=== PATIENT | female | born 1945 | race Caucasian/White ===

== ENCOUNTER 2016-04-30 15:47 | Inpatient (IN) ==
[2016-04-30] MEDS ORDERED: 0.9 % Sodium Chloride 1,000 ML IVC ONE (15:54)
--- NOTE | 2016-04-30 16:06 | Emergency Department Note ---
Disposition Clinical Impression: Pyelonephritis Altered mental status Qualifiers: Altered mental status type: unspecified Qualified Code(s): R41.82 - Altered mental status, unspecified Multiple myeloma Qualifiers: Multiple myeloma remission status: not in remission Qualified Code(s): C90.00 - Multiple myeloma not having achieved remission Disposition: Admitted As Inpatient Condition: Serious General Adult HPI - General Chief complaint: ED General Medical Stated complaint: SENT FROM [facility] R/P SEPSIS Nursing Notes Reviewed: Yes Vital Signs Reviewed: Yes - History of Present Illness HPI Narrative: Patient 70-year-old female with past SIGNIFICANT for multiple myeloma currently undergoing anti-neoplastic therapy with Dr. Zepeda, history of previous VT and diabetes. Patient was brought from [facility] [place] secondary to suspicion of sepsis. Patient has been feeling well for the past 2 days. Patient does not remember much else other than that she says she has been pretty out of it for the past 2 days. - Related Data Home Medications Medication Instructions Recorded Confirmed RX: Aspirin [Adult Low Dose 81 mg PO QAM 04/04/15 04/30/16 Aspirin EC] RX: Atorvastatin Calcium [Lipitor] 20 mg PO DAILY 04/04/15 04/30/16 RX: Loperamide HCl [Imodium A-D] 2 mg PO Q6H PRN 04/04/15 04/30/16 RX: Prochlorperazine Maleate 10 mg PO Q6H PRN 04/04/15 04/30/16 [Compazine] RX: Tizanidine HCl [Zanaflex] 4 mg PO Q8H PRN 04/04/15 04/30/16 RX: Docusate [Colace] 100 mg PO DAILY PRN 04/22/15 04/30/16 RX: Insulin Glargine,Hum.rec.anlog 15 unit SQ HS 04/22/15 04/30/16 [Lantus Solostar] RX: Insulin Glargine,Hum.rec.anlog 18 unit SQ QAM 04/22/15 04/30/16 [Lantus Solostar] RX: Insulin LISPRO [HumaLOG] 0 unit SQ ACHS 04/22/15 04/30/16 RX: Melatonin 10 mg PO HS PRN 04/22/15 04/30/16 RX: Simethicone [Gas-X] 160 mg PO Q6H PRN 04/22/15 04/30/16 RX: Acetaminophen [Tylenol] 650 mg PO Q4H PRN 06/11/15 04/30/16 RX: Gabapentin [Neurontin] 300 mg PO BID 06/11/15 04/30/16 RX: Magnesium Hydroxide/Al Hydrox 30 ml PO BID PRN 06/11/15 04/30/16 [Mag-Al Liquid] RX: Glucagon HCl 1 mg IJ ONCE PRN 12/27/15 04/30/16 Clopidogrel [Plavix] 75 mg PO DAILY 02/18/16 04/30/16 Fluticasone Propionate Nasal 2 spray NS DAILY 02/18/16 04/30/16 [Flonase] Furosemide [Lasix] 40 mg PO DAILY 02/18/16 04/30/16 RX: Temazepam [Restoril] 15 mg PO HS 02/18/16 04/30/16 Albuterol Neb [Proventil Neb] 2.5 mg IH Q6H PRN 04/30/16 04/30/16 GuaiFENesin/Dextromethorphan 1 each PO BID 04/30/16 04/30/16 [Mucinex Dm ER 600-30 mg Tablet] Guaifenesin [Diabetic Tussin Ex] 100 mg PO QID PRN 04/30/16 04/30/16 Nystatin POWDER [Nystop] 1 appl TP BID 04/30/16 04/30/16 Ondansetron HCl [Zofran] 4 mg PO Q6H PRN 04/30/16 04/30/16 RX: Mirtazapine 7.5 mg PO HS 04/30/16 04/30/16 Saline Nasal [place] [[place] Nasal 1 spray NS TID 04/30/16 04/30/16 [place]] Sulfamethoxazole/Trimeth DS 1 each PO BID 04/30/16 04/30/16 [Bactrim DS] Tolnaftate [Antifungal Cream] 1 appl TP BID 04/30/16 04/30/16 Tramadol HCl [Ultram] 50 - 100 mg PO Q6H PRN 04/30/16 04/30/16 Tramadol HCl [Ultram] 50 mg PO BID 04/30/16 04/30/16 Zolpidem [Ambien] 5 mg PO HS 04/30/16 04/30/16 Previous Rx's Medication Instructions Recorded RX: Folic Acid 1 mg PO DAILY #30 tablet 04/18/15 MethylPREDNISolone [Medrol] 20 mg PO DAILY #10 tablet 04/14/16 Allergies Allergy/AdvReac Type Severity Reaction Status Date / Time hydrocodone [From Vicodin] Allergy Rash Verified 04/04/15 11:12 Review of Systems: Patient states she feels horrible and has been feeling horrible for the past 2 days. When I asked the patient if she has been having any headache, fever, chills, abdominal pain lightheadedness dizziness patient states that she really does not know that she has been pretty out of it but she does note feeling short of breath the past 2 days and she has some pain when breathing in deeply All systems ED: reviewed and negative except as stated. Past Medical History - Past Medical History Medical history: Reports: cancer, coronary artery disease, diabetes, renal disease, other Surgical history: Reports: angioplasty/stent Psychiatric history: Reports: no psych history - Social History Smoking Status: Never smoker Smokeless Tobacco Status: No Alcohol use: Reports: none Drug use: Reports: none Physical Exam -General Appearance: Patient is a 70-year-old female who is alert and oriented 3 and satting acute distress but patient is very uncomfortable secondary to feeling very ill. Patient has a wet sounding cough -Neurological exam: Cranial nerves II-12 grossly intact, no focal deficits observed - Head Head exam: atraumatic, normocephalic, normal inspection - Eye Eye exam: Present: normal appearance, PERRL, EOMI, negative for scleral icterus negative for conjunctival pallor - ENT ENT exam: normal exam, normal oropharynx, mucous membranes very dry - Neck Neck exam: Present: normal inspection, full ROM, trachea midline, negative JVD - Chest Chest inspection: Present: Patient has bilateral equal rise and fall of chest wall. Non-tender to palpation. Port placed right chest wall - Respiratory Respiratory exam: Clear to auscultation bilaterally without wheezes rales or rhonchi Cardiovascular Cardiovascular exam: Present: regular rate, normal rhythm, normal heart sounds, without murmurs rubs or gallops. - Abdominal Exam Abdominal exam: Present: soft, nondistended, Non-Tender light and deep palpation in all quadrants. Bowel sounds normoactive throughout all 4 quadrants. Negative for hyper or hyperresonance. - Extremities Exam Extremities exam: Present: normal inspection - Psychiatric Psychiatric exam: Present: normal affect, normal mood - Skin Skin exam: Present: warm, dry, intact extremities, normal color patient has areas of ecchymosis secondary to anticoagulant therapy. Course Course Narrative: Patient seen and examined. Full sepsis workup was initiated. - Reevaluation(s) Reevaluation #1: Pt is doing well but still has some confusion and unable to answer all questions. Time: 16:10 Vital Signs Temperature 97.6 F 04/30/16 15:51 Pulse Rate 75 04/30/16 15:51 Respiratory Rate 20 04/30/16 15:51 Blood Pressure 113/51 04/30/16 15:51 O2 Sat by Pulse Oximetry 95 04/30/16 15:51 Temperature 97.4 F L 05/06/16 21:49 Pulse Rate 74 05/06/16 21:49 Respiratory Rate 16 05/06/16 21:49 Blood Pressure 125/65 05/06/16 21:49 O2 Sat by Pulse Oximetry 98 05/06/16 21:49 Oxygen Delivery Oxygen Delivery Nasal Cannula Medical Decision Making - MDM Narrative Medical decision making narrative: Miss Vaughan is a 70-year-old female was brought over to the ED from her oncologist's office at [facility]. Patient was receiving dose of chemotherapy for multiple myeloma. Pt reported recent History of fever and altered mental status and was transfered to [place] for workup for possible Sepsis. Sunny has a history of VT and diabetes mellitus. Patient has been not feeling well for the past few days. Pt is currently afebrile but appears not well with a history of multiple myeloma, undergoing chemo and so Sepsis protocol was initiated. Pt's troponin 0.01 , lactic acid 0.6, BMP shows hyponatremia at 135, elevated BUN 116 and elevated creatinine at 4.37. Patient has chronic elevation with previous creatinine of 2.11. Patient's ABG shows a low PO2 saturation but a normal pH and is retaining CO2. Patient's urine is cloudy positive for hematuria, nitrites, large leukocyte esterase, microscopic RBCs 5-15, and many bacteria. Admitting patient for pyelonephritis with Altered Mental status secondary to Azotemic Encephalopathy. Disposition will be admission at this time. Dr. Waite accepted for admission. - Medical Records Medical records reviewed: Yes I reviewed the patient's medical records. - Lab Data Lab results reviewed: Yes I reviewed the patient's lab results. Result diagrams: 05/06/16 04:20 05/06/16 04:20 Lab Results 04/30/16 04/30/16 04/30/16 Range/Units 16:06 16:08 16:08 WBC 11.1 (4.3-11.1) K/mcL RBC 3.19 L (3.82-4.97) M/mcL Hgb 9.7 L (11.5-15.4) g/dL Hct 29.8 L (35.3-44.9) % MCV 93.4 (83.0-100.0) fL MCH 30.4 (28.0-33.3) pg MCHC 32.6 (31.6-35.5) g/dL RDW 14.4 (11.5-14.5) % Plt Count 241 (140-400) K/mcL MPV 9.8 (9.4-12.4) fL Immature Gran % 0.8 (0-4) % Seg Neutrophils % 97.1 % Lymphocytes % 0.7 % Monocytes % 1.1 % Eosinophils % 0.2 % Basophils % 0.1 % Neutrophils # 10.8 H (1.6-8.9) K/mcL Lymphocytes # 0.1 L (0.6-4.6) K/mcL Monocytes # 0.1 (0.0-1.3) K/mcL Eosinophils # 0.0 (0.0-0.6) K/mcL Basophils # 0.0 (0.0-0.2) K/mcL Platelet Estimate Normal (Normal) Immature Plt Fraction 1.6 (1.1-6.1) % PT 13.4 H (9.4-12.1) Seconds INR 1.2 APTT 32.9 (26.0-36.0) Seconds ABG pH (7.32-7.45) pH Units ABG pCO2 (35-45) mmHg ABG pO2 (85-104) mmHg ABG HCO3 (21-27) mEQ/L ABG Total CO2 (20-26) mEq/L ABG O2 Saturation (95-98) % ABG Base Excess (-2.0 to 3.0) mEq/L Blood Gas Modality Inspired O2 % Sodium (136-145) mEq/L Potassium (3.5-4.5) mEq/L Chloride (98-109) mEq/L Carbon Dioxide (19-29) mEq/L BUN (7-20) mg/dL Creatinine (0.57-1.11) mg/dL Est GFR ( Amer) (> 60) Est GFR (Non-Af Amer) (> 60) BUN/Creatinine Ratio (6-26) Glucose (70-99) mg/dL Est Mean Plasma Glucose 229 mg/dl Hemoglobin A1c 9.6 H ( - 5.6) % Calculated Osmolality (280-300) Lactic Acid (0.5-2.2) mmol/L Calcium (8.6-10.8) mg/dL Phosphorus (2.3-4.7) mg/dL Magnesium (1.6-2.6) mg/dL Total Bilirubin (0.2-1.2) mg/dL Direct Bilirubin (0.0-0.5) mg/dL Indirect Bilirubin (0.0-1.2) mg/dL AST (5-34) Units/L ALT (0-55) Units/L Alkaline Phosphatase (38-126) Units/L Troponin I (0-0.03) ng/mL Serum Total Protein (6.0-8.3) g/dL Albumin (3.5-5.0) g/dL Globulin (2.4-3.5) g/dL Albumin/Globulin Ratio (1.1-2.2) Urine Color (Yellow) Urine Clarity (Clear) Urine pH (5.0-8.0) pH Units Ur Specific [place] (1.010-1.025) Urine Protein (Neg-Trace) mg/dL Urine Glucose (UA) (Normal) mg/dL Urine Ketones (Negative) mg/dL Urine Blood (Negative) Urine Nitrite (Negative) Urine Bilirubin (Negative) Urine Urobilinogen (Normal) mg/dL Ur Leukocyte Esterase (Negative) Urine Microscopic RBC (0-3) per hpf Urine Microscopic WBC (0-3) per hpf Ur Squamous Epith Cells (None-Few) per lpf Urine Bacteria (None-Few) per hpf Hyaline Casts (None-Few) per lpf Ur Culture Indicated? (NO) 04/30/16 04/30/16 04/30/16 Range/Units 16:08 16:08 16:08 WBC (4.3-11.1) K/mcL RBC (3.82-4.97) M/mcL Hgb (11.5-15.4) g/dL Hct (35.3-44.9) % MCV (83.0-100.0) fL MCH (28.0-33.3) pg MCHC (31.6-35.5) g/dL RDW (11.5-14.5) % Plt Count (140-400) K/mcL MPV (9.4-12.4) fL Immature Gran % (0-4) % Seg Neutrophils % % Lymphocytes % % Monocytes % % Eosinophils % % Basophils % % Neutrophils # (1.6-8.9) K/mcL Lymphocytes # (0.6-4.6) K/mcL Monocytes # (0.0-1.3) K/mcL Eosinophils # (0.0-0.6) K/mcL Basophils # (0.0-0.2) K/mcL Platelet Estimate (Normal) Immature Plt Fraction (1.1-6.1) % PT (9.4-12.1) Seconds INR APTT (26.0-36.0) Seconds ABG pH (7.32-7.45) pH Units ABG pCO2 (35-45) mmHg ABG pO2 (85-104) mmHg ABG HCO3 (21-27) mEQ/L ABG Total CO2 (20-26) mEq/L ABG O2 Saturation (95-98) % ABG Base Excess (-2.0 to 3.0) mEq/L Blood Gas Modality Inspired O2 % Sodium 135 L (136-145) mEq/L Potassium 4.3 (3.5-4.5) mEq/L Chloride 103 (98-109) mEq/L Carbon Dioxide 16 L (19-29) mEq/L BUN 116 H (7-20) mg/dL Creatinine 4.37 H (0.57-1.11) mg/dL Est GFR ( Amer) 12 L (> 60) Est GFR (Non-Af Amer) 10 L (> 60) BUN/Creatinine Ratio 27 H (6-26) Glucose 197 H (70-99) mg/dL Est Mean Plasma Glucose mg/dl Hemoglobin A1c ( - 5.6) % Calculated Osmolality 322 H (280-300) Lactic Acid 0.6 (0.5-2.2) mmol/L Calcium 7.6 L (8.6-10.8) mg/dL Phosphorus 6.3 H (2.3-4.7) mg/dL Magnesium 1.8 (1.6-2.6) mg/dL Total Bilirubin 0.4 (0.2-1.2) mg/dL Direct Bilirubin 0.2 (0.0-0.5) mg/dL Indirect Bilirubin 0.2 (0.0-1.2) mg/dL AST 30 (5-34) Units/L ALT 21 (0-55) Units/L Alkaline Phosphatase 129 H (38-126) Units/L Troponin I 0.01 (0-0.03) ng/mL Serum Total Protein 5.0 L (6.0-8.3) g/dL Albumin 1.9 L (3.5-5.0) g/dL Globulin 3.1 (2.4-3.5) g/dL Albumin/Globulin Ratio 0.6 L (1.1-2.2) Urine Color (Yellow) Urine Clarity (Clear) Urine pH (5.0-8.0) pH Units Ur Specific [place] (1.010-1.025) Urine Protein (Neg-Trace) mg/dL Urine Glucose (UA) (Normal) mg/dL Urine Ketones (Negative) mg/dL Urine Blood (Negative) Urine Nitrite (Negative) Urine Bilirubin (Negative) Urine Urobilinogen (Normal) mg/dL Ur Leukocyte Esterase (Negative) Urine Microscopic RBC (0-3) per hpf Urine Microscopic WBC (0-3) per hpf Ur Squamous Epith Cells (None-Few) per lpf Urine Bacteria (None-Few) per hpf Hyaline Casts (None-Few) per lpf Ur Culture Indicated? (NO) 04/30/16 04/30/16 04/30/16 Range/Units 16:17 16:23 18:20 WBC (4.3-11.1) K/mcL RBC (3.82-4.97) M/mcL Hgb (11.5-15.4) g/dL Hct (35.3-44.9) % MCV (83.0-100.0) fL MCH (28.0-33.3) pg MCHC (31.6-35.5) g/dL RDW (11.5-14.5) % Plt Count (140-400) K/mcL MPV (9.4-12.4) fL Immature Gran % (0-4) % Seg Neutrophils % % Lymphocytes % % Monocytes % % Eosinophils % % Basophils % % Neutrophils # (1.6-8.9) K/mcL Lymphocytes # (0.6-4.6) K/mcL Monocytes # (0.0-1.3) K/mcL Eosinophils # (0.0-0.6) K/mcL Basophils # (0.0-0.2) K/mcL Platelet Estimate (Normal) Immature Plt Fraction (1.1-6.1) % PT (9.4-12.1) Seconds INR APTT (26.0-36.0) Seconds ABG pH 7.35 (7.32-7.45) pH Units ABG pCO2 32 L (35-45) mmHg ABG pO2 78 L (85-104) mmHg ABG HCO3 17.7 L (21-27) mEQ/L ABG Total CO2 18.7 L (20-26) mEq/L ABG O2 Saturation 95 (95-98) % ABG Base Excess -7.1 L (-2.0 to 3.0) mEq/L Blood Gas Modality RA Inspired O2 21 % Sodium (136-145) mEq/L Potassium (3.5-4.5) mEq/L Chloride (98-109) mEq/L Carbon Dioxide (19-29) mEq/L BUN (7-20) mg/dL Creatinine (0.57-1.11) mg/dL Est GFR ( Amer) (> 60) Est GFR (Non-Af Amer) (> 60) BUN/Creatinine Ratio (6-26) Glucose (70-99) mg/dL Est Mean Plasma Glucose mg/dl Hemoglobin A1c ( - 5.6) % Calculated Osmolality (280-300) Lactic Acid 0.6 (0.5-2.2) mmol/L Calcium (8.6-10.8) mg/dL Phosphorus (2.3-4.7) mg/dL Magnesium (1.6-2.6) mg/dL Total Bilirubin (0.2-1.2) mg/dL Direct Bilirubin (0.0-0.5) mg/dL Indirect Bilirubin (0.0-1.2) mg/dL AST (5-34) Units/L ALT (0-55) Units/L Alkaline Phosphatase (38-126) Units/L Troponin I (0-0.03) ng/mL Serum Total Protein (6.0-8.3) g/dL Albumin (3.5-5.0) g/dL Globulin (2.4-3.5) g/dL Albumin/Globulin Ratio (1.1-2.2) Urine Color Yellow (Yellow) Urine Clarity Cloudy A (Clear) Urine pH 6.0 (5.0-8.0) pH Units Ur Specific [place] 1.011 (1.010-1.025) Urine Protein Trace (Neg-Trace) mg/dL Urine Glucose (UA) Normal (Normal) mg/dL Urine Ketones Negative (Negative) mg/dL Urine Blood Moderate H (Negative) Urine Nitrite Positive A (Negative) Urine Bilirubin Negative (Negative) Urine Urobilinogen Normal (Normal) mg/dL Ur Leukocyte Esterase Large H (Negative) Urine Microscopic RBC 5-15 H (0-3) per hpf Urine Microscopic WBC TNTC H (0-3) per hpf Ur Squamous Epith Cells None Seen (None-Few) per lpf Urine Bacteria Many H (None-Few) per hpf Hyaline Casts None Seen (None-Few) per lpf Ur Culture Indicated? YES A (NO) - Radiology Data Radiology results reviewed: Yes I reviewed the patient's radiology results. Pulmonary Perfusion Imaging 04/30/16 17:49 IMPRESSION: Low Probability for Pulmonary Embolus. D/ / Richard Ram MD / Richard Ram MD Interpreting Provider: Richard Ram MD Chest X-Ray 05/05/16 03:00 IMPRESSION: No acute disease. D/ / Chapo Drake MD / Chapo Drake MD Interpreting Provider: Chapo Drake MD - EKG Data EKG #1 EKG attestation: Yes I reviewed and interpreted this EKG. EKG results narrative: EKG taken to April 2016 at 1611 hrs. shows a sinus rate of [address] depressions or elevations in leads. No QRS widening or QT prolongation. Previous EKG taken 06/11/2015 shows a sinus tachycardia with no signs ischemia but has PVCs and irregular P waves
[2016-04-30 16:17] LABS: Basophils % 0.1 %; Eosinophils % 0.2 %; Hematocrit 29.8 % (35.3-44.9); Hemoglobin 9.7 g/dL (11.5-15.4); Immature Granulocytes % 0.8 % (0-4); Immature Platelets 1.6 % (1.1-6.1); Lymphocytes # 0.1 K/mcL (0.6-4.6); Lymphocytes % 0.7 %; Mean Corpuscular HGB Conc 32.6 g/dL (31.6-35.5); Mean Corpuscular Hemoglobin 30.4 pg (28.0-33.3); Mean Corpuscular Volume 93.4 fL (83.0-100.0); Mean Platelet Volume 9.8 fL (9.4-12.4); Monocytes # 0.1 K/mcL (0.0-1.3); Monocytes % 1.1 %; Neutrophils # 10.8 K/mcL (1.6-8.9); Platelet Count 241 K/mcL (140-400); Red Blood Count 3.19 M/mcL (3.82-4.97); Red Cell Distribution Width 14.4 % (11.5-14.5); Segmented Neutrophils % 97.1 %
[2016-04-30 16:22] LABS: INR 1.2; Prothrombin Time 13.4 Seconds (9.4-12.1)
[2016-04-30 16:24] LABS: Activated Partial Thrombo Time 32.9 Seconds (26.0-36.0)
[2016-04-30 16:27] LABS: ABG Base Excess -7.1 mEq/L (-2.0 to 3.0); ABG HCO3 17.7 mEQ/L (21-27); ABG Oxygen Saturation 95 % (95-98); ABG PCO2 32 mmHg (35-45); ABG PH 7.35 pH Units (7.32-7.45); ABG PO2 78 mmHg (85-104); ABG TCO2 18.7 mEq/L (20-26)
[2016-04-30 16:29] LABS: Blood Gas FiO2 21 %
[2016-04-30 16:30] LABS: Bilirubin,Urine Negative (Negative); Blood,Urine Moderate (Negative); Clarity,Urine Cloudy (Clear); Color,Urine Yellow (Yellow); Glucose,Urine (UA) Normal (Normal); Ketones,Urine Negative (Negative); Leukocyte Esterase,Urine Large (Negative); Nitrite,Urine Positive (Negative); Protein,Urine Trace mg/dL (Neg-Trace); Specific Gravity,Urine 1.011 (1.010-1.025); Urobilinogen,Urine Normal (Normal)
[2016-04-30 16:33] LABS: Bacteria,Urine Many per hpf (None-Few); Hyaline Casts,Urine None Seen per lpf (None-Few); Squamous Epithelial Cell,Urine None Seen per lpf (None-Few); WBC,Urine TNTC per hpf (0-3)
[2016-04-30 16:36] LABS: Platelet Estimate Normal (Normal)
--- NOTE | 2016-04-30 16:37 | Emergency Department Note ---
START Narrative - START START: I examined this patient and my medical decision-making was reviewed with the STEAM TRAIN DRIVER/PA/Advanced Practice Nurse/Resident Physician. I agree with the documented findings, disposition and treatment plan as described except to the extent set forth below. ED attending note: Patient seen with emergency medicine resident Dr. Mcdaniel. Please see a copy of his note for details of the H&P, evaluation, management and disposition of this patient. We independently had [id number] contact with the patient Briefly: 70-year-old female history of multiple myeloma currently getting chemotherapy and radiation therapy by Dr. Kevin at [facility]. Was transferred from [facility] at the oncology center therefore weakness transient altered mental status and pleuritic chest pain. Patient has no prior history of DVT or PEs. Patient says that she is calling, less than [place] is been having fever and chills over the past few days. The oncologist sent over here for concerns of possible sepsis and/or pulmonary embolism. Patient is mostly bedbound obese has some anasarca. She has a chest port in place. She is afebrile with stable vital signs here but is somnolent and arouses to voice and is very dry oral mucosa. Patient will has been instituted with sepsis protocol orders. Admission anticipated. Provided one hour critical care service with this patient. Disposition pending
[2016-04-30 16:39] LABS: Albumin/Globulin Ratio 0.6 (1.1-2.2); Bilirubin,Direct 0.2 mg/dL (0.0-0.5); Bilirubin,Indirect 0.2 mg/dL (0.0-1.2); Bilirubin,Total 0.4 mg/dL (0.2-1.2); Calcium 7.6 mg/dL (8.6-10.8); Globulin 3.1 g/dL (2.4-3.5); Magnesium 1.8 mg/dL (1.6-2.6); Phosphorous 6.3 mg/dL (2.3-4.7); Potassium 4.3 mEq/L (3.5-4.5)
[2016-04-30 16:40] LABS: Albumin 1.9 g/dL (3.5-5.0)
[2016-04-30] MEDS ORDERED: Naloxone 0.4 MG/ML INJ IVP PRN (21:14)
[2016-04-30] MEDS ORDERED: Albuterol 2.5 MG/3 ML NEBULIZER IH PRN (21:21)
[2016-04-30] MEDS ORDERED: Mag Hydrox/Al Hydrox/Simeth 30 ML UDC PO PRN (21:21)
[2016-04-30] MEDS ORDERED: traMADol 50 MG TABLET PO PRN (21:21)
[2016-04-30] MEDS ORDERED: Simethicone 80 MG TAB.CHEW PO PRN (21:21)
[2016-04-30] MEDS ORDERED: D5% in Water 1,000 ML IV PRN (21:28)
[2016-04-30] MEDS ORDERED: *HR* Dextrose 50 % in Water (Syg) 50 ML SYRINGE IVP PRN (21:28)
[2016-04-30] MEDS ORDERED: Dextrose Gel 15 GM PO PRN ×2 (21:28)
--- NOTE | 2016-04-30 21:29 | Internal Med History&Physical ---
Date of Encounter: 04/30/16 Time of Encounter: 20:30 Assessment and Plan (1) UTI (urinary tract infection) due to urinary indwelling Choi catheter Current visit: Yes Status: Acute 1. Blood and urine culture pending. 2. Will treat with IV antibiotics/Rocephin. Adjust according to culture results. 3. Change Choi. Qualifiers: Indwelling urinary catheter type: indwelling urethral catheter Encounter type: initial encounter Qualified Code(s): T83.511A - Infection and inflammatory reaction due to indwelling urethral catheter, initial encounter; N39.0 - Urinary tract infection, site not specified (2) Acute renal failure Current visit: No Status: Acute 1. Likely due to UTI and dehydration. 2. Hold diuretics. 3. IVF hydration. 4. Monitor I/O and renal function. 5. Consult nephrology. 6. Calcium is low so hypercalcemia of malignancy not the etiology. Qualifiers: Acute renal failure type: unspecified Qualified Code(s): N17.9 - Acute kidney failure, unspecified (3) Chronic kidney disease (CKD), stage IV (severe) Current visit: No Status: Chronic 1. Avoid nephrotoxins. 2. Baseline creatinine is around 2.2. 3. Hold diuretics. 4. Nephrology consulted. (4) Multiple myeloma, failed remission Current visit: No Status: Chronic 1. Outpatient Hematology/Oncology follow-up. 2. Patient is full code. 3. May need inpatient consult for guidance of care. (5) IDDM (insulin dependent diabetes mellitus) Current visit: Yes Status: Chronic 1. Continue home Lantus dosing with SSI. 2. Monitor and adjust insulin dosing as needed. (6) DVT prophylaxis Current visit: Yes Status: Acute 1. Heparin SQ. Internal Medicine - H&P: HPI Chief complaint: weak; altered mental status; dehydration Admitted From: Emergency Dept Plans for Post Hospital Care: Home History of present illness: Ms. Vaughan is a 70 year old female who was sent to the emergency department today by her oncologist for concerns of weakness, altered mental status, and dehydration. Work-up in the ER revealed patient to have evidence of urinary tract infection with probable pyelonephritis, acute renal failure on top of chronic disease, and dehydration. Furthermore, there was concern that she had altered mental status. She was subsequently admitted to the hospitalist service. Upon my assessment of the patient, she appears be quite dehydrated, chronically ill-appearing, and very weak. She has minimal confusion, however. She is able to reiterate most of her history to me and she is alert and oriented 3. She states that she has been treated for UTI recently, but she still has some strong odor to her urine and the urine output has decreased. She has a chronic indwelling Choi catheter, and she lives in an F presently. She has been undergoing therapy and treatment for her multiple myeloma. She was due to start a new regimen of chemotherapy soon, but that is on hold because of her current hospital stay. She also recently finished radiation to her right leg where she has had some subcutaneous nodules related to her multiple myeloma. Regarding her UTI, she denies any subjective fevers, but she has had chills. She admits to being dehydrated and having decreased urine output. She is mostly bedbound but she does try and ambulate with significant assistance, however. She denies any vomiting or diarrhea. She denies any chest pain or shortness of breath. CODE STATUS is full code. Past Med Surg Social Fam HX - Past Medical History Source: patient, old records reviewed Medical history: cancer (multiple myeloma), coronary artery disease, diabetes, renal disease Psychiatric history: no psych history - Past Surgical History Surgical History: angioplasty/stent - Social History Smoking Status: Never smoker Smokeless Tobacco Status: No Alcohol use: none Drug use: none Current living situation: [facility] Activity Level: Bed bound, Mostly sedentary Recent Out of Country Travel Within the Last 8 Weeks: No - Family History Father Living Status: Hx Family Cardiac Disorders: Yes Hx Family Endocrine Disorder: Yes Sister Hx Family Cancer: Yes (kidney) Hx Family Endocrine Disorder: Yes Mother Living Status: Still Living Hx Family Cardiac Disorders: Yes (HTN) Hx Family Endocrine Disorder: Yes Internal Medicine - H&P: Meds Aspirin [Adult Low Dose Aspirin EC] 81 mg PO QAM 04/04/15 [History] Atorvastatin Calcium [Lipitor] 20 mg PO DAILY 04/04/15 [History] Loperamide HCl [Imodium A-D] 2 mg PO Q6H PRN 04/04/15 [History] Prochlorperazine Maleate [Compazine] 10 mg PO Q6H PRN 04/04/15 [History] Tizanidine HCl [Zanaflex] 4 mg PO Q8H PRN 04/04/15 [History] Folic Acid 1 mg PO DAILY #30 tablet 04/18/15 [Rx] Docusate [Colace] 100 mg PO DAILY PRN 04/22/15 [History] Insulin Glargine,Hum.rec.anlog [Lantus Solostar] 15 unit SQ HS 04/22/15 [History ] Insulin Glargine,Hum.rec.anlog [Lantus Solostar] 18 unit SQ QAM 04/22/15 [ History] Insulin LISPRO [HumaLOG] 0 unit SQ ACHS 04/22/15 [History] Melatonin 10 mg PO HS PRN 04/22/15 [History] Simethicone [Gas-X] 160 mg PO Q6H PRN 04/22/15 [History] Acetaminophen [Tylenol] 650 mg PO Q4H PRN 06/11/15 [History] Gabapentin [Neurontin] 300 mg PO BID 06/11/15 [History] Magnesium Hydroxide/Al Hydrox [Mag-Al Liquid] 30 ml PO BID PRN 06/11/15 [History ] Glucagon HCl 1 mg IJ ONCE PRN 12/27/15 [History] Clopidogrel [Plavix] 75 mg PO DAILY 02/18/16 [History] Fluticasone Propionate Nasal [Flonase] 2 spray NS DAILY 02/18/16 [History] Furosemide [Lasix] 40 mg PO DAILY 02/18/16 [History] Temazepam [Restoril] 15 mg PO HS 02/18/16 [History] MethylPREDNISolone [Medrol] 20 mg PO DAILY #10 tablet 04/14/16 [Rx] Albuterol Neb [Proventil Neb] 2.5 mg IH Q6H PRN 04/30/16 [History] GuaiFENesin/Dextromethorphan [Mucinex Dm ER 600-30 mg Tablet] 1 each PO BID 05/15 [History] Guaifenesin [Diabetic Tussin Ex] 100 mg PO QID PRN 04/30/16 [History] Mirtazapine 7.5 mg PO HS 04/30/16 [History] Nystatin POWDER [Nystop] 1 appl TP BID 04/30/16 [History] Ondansetron HCl [Zofran] 4 mg PO Q6H PRN 04/30/16 [History] Saline Nasal [place] [[place] Nasal [place]] 1 spray NS TID 04/30/16 [History] Sulfamethoxazole/Trimeth DS [Bactrim DS] 1 each PO BID 04/30/16 [History] Tolnaftate [Antifungal Cream] 1 appl TP BID 04/30/16 [History] Tramadol HCl [Ultram] 50 - 100 mg PO Q6H PRN 04/30/16 [History] Tramadol HCl [Ultram] 50 mg PO BID 04/30/16 [History] Zolpidem [Ambien] 5 mg PO HS 04/30/16 [History] Allergies hydrocodone [From Vicodin] Allergy (Verified 04/04/15 11:12) Rash - Constitutional Constitutional: chills, weakness, no fever(s), no night sweats - EENT Eyes: no blurry vision, no change in vision Ears: no ear pain, no tinnitus Nose, mouth and throat: no sinus pain, no sinus pressure, no sore throat - Cardiovascular Cardiovascular ROS IM: no chest pain, no dyspnea - Respiratory Respiratory: no cough, no hemoptysis, no chest congestion, no excessive phlegm production - Gastrointestinal Gastrointestinal: nausea, no abdominal pain, no diarrhea, no vomiting - Genitourinary Genitourinary: dysuria, no hematuria Additional comments: + decreased urine output - Musculoskeletal Musculoskeletal ROS IM: arthralgias, back pain, limited range of motion - Integumentary Integumentary IM: non-healing lesions (chronic skin nodules on her right leg from MM), no rash, no jaundice - Neurological Neurological ROS: no dizziness, no focal weakness, no headache(s) - Psychiatric Psychiatric: no anxiety, no depression - Endocrine Endocrine IM: no cold intolerance, no heat intolerance - Hematologic/Lymphatic Hematologic/Lymphatic: easy bruising, no lymphadenopathy - Allergic/Immunologic Allergic/Immunologic: no wheezing, no GI upset with certain foods - Constitutional Vitals: Temp Pulse Resp BP Pulse Ox 97.5 F L 84 18 117/72 98 04/30/16 20:51 04/30/16 20:51 04/30/16 20:51 04/30/16 20:51 04/30/16 20:51 General appearance: Present: cooperative, mild distress, A&O X 3, pleasant, obese, answers questions appropriately Exam: looks dry - Head Head exam: Present: atraumatic, normal inspection - Expanded Head Exam Head exam expanded: Absent: abrasion, contusion, general tenderness - Eye Eye exam: Present: EOMI, normal appearance, PERRL. Absent: scleral icterus Pupils: Present: normal accommodation - ENT ENT exam: Present: mucous membranes dry, normal exam, normal oropharynx - Neck Neck exam general surgery: Present: full ROM, normal inspection, supple. Absent : lymphadenopathy, nuchal rigidity, thyromegaly - Respiratory Respiratory exam: Present: CTAB. Absent: chest wall tenderness, rales, respiratory distress, rhonchi, wheezes - Cardiovascular Cardiovascular exam: Present: RRR, +S1, +S2. Absent: diastolic murmur, systolic murmur - GI/Abdominal GI/Abdominal exam: Present: normal bowel sounds, soft. Absent: hepatomegaly, mass, splenomegaly, tenderness - Additional comments: Choi in place - Extremities Exam Extremities exam: Present: tenderness (right leg with nodules and wound from radiation on lateral thigh), warm. Absent: calf tenderness, full ROM, joint swelling - Back Exam Back exam: Present: CVA tenderness (L), CVA tenderness (R) - Neurological Exam Neurological exam: Present: alert, CN II-XII intact, oriented X3, no focal deficits Additional comments: limited exam as she is bedbound; she moves all four extremities however - Psychiatric Psychiatric exam: Present: normal affect, normal mood - Skin Skin exam: Present: dry, warm. Absent: rash Additional comments: leg nodules as noted above Internal Med - H&P Results - Labs CBC & Chem 7: 04/30/16 16:08 04/30/16 16:08 - EKG Data -: EKG Interpreted by Myself - EKG Data Prior EKG available for review: yes When compared to previous EKG: there is no significant change EKG comments: 04/30/16 22:05 Sinus rhtyhm with leftward axis; otherwise negative - Diagnostic Studies Chest x-ray Status: image reviewed by me (increased pulmonary vascularity)
[2016-04-30] MEDS: 0.9 % Sodium Chloride 1,000 ML IVC SCH (22:24)
[2016-04-30 22:36] LABS: Hemoglobin A1C 9.6 %
[2016-05-01] MEDS: Hydrocortisone Sodium Succ 100 MG/2 ML VIAL IVP SCH ×3 (00:37→16:50)
[2016-05-01 06:49] LABS: Basophils % 0.1 %; Hematocrit 28.9 % (35.3-44.9); Hemoglobin 9.2 g/dL (11.5-15.4); Immature Granulocytes % 0.9 % (0-4); Lymphocytes # 0.2 K/mcL (0.6-4.6); Mean Corpuscular HGB Conc 31.8 g/dL (31.6-35.5); Mean Corpuscular Hemoglobin 29.4 pg (28.0-33.3); Mean Corpuscular Volume 92.3 fL (83.0-100.0); Monocytes # 0.2 K/mcL (0.0-1.3); Monocytes % 1.9 %; Neutrophils # 7.5 K/mcL (1.6-8.9); Platelet Count 249 K/mcL (140-400); Red Blood Count 3.13 M/mcL (3.82-4.97); Red Cell Distribution Width 14.3 % (11.5-14.5); Segmented Neutrophils % 95.1 %
[2016-05-01 07:07] LABS: Albumin 1.7 g/dL (3.5-5.0); Albumin/Globulin Ratio 0.6 (1.1-2.2); Bilirubin,Total 0.2 mg/dL (0.2-1.2); Calcium 7.1 mg/dL (8.6-10.8); Globulin 2.9 g/dL (2.4-3.5); Magnesium 1.7 mg/dL (1.6-2.6); Potassium 3.6 mEq/L (3.5-4.5); Total Protein 4.6 g/dL (6.0-8.3)
[2016-05-01] MEDS ORDERED: Insulin LISPRO 300 UNITS/3 ML VIAL SQ SCH (07:30)
[2016-05-01] MEDS: *HR* Heparin 5,000 UNIT/ML VIAL SQ SCH ×2 (07:38→18:56)
[2016-05-01 08:01] LABS: Platelet Estimate Normal (Normal); Toxic Granulation Present (Not Present)
[2016-05-01] MEDS ORDERED: Insulin DETEMIR 100 UNIT/ML X5UNITS SQ SCH ×2 (09:00→21:00)
[2016-05-01] MEDS: Folic Acid 1 MG TABLET PO SCH (10:20)
[2016-05-01] MEDS: Aspirin Enteric Coated 81 MG Tablet PO SCH (10:20)
[2016-05-01] MEDS: Saline Nasal Spray 44 ML BOTTLE NS SCH ×3 (10:28→22:55)
[2016-05-01] MEDS: Fluticasone Propionate Nasal 50 MCG/SPRAY BOTTLE NS SCH (10:28)
[2016-05-01] MEDS: Nystatin POWDER 30 GM BOTTLE TP SCH ×2 (10:29→22:55)
[2016-05-01] MEDS: Gabapentin 300 MG CAPSULE PO SCH ×2 (10:32→22:55)
[2016-05-01] MEDS: 0.9 % Sodium Chloride 1,000 ML IVC SCH (10:34)
--- NOTE | 2016-05-01 10:56 | Nephrology Consult Note ---
Date of Encounter: 05/01/16 Time of Encounter: 10:30 Assessment and Plan (1) Acute renal failure Current Visit: No Status: Acute PURNIMA/CKD baseline creat 2.1-2.5 in setting of dehydration secondary to decreased oral intake, picture of sepsis, possible tumor lysis related to current chemo and radiation. Continue IV fluids. Will obtain uric acid. Avoid nephrotoxins. Qualifiers: Acute renal failure type: unspecified Qualified Code(s): N17.9 - Acute kidney failure, unspecified History of Present Illness - Reason for Consult Acute Kidney Injury - History of Present Illness Ms. Vaughan is 70 year old female known to practice with CKD3-4. Baseline creat 2.1-2.5. Other significant PMH multiple myeloma currently receiving chemo and radiation for right leg nodules, CAD, previous IL and diabetes. Ms Vaughan currently resides in nursing facility and has a chronic indwelling Choi catheter. Ms. Vaughan was sent to ER from Oncology office for suspicion of sepsis. Sepsis workup started in ER. She states she has been not feeling good and "out of it for past two days." ROS is difficult to obtain because she "doesnt know how shes been feeling other than feeling out of it." This morning she states is feeling much better and more like herself. She does admit decreased food and fluid intake for past "few weeks." She denies NSAID use. It is noted she has a moist nonproductive cough that she states has had for "awhile." She states her Choi catheter was changed last night. Past Med Surg Social Fam HX - Past Medical History Medical history: cancer (multiple myeloma), coronary artery disease, diabetes, renal disease Psychiatric history: no psych history - Past Surgical History Surgical History: angioplasty/stent - Social History Smoking Status: Never smoker Smokeless Tobacco Status: No Alcohol use: none Drug use: none - Family History Father Living Status: Hx Family Cardiac Disorders: Yes Hx Family Endocrine Disorder: Yes Sister Hx Family Cancer: Yes (kidney) Hx Family Endocrine Disorder: Yes Mother Living Status: Still Living Hx Family Cardiac Disorders: Yes (HTN) Hx Family Endocrine Disorder: Yes Medications and Allergies Aspirin [Adult Low Dose Aspirin EC] 81 mg PO QAM 04/04/15 [History] Atorvastatin Calcium [Lipitor] 20 mg PO DAILY 04/04/15 [History] Loperamide HCl [Imodium A-D] 2 mg PO Q6H PRN 04/04/15 [History] Prochlorperazine Maleate [Compazine] 10 mg PO Q6H PRN 04/04/15 [History] Tizanidine HCl [Zanaflex] 4 mg PO Q8H PRN 04/04/15 [History] Folic Acid 1 mg PO DAILY #30 tablet 04/18/15 [Rx] Docusate [Colace] 100 mg PO DAILY PRN 04/22/15 [History] Insulin Glargine,Hum.rec.anlog [Lantus Solostar] 15 unit SQ HS 04/22/15 [History ] Insulin Glargine,Hum.rec.anlog [Lantus Solostar] 18 unit SQ QAM 04/22/15 [ History] Insulin LISPRO [HumaLOG] 0 unit SQ ACHS 04/22/15 [History] Melatonin 10 mg PO HS PRN 04/22/15 [History] Simethicone [Gas-X] 160 mg PO Q6H PRN 04/22/15 [History] Acetaminophen [Tylenol] 650 mg PO Q4H PRN 06/11/15 [History] Gabapentin [Neurontin] 300 mg PO BID 06/11/15 [History] Magnesium Hydroxide/Al Hydrox [Mag-Al Liquid] 30 ml PO BID PRN 06/11/15 [History ] Glucagon HCl 1 mg IJ ONCE PRN 12/27/15 [History] Clopidogrel [Plavix] 75 mg PO DAILY 02/18/16 [History] Fluticasone Propionate Nasal [Flonase] 2 spray NS DAILY 02/18/16 [History] Furosemide [Lasix] 40 mg PO DAILY 02/18/16 [History] Temazepam [Restoril] 15 mg PO HS 02/18/16 [History] MethylPREDNISolone [Medrol] 20 mg PO DAILY #10 tablet 04/14/16 [Rx] Albuterol Neb [Proventil Neb] 2.5 mg IH Q6H PRN 04/30/16 [History] GuaiFENesin/Dextromethorphan [Mucinex Dm ER 600-30 mg Tablet] 1 each PO BID 05/15 [History] Guaifenesin [Diabetic Tussin Ex] 100 mg PO QID PRN 04/30/16 [History] Mirtazapine 7.5 mg PO HS 04/30/16 [History] Nystatin POWDER [Nystop] 1 appl TP BID 04/30/16 [History] Ondansetron HCl [Zofran] 4 mg PO Q6H PRN 04/30/16 [History] Saline Nasal [place] [[place] Nasal [place]] 1 spray NS TID 04/30/16 [History] Sulfamethoxazole/Trimeth DS [Bactrim DS] 1 each PO BID 04/30/16 [History] Tolnaftate [Antifungal Cream] 1 appl TP BID 04/30/16 [History] Tramadol HCl [Ultram] 50 - 100 mg PO Q6H PRN 04/30/16 [History] Tramadol HCl [Ultram] 50 mg PO BID 04/30/16 [History] Zolpidem [Ambien] 5 mg PO HS 04/30/16 [History] Allergies hydrocodone [From Vicodin] Allergy (Verified 04/04/15 11:12) Rash Review of Systems All Systems: reviewed and no additional remarkable complaints except as stated Exam - Vital Signs Vital signs: Initial Vital Signs Temp Pulse Resp BP Pulse Ox 97.6 F 75 20 113/51 95 04/30/16 15:51 04/30/16 15:51 04/30/16 15:51 04/30/16 15:51 04/30/16 15:51 Vital Signs - Last 8 Hours Temp Pulse Resp BP Pulse Ox 05/01/16 06:44 97.5 F L 77 18 105/53 97 05/01/16 04:38 97.6 F 80 17 123/72 96 Intake and Output 04/30/16 05/01/16 05/01/16 23:59 07:59 15:59 Intake Total 2160 / 2160 Output Total 950 / 950 Balance 1210 / 1210 Intake: IV Fluids 1100 / 1100 0.9 % Sodium Chloride 1, 1000 / 1000 000 ML @ 100 mls/hr IVC . Q10H EDDIE Rx#:[id number] Rocephin 2,000 MG In 100 / 100 Dextrose 5% (Minibag+) 100 ML 100 ML @ 200 mls/ hr IVPB Q24H EDDIE Rx#: [id number] Oral 1060 / 1060 Output: Catheter 950 / 950 Other: Meal Breakfast Percent of Meal Consumed 30% Weight 126 kg Patient Weight 05/01/16 23:59 Weight 126 kg - General Appearance General appearance: well-developed, well-nourished, appears started age, obese EENT: mucous membranes moist Neck: no JVD, no carotid bruit Respiratory: course breath sounds Cardiology: regular rate, regular rhythm Additional Comments: obese LE, 3+ pedal edema, skin taut, shiny. Gastrointestinal: normoactive bowel sounds, no tenderness, no guarding, obese Integumentary: warm and dry Neurologic: alert and oriented x3 Psychiatric: mood/affect appropriate, cooperative Results - Lab Results 05/01/16 06:05 05/01/16 06:05 Most recent lab results ABG pH 7.35 pH Units (7.32-7.45) 04/30/16 16:23 ABG pCO2 32 mmHg (35-45) L 04/30/16 16:23 ABG pO2 78 mmHg (85-104) L 04/30/16 16:23 ABG HCO3 17.7 mEQ/L (21-27) L 04/30/16 16:23 ABG O2 Saturation 95 % (95-98) 04/30/16 16:23 Calcium 7.1 mg/dL (8.6-10.8) L 05/01/16 06:05 Phosphorus 6.3 mg/dL (2.3-4.7) H 04/30/16 16:08 Magnesium 1.7 mg/dL (1.6-2.6) 05/01/16 06:05 Consult Discharge Plan - Plan Referrals: NO,PCP [Non-Partnered Physician] -
--- NOTE | 2016-05-01 11:22 | Internal Med Progress Note ---
Date of Encounter: 05/01/16 Time of Encounter: 09:20 - Assessment and plan (1) Acute renal failure Current Visit: Yes Status: Acute Assessment and plan: Creatinine remains elevated. Presently at 4.04. BUN 121. Nephrology consulted. Continue IV hydration. Follow arterial function closely. Follow urine output closely. Avoid nephrotoxic agents. Patient at high risk for complications. Qualifiers: Acute renal failure type: with acute tubular necrosis Qualified Code(s): N17.0 - Acute kidney failure with tubular necrosis (2) Chronic kidney disease (CKD), stage IV (severe) Current Visit: No Status: Chronic Assessment and plan: With acute kidney injury. (3) IDDM (insulin dependent diabetes mellitus) Current Visit: Yes Status: Chronic Assessment and plan: Uncontrolled. Monitor blood sugars. Will increase insulin regimen. (4) Multiple myeloma, failed remission Current Visit: No Status: Chronic Assessment and plan: Follow up outpatient with oncology after discharge. (5) UTI (urinary tract infection) due to urinary indwelling Choi catheter Current Visit: Yes Status: Acute Assessment and plan: Urine growing gram-negative rods. Currently on Rocephin. Follow final culture results and sensitivities. Qualifiers: Indwelling urinary catheter type: indwelling urethral catheter Encounter type: initial encounter Qualified Code(s): T83.511A - Infection and inflammatory reaction due to indwelling urethral catheter, initial encounter; N39.0 - Urinary tract infection, site not specified (6) DVT prophylaxis Current Visit: Yes Status: Acute - Subjective Interval history: Patient is feeling better today. Denies any new complaints at this time. No shortness of breath. No fever or chills overnight. No nausea or vomiting. Pain having decent urine output. - Constitutional Vitals: Temp Pulse Resp BP Pulse Ox 97.6 F 88 16 127/61 99 05/01/16 10:55 05/01/16 10:55 05/01/16 10:55 05/01/16 10:55 05/01/16 10:55 General appearance: Present: cooperative, mild distress, A&O X 3, pleasant, obese, answers questions appropriately - Respiratory Respiratory exam: Present: CTAB. Absent: accessory muscle use, rales, rhonchi, wheezes - Cardiovascular Cardiovascular exam: Present: RRR, +S1, +S2. Absent: diastolic murmur, gallop, rubs, systolic murmur - GI/Abdominal GI/Abdominal exam: Present: normal bowel sounds, soft, no peritoneal signs. Absent: distended, tenderness - Extremities Exam Extremities exam: Present: warm, radial pulses palpable and symetrical. Absent : calf tenderness, cyanotic, pedal edema - Neurological Exam Neurological exam: Present: oriented X3, no focal deficits. Absent: facial droop, speech deficit - Skin Skin exam: Present: dry, intact Internal Medicine: Result - Labs CBC & Chem 7: 05/01/16 06:05 05/01/16 06:05 Labs: Short CBC 05/01/16 Range/Units 06:05 WBC 7.9 (4.3-11.1) K/mcL Hgb 9.2 L (11.5-15.4) g/dL Hct 28.9 L (35.3-44.9) % Plt Count 249 (140-400) K/mcL Neutrophils # 7.5 (1.6-8.9) K/mcL BMP 05/01/16 06:05 Sodium 136 Potassium 3.6 Chloride 103 Carbon Dioxide 15 L BUN 121 H Creatinine 4.04 H Glucose 412 H Calcium 7.1 L Liver Function 05/01/16 Range/Units 06:05 Total Bilirubin 0.2 (0.2-1.2) mg/dL AST 22 (5-34) Units/L ALT 20 (0-55) Units/L Alkaline Phosphatase 131 H (38-126) Units/L Albumin 1.7 L (3.5-5.0) g/dL - ABG Interpretation ABG results: ABG ABG pH 7.35 pH Units (7.32-7.45) 04/30/16 16:23 ABG pCO2 32 mmHg (35-45) L 04/30/16 16:23 ABG pO2 78 mmHg (85-104) L 04/30/16 16:23 ABG O2 Saturation 95 % (95-98) 04/30/16 16:23 PT/INR, D-dimer PT 13.4 Seconds (9.4-12.1) H 04/30/16 16:08 Consult Discharge Plan - Plan Referrals: NO,PCP [Non-Partnered Physician] - - Attending Attestation This document has been at least partially created by [employer] recognition technology by Dr. Frazier. Errors in grammar, wording or other phrases may exist. If errors are found after the documentation is signed, they will be addressed individually in the addendum section of this document when appropriate.
[2016-05-01] MEDS: Insulin LISPRO 300 UNITS/3 ML VIAL SQ SCH ×2 (12:11→16:54)
--- NOTE | 2016-05-01 15:07 | Electrocardiograph Report ---
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
[2016-05-01] MEDS: Temazepam 15 MG CAPSULE PO PRN ×2 (22:54→22:55)
[2016-05-02] MEDS: Hydrocortisone Sodium Succ 100 MG/2 ML VIAL IVP SCH ×2 (05:32→07:59)
[2016-05-02] MEDS: 0.9 % Sodium Chloride 1,000 ML IVC SCH (07:07)
[2016-05-02 07:19] LABS: Calcium 6.9 mg/dL (8.6-10.8); Potassium 2.8 mEq/L (3.5-4.5)
[2016-05-02 07:46] LABS: Basophils % 0.1 %; Hematocrit 28.4 % (35.3-44.9); Hemoglobin 9.2 g/dL (11.5-15.4); Immature Granulocytes % 0.9 % (0-4); Lymphocytes # 0.3 K/mcL (0.6-4.6); Lymphocytes % 2.2 %; Mean Corpuscular HGB Conc 32.4 g/dL (31.6-35.5); Mean Corpuscular Hemoglobin 29.8 pg (28.0-33.3); Mean Corpuscular Volume 91.9 fL (83.0-100.0); Mean Platelet Volume 10.2 fL (9.4-12.4); Monocytes # 0.6 K/mcL (0.0-1.3); Monocytes % 5.3 %; Neutrophils # 10.2 K/mcL (1.6-8.9); Platelet Count 267 K/mcL (140-400); Red Blood Count 3.09 M/mcL (3.82-4.97); Red Cell Distribution Width 14.3 % (11.5-14.5); Segmented Neutrophils % 91.5 %
[2016-05-02] MEDS ORDERED: Insulin DETEMIR 100 UNIT/ML X5UNITS SQ SCH (07:56)
[2016-05-02] MEDS: *HR* Heparin 5,000 UNIT/ML VIAL SQ SCH ×2 (07:57→17:38)
[2016-05-02] MEDS: Folic Acid 1 MG TABLET PO SCH (07:58)
[2016-05-02] MEDS: Gabapentin 300 MG CAPSULE PO SCH ×2 (07:58→21:31)
[2016-05-02] MEDS: Aspirin Enteric Coated 81 MG Tablet PO SCH (07:59)
[2016-05-02] MEDS: Fluticasone Propionate Nasal 50 MCG/SPRAY BOTTLE NS SCH (07:59)
[2016-05-02] MEDS: Insulin LISPRO 300 UNITS/3 ML VIAL SQ SCH ×7 (08:00→21:32)
--- NOTE | 2016-05-02 09:18 | Nephrology Progress Note ---
Date of Encounter: 05/02/16 Time of Encounter: 09:05 - Assessment and Plan (1) Acute renal failure Current Visit: Yes Status: Acute Renal fct improving. Edema worsening. IV stopped. Will give Lasix 40mg x 1. K+ rider ordered. Uric acid pending. Qualifiers: Acute renal failure type: with acute tubular necrosis Qualified Code(s): N17.0 - Acute kidney failure with tubular necrosis Subjective Interval history: Ate breakfast. States feeling better today,no new complainnts. Objective - Vital Signs Vital signs: Vital Signs Temp Pulse Resp BP Pulse Ox 05/02/16 07:35 97.6 F 76 20 132/78 99 05/02/16 05:09 97.6 F 80 18 140/71 96 05/02/16 01:37 98.2 F 70 19 128/76 99 05/01/16 20:55 98.5 F 84 20 141/78 98 05/01/16 16:10 98.2 F 80 16 117/50 97 05/01/16 10:55 97.6 F 88 16 127/61 99 05/01/16 10:30 95 Intake and Output 05/01/16 05/02/16 05/02/16 23:59 07:59 15:59 Intake Total 320 / 320 1200 / 1200 Output Total 800 / 800 1350 / 1350 Balance -480 / -480 -150 / -150 Intake: IV Fluids 900 / 900 0.9 % Sodium Chloride 1, 900 / 900 000 ML @ 100 mls/hr IVC . Q10H EDDIE Rx#:[id number] Oral 320 / 320 300 / 300 Output: Urine 800 / 800 Catheter 1350 / 1350 Other: Meal Dinner Percent of Meal Consumed 60% Weight 129.002 kg Blood Glucose* 359 354 Patient Weight 05/02/16 23:59 Weight 129.002 kg - General Appearance General appearance: Present: well-developed, well-nourished, appears started age , obese EENT: Present: mucous membranes moist Neck: Present: no JVD Respiratory: Present: clear Cardiology: Present: regular rate, regular rhythm Additional Comments: 3+ pedal/LE Gastrointestinal: Present: normoactive bowel sounds, no tenderness Integumentary: Present: warm and dry Neurologic: Present: alert and oriented x3 Psychiatric: Present: mood/affect appropriate, cooperative - Lab 05/02/16 06:56 02/04/17 06:56 Most recent lab results ABG pH 7.35 pH Units (7.32-7.45) 04/30/16 16:23 ABG pCO2 32 mmHg (35-45) L 04/30/16 16:23 ABG pO2 78 mmHg (85-104) L 04/30/16 16:23 ABG HCO3 17.7 mEQ/L (21-27) L 04/30/16 16:23 ABG O2 Saturation 95 % (95-98) 04/30/16 16:23 Calcium 6.9 mg/dL (8.6-10.8) L 05/02/16 06:56 Phosphorus 6.3 mg/dL (2.3-4.7) H 04/30/16 16:08 Magnesium 1.7 mg/dL (1.6-2.6) 05/01/16 06:05 Consult Discharge Plan - Plan Referrals: NO,PCP [Non-Partnered Physician] -
[2016-05-02] MEDS ORDERED: Furosemide 40 MG/4 ML VIAL IVP ONE (09:21)
[2016-05-02] MEDS ORDERED: *HR* Metoprolol 5 MG/5 ML VIAL IVP ONE ×3 (09:22→09:26)
[2016-05-02] MEDS: Nystatin POWDER 30 GM BOTTLE TP SCH ×2 (09:41→21:45)
[2016-05-02] MEDS: Insulin DETEMIR 100 UNIT/ML X5UNITS SQ SCH (09:56)
[2016-05-02] MEDS: Saline Nasal Spray 44 ML BOTTLE NS SCH ×3 (09:57→21:48)
[2016-05-02] MEDS ORDERED: Furosemide 40 MG/4 ML VIAL ONE (10:02)
[2016-05-02] MEDS ORDERED: Furosemide 20 MG/2 ML VIAL IVP ONE (10:02)
--- NOTE | 2016-05-02 11:34 | Internal Med Progress Note ---
Date of Encounter: 05/02/16 Time of Encounter: 09:25 - Assessment and plan (1) Atrial fibrillation, new onset Current Visit: Yes Status: Acute Assessment and plan: New onset atrial fibrillation with rapid ventricular response. Patient was previously in sinus rhythm. No reported history of A. fib. Will start on intravenous Cardizem drip. She will be at patient received a dose of 10 mg of metoprolol with good response but has persisted in rapid A. fib. We will consult cardiology. 2-D echocardiogram. High risk for complications. (2) Acute renal failure Current Visit: Yes Status: Acute Assessment and plan: Renal function improved compared to yesterday. But patient has severe edema and anasarca. Follow nephrology recommendations. Recommended one dose of intravenous Lasix. Will follow renal function closely. Continue to monitor urine output. Qualifiers: Acute renal failure type: with acute tubular necrosis Qualified Code(s): N17.0 - Acute kidney failure with tubular necrosis (3) Chronic kidney disease (CKD), stage IV (severe) Current Visit: No Status: Chronic (4) IDDM (insulin dependent diabetes mellitus) Current Visit: Yes Status: Chronic Assessment and plan: Uncontrolled. Increased insulin regimen. Will follow blood sugars closely. (5) Multiple myeloma, failed remission Current Visit: No Status: Chronic (6) UTI (urinary tract infection) due to urinary indwelling Choi catheter Current Visit: Yes Status: Acute Assessment and plan: With ESBL Escherichia coli. Changed antibiotics to ertapenem. We will dose renally. Patient will need intravenous ertapenem for at least 2 weeks to treat this infection. Qualifiers: Indwelling urinary catheter type: indwelling urethral catheter Encounter type: initial encounter Qualified Code(s): T83.511A - Infection and inflammatory reaction due to indwelling urethral catheter, initial encounter; N39.0 - Urinary tract infection, site not specified (7) DVT prophylaxis Current Visit: Yes Status: Acute Assessment and plan: On subcutaneous heparin. - Subjective Interval history: Patient complaining of palpitations. Denies any chest pain. She was doing well till a little while back when she began to have palpitations. Having good urine output. Denies any shortness of breath. No dizziness or lightheadedness. No fever or chills or night sweats. She has never had any heart rhythm abnormalities in the past except when she had her previous NE. She denies any knowledge of previously being diagnosed with any atrial fibrillation. - Constitutional Vitals: Temp Pulse Resp BP Pulse Ox 97.6 F 76 20 132/78 99 05/02/16 07:35 05/02/16 07:35 05/02/16 07:35 05/02/16 07:35 05/02/16 07:35 General appearance: Present: cooperative, mild distress, A&O X 3, pleasant, obese, answers questions appropriately - Respiratory Respiratory exam: Present: CTAB. Absent: accessory muscle use, rales, rhonchi, wheezes - Cardiovascular Cardiovascular exam: Present: irregular rhythm, +S1, +S2, tachycardia. Absent: diastolic murmur, gallop, rubs, systolic murmur - GI/Abdominal GI/Abdominal exam: Present: normal bowel sounds, soft, no peritoneal signs. Absent: distended, tenderness - Extremities Exam Extremities exam: Present: pedal edema (Severe), warm, radial pulses palpable and symetrical. Absent: calf tenderness, cyanotic - Neurological Exam Neurological exam: Present: CN II-XII intact, oriented X3, no focal deficits. Absent: pronater drift, facial droop, speech deficit Internal Medicine: Result - Labs CBC & Chem 7: 05/02/16 06:56 05/02/16 06:56 Labs: Short CBC 05/02/16 Range/Units 06:56 WBC 11.1 (4.3-11.1) K/mcL Hgb 9.2 L (11.5-15.4) g/dL Hct 28.4 L (35.3-44.9) % Plt Count 267 (140-400) K/mcL Neutrophils # 10.2 H (1.6-8.9) K/mcL BMP 05/02/16 06:56 Sodium 135 L Potassium 2.8 L Chloride 104 Carbon Dioxide 17 L BUN 109 H Creatinine 3.61 H Glucose 364 H Calcium 6.9 L - ABG Interpretation ABG results: ABG ABG pH 7.35 pH Units (7.32-7.45) 04/30/16 16:23 ABG pCO2 32 mmHg (35-45) L 04/30/16 16:23 ABG pO2 78 mmHg (85-104) L 04/30/16 16:23 ABG O2 Saturation 95 % (95-98) 04/30/16 16:23 PT/INR, D-dimer PT 13.4 Seconds (9.4-12.1) H 04/30/16 16:08 Consult Discharge Plan - Plan Referrals: NO,PCP [Non-Partnered Physician] - - Attending Attestation This document has been at least partially created by [employer] recognition technology by Dr. Frazier. Errors in grammar, wording or other phrases may exist. If errors are found after the documentation is signed, they will be addressed individually in the addendum section of this document when appropriate.
--- NOTE | 2016-05-02 12:01 | Cardiology Consult Note ---
Date of Encounter: 05/02/16 Time of Encounter: 11:57 Assessment and Plan Discussion w patient/family: The assessment and plan as outlined above was discussed with the patient and/or family members who expressed understanding and agreement. All questions were answered. Thank you for involving us in the care of your patient. Please call with any questions. Afib: new onset hx of CAD: no signs of ischemia ARF: seeing nephrology plan; a/w dilt drip check echo if no conversion in 48 hrs , will need to consider AUDIE cardioversion check TSH Thanks ! History of Present Illness Chief complaint: palpitations new onset afib, History of present illness: Ms. Vaughan is a 70 year old female with a history of CAD, s/p stent, multiple myeloma and as of today: afib, she denies any cp , sob, monitor reviewed by me shows afib with RVR Past Med Surg Social Fam HX - Past Medical History Medical history: cancer (multiple myeloma), coronary artery disease, diabetes, renal disease Psychiatric history: no psych history - Past Surgical History Surgical History: angioplasty/stent - Social History Smoking Status: Never smoker Smokeless Tobacco Status: No Alcohol use: none Drug use: none - Family History Father Living Status: Hx Family Cardiac Disorders: Yes Hx Family Endocrine Disorder: Yes Sister Hx Family Cancer: Yes (kidney) Hx Family Endocrine Disorder: Yes Mother Living Status: Still Living Hx Family Cardiac Disorders: Yes (HTN) Hx Family Endocrine Disorder: Yes Medications and Allergies Aspirin [Adult Low Dose Aspirin EC] 81 mg PO QAM 04/04/15 [History] Atorvastatin Calcium [Lipitor] 20 mg PO DAILY 04/04/15 [History] Loperamide HCl [Imodium A-D] 2 mg PO Q6H PRN 04/04/15 [History] Prochlorperazine Maleate [Compazine] 10 mg PO Q6H PRN 04/04/15 [History] Tizanidine HCl [Zanaflex] 4 mg PO Q8H PRN 04/04/15 [History] Folic Acid 1 mg PO DAILY #30 tablet 04/18/15 [Rx] Docusate [Colace] 100 mg PO DAILY PRN 04/22/15 [History] Insulin Glargine,Hum.rec.anlog [Lantus Solostar] 15 unit SQ HS 04/22/15 [History ] Insulin Glargine,Hum.rec.anlog [Lantus Solostar] 18 unit SQ QAM 04/22/15 [ History] Insulin LISPRO [HumaLOG] 0 unit SQ ACHS 04/22/15 [History] Melatonin 10 mg PO HS PRN 04/22/15 [History] Simethicone [Gas-X] 160 mg PO Q6H PRN 04/22/15 [History] Acetaminophen [Tylenol] 650 mg PO Q4H PRN 06/11/15 [History] Gabapentin [Neurontin] 300 mg PO BID 06/11/15 [History] Magnesium Hydroxide/Al Hydrox [Mag-Al Liquid] 30 ml PO BID PRN 06/11/15 [History ] Glucagon HCl 1 mg IJ ONCE PRN 12/27/15 [History] Clopidogrel [Plavix] 75 mg PO DAILY 02/18/16 [History] Fluticasone Propionate Nasal [Flonase] 2 spray NS DAILY 02/18/16 [History] Furosemide [Lasix] 40 mg PO DAILY 02/18/16 [History] Temazepam [Restoril] 15 mg PO HS 02/18/16 [History] MethylPREDNISolone [Medrol] 20 mg PO DAILY #10 tablet 04/14/16 [Rx] Albuterol Neb [Proventil Neb] 2.5 mg IH Q6H PRN 04/30/16 [History] GuaiFENesin/Dextromethorphan [Mucinex Dm ER 600-30 mg Tablet] 1 each PO BID 05/15 [History] Guaifenesin [Diabetic Tussin Ex] 100 mg PO QID PRN 04/30/16 [History] Mirtazapine 7.5 mg PO HS 04/30/16 [History] Nystatin POWDER [Nystop] 1 appl TP BID 04/30/16 [History] Ondansetron HCl [Zofran] 4 mg PO Q6H PRN 04/30/16 [History] Saline Nasal Hoffman [Menard Nasal Hoffman] 1 spray NS TID 04/30/16 [History] Sulfamethoxazole/Trimeth DS [Bactrim DS] 1 each PO BID 04/30/16 [History] Tolnaftate [Antifungal Cream] 1 appl TP BID 04/30/16 [History] Tramadol HCl [Ultram] 50 - 100 mg PO Q6H PRN 04/30/16 [History] Tramadol HCl [Ultram] 50 mg PO BID 04/30/16 [History] Zolpidem [Ambien] 5 mg PO HS 04/30/16 [History] Allergies hydrocodone [From Vicodin] Allergy (Verified 04/04/15 11:12) Rash All Systems Review: A 10-system review of systems was performed and is negative for pertinent findings except as documented above in the HPI. Physical Examination Vital Signs, Last 4 Hours Temp Pulse Resp BP Pulse Ox 05/02/16 11:49 97.3 F L 142 20 106/72 98 morbidly obese General: Conversant HEENT: Atraumatic Cardiac: Other (irregular pulse ) Abdomen: Soft Musculoskeletal: No Chest Wall Tenderness Results 05/02/16 06:56 05/02/16 06:56 Lab Results 05/02/16 05/02/16 06:56 06:56 WBC 11.1 Hgb 9.2 L Hct 28.4 L Plt Count 267 Sodium 135 L Potassium 2.8 L Chloride 104 Carbon Dioxide 17 L BUN 109 H Creatinine 3.61 H Glucose 364 H Calcium 6.9 L Consult Discharge Plan - Plan Referrals: NO,PCP [Non-Partnered Physician] -
[2016-05-02] MEDS ORDERED: *HR* Metoprolol 5 MG/5 ML VIAL IVP PRN (13:14)
[2016-05-02 14:17] LABS: Thyroid Stimulating Hormone 0.395 mcIU/mL (0.350-4.840)
[2016-05-02 14:38] LABS: Uric Acid 12.9 mg/dL (2.6-6.0)
[2016-05-02] MEDS: Acetaminophen 325 MG TABLET PO PRN (15:50)
[2016-05-02] MEDS: Metoprolol XL (24 HR) Succ 50 MG TAB.ER.24H PO SCH (15:50)
[2016-05-02] MEDS ORDERED: Amiodarone Premix 150 MG/100 ML BAG IVPB ONE (15:57)
[2016-05-02] MEDS: Amiodarone Premix 360 MG/200 ML BAG IVC SCH (17:01)
[2016-05-02] MEDS ORDERED: traMADol 50 MG TABLET PO STA (21:06)
[2016-05-02] MEDS ORDERED: Acetaminophen IV 1,000 MG/100 ML INFUS..BTL IVPB STA (21:07)
[2016-05-02] MEDS: Temazepam 15 MG CAPSULE PO PRN (21:31)
[2016-05-03 00:56] LABS: Protein/Creatinine Ratio,Urine 0.53 mg/mg (0-0.20)
[2016-05-03 05:17] LABS: Basophils % 0.1 %; Eosinophils # 0.1 K/mcL (0.0-0.6); Eosinophils % 0.5 %; Hematocrit 31.3 % (35.3-44.9); Immature Granulocytes % 0.9 % (0-4); Lymphocytes # 0.6 K/mcL (0.6-4.6); Lymphocytes % 4.8 %; Mean Corpuscular HGB Conc 31.9 g/dL (31.6-35.5); Mean Corpuscular Hemoglobin 29.5 pg (28.0-33.3); Mean Corpuscular Volume 92.3 fL (83.0-100.0); Mean Platelet Volume 9.6 fL (9.4-12.4); Monocytes # 0.8 K/mcL (0.0-1.3); Monocytes % 6.6 %; Neutrophils # 10.2 K/mcL (1.6-8.9); Platelet Count 304 K/mcL (140-400); Red Blood Count 3.39 M/mcL (3.82-4.97); Red Cell Distribution Width 14.4 % (11.5-14.5); Segmented Neutrophils % 87.1 %
[2016-05-03] MEDS: *HR* Heparin 5,000 UNIT/ML VIAL SQ SCH (05:27)
[2016-05-03 05:29] LABS: Potassium 3.2 mEq/L (3.5-4.5)
[2016-05-03] MEDS: Gabapentin 300 MG CAPSULE PO SCH ×2 (08:55→21:49)
[2016-05-03] MEDS: Aspirin Enteric Coated 81 MG Tablet PO SCH (08:55)
[2016-05-03] MEDS: Nystatin POWDER 30 GM BOTTLE TP SCH ×2 (08:56→21:50)
[2016-05-03] MEDS: Metoprolol XL (24 HR) Succ 50 MG TAB.ER.24H PO SCH (08:56)
[2016-05-03] MEDS: Folic Acid 1 MG TABLET PO SCH (08:57)
[2016-05-03] MEDS: traMADol 50 MG TABLET PO PRN ×2 (08:58→17:51)
[2016-05-03] MEDS: Insulin DETEMIR 100 UNIT/ML X5UNITS SQ SCH ×2 (08:58→20:44)
[2016-05-03] MEDS: Saline Nasal Spray 44 ML BOTTLE NS SCH ×3 (08:58→21:50)
[2016-05-03] MEDS: Insulin LISPRO 300 UNITS/3 ML VIAL SQ SCH ×7 (08:58→20:43)
[2016-05-03] MEDS ORDERED: Furosemide 40 MG/4 ML VIAL IVP ONE (09:05)
--- NOTE | 2016-05-03 09:10 | Nephrology Progress Note ---
Date of Encounter: 05/03/16 Time of Encounter: 08:25 - Assessment and Plan (1) Acute renal failure Current Visit: Yes Status: Acute Renal fct improving. Edema worsening. Will repeat Lasix 40mg x 1. K+ rider. Continue to monitor. Qualifiers: Acute renal failure type: with acute tubular necrosis Qualified Code(s): N17.0 - Acute kidney failure with tubular necrosis Subjective Interval history: Transferred to for new onset Afib with RVR. Started on Cardizem drip and then Amiodorone. Monitor shows afib rate 130. She denies chest pain or SOB. Objective - Vital Signs Vital signs: Vital Signs Temp Pulse Resp BP Pulse Ox 05/03/16 08:12 97.3 F L 137 18 103/78 98 05/03/16 06:00 113 103/62 05/03/16 05:00 99 97/62 05/03/16 04:00 145 108/59 05/03/16 03:00 135 95/55 05/03/16 02:30 132 101/55 05/03/16 02:00 132 108/84 05/03/16 01:30 144 87/55 05/03/16 01:00 104 91/50 05/03/16 00:30 140 86/51 05/03/16 00:00 130 104/65 05/02/16 23:45 136 98/66 05/02/16 23:30 116 100/55 05/02/16 23:15 132 95/59 05/02/16 23:00 109 94/48 05/02/16 22:55 116 112/74 05/02/16 22:47 87 108/64 05/02/16 22:00 115 108/70 05/02/16 21:00 115 95/71 05/02/16 20:38 97.8 F 119 18 103/64 97 05/02/16 20:00 107 88/53 05/02/16 19:45 119 103/64 05/02/16 19:30 97 99/60 05/02/16 19:00 84 108/59 05/02/16 18:00 112/80 05/02/16 17:02 147 05/02/16 17:00 97.7 F 154 20 92/61 97 05/02/16 15:33 97.8 F 156 20 93/58 99 05/02/16 11:49 97.3 F L 142 20 106/72 98 Intake and Output 05/02/16 05/03/16 05/03/16 23:59 07:59 15:59 Intake Total 80 / 80 Output Total 400 / 400 700 / 700 Balance -320 / -320 -700 / -700 Intake: IV Fluids 80 / 80 Amiodarone 360mg/200mL 0 / 0 Drip Premix 360 mg In 200 ml @ 0.5 MG/MIN 16.667 mls/hr IVC CONT EDDIE Rx#: [id number] Cardizem 125 MG In 80 / 80 Dextrose 5% 100 ML @ 10 MG/HR 10 mls/hr IVC . [id number] EDDIE Rx#: [id number] Output: Catheter 400 / 400 700 / 700 Other: Blood Glucose* 258 223 - General Appearance General appearance: Present: well-developed, well-nourished, appears started age , obese EENT: Present: mucous membranes moist Neck: Present: no JVD Respiratory: Present: clear Cardiology: Present: edema, irregular rhythm Additional Comments: Anasarca Gastrointestinal: Present: normoactive bowel sounds, no tenderness Integumentary: Present: warm and dry Neurologic: Present: alert and oriented x3 Psychiatric: Present: mood/affect appropriate, cooperative - Lab 05/03/16 04:50 05/03/16 04:50 Most recent lab results ABG pH 7.35 pH Units (7.32-7.45) 04/30/16 16:23 ABG pCO2 32 mmHg (35-45) L 04/30/16 16:23 ABG pO2 78 mmHg (85-104) L 04/30/16 16:23 ABG HCO3 17.7 mEQ/L (21-27) L 04/30/16 16:23 ABG O2 Saturation 95 % (95-98) 04/30/16 16:23 Calcium 7.0 mg/dL (8.6-10.8) L 05/03/16 04:50 Phosphorus 6.3 mg/dL (2.3-4.7) H 04/30/16 16:08 Magnesium 1.7 mg/dL (1.6-2.6) 05/01/16 06:05 Urine Creatinine 30 mg/dL 05/03/16 00:10 Urine Total Protein 16 mg/dL (1-14) H 05/03/16 00:10 Consult Discharge Plan - Plan Referrals: NO,PCP [Non-Partnered Physician] -
--- NOTE | 2016-05-03 10:38 | Cardiology Progress Note ---
Date of Encounter: 05/03/16 Time of Encounter: 10:37 Assessment and Plan Discussion w patient/family: The assessment and plan as outlined above was discussed with the patient and/or family members who expressed understanding and agreement. All questions were answered. Thank you for involving us in the care of your patient. Please call with any questions. Afib: new onset hx of CAD: no signs of ischemia ARF: seeing nephrology plan; a/w dilt drip check echo if no conversion in 48 hrs , will need to consider AUDIE cardioversion (will arrange for tomorrow ) Start Heparin , no bolus check TSH Thanks ! Subjective Interval history: denies any cp , sob, HR is better controlled but still in afib Objective Vital Signs, Last 4 Hours Temp Pulse Resp BP Pulse Ox 05/03/16 09:10 152 05/03/16 08:12 97.3 F L 137 18 103/78 98 Results 05/03/16 04:50 05/03/16 04:50 Lab Results 05/02/16 05/02/16 05/03/16 06:50 06:56 04:50 WBC 11.8 H Hgb 10.0 L Hct 31.3 L Plt Count 304 Sodium 135 L Potassium 2.8 L Chloride 104 Carbon Dioxide 17 L BUN 109 H Creatinine 3.61 H Glucose 364 H Calcium 6.9 L TSH 0.395 05/03/16 04:50 WBC Hgb Hct Plt Count Sodium 138 Potassium 3.2 L Chloride 107 Carbon Dioxide 17 L BUN 108 H Creatinine 3.40 H Glucose 231 H Calcium 7.0 L TSH Consult Discharge Plan - Plan Referrals: NO,PCP [Non-Partnered Physician] -
[2016-05-03] MEDS: Acetaminophen 325 MG TABLET PO PRN (11:32)
[2016-05-03] MEDS: Fluticasone Propionate Nasal 50 MCG/SPRAY BOTTLE NS SCH (11:32)
[2016-05-03] MEDS: Amiodarone Premix 360 MG/200 ML BAG IVC SCH ×2 (11:33→23:03)
--- NOTE | 2016-05-03 11:55 | Internal Med Progress Note ---
Date of Encounter: 05/03/16 Time of Encounter: 08:00 - Assessment and plan (1) Atrial fibrillation, new onset Current Visit: Yes Status: Acute Assessment and plan: Remains uncontrolled. On the amiodarone drip. Cardiology consulted. Recommend AUDIE with cardioversion tomorrow. Also recommend starting patient on anticoagulation. Patient does not have any acute contraindications for anticoagulation. We will start her on IV heparin. (2) Acute renal failure Current Visit: Yes Status: Acute Assessment and plan: Nephrology following. Creatinine is slightly better today. Recommend another dose of intravenous Lasix. We will continue to monitor renal function and urine output. Qualifiers: Acute renal failure type: with acute tubular necrosis Qualified Code(s): N17.0 - Acute kidney failure with tubular necrosis (3) Chronic kidney disease (CKD), stage IV (severe) Current Visit: No Status: Chronic (4) IDDM (insulin dependent diabetes mellitus) Current Visit: Yes Status: Chronic Assessment and plan: Blood sugars remain elevated but better controlled. We will increase insulin regimen. Continue to monitor blood sugars. (5) Multiple myeloma, failed remission Current Visit: No Status: Chronic (6) UTI (urinary tract infection) due to urinary indwelling Choi catheter Current Visit: Yes Status: Acute Assessment and plan: With ESBL Escherichia coli. On ertapenem. Qualifiers: Indwelling urinary catheter type: indwelling urethral catheter Encounter type: initial encounter Qualified Code(s): T83.511A - Infection and inflammatory reaction due to indwelling urethral catheter, initial encounter; N39.0 - Urinary tract infection, site not specified (7) DVT prophylaxis Current Visit: Yes Status: Acute Assessment and plan: On heparin (8) Bacteremia due to Escherichia coli Current Visit: Yes Status: Acute Assessment and plan: On ertapenem. Repeat cultures have been drawn. We will follow results. Most likely from urinary source of infection. - Subjective Interval history: Patient is awake and alert. Denies any new complaints at this time. No palpitations. No chest pain. Has remained in A. fib with rapid ventricular response since yesterday. Has good urine output. No shortness of breath. - Constitutional Vitals: Temp Pulse Resp BP Pulse Ox 98.0 F 139 18 89/61 98 05/03/16 11:39 05/03/16 11:39 05/03/16 11:39 05/03/16 11:39 05/03/16 11:39 General appearance: Present: cooperative, mild distress, A&O X 3, pleasant, obese, answers questions appropriately - Eye Eye exam: Present: PERRL, conjuntiva pink, sclera anicteric Pupils: Present: PERRL - Neck Neck exam general surgery: Present: supple, trachea midline. Absent: lymphadenopathy - Respiratory Respiratory exam: Present: CTAB. Absent: accessory muscle use, rales, rhonchi, wheezes - Cardiovascular Cardiovascular exam: Present: irregular rhythm, +S1, +S2, tachycardia. Absent: diastolic murmur, gallop, rubs, systolic murmur - GI/Abdominal GI/Abdominal exam: Present: normal bowel sounds, soft, no peritoneal signs. Absent: distended, tenderness - Extremities Exam Extremities exam: Present: warm, radial pulses palpable and symetrical. Absent : calf tenderness, cyanotic, pedal edema - Neurological Exam Neurological exam: Present: CN II-XII intact, oriented X3, no focal deficits. Absent: facial droop, speech deficit Internal Medicine: Result - Labs CBC & Chem 7: 05/03/16 04:50 05/03/16 04:50 Labs: Short CBC 05/03/16 Range/Units 04:50 WBC 11.8 H (4.3-11.1) K/mcL Hgb 10.0 L (11.5-15.4) g/dL Hct 31.3 L (35.3-44.9) % Plt Count 304 (140-400) K/mcL Neutrophils # 10.2 H (1.6-8.9) K/mcL BMP 05/02/16 05/03/16 06:56 04:50 Sodium 135 L 138 Potassium 2.8 L 3.2 L Chloride 104 107 Carbon Dioxide 17 L 17 L BUN 109 H 108 H Creatinine 3.61 H 3.40 H Glucose 364 H 231 H Calcium 6.9 L 7.0 L - ABG Interpretation ABG results: ABG ABG pH 7.35 pH Units (7.32-7.45) 04/30/16 16:23 ABG pCO2 32 mmHg (35-45) L 04/30/16 16:23 ABG pO2 78 mmHg (85-104) L 04/30/16 16:23 ABG O2 Saturation 95 % (95-98) 04/30/16 16:23 PT/INR, D-dimer PT 13.4 Seconds (9.4-12.1) H 04/30/16 16:08 Consult Discharge Plan - Plan Referrals: NO,PCP [Non-Partnered Physician] - - Attending Attestation This document has been at least partially created by [employer] recognition technology by Dr. Frazier. Errors in grammar, wording or other phrases may exist. If errors are found after the documentation is signed, they will be addressed individually in the addendum section of this document when appropriate.
[2016-05-03] MEDS ORDERED: *HR* Heparin 5,000 UNIT/ML VIAL IVP PRN ×2 (11:57)
[2016-05-03] MEDS ORDERED: Heparin 25,000 UNIT/500 ML D5W 25,000 UNIT/500 ML MLS IVC SCH (12:00)
[2016-05-03 13:55] LABS: INR 1.1
[2016-05-03] MEDS ORDERED: *HR* FentaNYL (PF) 100 MCG/2 ML VIAL ONE (13:57)
[2016-05-03] MEDS ORDERED: *HR* Midazolam HCl 2 MG/2 ML VIAL ONE (13:57)
[2016-05-03 13:58] LABS: Activated Partial Thrombo Time 30.8 Seconds (26.0-36.0)
[2016-05-03] MEDS ORDERED: *HR* FentaNYL (PF) 100 MCG/2 ML VIAL IVP ONE (15:02)
[2016-05-03] MEDS ORDERED: *HR* Midazolam HCl 2 MG/2 ML VIAL IVP ONE (15:03)
--- NOTE | 2016-05-03 15:10 | Procedure Note ---
Date of procedure: 05/03/16 Pre-op diagnosis: ESBL E.Coli UTI Post-op diagnosis: same Procedure: Central Venous Catheter Placement Date: 05/03/2016 Time: 14:40 PM Indication: Intravenous access Resident: Dr. Gee Attending: Dr. Frazier A time-out was completed verifying correct patient, procedure, site, positioning , and special equipment if applicable. The patient was placed in a dependent position appropriate for central line placement based on the vein to be cannulated. The patients right neck was prepped and draped in sterile fashion. 1% Lidocaine was used to anesthetize the surrounding skin area. A triple lumen 9 -Italian Cordis catheter was introduced into the the right internal jugular using the Seldinger technique under ultrasound guidance. The catheter was threaded smoothly over the guide wire and appropriate blood return was obtained. Each lumen of the catheter was evacuated of air and flushed with sterile saline. The catheter was then sutured in place to the skin and a sterile dressing applied. Perfusion to the extremity distal to the point of catheter insertion was checked and found to be adequate. Dr. Frazier was present for the entire procedure. Chest x-ray ordered after the procedure and it showed catheter tip overlies the right lung apex with tip in unclear position, therefore the line was removed. Estimated Blood Loss: 10 cc. The patient tolerated the procedure well and there were no complications. Anesthesia: local Surgeon: Aldo Gee Level Vial Inspector: Beata Stafford Estimated blood loss (cc): 10 Pathology: none sent Condition: stable Disposition: no change
[2016-05-03] MEDS ORDERED: *HR* Enoxaparin 150 MG/ML SYRINGE SQ SCH (18:00)
[2016-05-04 04:31] LABS: Basophils % 0.1 %; Eosinophils # 0.4 K/mcL (0.0-0.6); Eosinophils % 3.6 %; Hematocrit 31.6 % (35.3-44.9); Immature Granulocytes % 0.8 % (0-4); Lymphocytes # 0.6 K/mcL (0.6-4.6); Lymphocytes % 4.8 %; Mean Corpuscular HGB Conc 31.6 g/dL (31.6-35.5); Mean Corpuscular Hemoglobin 29.4 pg (28.0-33.3); Mean Corpuscular Volume 92.9 fL (83.0-100.0); Monocytes # 0.7 K/mcL (0.0-1.3); Monocytes % 5.8 %; Nucleated Red Blood Cells 0.3 /100 WBC (0); Platelet Count 294 K/mcL (140-400); Red Cell Distribution Width 14.6 % (11.5-14.5); Segmented Neutrophils % 84.9 %
[2016-05-04 04:44] LABS: Calcium 7.4 mg/dL (8.6-10.8); Potassium 4.2 mEq/L (3.5-4.5)
[2016-05-04] MEDS: Insulin LISPRO 300 UNITS/3 ML VIAL SQ SCH ×3 (05:58→18:02)
[2016-05-04] MEDS: Insulin DETEMIR 100 UNIT/ML X5UNITS SQ SCH ×2 (06:26→21:26)
[2016-05-04] MEDS: Gabapentin 300 MG CAPSULE PO SCH ×2 (09:00→21:25)
--- NOTE | 2016-05-04 09:22 | Event Note ---
Date of Encounter: 05/04/16 Time of Encounter: 09:20 Patient seen and examined in ECHO room. Scheduled for a AUDIE and cardioversion. Currently atrial fibrillation with RVR HR 150-170s. INR 1.1. She remains NPO. All questions answered and no concerns. Patient agrees to proceed with plan.
[2016-05-04] MEDS ORDERED: *HR* FentaNYL (PF) 100 MCG/2 ML VIAL IVP PRN (09:35)
[2016-05-04] MEDS ORDERED: *HR* Midazolam HCl 5 MG/5 ML VIAL IVP PRN (09:35)
[2016-05-04] MEDS ORDERED: 0.9 % Sodium Chloride 500 ML IVC ONE (09:35)
[2016-05-04] MEDS: Amiodarone Premix 360 MG/200 ML BAG IVC SCH ×2 (10:00→21:25)
--- NOTE | 2016-05-04 11:07 | Cardiology Progress Note ---
Date of Encounter: 05/04/16 Time of Encounter: 11:02 Assessment and Plan (1) Atrial fibrillation with rapid ventricular response Current Visit: Yes Status: Acute - after cancelled AUDIE and cardioversion patient spontaneously converted to normal sinus rhythm - denies any chest pain or shortness of breath - ECHO 08/27/15 EF 65-70%, LV appears normal, mild diastolic dysfunction without valvular dysfunction - TTE ECHO performed today, results pending - [id number] - score 5 - she denies any acute bleeding and will need long-term anticoagulation, recommend bridging with Coumadin with target INR 2-3, pharmacy to dose - will start her on Amiodarone 200 mg PO BID for 1 month and then once daily afterwards due to her CKD - currently on Amio gtt, recommend stopping gtt tomorrow - TSH 0.395 and Free T4 0.64 - INR 1.1, plt 294, and H/H is stable (2) Altered mental status Current Visit: Yes Status: Acute - patient is very somnolent but remains oriented to person, place, and time - likely multifactorial due to UTI, PURNIMA, and hypoglycemia - did not received pain medications or benzos to suggest medication related - urine culture grew ESBL Qualifiers: Altered mental status type: unspecified Qualified Code(s): R41.82 - Altered mental status, unspecified Discussion w patient/family: The assessment and plan as outlined above was discussed with the patient and/or family members who expressed understanding and agreement. All questions were answered. Thank you for involving us in the care of your patient. Please call with any questions. Subjective Principal diagnosis: Sepsis, A fib c RVR Interval history: Patient seen and examined. Spoke with Dr. Brown, due to her somnolence and underlying sepsis felt she was not appropriate for cardioversion. On my initial encounter patient had completed a TTE and was awake alert and oriented to person , place, and time. She understood the procedure and agreed to continue. However , as we approached AUDIE procedure she was very somnolent and easily arousable to voice and sternal rub. On reevaluation once back in 2N room patient is awake, alert and oriented to person place and time. She spontaneously converted to normal sinus rhythm. Objective Vital Signs, Last 4 Hours Temp Pulse Resp BP Pulse Ox 05/04/16 09:29 98.8 F 165 20 114/60 97 General: Conversant, No Apparent Distress HEENT: Atraumatic, Normocephaly, Mucus Membranes Moist Neck: Normal carotid pulses, Other (JVD 6 cm) Cardiac: Reg Rate and Rhythm, Normal S1 and S2, No Murmur Lungs: Normal Breath Sounds, No Wheeze, Rales, Rhonchi Neuro: Alert and responsive, No focal deficits noted Abdomen: Soft, Non-Tender Skin: No rashes noted on visualized skin Musculoskeletal: No Chest Wall Tenderness Extremities: Other (anasarca) Results 05/04/16 12:10 05/04/16 04:00 Lab Results 05/03/16 05/04/16 05/04/16 13:40 04:00 04:00 WBC 11.8 H Hgb 10.0 L Hct 31.6 L Plt Count 294 INR 1.1 APTT 30.8 Sodium 140 Potassium 4.2 D Chloride 109 Carbon Dioxide 17 L BUN 111 H Creatinine 3.31 H Glucose 121 H Calcium 7.4 L - Imaging and Cardiology Echo: pending (TTE) Consult Discharge Plan - Plan Referrals: Johan Jha MD [Primary Care Provider] - (patient is from [facility], no follow up PCP appointment needed) NO,PCP [Non-Partnered Physician] -
[2016-05-04] MEDS ORDERED: *HR* Heparin 5,000 UNIT/ML VIAL IVP ONE (11:20)
[2016-05-04] MEDS: Nystatin POWDER 30 GM BOTTLE TP SCH ×2 (11:44→21:26)
[2016-05-04 12:24] LABS: Mean Corpuscular HGB Conc 32.3 g/dL (31.6-35.5); Mean Corpuscular Hemoglobin 29.7 pg (28.0-33.3); Mean Platelet Volume 9.9 fL (9.4-12.4); Platelet Count 299 K/mcL (140-400); Red Blood Count 3.37 M/mcL (3.82-4.97); Red Cell Distribution Width 14.6 % (11.5-14.5)
[2016-05-04 12:31] LABS: INR 1.2; Prothrombin Time 13.1 Seconds (9.4-12.1)
[2016-05-04] MEDS: Saline Nasal Spray 44 ML BOTTLE NS SCH ×3 (13:28→21:26)
[2016-05-04] MEDS: Heparin 25,000 UNIT/500 ML D5W 25,000 UNIT/500 ML MLS IVC SCH (13:33)
[2016-05-04] MEDS: Fluticasone Propionate Nasal 50 MCG/SPRAY BOTTLE NS SCH (13:35)
--- NOTE | 2016-05-04 13:59 | Internal Med Progress Note ---
Date of Encounter: 05/04/16 Time of Encounter: 13:57 - Assessment and plan (1) Atrial fibrillation, new onset Current Visit: Yes Status: Acute Assessment and plan: Spontaneously converted to normal sinus rhythm. Started on oral amiodarone. On heparin for anticoagulation. Transition to Coumadin. High risk for complications due to use of intravenous heparin drip. (2) Acute renal failure Current Visit: Yes Status: Acute Assessment and plan: Improving renal function. Patient continues to have good urine output. Her urine does appear to be cloudy. Nephrology following. Qualifiers: Acute renal failure type: with acute tubular necrosis Qualified Code(s): N17.0 - Acute kidney failure with tubular necrosis (3) Chronic kidney disease (CKD), stage IV (severe) Current Visit: No Status: Chronic (4) IDDM (insulin dependent diabetes mellitus) Current Visit: Yes Status: Chronic Assessment and plan: Blood sugars are better controlled. Continue current insulin regimen. (5) Multiple myeloma, failed remission Current Visit: No Status: Chronic (6) UTI (urinary tract infection) due to urinary indwelling Choi catheter Current Visit: Yes Status: Acute Assessment and plan: With ESBL Escherichia coli. Continue ertapenem. Qualifiers: Indwelling urinary catheter type: indwelling urethral catheter Encounter type: initial encounter Qualified Code(s): T83.511A - Infection and inflammatory reaction due to indwelling urethral catheter, initial encounter; N39.0 - Urinary tract infection, site not specified (7) DVT prophylaxis Current Visit: Yes Status: Acute (8) Bacteremia due to Escherichia coli Current Visit: Yes Status: Acute Assessment and plan: Treating With ertapenem. Repeat cultures have been negative. Will need IV ertapenem to complete treatment course for 2 weeks. - Subjective Interval history: Patient went for AUDIE and cardioversion today but was somnolent and then the procedure was canceled. She then spontaneously converted to sinus rhythm. Currently lying in bed in a week. Denies any complaints at this time. - Constitutional Vitals: Temp Pulse Resp BP Pulse Ox 98.7 F 79 18 114/60 97 05/04/16 11:56 05/04/16 11:56 05/04/16 11:56 05/04/16 09:29 05/04/16 11:56 General appearance: Present: cooperative, mild distress, A&O X 3, pleasant, obese, answers questions appropriately - Respiratory Respiratory exam: Present: CTAB. Absent: accessory muscle use, rales, rhonchi, wheezes - Cardiovascular Cardiovascular exam: Present: RRR, +S1, +S2. Absent: diastolic murmur, gallop, rubs, systolic murmur - GI/Abdominal GI/Abdominal exam: Present: normal bowel sounds, soft, no peritoneal signs. Absent: distended, tenderness - Extremities Exam Extremities exam: Present: warm, radial pulses palpable and symetrical. Absent : calf tenderness, cyanotic, pedal edema - Neurological Exam Neurological exam: Present: alert, oriented X3, no focal deficits. Absent: facial droop, speech deficit - Skin Skin exam: Present: dry, intact Additional comments: Patient has stage 2 decubitus ulcers in her right and left gluteal region. No signs of infection. Internal Medicine: Result - Labs CBC & Chem 7: 05/04/16 12:10 05/04/16 04:00 Labs: Short CBC 05/04/16 05/04/16 Range/Units 04:00 12:10 WBC 11.8 H 11.1 (4.3-11.1) K/mcL Hgb 10.0 L 10.0 L (11.5-15.4) g/dL Hct 31.6 L 31.0 L (35.3-44.9) % Plt Count 294 299 (140-400) K/mcL Neutrophils # 10.0 H (1.6-8.9) K/mcL BMP 05/04/16 04:00 Sodium 140 Potassium 4.2 D Chloride 109 Carbon Dioxide 17 L BUN 111 H Creatinine 3.31 H Glucose 121 H Calcium 7.4 L - ABG Interpretation ABG results: ABG ABG pH 7.35 pH Units (7.32-7.45) 04/30/16 16:23 ABG pCO2 32 mmHg (35-45) L 04/30/16 16:23 ABG pO2 78 mmHg (85-104) L 04/30/16 16:23 ABG O2 Saturation 95 % (95-98) 04/30/16 16:23 PT/INR, D-dimer PT 13.1 Seconds (9.4-12.1) H 05/04/16 12:10 - Impressions Impressions Chest X-Ray 05/03/16 14:59 IMPRESSION: Right central venous catheter tip overlies the right lung apex, with tip in unclear position. No pneumothorax. Critical results were called by Dr. Anders Cárdenas MD to Tuan Frazier on 05/03/2016 at 3:37 p.m. D/ / 05/03/2016 15:29:15 Anders Cárdenas MD / haile Interpreting Provider: Anders Cárdenas MD Chest X-Ray 05/03/16 16:21 IMPRESSION: 1. Interval removal of the previously identified right-sided central venous catheter, without evidence of a pneumothorax. 2. No acute cardiopulmonary disease. D/ / 05/03/2016 17:09:20 Rajendra Aparicio MD / haile Interpreting Provider: Rajendra Aparicio MD Consult Discharge Plan - Plan Referrals: Johan Jha MD [Primary Care Provider] - (patient is from [facility], no follow up PCP appointment needed) NO,PCP [Non-Partnered Physician] - - Attending Attestation This document has been at least partially created by [employer] recognition technology by Dr. Frazier. Errors in grammar, wording or other phrases may exist. If errors are found after the documentation is signed, they will be addressed individually in the addendum section of this document when appropriate.
[2016-05-04] MEDS: *HR* Heparin 5,000 UNIT/ML VIAL IVP PRN (14:10)
[2016-05-04] MEDS: Folic Acid 1 MG TABLET PO SCH (14:11)
[2016-05-04] MEDS: Aspirin Enteric Coated 81 MG Tablet PO SCH (14:11)
[2016-05-04] MEDS: Metoprolol XL (24 HR) Succ 50 MG TAB.ER.24H PO SCH (14:13)
[2016-05-04] MEDS: *HR* Amiodarone 200 MG TABLET PO SCH ×2 (14:24→21:25)
--- NOTE | 2016-05-04 14:31 | ECHO - Doppler Report ---
Echocardiogram Name: Alesha Vaughan Date of Study: 05/04/2016 Date: 1945 Ht: 62.0 in Medical Record#: [id number] Age: 70 Wt: 284.0 lb Gender: Female BSA: 2.22 Order #: [id number] Location: [facility] Room #: 2N11 Reading Physician: Olena Brown DO Franchise Specialist: Faraz Cardenas RN Ordering Physician: Tuan Frazier MD Primary Physician: Johan Jha MD Indications: Arrhythmia Impressions: Technically challenging study due to AF with RVR. LVEF may be normal but is difficult to measure given rapid heart rates. Normal right ventricular size and function. Mild mitral regurgitation. Mild tricuspid regurgitation. No pulmonary hypertension. Recommend repeat Limited study when heart rates normalize. Findings: Study Quality * Technically sub-optimal due to clinical status. ECG Findings * Atrial fibrillation. Aortic Valve * No aortic regurgitation. * Aortic valve not well visualized. * No aortic stenosis. Mitral Valve * Normal mitral valve structure. * No mitral stenosis. * Mild mitral regurgitation. * Mild mitral annular calcification Tricuspid Valve * Tricuspid valve not well visualized. * Mild tricuspid regurgitation. * Estimated RA pressure is 3 mmHg. * Estimated RVSP is 26 mmHg. * No pulmonary hypertension. Pulmonic Valve * Pulmonic valve is not well visualized. * No pulmonic stenosis. * No pulmonic regurgitation. Pulmonary Artery * Pulmonary artery not well visualized. Right Ventricle * Normal right ventricular structure and function. Left Ventricle * Indeterminate diastolic function. * Probably normal LVEF but difficult to measure given RVR. Left Atrium * Severely dilated left atrium. Right Atrium * Normal right atrial size. Interatrial Septum * No evidence of PFO by color Doppler. IVC * The IVC is not dilated. Pericardium * There is no pericardial effusion present. Aorta * Normally sized aortic root. History Diabetes Family History of CAD History of CAD/PTCA 08/27/2015 a Previous Echo was performed. Measurements: BP: 112/ 68 2D Normal Values IVSd: 1.00 cm 0.6 - 1.0 cm LVIDd: 3.50 cm 3.7 - 5.6 cm LVPWd: 1.00 cm 0.6 - 1.1 cm LVIDs: 2.80 cm 1.5 - 3.6 cm LA: 3.44 cm 2.0 - 4.0cm %FS: 20.00 cm >25 % LVOT Diam: 2.00 cm LA volume: 110 Mitral Valve Peak E:1.13 m/sec Peak E' Lat Reji:6.63 cm/s Peak E' Med Reji:5.65 cm/s E/E' Lat Ratio:17 E/E' Med Ratio:20 Tricuspid Valve TV Regurg Peak Grad: 23.00mmHg TV Regurg Peak Reji: 2.39m/sec Updated by Olena Brown on 05/04/2016 2:25:09 PM electronically signed on 05/04/2016 2:26:41 PM with status of Final [employer] [place]: 1=Normal, 2=Hypokinesis, 3=Akinesis, 4=Dyskinesis, 5=Aneurysmal, 6=Hyperkinetic, X=Not Visualized (Blank)=Missing
[2016-05-04] MEDS ORDERED: Warfarin perPT PO PRN (18:00)
[2016-05-04] MEDS ORDERED: *HR* Warfarin 2.5 MG TABLET PO ONE (18:00)
[2016-05-04 23:03] LABS: Activated Partial Thrombo Time > 360.0 Seconds (26.0-36.0)
[2016-05-04 23:15] LABS: Heparin anti-factor XA UFH 1.85 IU/mL (0.30-0.70)
[2016-05-04] MEDS ORDERED: Sodium Bicarbonate 100 MEQ in 0.45 % Sodium Chloride 1,000 ML IVC SCH (23:30)
[2016-05-05 05:10] LABS: VBG HCO3 19.5 mEq/L (21-27); VBG PH 7.33 pH Units (7.32-7.42)
[2016-05-05 05:11] LABS: Basophils % 0.1 %; Eosinophils # 0.4 K/mcL (0.0-0.6); Eosinophils % 3.8 %; Hematocrit 30.2 % (35.3-44.9); Hemoglobin 9.5 g/dL (11.5-15.4); Immature Granulocytes % 1.1 % (0-4); Lymphocytes # 0.3 K/mcL (0.6-4.6); Lymphocytes % 2.9 %; Mean Corpuscular HGB Conc 31.5 g/dL (31.6-35.5); Mean Corpuscular Hemoglobin 29.1 pg (28.0-33.3); Mean Corpuscular Volume 92.6 fL (83.0-100.0); Monocytes # 0.4 K/mcL (0.0-1.3); Monocytes % 3.1 %; Neutrophils # 10.2 K/mcL (1.6-8.9); Nucleated Red Blood Cells 0.4 /100 WBC (0); Platelet Count 291 K/mcL (140-400); Red Blood Count 3.26 M/mcL (3.82-4.97); Red Cell Distribution Width 14.6 % (11.5-14.5)
[2016-05-05 05:18] LABS: INR 1.3; Prothrombin Time 13.8 Seconds (9.4-12.1)
[2016-05-05 05:28] LABS: Ionized Calcium 1.07 mmol/L (1.15-1.35)
[2016-05-05 05:48] LABS: Calcium 7.7 mg/dL (8.6-10.8); Magnesium 1.3 mg/dL (1.6-2.6); Phosphorous 4.8 mg/dL (2.3-4.7); Potassium 3.7 mEq/L (3.5-4.5)
[2016-05-05 05:56] LABS: Activated Partial Thrombo Time 132.6 Seconds (26.0-36.0)
--- NOTE | 2016-05-05 08:17 | Nephrology Progress Note ---
Date of Encounter: 05/05/16 Time of Encounter: 08:15 - Assessment and Plan (1) Acute renal failure Current Visit: Yes Status: Acute Patient has acute kidney injury superimposed on stage IV chronic kidney disease. This is in the setting of sepsis and new onset atrial fibrillation with rapid ventricular response. She also has been receiving chemotherapy for ongoing management of multiple myeloma. Her renal function is improving. She is back in sinus rhythm. She does have an elevated uric acid. For that reason she will be started on low-dose allopurinol. She should continue with the maintenance IV fluids at this time. Qualifiers: Acute renal failure type: unspecified Qualified Code(s): N17.9 - Acute kidney failure, unspecified (2) Atrial fibrillation with rapid ventricular response Current Visit: Yes Status: Acute (3) Multiple myeloma Current Visit: Yes Status: Acute Qualifiers: Multiple myeloma remission status: not in remission Qualified Code(s): C90.00 - Multiple myeloma not having achieved remission (4) Myeloma kidney disease Current Visit: No Status: Acute (5) Chronic kidney disease (CKD), stage IV (severe) Current Visit: No Status: Chronic Subjective Principal diagnosis: Sepsis, A fib c RVR Interval history: Patient is resting comfortably. She voices no complaints. She is converted to normal sinus rhythm. She continues on an amiodarone drip. She continues on maintenance IV fluids. Renal function has improved with a creatinine down to 2.93. Objective - Vital Signs Vital signs: Vital Signs Temp Pulse Resp BP Pulse Ox 05/05/16 07:47 97.9 F 80 14 117/45 99 05/05/16 04:00 97.8 F 86 16 128/68 98 05/05/16 02:14 97.9 F 77 16 108/48 98 05/04/16 20:45 20 97 05/04/16 19:50 97.4 F L 72 16 113/51 05/04/16 17:30 85 20 116/46 99 05/04/16 16:59 98.7 F 05/04/16 15:47 75 05/04/16 15:00 75 16 108/56 98 05/04/16 13:00 75 18 99/59 98 05/04/16 12:00 75 05/04/16 11:56 98.7 F 79 18 97 05/04/16 09:29 98.8 F 165 20 114/60 97 Intake and Output 05/04/16 05/05/16 05/05/16 23:59 07:59 15:59 Intake Total 200 / 200 400 / 400 Balance 200 / 200 400 / 400 Intake: IV Fluids 200 / 200 400 / 400 Amiodarone 360mg/200mL 200 / 200 Drip Premix 360 mg In 200 ml @ 0.5 MG/MIN 16.667 mls/hr IVC CONT EDDIE Rx#: [id number] Heparin 25,000 UNIT/500 400 / 400 ML D5W 25,000 unit In 500 ml @ 14 UNIT/KG/HR 36.07 mls/hr IVC .[id number] EDDIE Rx#:[id number] Other: Blood Glucose* 235 200 - General Appearance Exam: Patient is in no acute distress. Lungs diminished breath sounds otherwise clear. Heart regular rate and rhythm. She is in normal sinus rhythm on the monitor. Abdomen is benign. She does have some lower extremity swelling. Choi catheter is in place draining jeremi colored urine. - Lab 05/05/16 04:30 05/05/16 04:30 Most recent lab results ABG pH 7.35 pH Units (7.32-7.45) 04/30/16 16:23 ABG pCO2 32 mmHg (35-45) L 04/30/16 16:23 ABG pO2 78 mmHg (85-104) L 04/30/16 16:23 ABG HCO3 17.7 mEQ/L (21-27) L 04/30/16 16:23 ABG O2 Saturation 95 % (95-98) 04/30/16 16:23 Calcium 7.7 mg/dL (8.6-10.8) L 05/05/16 04:30 Phosphorus 4.8 mg/dL (2.3-4.7) H 05/05/16 04:30 Magnesium 1.3 mg/dL (1.6-2.6) L 05/05/16 04:30 Urine Creatinine 30 mg/dL 05/03/16 00:10 Urine Total Protein 16 mg/dL (1-14) H 05/03/16 00:10 Consult Discharge Plan - Plan Referrals: Johan Jha MD [Primary Care Provider] - (patient is from [facility], no follow up PCP appointment needed) NO,PCP [Non-Partnered Physician] -
[2016-05-05] MEDS: Insulin LISPRO 300 UNITS/3 ML VIAL SQ SCH ×7 (08:59→20:59)
[2016-05-05] MEDS: Metoprolol XL (24 HR) Succ 50 MG TAB.ER.24H PO SCH (09:01)
[2016-05-05] MEDS: Insulin DETEMIR 100 UNIT/ML X5UNITS SQ SCH ×2 (09:01→21:00)
[2016-05-05] MEDS: Nystatin POWDER 30 GM BOTTLE TP SCH ×2 (09:01→19:48)
[2016-05-05] MEDS: Gabapentin 300 MG CAPSULE PO SCH ×2 (09:01→19:49)
[2016-05-05] MEDS: Aspirin Enteric Coated 81 MG Tablet PO SCH (09:01)
[2016-05-05] MEDS: Folic Acid 1 MG TABLET PO SCH (09:01)
[2016-05-05] MEDS: Fluticasone Propionate Nasal 50 MCG/SPRAY BOTTLE NS SCH (09:01)
[2016-05-05] MEDS: *HR* Amiodarone 200 MG TABLET PO SCH ×2 (09:01→19:48)
[2016-05-05] MEDS: Saline Nasal Spray 44 ML BOTTLE NS SCH ×3 (09:02→19:48)
[2016-05-05] MEDS: Heparin 25,000 UNIT/500 ML D5W 25,000 UNIT/500 ML MLS IVC SCH (09:03)
--- NOTE | 2016-05-05 11:49 | Cardiology Progress Note ---
Date of Encounter: 05/05/16 Time of Encounter: 13:47 Assessment and Plan (1) Atrial fibrillation with rapid ventricular response Current Visit: Yes Status: Acute New diagnosis atrial fibrillation. Now NSR over last 12 hours. Converted on IV amiodarone. - ECHO 08/27/15 EF 65-70%, LV appears normal, mild diastolic dysfunction without valvular dysfunction - TTE 05/04/16 was a poor study d/t rapid HR. Repeat study recommended once HR controlled. - [id number] - score 5. Started on coumadin therapy 05/04/16. Pt will likely need ECF or HH and INR can be drawn by nurse. I will hold off on coumadin clinic referral at this time. Needs close out-pt f/u with INR. -Target INR 2.0-3.0. - Continue Amiodarone 200 mg PO BID for 1 month and then once daily afterwards. Continue metoprolol. F/u with cardiology in 2 weeks. Limited echocardiogram ordered to assess LV function. If normal EF cardiology will sign off. Call with questions. (2) Bacteremia due to Escherichia coli Current Visit: Yes Status: Acute Internal medicine following. (3) Acute renal failure Current Visit: Yes Status: Acute PURNIMA/CKD in the setting of sepsis and new onset atrial fibrillation with rapid ventricular response. Renal function improving. Nephrology following. Qualifiers: Acute renal failure type: unspecified Qualified Code(s): N17.9 - Acute kidney failure, unspecified Discussion w patient/family: The assessment and plan as outlined above was discussed with the patient and/or family members who expressed understanding and agreement. All questions were answered. Thank you for involving us in the care of your patient. Please call with any questions. Subjective Principal diagnosis: Sepsis, A fib c RVR Interval history: Pt continues to be drowsy and opens eyes to name. Quickly falls back asleep. Denies pain. Objective Vital Signs, Last 4 Hours Temp Pulse Resp BP Pulse Ox 05/05/16 10:56 98.7 F 77 14 110/55 98 05/05/16 09:00 83 General: Conversant, No Apparent Distress HEENT: Atraumatic, Normocephaly, Mucus Membranes Moist Neck: No JVD, Normal carotid pulses Cardiac: Reg Rate and Rhythm, Normal S1 and S2, No Murmur Lungs: Other (Respirations easy, loud wheezes scattered through out) Neuro: Alert and responsive, No focal deficits noted Abdomen: Soft, Non-Tender Skin: No rashes noted on visualized skin Musculoskeletal: No Chest Wall Tenderness Extremities: No Clubbing, No Cyanosis, Normal Pulses, Other (2 + edema in bilateral feet.) Results 05/05/16 04:30 05/05/16 04:30 Lab Results 05/04/16 05/04/16 05/04/16 12:10 12:10 22:33 WBC 11.1 Hgb 10.0 L Hct 31.0 L Plt Count 299 INR 1.2 APTT 32.0 > 360.0 H* D Sodium Potassium Chloride Carbon Dioxide BUN Creatinine Glucose Calcium Magnesium B-Natriuretic Peptide 05/05/16 05/05/16 05/05/16 04:30 04:30 04:30 WBC 11.4 H Hgb 9.5 L Hct 30.2 L Plt Count 291 INR 1.3 APTT 132.6 H* D Sodium 137 Potassium 3.7 Chloride 106 Carbon Dioxide 16 L BUN 105 H Creatinine 2.93 H Glucose 215 H Calcium 7.7 L Magnesium 1.3 L B-Natriuretic Peptide 05/05/16 04:30 WBC Hgb Hct Plt Count INR APTT Sodium Potassium Chloride Carbon Dioxide BUN Creatinine Glucose Calcium Magnesium B-Natriuretic Peptide 255 H Pulmonary Perfusion Imaging 04/30/16 17:49 IMPRESSION: Low Probability for Pulmonary Embolus. D/ / Richard Ram MD / Richard Ram MD Interpreting Provider: Richard Ram MD Chest X-Ray 05/05/16 03:00 IMPRESSION: No acute disease. D/ / Chapo Drake MD / Chapo Drake MD Interpreting Provider: Chapo Drake MD - Imaging and Cardiology Echo: report reviewed - EKG Interpretation EKG results cardiology: other (24 hr telemetry review showed NSR. Avg HR 81 BPM. ) Consult Discharge Plan - Plan Referrals: Johan Jha MD [Primary Care Provider] - (patient is from [facility], no follow up PCP appointment needed) NO,PCP [Non-Partnered Physician] -
--- NOTE | 2016-05-05 15:27 | Electrocardiograph Report ---
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
--- NOTE | 2016-05-05 15:31 | Electrocardiograph Report ---
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
--- NOTE | 2016-05-05 15:36 | Internal Med Progress Note ---
Date of Encounter: 05/05/16 Time of Encounter: 10:00 - Assessment and plan (1) Acute renal failure Current Visit: Yes Status: Acute Assessment and plan: Improving renal function. Patient continues to have good urine output. Her urine does appear to be cloudy. Nephrology following. Continue low rate IV fluid. Qualifiers: Acute renal failure type: unspecified Qualified Code(s): N17.9 - Acute kidney failure, unspecified (2) Atrial fibrillation, new onset Current Visit: Yes Status: Acute Assessment and plan: Spontaneously converted to normal sinus rhythm. Started on oral amiodarone. On heparin for anticoagulation. Transition to Coumadin. High risk for complications due to use of intravenous heparin drip. (3) UTI (urinary tract infection) due to urinary indwelling Choi catheter Current Visit: Yes Status: Acute Assessment and plan: With ESBL Escherichia coli. Continue ertapenem. Qualifiers: Indwelling urinary catheter type: indwelling urethral catheter Encounter type: initial encounter Qualified Code(s): T83.511A - Infection and inflammatory reaction due to indwelling urethral catheter, initial encounter; N39.0 - Urinary tract infection, site not specified (4) IDDM (insulin dependent diabetes mellitus) Current Visit: Yes Status: Chronic Assessment and plan: Blood sugars are better controlled. Continue current insulin regimen. (5) DVT prophylaxis Current Visit: No Status: Acute Assessment and plan: Patient is on heparin drip and Coumadin (6) Chronic kidney disease (CKD), stage IV (severe) Current Visit: No Status: Chronic Assessment and plan: Due to diabetes. With acute kidney injury. Closely follow up renal function - Time Spent With Patient Greater than 35 minutes - Subjective Interval history: Patient is a 70-year-old admitted for weakness, altered mental status, and dehydration. Past medical history is significant for multiple myeloma, CAD, diabetes, CKD. Patient developed A Fib with RVR in hospital. Cardiac consult saw Patient, patient was placed on Amioderone iv and rhythm has converted to sinus. On Coumadin now, bridged by heparin drip. I saw and examined the patient today. She is still weak, awake alert, oriented 3. No fever, vitals are stable. Cardiology and nephrology consult appreciated. We will continue current treatment and close monitoring. - Constitutional Vitals: Temp Pulse Resp BP Pulse Ox 99.1 F 90 18 111/54 96 05/05/16 15:00 02/07/17 15:00 05/05/16 15:00 05/05/16 15:00 05/05/16 15:00 General appearance: Present: cooperative, mild distress, A&O X 3, pleasant, obese, answers questions appropriately - Head Head exam: Present: atraumatic, normocephalic - Eye Eye exam: Present: PERRL, conjuntiva pink, sclera anicteric Pupils: Present: PERRL - Neck Neck exam general surgery: Present: supple, trachea midline. Absent: lymphadenopathy - Respiratory Respiratory exam: Present: CTAB. Absent: accessory muscle use, rales, rhonchi, wheezes - Cardiovascular Cardiovascular exam: Present: RRR, +S1, +S2. Absent: diastolic murmur, gallop, rubs, systolic murmur - GI/Abdominal GI/Abdominal exam: Present: normal bowel sounds, soft, no peritoneal signs. Absent: distended, tenderness - Extremities Exam Extremities exam: Present: pedal edema (Bilaterally), warm, radial pulses palpable and symetrical. Absent: calf tenderness, cyanotic - Neurological Exam Neurological exam: Present: CN II-XII intact, oriented X3, no focal deficits. Absent: pronater drift, facial droop, speech deficit - Skin Skin exam: Present: dry, intact Internal Medicine: Result - Labs CBC & Chem 7: 05/05/16 04:30 05/05/16 04:30 Labs: Short CBC 05/05/16 Range/Units 04:30 WBC 11.4 H (4.3-11.1) K/mcL Hgb 9.5 L (11.5-15.4) g/dL Hct 30.2 L (35.3-44.9) % Plt Count 291 (140-400) K/mcL Neutrophils # 10.2 H (1.6-8.9) K/mcL BMP 05/05/16 04:30 Sodium 137 Potassium 3.7 Chloride 106 Carbon Dioxide 16 L BUN 105 H Creatinine 2.93 H Glucose 215 H Calcium 7.7 L - ABG Interpretation ABG results: ABG ABG pH 7.35 pH Units (7.32-7.45) 04/30/16 16:23 ABG pCO2 32 mmHg (35-45) L 04/30/16 16:23 ABG pO2 78 mmHg (85-104) L 04/30/16 16:23 ABG O2 Saturation 95 % (95-98) 04/30/16 16:23 PT/INR, D-dimer PT 13.8 Seconds (9.4-12.1) H 05/05/16 04:30 - Impressions Impressions Chest X-Ray 05/05/16 03:00 IMPRESSION: No acute disease. D/ / Chapo Drake MD / Chapo Drake MD Interpreting Provider: Chapo Drake MD Consult Discharge Plan - Plan Referrals: Johan Jha MD [Primary Care Provider] - (patient is from [facility], no follow up PCP appointment needed) NO,PCP [Non-Partnered Physician] -
[2016-05-05] MEDS: 0.9 % Sodium Chloride 1,000 ML IVC SCH (15:57)
[2016-05-05] MEDS ORDERED: *HR* Warfarin 5 MG TABLET PO ONE (18:00)
[2016-05-05] MEDS: *HR* Heparin 5,000 UNIT/ML VIAL IVP PRN (23:57)
[2016-05-06 04:53] LABS: INR 1.3
[2016-05-06 05:11] LABS: Activated Partial Thrombo Time 118.5 Seconds (26.0-36.0); Calcium 7.8 mg/dL (8.6-10.8); Potassium 3.4 mEq/L (3.5-4.5)
[2016-05-06 05:14] LABS: Basophils % 0.2 %; Eosinophils # 0.4 K/mcL (0.0-0.6); Eosinophils % 3.2 %; Hematocrit 28.8 % (35.3-44.9); Hemoglobin 9.1 g/dL (11.5-15.4); Immature Granulocytes % 1.5 % (0-4); Lymphocytes # 0.4 K/mcL (0.6-4.6); Lymphocytes % 3.3 %; Mean Corpuscular HGB Conc 31.6 g/dL (31.6-35.5); Mean Corpuscular Hemoglobin 29.2 pg (28.0-33.3); Mean Corpuscular Volume 92.3 fL (83.0-100.0); Monocytes # 0.4 K/mcL (0.0-1.3); Monocytes % 3.7 %; Neutrophils # 9.8 K/mcL (1.6-8.9); Nucleated Red Blood Cells 0.5 /100 WBC (0); Platelet Count 317 K/mcL (140-400); Red Blood Count 3.12 M/mcL (3.82-4.97); Segmented Neutrophils % 88.1 %
[2016-05-06 05:25] LABS: Heparin anti-factor XA UFH 0.77 IU/mL (0.30-0.70)
--- NOTE | 2016-05-06 08:01 | ECHO - Doppler Report ---
Limited Echocardiogram Name: Alesha Vaughan Date of Study: 05/06/2016 Date: 1945 Ht: 62.0 in Medical Record#: [id number] Age: 70 Wt: 284.0 lb Gender: Female BSA: 2.22 Order #: [id number] Location: [facility] Room #: 2N11 Reading Physician: Kristian Chand DO, FACC, FASE, FASNC Chute Loader: Mary Le RVT, ANTONIO Ordering Physician: Ehsan Lopez CNP Primary Physician: Johan Jha MD Indications: Atrial fibrillation Impressions: LVEF 65%. Normal LV chamber size, wall thickness and function. Left Ventricular Wall Motion: Rest Echo Findings All wall segments showed normal motion. Findings: Study Quality * Technically adequate exam. ECG Findings * Normal sinus rhythm. Left Ventricle * LVEF 65%. * Normal LV chamber size, wall thickness and function. Right Ventricle * Normal right ventricular structure and function. IVC * Normal IVC dimensions and inspiratory collapse. Aorta * Normally sized aortic root. History Hypertension Diabetes Hypercholesteremia 05-04-2016 a Previous Echo was performed. Measurements: BP: 120/ 57 2D Normal Values IVSd: 1.10 cm 0.6 - 1.0 cm LVIDd: 4.10 cm 3.7 - 5.6 cm LVPWd: 1.10 cm 0.6 - 1.1 cm LVIDs: 2.90 cm 1.5 - 3.6 cm AO: 2.70 cm < 4.0 cm LA: 3.00 cm 2.0 - 4.0cm %FS: 29.30 cm >25 % LA volume: Updated by Kristian Chand DO, FACC, FASE, FASNC on 05/06/2016 7:56:35 AM electronically signed on 05/06/2016 7:56:59 AM with status of Final Wall Motion [place]: 1=Normal, 2=Hypokinesis, 3=Akinesis, 4=Dyskinesis, 5=Aneurysmal, 6=Hyperkinetic, X=Not Visualized (Blank)=Missing
--- NOTE | 2016-05-06 08:30 | Event Note ---
Date of Encounter: 05/06/16 Time of Encounter: 08:28 - Cardiology Event Note Limited repeat echocardiogram completed showed normal LV function, EF 65%, no wall motion abnormality. Cardiology signing off as discussed in note. Pt remains in NSR. Continue amiodarone 200 mg BID for one month and the decrease to 200 mg daily. On coumadin therapy. F/u will be made in 2 weeks. Please Call with questions.
--- NOTE | 2016-05-06 08:38 | Nephrology Progress Note ---
Date of Encounter: 05/06/16 Time of Encounter: 08:36 - Assessment and Plan (1) Acute renal failure Current Visit: Yes Status: Acute Patient has acute kidney injury superimposed on stage IV chronic kidney disease. This is in the setting of sepsis and new onset atrial fibrillation with rapid ventricular response. She also has been receiving chemotherapy for ongoing management of multiple myeloma. The patient's renal function continues to improve. Allopurinol was to be started for hyperuricemia but because of interactions with Coumadin it was not started. We will continue to monitor the patient's renal function. Qualifiers: Acute renal failure type: unspecified Qualified Code(s): N17.9 - Acute kidney failure, unspecified (2) Atrial fibrillation with rapid ventricular response Current Visit: Yes Status: Acute (3) Multiple myeloma Current Visit: Yes Status: Acute Qualifiers: Multiple myeloma remission status: not in remission Qualified Code(s): C90.00 - Multiple myeloma not having achieved remission (4) Myeloma kidney disease Current Visit: No Status: Acute (5) Chronic kidney disease (CKD), stage IV (severe) Current Visit: No Status: Chronic Subjective Principal diagnosis: Sepsis, A fib c RVR Interval history: Patient is somnolent. She does awaken to verbal stimuli. When she is awake she denies any complaints. Renal function continues to improve. Creatinine is down to 2.48. Objective - Vital Signs Vital signs: Vital Signs Temp Pulse Resp BP Pulse Ox 05/06/16 07:01 98.4 F 80 18 123/64 96 05/06/16 04:30 81 20 98 05/06/16 04:00 98.0 F 82 20 120/57 98 05/06/16 00:16 79 18 96 05/05/16 23:19 98.5 F 82 18 124/52 96 05/05/16 20:04 98.7 F 80 16 119/47 99 05/05/16 15:00 99.1 F 90 18 111/54 96 05/05/16 11:44 79 05/05/16 10:56 98.7 F 77 14 110/55 98 05/05/16 09:00 83 Intake and Output 05/05/16 05/06/16 05/06/16 23:59 07:59 15:59 Intake Total 100 / 100 521 / 521 Output Total 400 / 400 500 / 500 Balance -300 / -300 Intake: IV Fluids 100 / 100 221 / 221 Heparin 25,000 UNIT/500 100 / 100 221 / 221 ML D5W 25,000 unit In 500 ml @ 14 UNIT/KG/HR 36.07 mls/hr IVC .[id number] [facility] Rx#:[id number] Oral 300 / 300 Output: Catheter 400 / 400 500 / 500 Other: Stool Size Copious Stool Consistency liquid Stool Color Brown Green Weight 129 kg Blood Glucose* 86 76 Patient Weight 05/06/16 23:59 Weight 129 kg - General Appearance Exam: Patient is somnolent but awakens easily. Heart regular rate and rhythm. Heart monitor shows normal sinus rhythm. Lungs diminished breath sounds otherwise clear. Abdomen is benign. There is some lower extremity swelling. - Lab 05/06/16 04:20 05/06/16 04:20 Most recent lab results ABG pH 7.35 pH Units (7.32-7.45) 04/30/16 16:23 ABG pCO2 32 mmHg (35-45) L 04/30/16 16:23 ABG pO2 78 mmHg (85-104) L 04/30/16 16:23 ABG HCO3 17.7 mEQ/L (21-27) L 04/30/16 16:23 ABG O2 Saturation 95 % (95-98) 04/30/16 16:23 Calcium 7.8 mg/dL (8.6-10.8) L 05/06/16 04:20 Phosphorus 4.8 mg/dL (2.3-4.7) H 05/05/16 04:30 Magnesium 1.3 mg/dL (1.6-2.6) L 05/05/16 04:30 Urine Creatinine 30 mg/dL 05/03/16 00:10 Urine Total Protein 16 mg/dL (1-14) H 05/03/16 00:10 Consult Discharge Plan - Plan Referrals: Johan Jha MD [Primary Care Provider] - (patient is from [facility], no follow up PCP appointment needed) NO,PCP [Non-Partnered Physician] -
[2016-05-06] MEDS: Insulin LISPRO 300 UNITS/3 ML VIAL SQ SCH ×7 (09:00→22:39)
[2016-05-06] MEDS: *HR* Amiodarone 200 MG TABLET PO SCH ×2 (09:17→22:39)
[2016-05-06] MEDS: Gabapentin 300 MG CAPSULE PO SCH ×2 (09:18→22:40)
[2016-05-06] MEDS: Aspirin Enteric Coated 81 MG Tablet PO SCH (09:18)
[2016-05-06] MEDS: Folic Acid 1 MG TABLET PO SCH (09:19)
[2016-05-06] MEDS: Metoprolol XL (24 HR) Succ 50 MG TAB.ER.24H PO SCH (09:19)
[2016-05-06] MEDS: Insulin DETEMIR 100 UNIT/ML X5UNITS SQ SCH ×2 (09:24→22:39)
[2016-05-06] MEDS: Fluticasone Propionate Nasal 50 MCG/SPRAY BOTTLE NS SCH (09:30)
[2016-05-06] MEDS: Saline Nasal Spray 44 ML BOTTLE NS SCH ×3 (09:30→22:40)
[2016-05-06] MEDS: Nystatin POWDER 30 GM BOTTLE TP SCH ×2 (09:31→22:40)
[2016-05-06 10:41] LABS: Kappa Qnt Free Light Chains 19.6 mg/dL (0.33-1.94); Lambda Qnt Free Light Chains 0.65 mg/dL (0.57-2.63)
[2016-05-06] MEDS: 0.9 % Sodium Chloride 1,000 ML IVC SCH (13:30)
[2016-05-06] MEDS: Heparin 25,000 UNIT/500 ML D5W 25,000 UNIT/500 ML MLS IVC SCH (16:00)
[2016-05-06] MEDS: *HR* Heparin 5,000 UNIT/ML VIAL IVP PRN (16:13)
--- NOTE | 2016-05-06 16:16 | Internal Med Progress Note ---
Date of Encounter: 05/06/16 Time of Encounter: 10:00 - Assessment and plan (1) Acute renal failure Current Visit: Yes Status: Acute Assessment and plan: Improving renal function. Patient continues to have good urine output. Her urine does appear to be cloudy. Nephrology following. Continue low rate IV fluid. Qualifiers: Acute renal failure type: unspecified Qualified Code(s): N17.9 - Acute kidney failure, unspecified (2) Atrial fibrillation, new onset Current Visit: Yes Status: Acute Assessment and plan: Spontaneously converted to normal sinus rhythm. Started on oral amiodarone. On heparin for anticoagulation. Transition to Coumadin. High risk for complications due to use of intravenous heparin drip. (3) UTI (urinary tract infection) due to urinary indwelling Choi catheter Current Visit: Yes Status: Acute Assessment and plan: With ESBL Escherichia coli. Continue ertapenem. Qualifiers: Indwelling urinary catheter type: indwelling urethral catheter Encounter type: initial encounter Qualified Code(s): T83.511A - Infection and inflammatory reaction due to indwelling urethral catheter, initial encounter; N39.0 - Urinary tract infection, site not specified (4) IDDM (insulin dependent diabetes mellitus) Current Visit: Yes Status: Chronic Assessment and plan: Blood sugars are better controlled. Continue current insulin regimen. (5) DVT prophylaxis Current Visit: No Status: Acute Assessment and plan: Patient is on heparin drip and Coumadin (6) Chronic kidney disease (CKD), stage IV (severe) Current Visit: No Status: Chronic Assessment and plan: Due to diabetes. With acute kidney injury. Closely follow up renal function - Time Spent With Patient Greater than 35 minutes - Subjective Interval history: Patient is a 70-year-old admitted for weakness, altered mental status, and dehydration. Past medical history is significant for multiple myeloma, CAD, diabetes, CKD. Patient developed A Fib with RVR in hospital. Cardiac consult saw Patient, patient was placed on Amioderone iv and rhythm has converted to sinus. On Coumadin now, bridged by heparin drip. I saw and examined the patient today. She is awake alert, oriented 3. No fever, vitals are stable. Continue with sinus rhythm. INR 1.3 today. Continue coumadin and heparin bridging. PT/OT evaluation. - Constitutional Vitals: Temp Pulse Resp BP Pulse Ox 97.5 F L 78 20 127/62 99 05/06/16 12:30 05/06/16 12:30 05/06/16 12:30 05/06/16 12:30 05/06/16 12:30 General appearance: Present: cooperative, mild distress, A&O X 3, pleasant, obese, answers questions appropriately - Head Head exam: Present: atraumatic, normocephalic - Eye Eye exam: Present: PERRL, conjuntiva pink, sclera anicteric Pupils: Present: PERRL - Neck Neck exam general surgery: Present: supple, trachea midline. Absent: lymphadenopathy - Respiratory Respiratory exam: Present: CTAB. Absent: accessory muscle use, rales, rhonchi, wheezes - Cardiovascular Cardiovascular exam: Present: RRR, +S1, +S2. Absent: diastolic murmur, gallop, rubs, systolic murmur - GI/Abdominal GI/Abdominal exam: Present: normal bowel sounds, soft, no peritoneal signs. Absent: distended, tenderness - Extremities Exam Extremities exam: Present: pedal edema (B/L), warm, radial pulses palpable and symetrical. Absent: calf tenderness, cyanotic - Neurological Exam Neurological exam: Present: CN II-XII intact, oriented X3, no focal deficits. Absent: pronater drift, facial droop, speech deficit - Skin Skin exam: Present: dry, intact Internal Medicine: Result - Labs CBC & Chem 7: 05/06/16 04:20 05/06/16 04:20 Labs: Short CBC 05/06/16 Range/Units 04:20 WBC 11.2 H (4.3-11.1) K/mcL Hgb 9.1 L (11.5-15.4) g/dL Hct 28.8 L (35.3-44.9) % Plt Count 317 (140-400) K/mcL Neutrophils # 9.8 H (1.6-8.9) K/mcL BMP 05/06/16 04:20 Sodium 140 Potassium 3.4 L Chloride 110 H Carbon Dioxide 20 BUN 94 H Creatinine 2.48 H Glucose 74 Calcium 7.8 L - ABG Interpretation ABG results: ABG ABG pH 7.35 pH Units (7.32-7.45) 04/30/16 16:23 ABG pCO2 32 mmHg (35-45) L 04/30/16 16:23 ABG pO2 78 mmHg (85-104) L 04/30/16 16:23 ABG O2 Saturation 95 % (95-98) 04/30/16 16:23 PT/INR, D-dimer PT 14.0 Seconds (9.4-12.1) H 05/06/16 04:20 Consult Discharge Plan - Plan Referrals: Johan Jha MD [Primary Care Provider] - (patient is from [facility], no follow up PCP appointment needed) NO,PCP [Non-Partnered Physician] - Kristian Chand DO [Partnered Physician] - 05/21/16 10:40 am
[2016-05-06] MEDS ORDERED: *HR* Warfarin 5 MG TABLET PO ONE (18:00)
[2016-05-06 18:20] LABS: Urine Collection Duration RANDOM hr; Urine Collection Volume RANDOM mL
[2016-05-06 22:22] LABS: Activated Partial Thrombo Time 217.3 Seconds (26.0-36.0)
[2016-05-06 22:53] LABS: Heparin anti-factor XA UFH 1.09 IU/mL (0.30-0.70)
[2016-05-07 05:27] LABS: Basophils % 0.1 %; Eosinophils # 0.4 K/mcL (0.0-0.6); Eosinophils % 4.2 %; Hematocrit 27.4 % (35.3-44.9); Hemoglobin 8.8 g/dL (11.5-15.4); Immature Granulocytes % 1.8 % (0-4); Lymphocytes # 0.5 K/mcL (0.6-4.6); Lymphocytes % 5.1 %; Mean Corpuscular HGB Conc 32.1 g/dL (31.6-35.5); Mean Corpuscular Hemoglobin 29.8 pg (28.0-33.3); Mean Corpuscular Volume 92.9 fL (83.0-100.0); Mean Platelet Volume 9.9 fL (9.4-12.4); Monocytes # 0.5 K/mcL (0.0-1.3); Neutrophils # 7.5 K/mcL (1.6-8.9); Platelet Count 303 K/mcL (140-400); Red Blood Count 2.95 M/mcL (3.82-4.97); Red Cell Distribution Width 15.1 % (11.5-14.5); Segmented Neutrophils % 83.8 %
[2016-05-07 05:30] LABS: INR 1.4; Prothrombin Time 15.6 Seconds (9.4-12.1)
[2016-05-07 05:36] LABS: Activated Partial Thrombo Time 48.6 Seconds (26.0-36.0)
[2016-05-07 05:39] LABS: Calcium 7.7 mg/dL (8.6-10.8)
[2016-05-07 05:41] LABS: Potassium 4.6 mEq/L (3.5-4.5)
[2016-05-07] MEDS: Gabapentin 300 MG CAPSULE PO SCH ×2 (08:37→21:07)
[2016-05-07] MEDS: Metoprolol XL (24 HR) Succ 50 MG TAB.ER.24H PO SCH (08:37)
[2016-05-07] MEDS: Folic Acid 1 MG TABLET PO SCH (08:37)
[2016-05-07] MEDS: Aspirin Enteric Coated 81 MG Tablet PO SCH (08:37)
[2016-05-07] MEDS: *HR* Amiodarone 200 MG TABLET PO SCH ×2 (08:38→21:07)
[2016-05-07] MEDS: 0.9 % Sodium Chloride 1,000 ML IVC SCH (08:45)
[2016-05-07] MEDS: Insulin LISPRO 300 UNITS/3 ML VIAL SQ SCH ×7 (08:47→21:08)
[2016-05-07] MEDS: Nystatin POWDER 30 GM BOTTLE TP SCH ×2 (08:56→21:10)
[2016-05-07] MEDS: Fluticasone Propionate Nasal 50 MCG/SPRAY BOTTLE NS SCH (08:56)
[2016-05-07] MEDS: Saline Nasal Spray 44 ML BOTTLE NS SCH ×3 (08:56→21:09)
[2016-05-07] MEDS: Insulin DETEMIR 100 UNIT/ML X5UNITS SQ SCH ×2 (08:57→21:08)
--- NOTE | 2016-05-07 09:13 | Nephrology Progress Note ---
Date of Encounter: 05/07/16 Time of Encounter: 09:12 - Assessment and Plan (1) Acute renal failure Current Visit: Yes Status: Acute Patient has acute kidney injury superimposed on stage IV chronic kidney disease. This is in the setting of sepsis and new onset atrial fibrillation with rapid ventricular response. She also has been receiving chemotherapy for ongoing management of multiple myeloma. The patient remains in normal sinus rhythm. Her renal function has returned back to her previous baseline. Qualifiers: Acute renal failure type: unspecified Qualified Code(s): N17.9 - Acute kidney failure, unspecified (2) Atrial fibrillation with rapid ventricular response Current Visit: Yes Status: Acute (3) Multiple myeloma Current Visit: Yes Status: Acute Qualifiers: Multiple myeloma remission status: not in remission Qualified Code(s): C90.00 - Multiple myeloma not having achieved remission (4) Myeloma kidney disease Current Visit: No Status: Acute (5) Chronic kidney disease (CKD), stage IV (severe) Current Visit: No Status: Chronic Subjective Principal diagnosis: Sepsis, A fib c RVR Interval history: The patient is a bit more alert today. She is eating breakfast. Renal function continues to improve. Creatinine is down to 2.0. Objective - Vital Signs Vital signs: Vital Signs Temp Pulse Resp BP Pulse Ox 05/07/16 07:39 99.5 F 78 16 119/49 97 05/07/16 05:26 78 16 98 05/07/16 05:10 99.9 F H 86 16 129/55 98 05/07/16 01:08 75 16 98 05/07/16 01:00 98.2 F 76 20 129/58 98 05/06/16 21:49 97.4 F L 74 16 125/65 98 05/06/16 16:14 97.8 F 76 18 147/64 97 05/06/16 16:00 97.8 F 76 18 147/64 97 05/06/16 12:30 97.5 F L 78 20 127/62 99 05/06/16 10:59 97.5 F L 78 20 127/62 99 Intake and Output 05/06/16 05/07/16 05/07/16 23:59 07:59 15:59 Intake Total 489 / 489 350 / 350 1000 / 1000 Output Total 1025 / 1025 225 / 225 Balance -536 / -536 125 / 125 1000 / 1000 Intake: IV Fluids 129 / 129 50 / 50 1000 / 1000 0.9 % Sodium Chloride 1, 1000 / 1000 000 ML @ 50 mls/hr IVC . Q20H [facility] Rx#:[id number] Heparin 25,000 UNIT/500 129 / 129 50 / 50 ML D5W 25,000 unit In 500 ml @ 14 UNIT/KG/HR 36.07 mls/hr IVC .[id number] [facility] Rx#:[id number] Oral 360 / 360 300 / 300 Output: Catheter 1025 / 1025 225 / 225 Other: # Urine Diapers 1 Weight 129.7 kg Blood Glucose* 134 87 Patient Weight 05/07/16 23:59 Weight 129.7 kg - General Appearance Exam: Patient is more alert. She is in no acute distress. Lungs coarse breath sounds. Heart regular rate and rhythm. Abdomen is benign. She does have lower extremity swelling. Choi catheter is in place. - Lab 05/07/16 05:15 05/07/16 05:15 Most recent lab results ABG pH 7.35 pH Units (7.32-7.45) 04/30/16 16:23 ABG pCO2 32 mmHg (35-45) L 04/30/16 16:23 ABG pO2 78 mmHg (85-104) L 04/30/16 16:23 ABG HCO3 17.7 mEQ/L (21-27) L 04/30/16 16:23 ABG O2 Saturation 95 % (95-98) 04/30/16 16:23 Calcium 7.7 mg/dL (8.6-10.8) L 05/07/16 05:15 Phosphorus 4.8 mg/dL (2.3-4.7) H 05/05/16 04:30 Magnesium 1.3 mg/dL (1.6-2.6) L 05/05/16 04:30 Urine Creatinine 30 mg/dL 05/03/16 00:10 Urine Total Protein SEE NOTE mg/d (10-140) 05/03/16 00:10 Consult Discharge Plan - Plan Referrals: Johan Jha MD [Primary Care Provider] - (patient is from [facility], no follow up PCP appointment needed) NO,PCP [Non-Partnered Physician] - Kristian Chand DO [Partnered Physician] - 05/21/16 10:40 am
[2016-05-07] MEDS: Ondansetron 4 MG/2 ML VIAL IVP PRN (12:00)
[2016-05-07] MEDS: traMADol 50 MG TABLET PO PRN ×2 (12:00→21:16)
[2016-05-07] MEDS: *HR* Heparin 5,000 UNIT/ML VIAL IVP PRN (12:12)
--- NOTE | 2016-05-07 12:29 | Internal Med Progress Note ---
Date of Encounter: 05/07/16 Time of Encounter: 10:00 - Assessment and plan (1) Acute renal failure Current Visit: Yes Status: Acute Assessment and plan: Improving renal function. Patient continues to have good urine output. Nephrology following. Continue low rate IV fluid. Qualifiers: Acute renal failure type: unspecified Qualified Code(s): N17.9 - Acute kidney failure, unspecified (2) Atrial fibrillation, new onset Current Visit: Yes Status: Acute Assessment and plan: Spontaneously converted to normal sinus rhythm. Started on oral amiodarone. On heparin for anticoagulation. Transition to Coumadin. High risk for complications due to use of intravenous heparin drip. (3) UTI (urinary tract infection) due to urinary indwelling Choi catheter Current Visit: Yes Status: Acute Assessment and plan: With ESBL Escherichia coli. Continue ertapenem. Qualifiers: Indwelling urinary catheter type: indwelling urethral catheter Encounter type: initial encounter Qualified Code(s): T83.511A - Infection and inflammatory reaction due to indwelling urethral catheter, initial encounter; N39.0 - Urinary tract infection, site not specified (4) IDDM (insulin dependent diabetes mellitus) Current Visit: Yes Status: Chronic Assessment and plan: Blood sugars are better controlled. Continue current insulin regimen. (5) DVT prophylaxis Current Visit: No Status: Acute Assessment and plan: Patient is on heparin drip and Coumadin (6) Chronic kidney disease (CKD), stage IV (severe) Current Visit: No Status: Chronic Assessment and plan: Due to diabetes. With acute kidney injury. Closely follow up renal function - Time Spent With Patient Greater than 35 minutes - Subjective Interval history: Patient is a 70-year-old admitted for weakness, altered mental status, and dehydration. Past medical history is significant for multiple myeloma, CAD, diabetes, CKD. Patient developed A Fib with RVR in hospital. Cardiac consult saw Patient, patient was placed on Amioderone iv and rhythm has converted to sinus. On Coumadin now, bridged by heparin drip. I saw and examined the patient today. She is awake alert, oriented 3. No fever, vitals are stable. Continue with sinus rhythm. INR 1.4 today. Continue coumadin and heparin bridging. PT/OT evaluation. - Constitutional Vitals: Temp Pulse Resp BP Pulse Ox 100.4 F H 81 18 118/84 97 05/07/16 11:44 05/07/16 11:44 05/07/16 11:44 05/07/16 11:44 05/07/16 11:44 General appearance: Present: cooperative, mild distress, A&O X 3, pleasant, obese, answers questions appropriately - Head Head exam: Present: atraumatic, normocephalic - Eye Eye exam: Present: PERRL, conjuntiva pink, sclera anicteric Pupils: Present: PERRL - Neck Neck exam general surgery: Present: supple, trachea midline. Absent: lymphadenopathy - Respiratory Respiratory exam: Present: CTAB. Absent: accessory muscle use, rales, rhonchi, wheezes - Cardiovascular Cardiovascular exam: Present: RRR, +S1, +S2. Absent: diastolic murmur, gallop, rubs, systolic murmur - GI/Abdominal GI/Abdominal exam: Present: normal bowel sounds, soft, no peritoneal signs. Absent: distended, tenderness - Extremities Exam Extremities exam: Present: pedal edema (B/L), warm, radial pulses palpable and symetrical. Absent: calf tenderness, cyanotic - Neurological Exam Neurological exam: Present: CN II-XII intact, oriented X3, no focal deficits. Absent: pronater drift, facial droop, speech deficit - Skin Skin exam: Present: dry, intact Internal Medicine: Result - Labs CBC & Chem 7: 05/07/16 05:15 05/07/16 05:15 Labs: Short CBC 05/07/16 Range/Units 05:15 WBC 9.0 (4.3-11.1) K/mcL Hgb 8.8 L (11.5-15.4) g/dL Hct 27.4 L (35.3-44.9) % Plt Count 303 (140-400) K/mcL Neutrophils # 7.5 (1.6-8.9) K/mcL BMP 05/07/16 05:15 Sodium 139 Potassium 4.6 H D Chloride 111 H Carbon Dioxide 18 L BUN 76 H Creatinine 2.00 H Glucose 76 Calcium 7.7 L - ABG Interpretation ABG results: ABG ABG pH 7.35 pH Units (7.32-7.45) 04/30/16 16:23 ABG pCO2 32 mmHg (35-45) L 04/30/16 16:23 ABG pO2 78 mmHg (85-104) L 04/30/16 16:23 ABG O2 Saturation 95 % (95-98) 04/30/16 16:23 PT/INR, D-dimer PT 15.6 Seconds (9.4-12.1) H 05/07/16 05:15 Consult Discharge Plan - Plan Referrals: Johan Jha MD [Primary Care Provider] - (patient is from [facility], no follow up PCP appointment needed) NO,PCP [Non-Partnered Physician] - Kristian Chand DO [Partnered Physician] - 05/21/16 10:40 am
[2016-05-07 17:58] LABS: Activated Partial Thrombo Time 123.2 Seconds (26.0-36.0)
[2016-05-07] MEDS ORDERED: *HR* Warfarin 5 MG TABLET PO ONE (18:00)
[2016-05-07 18:09] LABS: Heparin anti-factor XA UFH 0.64 IU/mL (0.30-0.70)
[2016-05-07] MEDS: Heparin 25,000 UNIT/500 ML D5W 25,000 UNIT/500 ML MLS IVC SCH ×3 (19:26→19:59)
[2016-05-08] MEDS: Heparin 25,000 UNIT/500 ML D5W 25,000 UNIT/500 ML MLS IVC SCH (02:20)
[2016-05-08] MEDS: Benzonatate 100 MG CAPSULE PO PRN ×2 (03:29→12:36)
[2016-05-08 04:47] LABS: Basophils % 0.1 %; Eosinophils # 0.3 K/mcL (0.0-0.6); Eosinophils % 4.3 %; Hematocrit 28.3 % (35.3-44.9); Hemoglobin 8.8 g/dL (11.5-15.4); Immature Granulocytes % 1.4 % (0-4); Lymphocytes # 0.6 K/mcL (0.6-4.6); Lymphocytes % 7.5 %; Mean Corpuscular HGB Conc 31.1 g/dL (31.6-35.5); Mean Corpuscular Hemoglobin 29.3 pg (28.0-33.3); Mean Corpuscular Volume 94.3 fL (83.0-100.0); Mean Platelet Volume 9.6 fL (9.4-12.4); Monocytes # 0.4 K/mcL (0.0-1.3); Monocytes % 5.5 %; Neutrophils # 6.4 K/mcL (1.6-8.9); Nucleated Red Blood Cells 0.5 /100 WBC (0); Platelet Count 307 K/mcL (140-400); Red Cell Distribution Width 15.5 % (11.5-14.5); Segmented Neutrophils % 81.2 %
[2016-05-08 04:59] LABS: Calcium 7.7 mg/dL (8.6-10.8); Potassium 4.9 mEq/L (3.5-4.5)
[2016-05-08] MEDS: Insulin DETEMIR 100 UNIT/ML X5UNITS SQ SCH ×2 (08:30→21:45)
[2016-05-08] MEDS: Insulin LISPRO 300 UNITS/3 ML VIAL SQ SCH ×7 (08:30→21:44)
[2016-05-08] MEDS: 0.9 % Sodium Chloride 1,000 ML IVC SCH (08:53)
[2016-05-08] MEDS: Gabapentin 300 MG CAPSULE PO SCH ×2 (08:55→21:47)
[2016-05-08] MEDS: Metoprolol XL (24 HR) Succ 50 MG TAB.ER.24H PO SCH (08:55)
[2016-05-08] MEDS: Aspirin Enteric Coated 81 MG Tablet PO SCH (08:56)
[2016-05-08] MEDS: Folic Acid 1 MG TABLET PO SCH (09:01)
[2016-05-08] MEDS: Saline Nasal Spray 44 ML BOTTLE NS SCH ×3 (09:01→21:47)
[2016-05-08] MEDS: *HR* Amiodarone 200 MG TABLET PO SCH ×2 (09:01→21:47)
[2016-05-08] MEDS: Nystatin POWDER 30 GM BOTTLE TP SCH ×2 (09:01→21:47)
[2016-05-08] MEDS: Fluticasone Propionate Nasal 50 MCG/SPRAY BOTTLE NS SCH (09:02)
--- NOTE | 2016-05-08 09:26 | Nephrology Progress Note ---
Date of Encounter: 05/08/16 Time of Encounter: 08:50 - Assessment and Plan (1) Acute renal failure Current Visit: Yes Status: Acute Renal fct most likely at patients baseline. Edema worsening. Will give Lasix 40mg x 1. Will continue NS at 50 cc/hr while poor oral intake. Continue to monitor. Qualifiers: Acute renal failure type: unspecified Qualified Code(s): N17.9 - Acute kidney failure, unspecified Subjective Principal diagnosis: Sepsis, A fib c RVR Interval history: LAYING IN BED, STATES DOES NOT FEEL GOOD, FEELS CHILLED AND HAS NO APPETITE. Afebrile. Objective - Vital Signs Vital signs: Vital Signs Temp Pulse Resp BP Pulse Ox 05/08/16 07:42 98.8 F 70 16 114/40 96 05/08/16 05:49 98.4 F 96 15 113/49 05/07/16 23:51 99.2 F 74 18 110/52 96 05/07/16 21:20 99.2 F 05/07/16 21:15 100.1 F H 76 18 107/46 97 05/07/16 16:30 99.1 F 81 18 110/61 95 05/07/16 16:20 99.1 F 81 18 110/61 95 05/07/16 12:00 100.4 F H 81 18 118/84 97 05/07/16 11:44 100.4 F H 81 18 118/84 97 Intake and Output 05/07/16 05/08/16 05/08/16 23:59 07:59 15:59 Intake Total 1117 / 1117 Output Total 600 / 600 225 / 225 Balance -521 / -521 1116 / 1116 -225 / -225 Intake: IV Fluids 79 / 79 1117 / 1117 0.9 % Sodium Chloride 1, 1000 / 1000 000 ML @ 50 mls/hr IVC . Q20H [facility] Rx#:[id number] Heparin 25,000 UNIT/500 79 / 79 117 / 117 ML D5W 25,000 unit In 500 ml @ 14 UNIT/KG/HR 36.07 mls/hr IVC .[id number] [facility] Rx#:[id number] Oral 0 / 0 Output: Stool Catheter 600 / 600 225 / 225 Other: Stool Size Large Stool Consistency liquid Stool Color Brown Blood Glucose* 95 103 - General Appearance General appearance: Present: well-developed, well-nourished, appears started age , obese EENT: Present: mucous membranes moist Neck: Present: no JVD Respiratory: Present: clear Cardiology: Present: edema, irregular rhythm Additional Comments: 4+ LE edema. Gastrointestinal: Present: normoactive bowel sounds, no tenderness Integumentary: Present: warm and dry Neurologic: Present: alert and oriented x3 Psychiatric: Present: mood/affect appropriate, cooperative - Lab 05/08/16 04:44 05/08/16 04:44 Most recent lab results ABG pH 7.35 pH Units (7.32-7.45) 04/30/16 16:23 ABG pCO2 32 mmHg (35-45) L 04/30/16 16:23 ABG pO2 78 mmHg (85-104) L 04/30/16 16:23 ABG HCO3 17.7 mEQ/L (21-27) L 04/30/16 16:23 ABG O2 Saturation 95 % (95-98) 04/30/16 16:23 Calcium 7.7 mg/dL (8.6-10.8) L 05/08/16 04:44 Phosphorus 4.8 mg/dL (2.3-4.7) H 05/05/16 04:30 Magnesium 1.3 mg/dL (1.6-2.6) L 05/05/16 04:30 Urine Creatinine 30 mg/dL 05/03/16 00:10 Urine Total Protein SEE NOTE mg/d (10-140) 05/03/16 00:10 Consult Discharge Plan - Plan Referrals: Johan Jha MD [Primary Care Provider] - (patient is from [facility], no follow up PCP appointment needed) NO,PCP [Non-Partnered Physician] - Kristian Chand DO [Partnered Physician] - 05/21/16 10:40 am
[2016-05-08] MEDS ORDERED: Furosemide 40 MG/4 ML VIAL IVP ONE (09:28)
[2016-05-08 09:34] LABS: Activated Partial Thrombo Time 60.3 Seconds (26.0-36.0)
[2016-05-08 09:52] LABS: Alpha 2 Globulin (PEP) 1.2 g/dL (0.5-1.1); Beta Globulin (PEP) 0.6 g/dL (0.5-1.1)
[2016-05-08 09:53] LABS: PEP Impression See immunotyping
[2016-05-08] MEDS: traMADol 50 MG TABLET PO PRN (12:36)
[2016-05-08] MEDS: Ondansetron 4 MG/2 ML VIAL IVP PRN (12:37)
[2016-05-08 14:15] LABS: INR 1.9; Prothrombin Time 20.7 Seconds (9.4-12.1)
--- NOTE | 2016-05-08 15:02 | Internal Med Progress Note ---
Date of Encounter: 05/08/16 Time of Encounter: 10:00 - Assessment and plan (1) Acute renal failure Current Visit: Yes Status: Acute Assessment and plan: Improving renal function. Patient continues to have good urine output. Nephrology following. Her creatinine level is at about her baseline now. Qualifiers: Acute renal failure type: unspecified Qualified Code(s): N17.9 - Acute kidney failure, unspecified (2) Atrial fibrillation, new onset Current Visit: Yes Status: Acute Assessment and plan: Spontaneously converted to normal sinus rhythm. Started on oral amiodarone. On heparin for anticoagulation. Transition to Coumadin. High risk for complications due to use of intravenous heparin drip. (3) UTI (urinary tract infection) due to urinary indwelling Choi catheter Current Visit: Yes Status: Acute Assessment and plan: With ESBL Escherichia coli. Continue ertapenem. Antibiotic day 6. Qualifiers: Indwelling urinary catheter type: indwelling urethral catheter Encounter type: initial encounter Qualified Code(s): T83.511A - Infection and inflammatory reaction due to indwelling urethral catheter, initial encounter; N39.0 - Urinary tract infection, site not specified (4) IDDM (insulin dependent diabetes mellitus) Current Visit: Yes Status: Chronic Assessment and plan: Blood sugars are better controlled. Continue current insulin regimen. (5) Chronic kidney disease (CKD), stage IV (severe) Current Visit: No Status: Chronic Assessment and plan: Due to diabetes. With acute kidney injury. Closely follow up renal function. Creatinine level gets back to baseline now. (6) DVT prophylaxis Current Visit: No Status: Acute Assessment and plan: Patient is on heparin drip and Coumadin - Time Spent With Patient Greater than 35 minutes - Subjective Interval history: Patient is a 70-year-old admitted for weakness, altered mental status, and dehydration. Past medical history is significant for multiple myeloma, CAD, diabetes, CKD. Patient developed A Fib with RVR in hospital. Cardiac consult saw Patient, patient was placed on Amioderone iv and rhythm has converted to sinus. On Coumadin now, bridged by heparin drip. I saw and examined the patient today. She is awake alert, oriented 3. No fever, vitals are stable. Continue with sinus rhythm. INR 1.9 today. Continue coumadin and heparin bridging. PT/OT evaluation. Patient has mild wheezing today. Oxygen saturation is okay at 95% in room air. One dose of Lasix was given. IV fluid has been discontinued. Patient has mild hyperkalemia, potassium supplement has been discontinued. - Constitutional Vitals: Temp Pulse Resp BP Pulse Ox 98.2 F 76 18 120/56 97 05/08/16 11:32 05/08/16 11:32 05/08/16 11:32 05/08/16 11:32 05/08/16 11:32 General appearance: Present: cooperative, mild distress, A&O X 3, pleasant, obese, answers questions appropriately - Head Head exam: Present: atraumatic, normocephalic - Eye Eye exam: Present: PERRL, conjuntiva pink, sclera anicteric Pupils: Present: PERRL - Neck Neck exam general surgery: Present: supple, trachea midline. Absent: lymphadenopathy - Respiratory Respiratory exam: Present: CTAB. Absent: accessory muscle use, rales, rhonchi, wheezes - Cardiovascular Cardiovascular exam: Present: RRR, +S1, +S2. Absent: diastolic murmur, gallop, rubs, systolic murmur - GI/Abdominal GI/Abdominal exam: Present: normal bowel sounds, soft, no peritoneal signs. Absent: distended, tenderness - Extremities Exam Extremities exam: Present: warm, radial pulses palpable and symetrical. Absent : calf tenderness, cyanotic, pedal edema - Neurological Exam Neurological exam: Present: CN II-XII intact, oriented X3, no focal deficits. Absent: pronater drift, facial droop, speech deficit - Skin Skin exam: Present: dry, intact Internal Medicine: Result - Labs CBC & Chem 7: 05/08/16 04:44 05/08/16 04:44 Labs: Short CBC 05/08/16 Range/Units 04:44 WBC 7.9 (4.3-11.1) K/mcL Hgb 8.8 L (11.5-15.4) g/dL Hct 28.3 L (35.3-44.9) % Plt Count 307 (140-400) K/mcL Neutrophils # 6.4 (1.6-8.9) K/mcL BMP 05/08/16 04:44 Sodium 139 Potassium 4.9 H Chloride 112 H Carbon Dioxide 18 L BUN 63 H Creatinine 1.90 H Glucose 97 Calcium 7.7 L - ABG Interpretation ABG results: ABG ABG pH 7.35 pH Units (7.32-7.45) 04/30/16 16:23 ABG pCO2 32 mmHg (35-45) L 04/30/16 16:23 ABG pO2 78 mmHg (85-104) L 04/30/16 16:23 ABG O2 Saturation 95 % (95-98) 04/30/16 16:23 PT/INR, D-dimer PT 20.7 Seconds (9.4-12.1) H 05/08/16 09:20 Consult Discharge Plan - Plan Referrals: Johan Jha MD [Primary Care Provider] - (patient is from [facility], no follow up PCP appointment needed) NO,PCP [Non-Partnered Physician] - Kristian Chand DO [Partnered Physician] - 05/21/16 10:40 am
[2016-05-08] MEDS ORDERED: *HR* Warfarin 5 MG TABLET PO ONE (18:00)
[2016-05-09] MEDS: traMADol 50 MG TABLET PO PRN ×2 (01:55→12:20)
[2016-05-09] MEDS: Benzonatate 100 MG CAPSULE PO PRN (01:56)
[2016-05-09] MEDS: Heparin 25,000 UNIT/500 ML D5W 25,000 UNIT/500 ML MLS IVC SCH (04:08)
[2016-05-09 06:13] LABS: INR 2.2; Prothrombin Time 24.6 Seconds (9.4-12.1)
[2016-05-09 06:18] LABS: Magnesium 1.1 mg/dL (1.6-2.6); Potassium 4.7 mEq/L (3.5-4.5)
[2016-05-09 06:20] LABS: Basophils % 0.1 %; Eosinophils # 0.4 K/mcL (0.0-0.6); Eosinophils % 4.8 %; Hematocrit 27.8 % (35.3-44.9); Hemoglobin 8.5 g/dL (11.5-15.4); Immature Granulocytes % 1.2 % (0-4); Lymphocytes # 0.7 K/mcL (0.6-4.6); Lymphocytes % 8.7 %; Mean Corpuscular HGB Conc 30.6 g/dL (31.6-35.5); Mean Corpuscular Volume 94.9 fL (83.0-100.0); Mean Platelet Volume 9.5 fL (9.4-12.4); Monocytes # 0.5 K/mcL (0.0-1.3); Neutrophils # 5.9 K/mcL (1.6-8.9); Nucleated Red Blood Cells 0.3 /100 WBC (0); Platelet Count 294 K/mcL (140-400); Red Blood Count 2.93 M/mcL (3.82-4.97); Red Cell Distribution Width 15.6 % (11.5-14.5); Segmented Neutrophils % 79.2 %
[2016-05-09] MEDS ORDERED: Magnesium Sulfate 2 GM in D5% in Water 100 ML IVPB ONE (07:39)
[2016-05-09] MEDS: Insulin LISPRO 300 UNITS/3 ML VIAL SQ SCH ×4 (08:37→12:18)
[2016-05-09] MEDS: Gabapentin 300 MG CAPSULE PO SCH (08:39)
[2016-05-09] MEDS: Aspirin Enteric Coated 81 MG Tablet PO SCH (08:39)
[2016-05-09] MEDS: Folic Acid 1 MG TABLET PO SCH (08:39)
[2016-05-09] MEDS: *HR* Amiodarone 200 MG TABLET PO SCH (08:40)
[2016-05-09] MEDS: Fluticasone Propionate Nasal 50 MCG/SPRAY BOTTLE NS SCH (08:52)
[2016-05-09] MEDS: Metoprolol XL (24 HR) Succ 50 MG TAB.ER.24H PO SCH (08:54)
--- NOTE | 2016-05-09 09:06 | Nephrology Progress Note ---
Date of Encounter: 05/09/16 Time of Encounter: 09:01 - Assessment and Plan (1) Acute renal failure Current Visit: Yes Status: Acute Acute renal failure secondary to volume depletion in the setting of decreased by mouth intake and Lasix Serum creatinine has trended down to baseline. He has underlying CKD stage IV with baseline creatinine in the low 2 range Has peripheral edema restart Lasix 40 mg by mouth daily Check renal panel and magnesium in 1 week. Follow up with Dr. Estrada in 2 weeks Qualifiers: Acute renal failure type: unspecified Qualified Code(s): N17.9 - Acute kidney failure, unspecified (2) UTI (urinary tract infection) Current Visit: No Status: Suspected ESBL UTI, continue ertapenem Has chronic indwelling Choi catheter Qualifiers: Urinary tract infection type: acute cystitis Hematuria presence: without hematuria Qualified Code(s): N30.00 - Acute cystitis without hematuria (3) Hypomagnesemia Current Visit: Yes Status: Acute Supplement IV Can be DC'd to ECF from renal standpoint Subjective Principal diagnosis: Sepsis, A fib c RVR Interval history: 70-year-old female with h/o DM type II, CAD, CKD 4 and multiple myeloma admitted with altered mental status and dehydration. Had worsening renal function thought to be secondary to dehydration. Had A. fib with RVR converted spontaneously. Lasix was held, received IV fluids and creatinine improved to baseline. As a chronic indwelling Choi catheter. Has UTI, culture positive for ESBL, on ertapenem Patient afebrile overnight, BP stable, Urine output 1.8 L. awake, alert, wants to go back to nursing him Objective - Vital Signs Vital signs: Vital Signs Temp Pulse Resp BP Pulse Ox 05/09/16 07:58 97.4 F L 73 18 101/49 95 05/09/16 04:27 99.0 F 76 16 121/50 96 05/09/16 00:50 98.8 F 76 18 119/60 97 05/08/16 20:28 99.4 F 71 18 122/55 98 05/08/16 16:14 98.6 F 71 18 117/50 97 05/08/16 15:52 77 05/08/16 11:32 98.2 F 76 18 120/56 97 Intake and Output 05/08/16 05/09/16 05/09/16 23:59 07:59 15:59 Intake Total 399 / 399 Output Total 825 / 825 900 / 900 Balance -426 / -426 -900 / -900 Intake: IV Fluids 159 / 159 Heparin 25,000 UNIT/500 159 / 159 ML D5W 25,000 unit In 500 ml @ 14 UNIT/KG/HR 36.07 mls/hr IVC .[id number] [facility] Rx#:[id number] Oral 240 / 240 Output: Catheter 825 / 825 900 / 900 Other: Meal Dinner Percent of Meal Consumed 25% Stool Size Small Stool Consistency liquid Stool Color Brown Weight 130.4 kg Blood Glucose* 122 105 Patient Weight 05/09/16 23:59 Weight 130.4 kg - General Appearance Exam: CVS; s1s2 present, regular, no murmurs RESP; decreased air entry, clear to auscultation ABD; soft, NT, BS present, no organomegaly, no bruits EXT; 2+ edema - Lab 05/09/16 05:55 05/09/16 05:55 Most recent lab results ABG pH 7.35 pH Units (7.32-7.45) 04/30/16 16:23 ABG pCO2 32 mmHg (35-45) L 04/30/16 16:23 ABG pO2 78 mmHg (85-104) L 04/30/16 16:23 ABG HCO3 17.7 mEQ/L (21-27) L 04/30/16 16:23 ABG O2 Saturation 95 % (95-98) 04/30/16 16:23 Calcium 8.0 mg/dL (8.6-10.8) L 05/09/16 05:55 Phosphorus 4.8 mg/dL (2.3-4.7) H 05/05/16 04:30 Magnesium 1.1 mg/dL (1.6-2.6) L 05/09/16 05:55 Urine Creatinine 30 mg/dL 05/03/16 00:10 Urine Total Protein SEE NOTE mg/d (10-140) 05/03/16 00:10 Consult Discharge Plan - Plan Referrals: Johan Jha MD [Primary Care Provider] - (patient is from [facility], no follow up PCP appointment needed) NO,PCP [Non-Partnered Physician] - Kristian Chand DO [Partnered Physician] - 05/21/16 10:40 am
[2016-05-09] MEDS ORDERED: Furosemide 40 MG TABLET PO SCH (09:30)
[2016-05-09] MEDS: Saline Nasal Spray 44 ML BOTTLE NS SCH (11:15)
[2016-05-09] MEDS: Nystatin POWDER 30 GM BOTTLE TP SCH (11:15)
[2016-05-09] MEDS: Insulin DETEMIR 100 UNIT/ML X5UNITS SQ SCH (11:16)
[2016-05-09 11:20] VITALS: BP 109/50
--- NOTE | 2016-05-09 13:21 | Discharge Summary ---
Date of Encounter: 05/09/16 Time of Encounter: 12:00 - Discharge Diagnosis (1) Acute renal failure Priority: Primary Status: Acute Qualifiers: Acute renal failure type: unspecified Qualified Code(s): N17.9 - Acute kidney failure, unspecified (2) Atrial fibrillation, new onset Priority: Primary Status: Acute (3) UTI (urinary tract infection) due to urinary indwelling Choi catheter Priority: Primary Status: Acute Qualifiers: Indwelling urinary catheter type: indwelling urethral catheter Encounter type: initial encounter Qualified Code(s): T83.511A - Infection and inflammatory reaction due to indwelling urethral catheter, initial encounter; N39.0 - Urinary tract infection, site not specified (4) IDDM (insulin dependent diabetes mellitus) Priority: Secondary Status: Chronic (5) Chronic kidney disease (CKD), stage IV (severe) Priority: Secondary Status: Chronic (6) DVT prophylaxis Priority: Secondary Status: Acute - Discharge Medications Prescriptions: Amiodarone [Cordarone] 200 mg PO BID #60 tablet Metoprolol XL (24 HR) Succ [Toprol Xl] 50 mg PO DAILY #30 tab.er.24h Tramadol HCl [Ultram] 50 mg PO Q6H PRN #20 tablet PRN Reason: Pain Warfarin [Coumadin] 5 mg PO DAILY@1800 #14 tablet Home Medications: Aspirin [Adult Low Dose Aspirin EC] 81 mg PO QAM 04/04/15 [History] Atorvastatin Calcium [Lipitor] 20 mg PO DAILY 04/04/15 [History] Loperamide HCl [Imodium A-D] 2 mg PO Q6H PRN 04/04/15 [History] Prochlorperazine Maleate [Compazine] 10 mg PO Q6H PRN 04/04/15 [History] Tizanidine HCl [Zanaflex] 4 mg PO Q8H PRN 04/04/15 [History] Folic Acid 1 mg PO DAILY #30 tablet 04/18/15 [Rx] Docusate [Colace] 100 mg PO DAILY PRN 04/22/15 [History] Insulin Glargine,Hum.rec.anlog [Lantus Solostar] 15 unit SQ 04/22/15 [History ] Insulin Glargine,Hum.rec.anlog [Lantus Solostar] 18 unit SQ QAM 04/22/15 [ History] Insulin LISPRO [HumaLOG] 0 unit SQ ACHS 04/22/15 [History] Melatonin 10 mg PO HS PRN 04/22/15 [History] Simethicone [Gas-X] 160 mg PO Q6H PRN 04/22/15 [History] Acetaminophen [Tylenol] 650 mg PO Q4H PRN 06/11/15 [History] Gabapentin [Neurontin] 300 mg PO BID 06/11/15 [History] Magnesium Hydroxide/Al Hydrox [Mag-Al Liquid] 30 ml PO BID PRN 06/11/15 [History ] Glucagon HCl 1 mg IJ ONCE PRN 12/27/15 [History] Clopidogrel [Plavix] 75 mg PO DAILY 02/18/16 [History] Fluticasone Propionate Nasal [Flonase] 2 spray NS DAILY 02/18/16 [History] Furosemide [Lasix] 40 mg PO DAILY 02/18/16 [History] Temazepam [Restoril] 15 mg PO HS 02/18/16 [History] MethylPREDNISolone [Medrol] 20 mg PO DAILY #10 tablet 04/14/16 [Rx] Albuterol Neb [Proventil Neb] 2.5 mg IH Q6H PRN 04/30/16 [History] GuaiFENesin/Dextromethorphan [Mucinex Dm ER 600-30 mg Tablet] 1 each PO BID 05/15 [History] Guaifenesin [Diabetic Tussin Ex] 100 mg PO QID PRN 04/30/16 [History] Mirtazapine 7.5 mg PO HS 04/30/16 [History] Nystatin POWDER [Nystop] 1 appl TP BID 04/30/16 [History] Ondansetron HCl [Zofran] 4 mg PO Q6H PRN 04/30/16 [History] Saline Nasal [place] [[place] Nasal [place]] 1 spray NS TID 04/30/16 [History] Tolnaftate [Antifungal Cream] 1 appl TP BID 04/30/16 [History] Tramadol HCl [Ultram] 50 mg PO BID 04/30/16 [History] Amiodarone [Cordarone] 200 mg PO BID #60 tablet 05/09/16 [Rx] Metoprolol XL (24 HR) Succ [Toprol Xl] 50 mg PO DAILY #30 tab.er.24h 05/09/16 [ Rx] Tramadol HCl [Ultram] 50 mg PO Q6H PRN #20 tablet 05/09/16 [Rx] Warfarin [Coumadin] 5 mg PO DAILY@1800 #14 tablet 05/09/16 [Rx] Allergies/Adverse Reactions: Allergies hydrocodone [From Vicodin] Allergy (Verified 04/04/15 11:12) Rash - Notes to Outpatient Provider Patient did develop new A. fib during hospitalization. On amiodarone, coumadin , and metoprolol XL. Continue amiodarone 200 mg BID for one month and the decrease to 200 mg daily per cardiology. Follow-up PT/INR in 5 days. Date of admission: 04/30/16 23:01 Primary care physician: Johan Jha MD Consults: 05/02/16 11:40 Consult to Cardiology [CONS] Routine Comment: Consulting Provider: Sheila Crawford Reason for Consult: New Afib with RVR Time Notified: 11:40 Call Completed: Yes 05/03/16 12:13 Consult to Invasive Line Access Team [CONS] Routine Reason for Consult: limited vascular access. Line Type: EPIV 05/06/16 08:30 OT [Consult to Occupational Therapy] [CONS] Routine Comment: Evaluate, develop and implement POC PT [Consult to Physical Therapy] [CONS] Routine Comment: Evaluate, develop and implement POC Discharging clinician: Madison Cochran Anticipated date of discharge: 05/09/16 - Patient Status Disposition: Transfer SNF Condition: Fair Functional capacity at discharge: wheelchair bound - Discharge Instructions Follow Up With: Johan Jha MD [Primary Care Provider] - (patient is from [facility], no follow up PCP appointment needed) NO,PCP [Non-Partnered Physician] - Kristian Chand DO [Partnered Physician] - 05/21/16 10:40 am - Diet and Activity Activity: as per physical therapy Diet: diabetic diet Interval History: Ms. Vaughan is a 70 year old female who was sent to the emergency department today by her oncologist for concerns of weakness, altered mental status, and dehydration. Work-up in the ER revealed patient to have evidence of urinary tract infection with probable pyelonephritis, acute renal failure on top of chronic disease, and dehydration. Furthermore, there was concern that she had altered mental status. She was subsequently admitted to the hospitalist service. Hospital course: Ms. Vaughan is a 70 year old female admitted for altered mental status. She was found UTI, dehydration, and acute renal injury. SHe will treated with hydration. Urine culture shows ESBL, she was treated with Ertapenam and finish a 7 day course. Nephrology consult was called, patient's renal function has reached her baseline. Patient has developed new A. fib during hospitalization, cardiology consult was called and the patient was placed on Amioderone, metoprolol, and Coumadin. She was bridged with heparin drip. Her INR has been therapeutic and heparin drip has been discontinued. After treatment, her condition has improved, will transfer [facility] to [facility] and continue treatment. I saw and examined the patient today. She is awake, alert, oriented 3, express she wants go back to [facility]. She has no fever, vitals are stable , oxygen saturation 96% in room air. Heart rate 72 at a sinus rhythm. Patient is ready to discharge to [facility], follow-up with PCP and cardiology as outpatient. - Time Spent with Patient Total time spent providing and/or coordinating discharge services: 40 minutes Greater than 30 minutes - Constitutional Vitals: Temp Pulse Resp BP Pulse Ox 97.9 F 72 20 109/50 96 05/09/16 11:19 05/09/16 11:26 05/09/16 11:19 05/09/16 11:19 05/09/16 11:19 General appearance: Present: cooperative, A&O X 3, pleasant, no acute distress, obese, answers questions appropriately - Head Head exam: Present: atraumatic, normocephalic - Eye Eye exam: Present: PERRL, conjuntiva pink, sclera anicteric Pupils: Present: PERRL - Neck Neck exam general surgery: Present: supple, trachea midline. Absent: lymphadenopathy - Respiratory Respiratory exam: Present: CTAB. Absent: accessory muscle use, rales, rhonchi, wheezes - Cardiovascular Cardiovascular exam: Present: RRR, +S1, +S2. Absent: diastolic murmur, gallop, rubs, systolic murmur - GI/Abdominal GI/Abdominal exam: Present: normal bowel sounds, soft, no peritoneal signs. Absent: distended, tenderness - Extremities Exam Extremities exam: Present: pedal edema, warm, radial pulses palpable and symetrical. Absent: calf tenderness, cyanotic - Neurological Exam Neurological exam: Present: CN II-XII intact, oriented X3, no focal deficits. Absent: pronater drift, facial droop, speech deficit - Skin Skin exam: Present: dry, intact
--- NOTE | 2016-05-09 13:36 | Physician Discharge Referral ---
ExtendedCare Referral Info Transfer To: [facility], [facility] Provider in Charge after Transfer: Other - Diagnosis (1) Acute renal failure Status: Acute (2) Atrial fibrillation, new onset Status: Acute (3) UTI (urinary tract infection) due to urinary indwelling Choi catheter Status: Acute (4) IDDM (insulin dependent diabetes mellitus) Status: Chronic (5) Chronic kidney disease (CKD), stage IV (severe) Status: Chronic (6) DVT prophylaxis Status: Acute - Transfer Medications Prescriptions: Amiodarone [Cordarone] 200 mg PO BID #60 tablet Metoprolol XL (24 HR) Succ [Toprol Xl] 50 mg PO DAILY #30 tab.er.24h Tramadol HCl [Ultram] 50 mg PO Q6H PRN #20 tablet PRN Reason: Pain Warfarin [Coumadin] 5 mg PO DAILY@1800 #14 tablet Home Medications: Aspirin [Adult Low Dose Aspirin EC] 81 mg PO QAM 04/04/15 [History] Atorvastatin Calcium [Lipitor] 20 mg PO DAILY 04/04/15 [History] Loperamide HCl [Imodium A-D] 2 mg PO Q6H PRN 04/04/15 [History] Prochlorperazine Maleate [Compazine] 10 mg PO Q6H PRN 04/04/15 [History] Tizanidine HCl [Zanaflex] 4 mg PO Q8H PRN 04/04/15 [History] Folic Acid 1 mg PO DAILY #30 tablet 04/18/15 [Rx] Docusate [Colace] 100 mg PO DAILY PRN 04/22/15 [History] Insulin Glargine,Hum.rec.anlog [Lantus Solostar] 15 unit SQ HS 04/22/15 [History ] Insulin Glargine,Hum.rec.anlog [Lantus Solostar] 18 unit SQ QAM 04/22/15 [ History] Insulin LISPRO [HumaLOG] 0 unit SQ ACHS 04/22/15 [History] Melatonin 10 mg PO HS PRN 04/22/15 [History] Simethicone [Gas-X] 160 mg PO Q6H PRN 04/22/15 [History] Acetaminophen [Tylenol] 650 mg PO Q4H PRN 06/11/15 [History] Gabapentin [Neurontin] 300 mg PO BID 06/11/15 [History] Magnesium Hydroxide/Al Hydrox [Mag-Al Liquid] 30 ml PO BID PRN 06/11/15 [History ] Glucagon HCl 1 mg IJ ONCE PRN 12/27/15 [History] Clopidogrel [Plavix] 75 mg PO DAILY 02/18/16 [History] Fluticasone Propionate Nasal [Flonase] 2 spray NS DAILY 02/18/16 [History] Furosemide [Lasix] 40 mg PO DAILY 02/18/16 [History] Temazepam [Restoril] 15 mg PO HS 02/18/16 [History] MethylPREDNISolone [Medrol] 20 mg PO DAILY #10 tablet 04/14/16 [Rx] Albuterol Neb [Proventil Neb] 2.5 mg IH Q6H PRN 04/30/16 [History] GuaiFENesin/Dextromethorphan [Mucinex Dm ER 600-30 mg Tablet] 1 each PO BID 05/15 [History] Guaifenesin [Diabetic Tussin Ex] 100 mg PO QID PRN 04/30/16 [History] Mirtazapine 7.5 mg PO HS 04/30/16 [History] Nystatin POWDER [Nystop] 1 appl TP BID 04/30/16 [History] Ondansetron HCl [Zofran] 4 mg PO Q6H PRN 04/30/16 [History] Saline Nasal [place] [[place] Nasal [place]] 1 spray NS TID 04/30/16 [History] Tolnaftate [Antifungal Cream] 1 appl TP BID 04/30/16 [History] Tramadol HCl [Ultram] 50 mg PO BID 04/30/16 [History] Amiodarone [Cordarone] 200 mg PO BID #60 tablet 05/09/16 [Rx] Metoprolol XL (24 HR) Succ [Toprol Xl] 50 mg PO DAILY #30 tab.er.24h 05/09/16 [ Rx] Tramadol HCl [Ultram] 50 mg PO Q6H PRN #20 tablet 05/09/16 [Rx] Warfarin [Coumadin] 5 mg PO DAILY@1800 #14 tablet 05/09/16 [Rx] Allergies/Adverse Reactions: Allergies hydrocodone [From Vicodin] Allergy (Verified 04/04/15 11:12) Rash - Respiratory Orders Smoking Cessation: Smoking cessation has been advised. For more information, call the [place] Tobacco Quit Line at 8-258-RUSA-NOW. - Lab Orders Lab Orders: Other (include drug levels w/frequency) (PT/INR on 05/13/16 (pt is on coumadin)) - Advance Directives Code Status: Full Code - Mobility Orders Other - Rehabiliation Orders Rehab Orders: Evaluation for Physical Therapy, Evaluation for Occupational Therapy - Diet Orders No Concentrated Sweets (Diabetes Diet) CERTIFICATION: I certify that the transfer of the above named patient to an Extended Care Facility is necessary for the continuing treatment of the diagnosis listed. The above information is true and accurate reflection of patient's current condition. Confidential - Redisclosure prohibited without a patient's written consent.
[2016-05-09] MEDS ORDERED: GuaiFENesin Liq 200 MG/10 ML UDC PO SCH (18:00)
[2016-05-09] MEDS ORDERED: *HR* Warfarin 5 MG TABLET PO SCH (18:00)
== END 2016-05-09 14:30 | DRG 698 ==
LOC: 2ANU 15:47 → EMEROO 15:47 → 2ANU 20:31 → SUATTDRO 23:01 → 2NNU 05-02 16:48
PROVIDERS: ADMIT Internal Medicine; ATTEND Internal Medicine

== ENCOUNTER 2016-05-24 12:51 | Inpatient (IN) ==
[2016-05-24] MEDS ORDERED: 0.9 % Sodium Chloride 2,000 ML IVC ONE (12:59)
[2016-05-24] MEDS ORDERED: Piperacillin/Tazobactam 3.375 GM in D5% in Water (Mini-Bag+) 100 ML IVPB ONE (13:03)
[2016-05-24] MEDS ORDERED: Vancomycin 1,250 MG in D5% in Water 250 ML IVPB ONE (13:03)
--- NOTE | 2016-05-24 13:10 | Emergency Department Note ---
Disposition Clinical Impression: Acute kidney injury, Severe sepsis Sepsis Qualifiers: Sepsis type: sepsis due to unspecified organism Qualified Code(s): A41.9 - Sepsis, unspecified organism UTI (urinary tract infection) Qualifiers: Urinary tract infection type: site unspecified Hematuria presence: with hematuria Qualified Code(s): N39.0 - Urinary tract infection, site not specified Disposition: Admitted As Inpatient Condition: Fair Time of Disposition: 18:04 Altered Mental Status HPI - General Chief Complaint: ED Altered Mental Status Stated Complaint: ams/fever Source: EMS Limitations: altered mental status Nursing Notes Reviewed: Yes Vital Signs Reviewed: Yes - History of Present Illness HPI Narrative: Patient is a 70-year-old female who presents to [facility] ED via EMS from [facility] with chief concern for possible sepsis. States patient's pressures were running low this morning at 80s over 40s and had a temperature this morning of 99. 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 Her oncologist is Dr. Hall. At this time, patient states she does not feel well but cannot articulate exactly what makes her feel uncomfortable. Denies any pain anywhere. She is able to tell us her name and the year as well as location. Family just stated she was not acting right this morning. Patient most recently received chemotherapy on May 22 2016. She was recently hospitalized for urinary tract infection and acute on chronic kidney disease as well as dehydration. MD complaint: confusion Onset (ago): Just [employer] Timing confirmed by: caregiver Pain Severity: none Consistency of Symptoms: getting worse Context: history of similar presentation, diabetes, cancer Associated symptoms: Reports: fever - Related Data Home Medications Medication Instructions Recorded Confirmed Aspirin [Adult Low Dose Aspirin EC] 81 mg PO QAM 04/04/15 05/24/16 Atorvastatin Calcium [Lipitor] 20 mg PO DAILY 04/04/15 05/24/16 Loperamide HCl [Imodium A-D] 2 mg PO Q6H PRN 04/04/15 05/24/16 Prochlorperazine Maleate 10 mg PO Q6H PRN 04/04/15 05/24/16 [Compazine] Tizanidine HCl [Zanaflex] 4 mg PO Q8H PRN 04/04/15 05/24/16 Docusate [Colace] 100 mg PO DAILY PRN 04/22/15 05/24/16 Insulin Glargine,Hum.rec.anlog 15 unit SQ HS 04/22/15 05/24/16 [Lantus Solostar] Insulin Glargine,Hum.rec.anlog 18 unit SQ QAM 04/22/15 05/24/16 [Lantus Solostar] Insulin LISPRO [HumaLOG] 0 unit SQ ACHS 04/22/15 05/24/16 Melatonin 10 mg PO HS PRN 04/22/15 05/24/16 Simethicone [Gas-X] 160 mg PO Q6H PRN 04/22/15 05/24/16 Acetaminophen [Tylenol] 650 mg PO Q4H PRN 06/11/15 05/24/16 Gabapentin [Neurontin] 300 mg PO BID 06/11/15 05/24/16 Magnesium Hydroxide/Al Hydrox 30 ml PO BID PRN 06/11/15 05/24/16 [Mag-Al Liquid] Glucagon HCl 1 mg IJ ONCE PRN 12/27/15 05/24/16 Fluticasone Propionate Nasal 100 mcg NS DAILY 02/18/16 05/24/16 [Flonase] Furosemide [Lasix] 40 mg PO DAILY 02/18/16 05/24/16 Temazepam [Restoril] 15 mg PO HS 02/18/16 05/24/16 Albuterol Neb [Proventil Neb] 2.5 mg IH Q6H PRN 04/30/16 05/24/16 GuaiFENesin/Dextromethorphan 1 tab PO BID 04/30/16 05/24/16 [Mucinex Dm ER 600-30 mg Tablet] Guaifenesin [Diabetic Tussin Ex] 100 mg PO QID PRN 04/30/16 05/24/16 Mirtazapine 7.5 mg PO HS 04/30/16 05/24/16 Ondansetron HCl [Zofran] 4 mg PO Q6H PRN 04/30/16 05/24/16 Saline Nasal [place] [[place] Nasal 1 spray NS TID 04/30/16 05/24/16 Omro] Tramadol HCl [Ultram] 50 mg PO BID 04/30/16 05/24/16 Warfarin [Coumadin] 5 mg PO QPM 05/24/16 05/24/16 Zolpidem [Ambien] 5 mg PO HS 05/24/16 05/24/16 Previous Rx's Medication Instructions Recorded Folic Acid 1 mg PO DAILY #30 tablet 04/18/15 MethylPREDNISolone [Medrol] 20 mg PO DAILY #10 tablet 04/14/16 Amiodarone [Cordarone] 200 mg PO BID #60 tablet 05/09/16 Metoprolol XL (24 HR) Succ [Toprol 50 mg PO DAILY #30 tab.er.24h 05/09/16 Xl] Tramadol HCl [Ultram] 50 mg PO Q6H PRN #20 tablet 05/09/16 Lenalidomide [Revlimid] 5 mg PO AD #21 capsule 05/22/16 Allergies Allergy/AdvReac Type Severity Reaction Status Date / Time hydrocodone [From Vicodin] Allergy Rash Verified 04/04/15 11:12 All systems ED: reviewed and negative except as stated. Past Medical History - Past Medical History Attestation: Yes The following information was validated with the patient. Source: patient Medical history: Reports: cancer, coronary artery disease, diabetes, renal disease, other Surgical history: Reports: angioplasty/stent Psychiatric history: Reports: no psych history - Social History Smoking Status: Never smoker Smokeless Tobacco Status: No Alcohol use: Reports: none Drug use: Reports: none Physical Exam - General Limitations: altered mental status General appearance: obese, other (somnolent) - Head Head exam: atraumatic, normocephalic, normal inspection - Eye Eye exam: Present: normal appearance, PERRL, EOMI - ENT ENT exam: normal exam, normal oropharynx, mucous membranes moist - Neck Neck exam: Present: normal inspection, full ROM, trachea midline - Chest Chest inspection: Present: normal inspection, symmetric chest wall rise - Respiratory Respiratory exam: Present: normal lung sounds bilaterally - Cardiovascular Cardiovascular exam: Present: regular rate, normal rhythm, normal heart sounds - Abdominal Exam Abdominal exam: Present: soft, Non-Tender. Absent: tenderness, distention, guarding, rebound, rigidity - Extremities Exam Extremities exam: Present: pedal edema (Chronic severe lower extremity edema), other (Multiple violaceous nodules on the right lower extremity. Along the right upper thigh/hip there are ulcerated/draining/foul-smelling nodules.) - Neurological Exam Neurological exam: Present: alert, CN II-XII intact - Psychiatric Psychiatric exam: Present: normal affect, normal mood - Skin Skin exam: Present: warm, dry, intact Course Course Narrative: Patient seen and examined. Sent in for confusion with altered mental status and concern for sepsis. Septic vertical care workup initiated. Patient's blood pressure here is low at 70s over 30s. We will start IV fluid resuscitation with 2 L normal saline. Patient only has one port. Due to suspicion for need for antibiotics as well as fluids and possible pressors, we will go ahead and place a central line. - Reevaluation(s) Reevaluation #1: Central line placed successfully by Dr. Richardson. Patient tolerated well. We will supervisor publications the second liter of IV fluids as well as antibiotics to the central line. Labwork shows leukocytosis as well as acute on chronic kidney injury and urinalysis which shows a urinary tract infection. Time: 15:10 Reevaluation #2: Patient's blood pressure has improved to 112/50. I spoke with hospitalist Dr. Roberts who has accepted patient for admission to stepdown. States he would like one more liter fluid on her. This has been ordered. CT head unremarkable for any head bleed or mass. The CT of the foot shows new nodules consistent with progression of the cutaneous involvement of multiple myeloma. They note cellulitis versus lymphedema. Time: 18:04 Vital Signs Temperature 99.4 F 05/24/16 12:53 Pulse Rate 74 05/24/16 12:53 Respiratory Rate 14 05/24/16 12:53 Blood Pressure 79/42 05/24/16 12:53 O2 Sat by Pulse Oximetry 96 05/24/16 12:53 Temperature 99.4 F 05/24/16 12:53 Pulse Rate 66 05/24/16 16:26 Respiratory Rate 16 05/24/16 16:26 Blood Pressure 101/45 05/24/16 16:26 O2 Sat by Pulse Oximetry 99 05/24/16 16:26 Oxygen Delivery Oxygen Delivery Nasal Cannula Procedures - Central Line Placement Left IJ Central Line Inserted*: Yes Central Line Catheter Replacement*: Yes Central Line Insertion: emergent Consent Obtained: written consent Procedural Pause: verify patient name and date of , timeout performed per policy, ceferino and assess the site, assemble equipment and verify supplies, perform hand hygiene Patient Placed on Monitor/Pulse Ox: Yes During the Procedure: clinician is wearing sterile gloves, cap, mask,& gown during insertion, sterile field and sterile technique are maintained, patient's face is covered with drape or mask and wearing a cap, everyone in room is wearing a mask Central Line Prep: Chlorhexidine scrub Prep the Procedure Site: apply chloraprep to the skin using a back and forth scrubbing motion, apply chloraprep for 30 seconds (upper body), 1-2 min ( femoral sites), allow prep to dry, drape the patient with a full body drape Local Anesthetic: lidocaine 1% Amount of anesthesia used (mL): 5 Ultrasound Used for Placement: Yes Central Line Lumen Inserted: triple Post Procedure: sutured in place, good blood return, all ports aspirated, flushed, capped, sterile dressing applied, guide wire removed and visualized Post Procedure X-Ray: tip of catheter in good position, no pneumothorax seen Patient Tolerated Procedure: well, no complications Complications: none Name of Clinician Inserting Central Line: Dr. Richardson Clinician Assisting/Completing Checklist: Dr. Nickerson, Dr. Vasquez Date: 05/24/16 Time: 15:12 Altered Mental Status - Medical Records Medical records reviewed: Yes I reviewed the patient's medical records. - Lab Data Lab results reviewed: Yes I reviewed the patient's lab results. Result diagrams: 05/24/16 13:21 05/24/16 13:21 Lab Results 05/24/16 05/24/16 05/24/16 Range/Units 13:21 13:21 13:21 WBC 14.4 H D (4.3-11.1) K/mcL RBC 3.05 L (3.82-4.97) M/mcL Hgb 8.8 L (11.5-15.4) g/dL Hct 28.2 L (35.3-44.9) % MCV 92.5 (83.0-100.0) fL MCH 28.9 (28.0-33.3) pg MCHC 31.2 L (31.6-35.5) g/dL RDW 15.9 H (11.5-14.5) % Plt Count 381 (140-400) K/mcL MPV 9.4 (9.4-12.4) fL Immature Gran % 1.1 (0-4) % Seg Neutrophils % 84.5 % Lymphocytes % 2.9 % Monocytes % 11.2 % Eosinophils % 0.2 % Basophils % 0.1 % Neutrophils # 12.2 H (1.6-8.9) K/mcL Lymphocytes # 0.4 L (0.6-4.6) K/mcL Monocytes # 1.6 H (0.0-1.3) K/mcL Eosinophils # 0.0 (0.0-0.6) K/mcL Basophils # 0.0 (0.0-0.2) K/mcL PT 11.9 (9.4-12.1) Seconds INR 1.1 APTT 22.6 L (26.0-36.0) Seconds Sodium 135 L (136-145) mEq/L Potassium 5.5 H (3.5-4.5) mEq/L Chloride 104 (98-109) mEq/L Carbon Dioxide 20 (19-29) mEq/L BUN 92 H (7-20) mg/dL Creatinine 2.92 H (0.57-1.11) mg/dL Est GFR ( Amer) 19 L (> 60) Est GFR (Non-Af Amer) 16 L (> 60) BUN/Creatinine Ratio 32 H (6-26) Glucose 94 (70-99) mg/dL Calculated Osmolality 308 H (280-300) Lactic Acid (0.5-2.2) mmol/L Calcium 8.0 L (8.6-10.8) mg/dL Phosphorus (2.3-4.7) mg/dL Magnesium (1.6-2.6) mg/dL Total Bilirubin 0.3 (0.2-1.2) mg/dL Direct Bilirubin 0.2 (0.0-0.5) mg/dL Indirect Bilirubin 0.1 (0.0-1.2) mg/dL AST 20 (5-34) Units/L ALT 19 (0-55) Units/L Alkaline Phosphatase 119 (38-126) Units/L Ammonia (18-72) mcmol/L Troponin I (0-0.03) ng/mL Serum Total Protein 4.7 L (6.0-8.3) g/dL Albumin 1.6 L (3.5-5.0) g/dL Globulin 3.1 (2.4-3.5) g/dL Albumin/Globulin Ratio 0.5 L (1.1-2.2) Urine Color (Yellow) Urine Clarity (Clear) Urine pH (5.0-8.0) pH Units Ur Specific Anthony (1.010-1.025) Urine Protein (Neg-Trace) mg/dL Urine Glucose (UA) (Normal) mg/dL Urine Ketones (Negative) mg/dL Urine Blood (Negative) Urine Nitrite (Negative) Urine Bilirubin (Negative) Urine Urobilinogen (Normal) mg/dL Ur Leukocyte Esterase (Negative) Urine Microscopic RBC (0-3) per hpf Urine Microscopic WBC (0-3) per hpf Ur Squamous Epith Cells (None-Few) per lpf Amorphous Sediment (Few) Urine Bacteria (None-Few) per hpf Ur Culture Indicated? (NO) 05/24/16 05/24/16 05/24/16 Range/Units 13:21 13:21 15:47 WBC (4.3-11.1) K/mcL RBC (3.82-4.97) M/mcL Hgb (11.5-15.4) g/dL Hct (35.3-44.9) % MCV (83.0-100.0) fL MCH (28.0-33.3) pg MCHC (31.6-35.5) g/dL RDW (11.5-14.5) % Plt Count (140-400) K/mcL MPV (9.4-12.4) fL Immature Gran % (0-4) % Seg Neutrophils % % Lymphocytes % % Monocytes % % Eosinophils % % Basophils % % Neutrophils # (1.6-8.9) K/mcL Lymphocytes # (0.6-4.6) K/mcL Monocytes # (0.0-1.3) K/mcL Eosinophils # (0.0-0.6) K/mcL Basophils # (0.0-0.2) K/mcL PT (9.4-12.1) Seconds INR APTT (26.0-36.0) Seconds Sodium (136-145) mEq/L Potassium (3.5-4.5) mEq/L Chloride (98-109) mEq/L Carbon Dioxide (19-29) mEq/L BUN (7-20) mg/dL Creatinine (0.57-1.11) mg/dL Est GFR ( Amer) (> 60) Est GFR (Non-Af Amer) (> 60) BUN/Creatinine Ratio (6-26) Glucose (70-99) mg/dL Calculated Osmolality (280-300) Lactic Acid 1.0 (0.5-2.2) mmol/L Calcium (8.6-10.8) mg/dL Phosphorus (2.3-4.7) mg/dL Magnesium (1.6-2.6) mg/dL Total Bilirubin (0.2-1.2) mg/dL Direct Bilirubin (0.0-0.5) mg/dL Indirect Bilirubin (0.0-1.2) mg/dL AST (5-34) Units/L ALT (0-55) Units/L Alkaline Phosphatase (38-126) Units/L Ammonia 15 L (18-72) mcmol/L Troponin I 0.02 (0-0.03) ng/mL Serum Total Protein (6.0-8.3) g/dL Albumin (3.5-5.0) g/dL Globulin (2.4-3.5) g/dL Albumin/Globulin Ratio (1.1-2.2) Urine Color (Yellow) Urine Clarity (Clear) Urine pH (5.0-8.0) pH Units Ur Specific Anthony (1.010-1.025) Urine Protein (Neg-Trace) mg/dL Urine Glucose (UA) (Normal) mg/dL Urine Ketones (Negative) mg/dL Urine Blood (Negative) Urine Nitrite (Negative) Urine Bilirubin (Negative) Urine Urobilinogen (Normal) mg/dL Ur Leukocyte Esterase (Negative) Urine Microscopic RBC (0-3) per hpf Urine Microscopic WBC (0-3) per hpf Ur Squamous Epith Cells (None-Few) per lpf Amorphous Sediment (Few) Urine Bacteria (None-Few) per hpf Ur Culture Indicated? (NO) 05/24/16 05/24/16 Range/Units 15:47 15:48 WBC (4.3-11.1) K/mcL RBC (3.82-4.97) M/mcL Hgb (11.5-15.4) g/dL Hct (35.3-44.9) % MCV (83.0-100.0) fL MCH (28.0-33.3) pg MCHC (31.6-35.5) g/dL RDW (11.5-14.5) % Plt Count (140-400) K/mcL MPV (9.4-12.4) fL Immature Gran % (0-4) % Seg Neutrophils % % Lymphocytes % % Monocytes % % Eosinophils % % Basophils % % Neutrophils # (1.6-8.9) K/mcL Lymphocytes # (0.6-4.6) K/mcL Monocytes # (0.0-1.3) K/mcL Eosinophils # (0.0-0.6) K/mcL Basophils # (0.0-0.2) K/mcL PT (9.4-12.1) Seconds INR APTT (26.0-36.0) Seconds Sodium (136-145) mEq/L Potassium (3.5-4.5) mEq/L Chloride (98-109) mEq/L Carbon Dioxide (19-29) mEq/L BUN (7-20) mg/dL Creatinine (0.57-1.11) mg/dL Est GFR ( Amer) (> 60) Est GFR (Non-Af Amer) (> 60) BUN/Creatinine Ratio (6-26) Glucose (70-99) mg/dL Calculated Osmolality (280-300) Lactic Acid (0.5-2.2) mmol/L Calcium (8.6-10.8) mg/dL Phosphorus 3.6 (2.3-4.7) mg/dL Magnesium 2.1 (1.6-2.6) mg/dL Total Bilirubin (0.2-1.2) mg/dL Direct Bilirubin (0.0-0.5) mg/dL Indirect Bilirubin (0.0-1.2) mg/dL AST (5-34) Units/L ALT (0-55) Units/L Alkaline Phosphatase (38-126) Units/L Ammonia (18-72) mcmol/L Troponin I (0-0.03) ng/mL Serum Total Protein (6.0-8.3) g/dL Albumin (3.5-5.0) g/dL Globulin (2.4-3.5) g/dL Albumin/Globulin Ratio (1.1-2.2) Urine Color Yellow (Yellow) Urine Clarity Turbid A (Clear) Urine pH 6.0 (5.0-8.0) pH Units Ur Specific Anthony 1.011 (1.010-1.025) Urine Protein 100 H (Neg-Trace) mg/dL Urine Glucose (UA) Normal (Normal) mg/dL Urine Ketones Negative (Negative) mg/dL Urine Blood Large H (Negative) Urine Nitrite Positive A (Negative) Urine Bilirubin Negative (Negative) Urine Urobilinogen Normal (Normal) mg/dL Ur Leukocyte Esterase Large H (Negative) Urine Microscopic RBC TNTC H (0-3) per hpf Urine Microscopic WBC TNTC H (0-3) per hpf Ur Squamous Epith Cells Few (None-Few) per lpf Amorphous Sediment Many H (Few) Urine Bacteria Many H (None-Few) per hpf Ur Culture Indicated? YES A (NO) - Radiology Data Radiology results reviewed: Yes I reviewed the patient's radiology results. - EKG Data EKG attestation: Yes I reviewed and interpreted this EKG. EKG results narrative: EKG done at 1359 shows normal sinus rhythm with a rate of [address] elevation or depression. Normal axis. Critical Care Time Critical Care Time: Yes Total Critical Care Time: 35 Attestation: Critical care time to manage patient's severe sepsis and hypotension 35 minutes. Attestation Statement - Attestation Attestation: Patient was seen with resident physician. I reviewed the history, physical, assessment and plan, and agree with the findings. I also personally evaluated this patient and had [id number] time with this patient. 70 year-old female presents to the emergency department via EMS from a long term with a chief complaint of probable sepsis. Patient was found to be hypotensive, with mental status changes. Very limited history could be obtained from the long term. Patient to was unable to provide any significant history and did not know why she was in the emergency department. On examination the patient appears ill she is morbidly obese her heart was regular rhythm and rate, her low lungs had crackles in the bases. Her abdomen is obese but nontender extremities patient appears to have an infection in her right ankle there is some blistering in that area with some erythema and warmth. She also has multiple skin lesions throughout her body that appear to be purulent. Her vital signs demonstrated hypotension. Patient also had an indwelling Cohi catheter which she says has not been changed for about a month. Patient is going to require full septic workup. IV access was very difficult of a central line needed to be placed. She did have a port on the right side, but we were informed that this had been removed. It seems as though it still in place. A central line was then placed in the left IJ. I was present for the entire procedure. Additionally septic protocol was done. Patient was started on appropriate antibiotics. Admission to the hospital was arranged. Critical care time for this patient was 35 minutes exclusive of time for procedures. I agree with the resident physician assessment and plan.
[2016-05-24 13:31] LABS: Basophils % 0.1 %; Eosinophils % 0.2 %; Hematocrit 28.2 % (35.3-44.9); Hemoglobin 8.8 g/dL (11.5-15.4); Immature Granulocytes % 1.1 % (0-4); Lymphocytes # 0.4 K/mcL (0.6-4.6); Lymphocytes % 2.9 %; Mean Corpuscular HGB Conc 31.2 g/dL (31.6-35.5); Mean Corpuscular Hemoglobin 28.9 pg (28.0-33.3); Mean Corpuscular Volume 92.5 fL (83.0-100.0); Mean Platelet Volume 9.4 fL (9.4-12.4); Monocytes # 1.6 K/mcL (0.0-1.3); Monocytes % 11.2 %; Neutrophils # 12.2 K/mcL (1.6-8.9); Platelet Count 381 K/mcL (140-400); Red Blood Count 3.05 M/mcL (3.82-4.97); Red Cell Distribution Width 15.9 % (11.5-14.5); Segmented Neutrophils % 84.5 %
[2016-05-24 13:36] LABS: INR 1.1; Prothrombin Time 11.9 Seconds (9.4-12.1)
[2016-05-24 13:38] LABS: Activated Partial Thrombo Time 22.6 Seconds (26.0-36.0)
[2016-05-24 13:46] LABS: Albumin 1.6 g/dL (3.5-5.0); Albumin/Globulin Ratio 0.5 (1.1-2.2); Bilirubin,Direct 0.2 mg/dL (0.0-0.5); Bilirubin,Indirect 0.1 mg/dL (0.0-1.2); Bilirubin,Total 0.3 mg/dL (0.2-1.2); Globulin 3.1 g/dL (2.4-3.5); Total Protein 4.7 g/dL (6.0-8.3)
[2016-05-24 13:47] LABS: Potassium 5.5 mEq/L (3.5-4.5)
--- NOTE | 2016-05-24 15:12 | Emergency Department Note ---
Disposition Clinical Impression: UTI (urinary tract infection), Acute kidney injury, Severe sepsis Sepsis Qualifiers: Sepsis type: sepsis due to unspecified organism Qualified Code(s): A41.9 - Sepsis, unspecified organism Disposition: Admitted As Inpatient Condition: Fair General Adult HPI - General Chief complaint: ED Altered Mental Status Stated complaint: ams/fever Source: EMS Limitations: altered mental status - History of Present Illness Pain Scale: 4 - Related Data Home Medications Medication Instructions Recorded Confirmed Aspirin [Adult Low Dose Aspirin EC] 81 mg PO QAM 04/04/15 05/24/16 Atorvastatin Calcium [Lipitor] 20 mg PO DAILY 04/04/15 05/24/16 Loperamide HCl [Imodium A-D] 2 mg PO Q6H PRN 04/04/15 05/24/16 Prochlorperazine Maleate 10 mg PO Q6H PRN 04/04/15 05/24/16 [Compazine] Tizanidine HCl [Zanaflex] 4 mg PO Q8H PRN 04/04/15 05/24/16 Docusate [Colace] 100 mg PO DAILY PRN 04/22/15 05/24/16 Insulin Glargine,Hum.rec.anlog 15 unit SQ HS 04/22/15 05/24/16 [Lantus Solostar] Insulin Glargine,Hum.rec.anlog 18 unit SQ QAM 04/22/15 05/24/16 [Lantus Solostar] Insulin LISPRO [HumaLOG] 0 unit SQ ACHS 04/22/15 05/24/16 Melatonin 10 mg PO HS PRN 04/22/15 05/24/16 Simethicone [Gas-X] 160 mg PO Q6H PRN 04/22/15 05/24/16 Acetaminophen [Tylenol] 650 mg PO Q4H PRN 06/11/15 05/24/16 Gabapentin [Neurontin] 300 mg PO BID 06/11/15 05/24/16 Magnesium Hydroxide/Al Hydrox 30 ml PO BID PRN 06/11/15 05/24/16 [Mag-Al Liquid] Glucagon HCl 1 mg IJ ONCE PRN 12/27/15 05/24/16 Fluticasone Propionate Nasal 100 mcg NS DAILY 02/18/16 05/24/16 [Flonase] Furosemide [Lasix] 40 mg PO DAILY 02/18/16 05/24/16 Temazepam [Restoril] 15 mg PO HS 02/18/16 05/24/16 Albuterol Neb [Proventil Neb] 2.5 mg IH Q6H PRN 04/30/16 05/24/16 GuaiFENesin/Dextromethorphan 1 tab PO BID 04/30/16 05/24/16 [Mucinex Dm ER 600-30 mg Tablet] Guaifenesin [Diabetic Tussin Ex] 100 mg PO QID PRN 04/30/16 05/24/16 Mirtazapine 7.5 mg PO HS 04/30/16 05/24/16 Ondansetron HCl [Zofran] 4 mg PO Q6H PRN 04/30/16 05/24/16 Saline Nasal [place] [[place] Nasal 1 spray NS TID 04/30/16 05/24/16 [place]] Tramadol HCl [Ultram] 50 mg PO BID 04/30/16 05/24/16 Warfarin [Coumadin] 5 mg PO QPM 05/24/16 05/24/16 Zolpidem [Ambien] 5 mg PO HS 05/24/16 05/24/16 Previous Rx's Medication Instructions Recorded Folic Acid 1 mg PO DAILY #30 tablet 04/18/15 MethylPREDNISolone [Medrol] 20 mg PO DAILY #10 tablet 04/14/16 Amiodarone [Cordarone] 200 mg PO BID #60 tablet 05/09/16 Metoprolol XL (24 HR) Succ [Toprol 50 mg PO DAILY #30 tab.er.24h 05/09/16 Xl] Tramadol HCl [Ultram] 50 mg PO Q6H PRN #20 tablet 05/09/16 Lenalidomide [Revlimid] 5 mg PO AD #21 capsule 05/22/16 Allergies Allergy/AdvReac Type Severity Reaction Status Date / Time hydrocodone [From Vicodin] Allergy Rash Verified 04/04/15 11:12 Past Medical History - Past Medical History Medical history: Reports: cancer, coronary artery disease, diabetes, renal disease, other Surgical history: Reports: angioplasty/stent Psychiatric history: Reports: no psych history - Social History Smoking Status: Never smoker Smokeless Tobacco Status: No Alcohol use: Reports: none Drug use: Reports: none Physical Exam - General Limitations: altered mental status General appearance: obese, other (somnolent) Course Course Narrative: My place in the patient's care was solely for the placement of the central line. Please see Dr. Nickerson's for further on PT. Vital Signs Temperature 99.4 F 05/24/16 12:53 Pulse Rate 74 05/24/16 12:53 Respiratory Rate 14 05/24/16 12:53 Blood Pressure 79/42 05/24/16 12:53 O2 Sat by Pulse Oximetry 96 05/24/16 12:53 Temperature 99.4 F 05/24/16 12:53 Pulse Rate 66 05/24/16 16:26 Respiratory Rate 16 05/24/16 16:26 Blood Pressure 101/45 05/24/16 16:26 O2 Sat by Pulse Oximetry 99 05/24/16 16:26 Oxygen Delivery Oxygen Delivery Nasal Cannula Procedures - Central Line Placement Left IJ Central Line Inserted*: Yes Central Line Catheter Replacement*: Yes Central Line Insertion: emergent Consent Obtained: verbal consent Procedural Pause: verify patient name and date of , timeout performed per policy, ceferino and assess the site, assemble equipment and verify supplies, perform hand hygiene Patient Placed on Monitor/Pulse Ox: Yes During the Procedure: clinician is wearing sterile gloves, cap, mask,& gown during insertion, sterile field and sterile technique are maintained, patient's face is covered with drape or mask and wearing a cap, everyone in room is wearing a mask Prep the Procedure Site: apply chloraprep to the skin using a back and forth scrubbing motion, apply chloraprep for 30 seconds (upper body), 1-2 min ( femoral sites), allow prep to dry, drape the patient with a full body drape Local Anesthetic: lidocaine 1% Amount of anesthesia used (mL): 3 Ultrasound Used for Placement: Yes Central Line Lumen Inserted: single, triple Post Procedure: sutured in place, good blood return, all ports aspirated, flushed, capped, sterile dressing applied, guide wire removed and visualized, dressing is dated Post Procedure X-Ray: tip of catheter in good position, no pneumothorax seen Patient Tolerated Procedure: well, no complications Complications: none Name of Clinician Inserting Central Line: Maile Richardson Clinician Assisting/Completing Checklist: Pedro Nickerson Date: 05/24/16 Time: 15:15 Medical Decision Making - Lab Data Result diagrams: 05/24/16 13:21 05/24/16 13:21 Lab Results 05/24/16 05/24/16 05/24/16 Range/Units 13:21 13:21 13:21 WBC 14.4 H D (4.3-11.1) K/mcL RBC 3.05 L (3.82-4.97) M/mcL Hgb 8.8 L (11.5-15.4) g/dL Hct 28.2 L (35.3-44.9) % MCV 92.5 (83.0-100.0) fL MCH 28.9 (28.0-33.3) pg MCHC 31.2 L (31.6-35.5) g/dL RDW 15.9 H (11.5-14.5) % Plt Count 381 (140-400) K/mcL MPV 9.4 (9.4-12.4) fL Immature Gran % 1.1 (0-4) % Seg Neutrophils % 84.5 % Lymphocytes % 2.9 % Monocytes % 11.2 % Eosinophils % 0.2 % Basophils % 0.1 % Neutrophils # 12.2 H (1.6-8.9) K/mcL Lymphocytes # 0.4 L (0.6-4.6) K/mcL Monocytes # 1.6 H (0.0-1.3) K/mcL Eosinophils # 0.0 (0.0-0.6) K/mcL Basophils # 0.0 (0.0-0.2) K/mcL PT 11.9 (9.4-12.1) Seconds INR 1.1 APTT 22.6 L (26.0-36.0) Seconds Sodium 135 L (136-145) mEq/L Potassium 5.5 H (3.5-4.5) mEq/L Chloride 104 (98-109) mEq/L Carbon Dioxide 20 (19-29) mEq/L BUN 92 H (7-20) mg/dL Creatinine 2.92 H (0.57-1.11) mg/dL Est GFR ( Amer) 19 L (> 60) Est GFR (Non-Af Amer) 16 L (> 60) BUN/Creatinine Ratio 32 H (6-26) Glucose 94 (70-99) mg/dL Calculated Osmolality 308 H (280-300) Lactic Acid (0.5-2.2) mmol/L Calcium 8.0 L (8.6-10.8) mg/dL Phosphorus (2.3-4.7) mg/dL Magnesium (1.6-2.6) mg/dL Total Bilirubin 0.3 (0.2-1.2) mg/dL Direct Bilirubin 0.2 (0.0-0.5) mg/dL Indirect Bilirubin 0.1 (0.0-1.2) mg/dL AST 20 (5-34) Units/L ALT 19 (0-55) Units/L Alkaline Phosphatase 119 (38-126) Units/L Ammonia (18-72) mcmol/L Troponin I (0-0.03) ng/mL Serum Total Protein 4.7 L (6.0-8.3) g/dL Albumin 1.6 L (3.5-5.0) g/dL Globulin 3.1 (2.4-3.5) g/dL Albumin/Globulin Ratio 0.5 L (1.1-2.2) Urine Color (Yellow) Urine Clarity (Clear) Urine pH (5.0-8.0) pH Units Ur Specific Echo (1.010-1.025) Urine Protein (Neg-Trace) mg/dL Urine Glucose (UA) (Normal) mg/dL Urine Ketones (Negative) mg/dL Urine Blood (Negative) Urine Nitrite (Negative) Urine Bilirubin (Negative) Urine Urobilinogen (Normal) mg/dL Ur Leukocyte Esterase (Negative) Urine Microscopic RBC (0-3) per hpf Urine Microscopic WBC (0-3) per hpf Ur Squamous Epith Cells (None-Few) per lpf Amorphous Sediment (Few) Urine Bacteria (None-Few) per hpf Ur Culture Indicated? (NO) 05/24/16 05/24/16 05/24/16 Range/Units 13:21 13:21 15:47 WBC (4.3-11.1) K/mcL RBC (3.82-4.97) M/mcL Hgb (11.5-15.4) g/dL Hct (35.3-44.9) % MCV (83.0-100.0) fL MCH (28.0-33.3) pg MCHC (31.6-35.5) g/dL RDW (11.5-14.5) % Plt Count (140-400) K/mcL MPV (9.4-12.4) fL Immature Gran % (0-4) % Seg Neutrophils % % Lymphocytes % % Monocytes % % Eosinophils % % Basophils % % Neutrophils # (1.6-8.9) K/mcL Lymphocytes # (0.6-4.6) K/mcL Monocytes # (0.0-1.3) K/mcL Eosinophils # (0.0-0.6) K/mcL Basophils # (0.0-0.2) K/mcL PT (9.4-12.1) Seconds INR APTT (26.0-36.0) Seconds Sodium (136-145) mEq/L Potassium (3.5-4.5) mEq/L Chloride (98-109) mEq/L Carbon Dioxide (19-29) mEq/L BUN (7-20) mg/dL Creatinine (0.57-1.11) mg/dL Est GFR ( Amer) (> 60) Est GFR (Non-Af Amer) (> 60) BUN/Creatinine Ratio (6-26) Glucose (70-99) mg/dL Calculated Osmolality (280-300) Lactic Acid 1.0 (0.5-2.2) mmol/L Calcium (8.6-10.8) mg/dL Phosphorus (2.3-4.7) mg/dL Magnesium (1.6-2.6) mg/dL Total Bilirubin (0.2-1.2) mg/dL Direct Bilirubin (0.0-0.5) mg/dL Indirect Bilirubin (0.0-1.2) mg/dL AST (5-34) Units/L ALT (0-55) Units/L Alkaline Phosphatase (38-126) Units/L Ammonia 15 L (18-72) mcmol/L Troponin I 0.02 (0-0.03) ng/mL Serum Total Protein (6.0-8.3) g/dL Albumin (3.5-5.0) g/dL Globulin (2.4-3.5) g/dL Albumin/Globulin Ratio (1.1-2.2) Urine Color (Yellow) Urine Clarity (Clear) Urine pH (5.0-8.0) pH Units Ur Specific Echo (1.010-1.025) Urine Protein (Neg-Trace) mg/dL Urine Glucose (UA) (Normal) mg/dL Urine Ketones (Negative) mg/dL Urine Blood (Negative) Urine Nitrite (Negative) Urine Bilirubin (Negative) Urine Urobilinogen (Normal) mg/dL Ur Leukocyte Esterase (Negative) Urine Microscopic RBC (0-3) per hpf Urine Microscopic WBC (0-3) per hpf Ur Squamous Epith Cells (None-Few) per lpf Amorphous Sediment (Few) Urine Bacteria (None-Few) per hpf Ur Culture Indicated? (NO) 05/24/16 05/24/16 Range/Units 15:47 15:48 WBC (4.3-11.1) K/mcL RBC (3.82-4.97) M/mcL Hgb (11.5-15.4) g/dL Hct (35.3-44.9) % MCV (83.0-100.0) fL MCH (28.0-33.3) pg MCHC (31.6-35.5) g/dL RDW (11.5-14.5) % Plt Count (140-400) K/mcL MPV (9.4-12.4) fL Immature Gran % (0-4) % Seg Neutrophils % % Lymphocytes % % Monocytes % % Eosinophils % % Basophils % % Neutrophils # (1.6-8.9) K/mcL Lymphocytes # (0.6-4.6) K/mcL Monocytes # (0.0-1.3) K/mcL Eosinophils # (0.0-0.6) K/mcL Basophils # (0.0-0.2) K/mcL PT (9.4-12.1) Seconds INR APTT (26.0-36.0) Seconds Sodium (136-145) mEq/L Potassium (3.5-4.5) mEq/L Chloride (98-109) mEq/L Carbon Dioxide (19-29) mEq/L BUN (7-20) mg/dL Creatinine (0.57-1.11) mg/dL Est GFR ( Amer) (> 60) Est GFR (Non-Af Amer) (> 60) BUN/Creatinine Ratio (6-26) Glucose (70-99) mg/dL Calculated Osmolality (280-300) Lactic Acid (0.5-2.2) mmol/L Calcium (8.6-10.8) mg/dL Phosphorus 3.6 (2.3-4.7) mg/dL Magnesium 2.1 (1.6-2.6) mg/dL Total Bilirubin (0.2-1.2) mg/dL Direct Bilirubin (0.0-0.5) mg/dL Indirect Bilirubin (0.0-1.2) mg/dL AST (5-34) Units/L ALT (0-55) Units/L Alkaline Phosphatase (38-126) Units/L Ammonia (18-72) mcmol/L Troponin I (0-0.03) ng/mL Serum Total Protein (6.0-8.3) g/dL Albumin (3.5-5.0) g/dL Globulin (2.4-3.5) g/dL Albumin/Globulin Ratio (1.1-2.2) Urine Color Yellow (Yellow) Urine Clarity Turbid A (Clear) Urine pH 6.0 (5.0-8.0) pH Units Ur Specific Echo 1.011 (1.010-1.025) Urine Protein 100 H (Neg-Trace) mg/dL Urine Glucose (UA) Normal (Normal) mg/dL Urine Ketones Negative (Negative) mg/dL Urine Blood Large H (Negative) Urine Nitrite Positive A (Negative) Urine Bilirubin Negative (Negative) Urine Urobilinogen Normal (Normal) mg/dL Ur Leukocyte Esterase Large H (Negative) Urine Microscopic RBC TNTC H (0-3) per hpf Urine Microscopic WBC TNTC H (0-3) per hpf Ur Squamous Epith Cells Few (None-Few) per lpf Amorphous Sediment Many H (Few) Urine Bacteria Many H (None-Few) per hpf Ur Culture Indicated? YES A (NO) Attestation Statement - Attestation Attestation: Central line was placed into the left internal jugular. This procedure was performed by the resident physician. I was in the room and observing and assisting with the procedure for the entire time. Procedure was done without complication. Patient tolerated the procedure well. Written consent was obtained prior to placement of the line.
[2016-05-24 16:05] LABS: Bilirubin,Urine Negative (Negative); Blood,Urine Large (Negative); Clarity,Urine Turbid (Clear); Color,Urine Yellow (Yellow); Glucose,Urine (UA) Normal (Normal); Ketones,Urine Negative (Negative); Leukocyte Esterase,Urine Large (Negative); Nitrite,Urine Positive (Negative); Protein,Urine 100 mg/dL (Neg-Trace); Specific Gravity,Urine 1.011 (1.010-1.025); Urobilinogen,Urine Normal (Normal)
[2016-05-24 16:08] LABS: Magnesium 2.1 mg/dL (1.6-2.6); Phosphorous 3.6 mg/dL (2.3-4.7)
[2016-05-24 16:19] LABS: WBC,Urine TNTC per hpf (0-3)
[2016-05-24 16:22] LABS: RBC,Urine TNTC per hpf (0-3)
[2016-05-24 16:23] LABS: Amorphous Sediment,Urine Many (Few); Bacteria,Urine Many per hpf (None-Few); Squamous Epithelial Cell,Urine Few per lpf (None-Few)
[2016-05-24] MEDS ORDERED: 0.9 % Sodium Chloride 1,000 ML IVC ONE (18:02)
[2016-05-24] MEDS ORDERED: Naloxone 0.4 MG/ML INJ IVP PRN (20:04)
[2016-05-24] MEDS ORDERED: Ondansetron 4 MG/2 ML VIAL IVP PRN (20:20)
[2016-05-24] MEDS ORDERED: Albuterol 2.5 MG/3 ML NEBULIZER IH PRN (20:34)
[2016-05-24 20:36] LABS: ABG Base Excess -1.8 mEq/L (-2.0 to 3.0); ABG HCO3 23.7 mEQ/L (21-27); ABG Oxygen Saturation 99 % (95-98); ABG PCO2 43 mmHg (35-45); ABG PH 7.35 pH Units (7.32-7.45); ABG PO2 128 mmHg (85-104)
[2016-05-24 20:37] LABS: Blood Gas FiO2 30 %
[2016-05-24] MEDS ORDERED: Vancomycin (wt based) 1,000 MG VIAL IVPB SCH (21:00)
--- NOTE | 2016-05-24 21:02 | Internal Med History&Physical ---
Date of Encounter: 05/24/16 Time of Encounter: 19:50 Assessment and Plan (1) Severe sepsis Current visit: Yes Status: Acute 1. Pt responded to IVF boluses and MIV. 2. Initial lactate WNL. Will trend. 3. Likely source is urine. 4. Culture blood and urine. 5. Empiric IV antibiotics with IV Vancomycin and Zosyn. Will cater antibiotics to culture results. 6. Pt on chronic steroids. Will give stress dose steroids. (2) Encephalopathy acute Current visit: Yes Status: Acute 1. Likely due to sepsis/UTI and polypharmacy. 2. Treat underlying sepsis. 3. Minimize sedating/mind-altering medications and monitor closely. 4. Patient maintaining airway patency for now and has stable ABG. If unable to protect airway, will intervene with intubation if necessary. 5. Follow symptoms clinically. (3) Acute kidney injury Current visit: Yes Status: Acute 1. Hold diuretics. 2. IVF fluids. 3. Monitor renal function and consult nephrology if does not return to baseline. 4. Patient has a baseline CKD 4 with creatinine around 1.9-2. (4) Multiple myeloma Current visit: No Status: Chronic 1. Pt follows with Oncology. 2. May need inpatient consult regarding cutaneous nodules and potential complications. Qualifiers: Multiple myeloma remission status: not in remission Qualified Code(s): C90.00 - Multiple myeloma not having achieved remission (5) IDDM (insulin dependent diabetes mellitus) Current visit: Yes Status: Chronic 1. Pt npo. 2. Hold home meds. 3. Monitor glucose checks and treat with SSI. 4. Adjust as necessary. (6) DVT prophylaxis Current visit: No Status: Acute 1. Heparin SQ. Internal Medicine - H&P: HPI Chief complaint: AMS; low BP Admitted From: Emergency Dept Plans for Post Hospital Care: Home History of present illness: Ms. Vaughan is a 70 year old female who presented to ER tonight via squad from her ECF for concerns of possible sepsis. She was noted to be hypotensive and febrile at the ECF. Furthermore, her mental status had declined to the point where she was minimally responsive. Workup in the ER revealed patient to be hypotensive, have altered mental status, and showed evidence of leukocytosis and likely UTI on preliminary ab data. She responded to IV fluids and her blood pressure has improved. I saw patient in the ER, and she was minimally responsive for me. She did respond to painful sternal rub. She was quite somnolent and did not verbalize any information to me. I asked the ER staff if this is a change in status for her, and they said that she was slightly worse than she was earlier. I requested ABG and glucose, both of which were unremarkable. Blood pressure and heart rate remained stable, and I subsequently placed her on 2 N. I reviewed her medication list and note that she is on multiple sedating medications. Therefore, I suspect part of her encephalopathy is likely due to polypharmacy in addition to her underlying infection. No further information could be obtained from patient. I reviewed old records, ER records, nurse's notes, and discussed with ER staff the patient's history of presentation. Past Med Surg Social Fam HX - Past Medical History Source: old records reviewed, nursing notes reviewed, other (ER records and discussions with Er staff) Medical history: cancer (Multiple myeloma with cutaneous nodules), coronary artery disease, diabetes, renal disease, other Psychiatric history: no psych history - Past Surgical History Surgical History: angioplasty/stent - Social History Smoking Status: Never smoker Smokeless Tobacco Status: No Alcohol use: none Drug use: none Current living situation: ECF - Family History Father Living Status: Hx Family Cardiac Disorders: Yes Hx Family Endocrine Disorder: Yes Sister Hx Family Cancer: Yes (kidney) Hx Family Endocrine Disorder: Yes Mother Living Status: Still Living Hx Family Cardiac Disorders: Yes (HTN) Hx Family Endocrine Disorder: Yes Internal Medicine - H&P: Meds Aspirin [Adult Low Dose Aspirin EC] 81 mg PO QAM 04/04/15 [History] Atorvastatin Calcium [Lipitor] 20 mg PO DAILY 04/04/15 [History] Loperamide HCl [Imodium A-D] 2 mg PO Q6H PRN 04/04/15 [History] Prochlorperazine Maleate [Compazine] 10 mg PO Q6H PRN 04/04/15 [History] Tizanidine HCl [Zanaflex] 4 mg PO Q8H PRN 04/04/15 [History] Folic Acid 1 mg PO DAILY #30 tablet 04/18/15 [Rx] Docusate [Colace] 100 mg PO DAILY PRN 04/22/15 [History] Insulin Glargine,Hum.rec.anlog [Lantus Solostar] 15 unit SQ HS 04/22/15 [History ] Insulin Glargine,Hum.rec.anlog [Lantus Solostar] 18 unit SQ QAM 04/22/15 [ History] Insulin LISPRO [HumaLOG] 0 unit SQ ACHS 04/22/15 [History] Melatonin 10 mg PO HS PRN 04/22/15 [History] Simethicone [Gas-X] 160 mg PO Q6H PRN 04/22/15 [History] Acetaminophen [Tylenol] 650 mg PO Q4H PRN 06/11/15 [History] Gabapentin [Neurontin] 300 mg PO BID 06/11/15 [History] Magnesium Hydroxide/Al Hydrox [Mag-Al Liquid] 30 ml PO BID PRN 06/11/15 [History ] Glucagon HCl 1 mg IJ ONCE PRN 12/27/15 [History] Fluticasone Propionate Nasal [Flonase] 100 mcg NS DAILY 02/18/16 [History] Furosemide [Lasix] 40 mg PO DAILY 02/18/16 [History] Temazepam [Restoril] 15 mg PO HS 02/18/16 [History] MethylPREDNISolone [Medrol] 20 mg PO DAILY #10 tablet 04/14/16 [Rx] Albuterol Neb [Proventil Neb] 2.5 mg IH Q6H PRN 04/30/16 [History] GuaiFENesin/Dextromethorphan [Mucinex Dm ER 600-30 mg Tablet] 1 tab PO BID 04/30 [History] Guaifenesin [Diabetic Tussin Ex] 100 mg PO QID PRN 04/30/16 [History] Mirtazapine 7.5 mg PO HS 04/30/16 [History] Ondansetron HCl [Zofran] 4 mg PO Q6H PRN 04/30/16 [History] Saline Nasal [place] [[place] Nasal [place]] 1 spray NS TID 04/30/16 [History] Tramadol HCl [Ultram] 50 mg PO BID 04/30/16 [History] Amiodarone [Cordarone] 200 mg PO BID #60 tablet 05/09/16 [Rx] Metoprolol XL (24 HR) Succ [Toprol Xl] 50 mg PO DAILY #30 tab.er.24h 05/09/16 [ Rx] Tramadol HCl [Ultram] 50 mg PO Q6H PRN #20 tablet 05/09/16 [Rx] Lenalidomide [Revlimid] 5 mg PO AD #21 capsule 05/22/16 [Rx] Warfarin [Coumadin] 5 mg PO QPM 05/24/16 [History] Zolpidem [Ambien] 5 mg PO HS 05/24/16 [History] Allergies hydrocodone [From Vicodin] Allergy (Verified 04/04/15 11:12) Rash ROS unobtainable: due to mental status (pt somnolent, minimally arousable, disoriented) - Constitutional Vitals: Temp Pulse Resp BP Pulse Ox 99.4 F 66 16 112/42 99 05/24/16 12:53 05/24/16 16:26 05/24/16 19:29 05/24/16 19:29 05/24/16 16:26 General appearance: Present: disheveled, morbidly obese. Absent: answers questions appropriately Exam: Somnolent; arousable to painful sternal rub only; maintaining airway patency. - Head Head exam: Present: atraumatic, normal inspection - Expanded Head Exam Head exam expanded: Absent: abrasion, contusion, general tenderness - Eye Eye exam: Present: PERRL (pupils 3 mm and reactive). Absent: scleral icterus - ENT ENT exam: Present: mucous membranes dry, normal external ear exam, normal oropharynx - Neck Neck exam general surgery: Present: full ROM, supple. Absent: lymphadenopathy, nuchal rigidity, thyromegaly - Expanded Neck Exam Neck exam: Absent: carotid bruit - Respiratory Respiratory exam: Present: CTAB. Absent: chest wall tenderness, rales, respiratory distress, rhonchi, wheezes Additional comments: A-port in right upper chest - Cardiovascular Cardiovascular exam: Present: RRR, +S1, +S2. Absent: diastolic murmur, JVD, systolic murmur - GI/Abdominal GI/Abdominal exam: Present: hypoactive bowel sounds, soft, no peritoneal signs. Absent: guarding, rebound, tenderness Additional comments: soft, obese, non-focal abdominal exam; cutaneous MM nodules along right flank/ abdomen down to her right leg/foot - Extremities Exam Extremities exam: Present: pedal edema, tenderness (nodules), warm. Absent: calf tenderness, cyanotic Additional comments: cutaneous nodules along right leg; + third spacing edema - Back Exam Back exam: Absent: CVA tenderness (L), CVA tenderness (R), tenderness - Neurological Exam Neurological exam: Present: altered Additional comments: unable to assess due to depressed LOC and encephalopathy moves all 4 extremities and awakens briefly when performing sternal rub - Psychiatric Additional comments: somnolent; responds to pain - Skin Additional comments: cutaneous nodules along right abdomen/flank down the her leg/foot Internal Med - H&P Results - Labs CBC & Chem 7: 05/24/16 13:21 05/24/16 13:21 - ABG Interpretation Interpretation: ABG interpreted by me ABG results: 05/24/16 20:26 ABG pH 7.35 ABG pCO2 43 ABG pO2 128 H ABG HCO3 23.7 ABG Total CO2 25.0 ABG O2 Saturation 99 H ABG Base Excess -1.8 Interpretation: normal - EKG Data -: EKG Interpreted by Myself EKG shows normal: sinus rhythm - EKG Data Prior EKG available for review: no EKG comments: 05/24/16 22:[address]-T changes - Diagnostic Studies Chest x-ray Status: image reviewed by me (negative)
[2016-05-24] MEDS: *HR* Amiodarone 200 MG TABLET PO SCH (21:46)
[2016-05-24] MEDS: 0.9 % Sodium Chloride 1,000 ML IVC SCH (21:46)
[2016-05-24] MEDS ORDERED: *HR* Dextrose 50 % in Water (Syg) 50 ML SYRINGE IVP PRN (22:45)
[2016-05-24] MEDS ORDERED: Dextrose Gel 15 GM PO PRN ×2 (22:45)
[2016-05-24] MEDS ORDERED: D5% in Water 1,000 ML IV PRN (22:45)
[2016-05-24 23:44] LABS: Hemoglobin A1C 8.1 %
[2016-05-24] MEDS: Hydrocortisone Sodium Succ 100 MG/2 ML VIAL IVP SCH (23:59)
[2016-05-25] MEDS: Insulin LISPRO 300 UNITS/3 ML VIAL SQ SCH ×5 (00:28→20:56)
[2016-05-25] MEDS ORDERED: Piperacillin/Tazobactam 3.375 GM in D5% in Water (Mini-Bag+) 100 ML IVPB SCH (04:00)
[2016-05-25 04:21] LABS: Basophils % 0.2 %; Eosinophils % 0.2 %; Hematocrit 24.5 % (35.3-44.9); Hemoglobin 7.5 g/dL (11.5-15.4); Immature Granulocytes % 0.6 % (0-4); Lymphocytes # 0.2 K/mcL (0.6-4.6); Lymphocytes % 2.1 %; Mean Corpuscular HGB Conc 30.6 g/dL (31.6-35.5); Mean Corpuscular Hemoglobin 28.7 pg (28.0-33.3); Mean Corpuscular Volume 93.9 fL (83.0-100.0); Mean Platelet Volume 9.4 fL (9.4-12.4); Monocytes # 0.6 K/mcL (0.0-1.3); Monocytes % 5.1 %; Neutrophils # 10.6 K/mcL (1.6-8.9); Platelet Count 295 K/mcL (140-400); Red Blood Count 2.61 M/mcL (3.82-4.97); Red Cell Distribution Width 15.9 % (11.5-14.5); Segmented Neutrophils % 91.8 %
[2016-05-25] MEDS: 0.9 % Sodium Chloride 1,000 ML IVC SCH (04:31)
[2016-05-25 04:35] LABS: Albumin/Globulin Ratio 0.5 (1.1-2.2); Bilirubin,Total 0.3 mg/dL (0.2-1.2); Calcium 7.4 mg/dL (8.6-10.8); Globulin 2.7 g/dL (2.4-3.5); Potassium 4.9 mEq/L (3.5-4.5)
[2016-05-25 04:39] LABS: Albumin 1.3 g/dL (3.5-5.0)
[2016-05-25] MEDS: *HR* Heparin 5,000 UNIT/ML VIAL SQ SCH ×3 (06:20→19:01)
[2016-05-25 06:48] LABS: Acinetobacter baumannii by PCR Not Detected (Not Detect); Candida albicans by PCR Not Detected (Not Detect); Candida glabrata by PCR Not Detected (Not Detect); Candida krusei by PCR Not Detected (Not Detect); Candida parapsilosis by PCR Not Detected (Not Detect); Candida tropicalis by PCR Not Detected (Not Detect); Enterococcus by PCR Not Detected (Not Detect); Escherichia coli by PCR ***DETECTED*** (Not Detect); Klebsiella oxytoca by PCR Not Detected (Not Detect); Klebsiella pneumoniae by PCR Not Detected (Not Detect); Pseudomonas aeruginosa by PCR Not Detected (Not Detect); Serratia marcescens by PCR Not Detected (Not Detect); Staphylococcus aureus by PCR Not Detected (Not Detect); Streptococcus agalactiae(B)PCR Not Detected (Not Detect); Streptococcus by PCR Not Detected (Not Detect); Streptococcus pneumoniae PCR Not Detected (Not Detect); Streptococcus pyogenes (A) PCR Not Detected (Not Detect); blaKPC Carbapenem-Resist Gene Not Detected (Not Detect)
[2016-05-25] MEDS: *HR* Amiodarone 200 MG TABLET PO SCH ×2 (08:32→20:53)
[2016-05-25] MEDS: Hydrocortisone Sodium Succ 100 MG/2 ML VIAL IVP SCH ×3 (08:32→23:14)
[2016-05-25] MEDS: Aspirin Enteric Coated 81 MG Tablet PO SCH (08:33)
[2016-05-25] MEDS ORDERED: *HR* Dextrose 50 % in Water (Syg) 50 ML SYRINGE IVP PRN (10:27)
[2016-05-25] MEDS ORDERED: Dextrose Gel 15 GM PO PRN ×2 (10:27)
[2016-05-25] MEDS ORDERED: D5% in Water 1,000 ML IV PRN (10:27)
[2016-05-25] MEDS ORDERED: Albumin 25% 25gram/100mL 25 GM/100 ML IV.SOLN IVPB ONE (10:39)
[2016-05-25] MEDS ORDERED: Furosemide 40 MG/4 ML VIAL IVP ONE (10:40)
[2016-05-25] MEDS: Meropenem 500 MG in 0.9 % Sodium Chloride Mini Bag 100 ML IVPB SCH ×2 (12:04→23:14)
[2016-05-25 14:27] LABS: Protein/Creatinine Ratio,Urine 1.08 mg/mg (0-0.20)
--- NOTE | 2016-05-25 15:02 | Electrocardiograph Report ---
[place] [address] Test Date: 2016-05-24 Pat Name: Alesha Vaughan Department: 103 Room: 2N01 Gender: F [employer]: : 1945 Requested By: Nydia Nickerson Order Number: [id number] Reading MD: Tone Christianson MD Measurements Intervals Deaver Rate: 71 P: 21 ND: 156 QRS: 3 QRSD: 86 T: 47 QT: 400 QTc: 423 Interpretive Statements SINUS RHYTHM Electronically Signed On 05-25-2016 15:01:17 EST by Tone Christianson MD
--- NOTE | 2016-05-25 15:07 | Internal Med Progress Note ---
<Aldo Hobbs - Last Filed: 05/25/16 15:14> Date of Encounter: 05/25/16 Time of Encounter: 15:03 - Assessment and plan (1) Sepsis Current Visit: Yes Status: Acute Assessment and plan: Patient admitted with Leukocytosis. dose not meet any other SIRS criteria. However hse dose meet QSOFA score of 2 Additionally she has bactermia with GNR. Severe Sepsis as her SBP < 90 She did respond well to fluids. Currently she is Hemodynamically stable. Possible sources would include UTI with chronic indwelling cooper catheter. 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 Will place her on Meropenem given her history of ESBL DC Zosyn Will continue Vancomycin as there is concern for MRSA from skin wound. Case is complicated as she is somewhat immunocomprimized by her multiple myeloma and malnutrition. Additionally she is a diabetic and has CKD 4. Discussed with Alvaro in pharmacy will dose Vancomycin by her levels. Will continue closely. we will keep her in 2N as she is at risk for decompensating given her immunocomprimised state (2) Bacteremia Current Visit: Yes Status: Acute Assessment and plan: blood cultures from 05/24/16 have grown GNR. continue Meropenem and Vancomcyin. Pending culture results may need TTE to rule out infective endocarditis as well. (3) IgG multiple myeloma Current Visit: Yes Status: Acute Assessment and plan: I spoke with her Oncologist Dr. Zepeda. Will hold off on adding revlamid at this time giving her multiple issues. He should be consulted if any oncology questions arise (4) Plasmacytoma Current Visit: Yes Status: Acute Assessment and plan: S/P radiation therapy. Appears infected as well in the right thigh. purulent drainage. No identifiable abscess. (5) Acute kidney injury superimposed on chronic kidney disease Current Visit: Yes Status: Acute Assessment and plan: secondary to sepsis/ hypotesion CKD likely from Multiple myeloma. Continue to monitor closely and adjust medications as needed. (6) Anemia Current Visit: Yes Status: Acute Assessment and plan: Hg currently 7.5 Near baseline secondary to her MM also likely has a dilutional component. Transfuse should she become symptomatic or should her Hg drop below 7.0 (7) Leukocytosis Current Visit: Yes Status: Acute Assessment and plan: secondary to sepsis trending down. (8) Hyperkalemia Current Visit: Yes Status: Acute Assessment and plan: mild trending down (9) Diabetes Current Visit: Yes Status: Acute Assessment and plan: Sliding scale insulin. Will start at a lower dose of basal insulin as she was not eating until today. (10) Atrial fibrillation Current Visit: Yes Status: Acute Assessment and plan: currently rate controlled continue amioderone continue coumadin (11) Hypoalbuminemia Current Visit: Yes Status: Acute Assessment and plan: consult nutrition (12) Edema Current Visit: Yes Status: Acute Assessment and plan: likley from CKD and hypoalbuminemia will give her some albumin and a dose of lasix. (13) Muscular deconditioning Current Visit: Yes Status: Acute Assessment and plan: PT/OT (14) DVT prophylaxis Current Visit: Yes Status: Acute Assessment and plan: high risk for DVT given her immobility. resume coumadin can DC heparin once therapeutic - Subjective Interval history: this Am patient states that she is doing much better. she states that she was doing much better at the [facility] and was even able t stand for a while. However now she is afraid she will become very weak again. she denies any pain or discomfort. She is now alert and orientated. She denies any pain or discomfort. She denies any difficultly breathing. denies cough or wheeze. She denies any further complaints or concerns at this time. - Constitutional Vitals: Temp Pulse Resp BP Pulse Ox 97.6 F 63 18 97/44 97 05/25/16 11:28 05/25/16 11:28 05/25/16 11:28 05/25/16 11:28 05/25/16 11:28 Exam: General: This is a well-developed well-nourished 70-year-old female who is currently alert and orientated to person place time and situation. She is lying in bed appears to be comfortable. She does not appear to be toxic at this time. HEENT: Head is normocephalic and atraumatic. Anicteric sclera, moist mucous membranes. There is no cervical submandibular or supraclavicular lymphadenopathy palpable on exam. She does have a left EJ IV line implies. Heart: Regular rate and rhythm without murmurs rubs or gallops. Lungs: Clear to auscultation bilaterally. Abdomen: Obese, nondistended, nontender to palpation. Musculoskeletal: Grossly normal for age no gross deformity noted. Extremities: She has 3+ pitting edema up to the level thigh bilaterally. Integument: She does have multiple raised lesions. The one on her thigh on the right does have some purulent drainage and is malodorous. Internal Medicine: Result - Labs CBC & Chem 7: 05/25/16 04:16 05/25/16 04:16 Labs: Short CBC 05/25/16 Range/Units 04:16 WBC 11.6 H (4.3-11.1) K/mcL Hgb 7.5 L (11.5-15.4) g/dL Hct 24.5 L (35.3-44.9) % Plt Count 295 (140-400) K/mcL Neutrophils # 10.6 H (1.6-8.9) K/mcL BMP 05/25/16 04:16 Sodium 137 Potassium 4.9 H Chloride 109 Carbon Dioxide 19 BUN 85 H Creatinine 2.70 H Glucose 130 H Calcium 7.4 L Liver Function 05/25/16 Range/Units 04:16 Total Bilirubin 0.3 (0.2-1.2) mg/dL AST 14 (5-34) Units/L ALT 14 (0-55) Units/L Alkaline Phosphatase 101 (38-126) Units/L Albumin 1.3 L (3.5-5.0) g/dL - ABG Interpretation ABG results: ABG ABG pH 7.35 pH Units (7.32-7.45) 05/24/16 20:26 ABG pCO2 43 mmHg (35-45) 05/24/16 20:26 ABG pO2 128 mmHg (85-104) H 05/24/16 20:26 ABG O2 Saturation 99 % (95-98) H 05/24/16 20:26 PT/INR, D-dimer PT 11.9 Seconds (9.4-12.1) 05/24/16 13:21 Consult Discharge Plan - Plan Referrals: NO,PCP [Primary Care Provider] - (PATIENT IS FROM [facility], NO PCP APPOINTMENT NEEDED) <Jimmy Jones - Last Filed: 05/25/16 16:59> Date of Encounter: 05/25/16 - Constitutional Vitals: Temp Pulse Resp BP Pulse Ox 97.8 F 66 18 121/58 96 05/25/16 16:48 05/25/16 16:48 05/25/16 16:48 05/25/16 16:48 05/25/16 16:48 Internal Medicine: Result - Labs CBC & Chem 7: 05/25/16 04:16 05/25/16 04:16 Labs: Short CBC 05/25/16 Range/Units 04:16 WBC 11.6 H (4.3-11.1) K/mcL Hgb 7.5 L (11.5-15.4) g/dL Hct 24.5 L (35.3-44.9) % Plt Count 295 (140-400) K/mcL Neutrophils # 10.6 H (1.6-8.9) K/mcL BMP 05/25/16 04:16 Sodium 137 Potassium 4.9 H Chloride 109 Carbon Dioxide 19 BUN 85 H Creatinine 2.70 H Glucose 130 H Calcium 7.4 L Liver Function 05/25/16 Range/Units 04:16 Total Bilirubin 0.3 (0.2-1.2) mg/dL AST 14 (5-34) Units/L ALT 14 (0-55) Units/L Alkaline Phosphatase 101 (38-126) Units/L Albumin 1.3 L (3.5-5.0) g/dL - ABG Interpretation ABG results: ABG ABG pH 7.35 pH Units (7.32-7.45) 05/24/16 20:26 ABG pCO2 43 mmHg (35-45) 05/24/16 20:26 ABG pO2 128 mmHg (85-104) H 05/24/16 20:26 ABG O2 Saturation 99 % (95-98) H 05/24/16 20:26 PT/INR, D-dimer PT 11.9 Seconds (9.4-12.1) 05/24/16 13:21 - Attending Attestation I examined this patient and my medical decision-making was reviewed with the SCALE OPERATOR/PA/Advanced Practice Nurse/Resident Physician. I agree with the documented findings, disposition and treatment plan as described except to the extent set forth below. Agree with Dr. Aldo Hobbs. Patient with urinary tract infection, gram-negative rods in urine culture. Additionally, bacteremia noted. Continue with both vancomycin and meropenem for now. Patient with long-term therapy with steroids, continue with systemic steroid therapy. Severe hypoalbuminemia noted, will give IV human albumin along with Lasix today. Continue telemetry monitoring. Resume diet. Stop IV fluids. Monitor hemoglobin. Resume anticoagulation and monitor INR accordingly.
[2016-05-25] MEDS ORDERED: Vancomycin 1,000 MG in D5% in Water 250 ML IVPB ONE (15:12)
--- NOTE | 2016-05-25 15:27 | Electrocardiograph Report ---
[address] [address] Test Date: 2016-05-25 Pat Name: Alesha Vaughan Department: 110 Room: 2N01 Gender: F Cryptanalyst: : 1945 Requested By: Thiago Mooney Order Number: [id number] Reading MD: Tone Christianson MD Measurements Intervals [place] Rate: 63 P: 33 CA: 154 QRS: 1 QRSD: 90 T: 31 QT: 442 QTc: 450 Interpretive Statements SINUS RHYTHM LOW QRS VOLTAGE IN PRECORDIAL LEADS Electronically Signed On 05-25-2016 15:26:00 EST by Tone Christianson MD
[2016-05-25] MEDS: Acetaminophen 325 MG TABLET PO PRN (16:36)
[2016-05-25] MEDS ORDERED: Insulin LISPRO 300 UNITS/3 ML VIAL SQ SCH (18:40)
[2016-05-25] MEDS: *HR* Warfarin 5 MG TABLET PO SCH (19:00)
[2016-05-25] MEDS ORDERED: Insulin DETEMIR 100 UNIT/ML X5UNITS SQ SCH (21:00)
[2016-05-25] MEDS: Nystatin POWDER 30 GM BOTTLE TP SCH (21:03)
[2016-05-26] MEDS ORDERED: Insulin DETEMIR 100 UNIT/ML X5UNITS SQ ONE (00:46)
[2016-05-26 04:56] LABS: INR 1.1; Prothrombin Time 11.5 Seconds (9.4-12.1)
[2016-05-26 09:00] LABS: Basophils % 0.1 %; Hematocrit 25.8 % (35.3-44.9); Hemoglobin 8.1 g/dL (11.5-15.4); Immature Granulocytes % 1.3 % (0-4); Immature Platelets 2.1 % (1.1-6.1); Lymphocytes # 0.5 K/mcL (0.6-4.6); Lymphocytes % 4.4 %; Mean Corpuscular HGB Conc 31.4 g/dL (31.6-35.5); Mean Corpuscular Hemoglobin 28.9 pg (28.0-33.3); Mean Corpuscular Volume 92.1 fL (83.0-100.0); Mean Platelet Volume 9.5 fL (9.4-12.4); Monocytes # 0.6 K/mcL (0.0-1.3); Monocytes % 5.2 %; Platelet Count 360 K/mcL (140-400); Red Cell Distribution Width 15.7 % (11.5-14.5)
[2016-05-26] MEDS: Hydrocortisone Sodium Succ 100 MG/2 ML VIAL IVP SCH ×3 (09:10→23:14)
[2016-05-26 09:11] LABS: Calcium 7.6 mg/dL (8.6-10.8); Potassium 3.8 mEq/L (3.5-4.5)
[2016-05-26] MEDS: *HR* Amiodarone 200 MG TABLET PO SCH ×2 (09:34→20:55)
[2016-05-26] MEDS: Nystatin POWDER 30 GM BOTTLE TP SCH ×3 (09:36→20:57)
[2016-05-26] MEDS: Aspirin Enteric Coated 81 MG Tablet PO SCH (09:36)
[2016-05-26] MEDS ORDERED: Vancomycin 750 MG in D5% in Water 250 ML IVPB ONE (11:24)
[2016-05-26] MEDS: Insulin LISPRO 300 UNITS/3 ML VIAL SQ SCH ×3 (11:25→20:55)
[2016-05-26] MEDS: Meropenem 500 MG in 0.9 % Sodium Chloride Mini Bag 100 ML IVPB SCH ×2 (11:26→23:12)
[2016-05-26] MEDS ORDERED: Aminoglycoside Consult 1 EACH MC ONE (12:19)
--- NOTE | 2016-05-26 14:23 | Internal Med Progress Note ---
<Aldo Hobsb - Last Filed: 05/26/16 14:21> Date of Encounter: 05/26/16 Time of Encounter: 10:50 - Assessment and plan (1) Sepsis Current Visit: Yes Status: Acute Assessment and plan: Patient admitted with Leukocytosis. dose not meet any other SIRS criteria. However hse dose meet QSOFA score of 2 Additionally she has bactermia with GNR. Severe Sepsis as her SBP < 90 She did respond well to fluids. Currently she is Hemodynamically stable. Possible sources would include UTI with chronic indwelling cooper catheter. 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 Will place her on Meropenem given her history of ESBL DC Zosyn Will continue Vancomycin as there is concern for MRSA from skin wound. Case is complicated as she is somewhat immunocomprimized by her multiple myeloma and malnutrition. Additionally she is a diabetic and has CKD 4. Discussed with Alvaro in pharmacy will dose Vancomycin by her levels. Will continue closely. we will keep her in 2N as she is at risk for decompensating given her immunocomprimised state 05/26/16 Patient is hemodynamically stable. Afebrile Urine cultures have grown ESBL. blood cultures are still pending. Discussed dicontinuing urinary catheter however patient is unwilling at this time. We will discontinue Vancomycin as there are No GPC in the blood cultures to date. Continue meropenem. when blood cultures finalize may be able to switch to Ertapenem. Duration of antibiotics will depend on clinical course. repeat blood cultures were ordered for this AM. (2) Bacteremia Current Visit: Yes Status: Acute Assessment and plan: blood cultures from 05/24/16 have grown GNR. continue Meropenem await finalization of blood cultures repeat cultures ordered this AM. Day one of antibiotics will begin on day of first negative blood culture. (3) IgG multiple myeloma Current Visit: Yes Status: Acute Assessment and plan: I spoke with her Oncologist Dr. Zepeda. Will hold off on adding revlamid at this time giving her multiple issues. He should be consulted if any oncology questions arise (4) Plasmacytoma Current Visit: Yes Status: Acute Assessment and plan: S/P radiation therapy. (5) Acute kidney injury superimposed on chronic kidney disease Current Visit: Yes Status: Acute Assessment and plan: secondary to sepsis/ hypotesion CKD likely from Multiple myeloma. Continue to monitor closely and adjust medications as needed. 05/26/16 slight increase in SCR adequate urine output. will continue to monitor. avoid nephrotoxins. (6) Anemia Current Visit: Yes Status: Acute Assessment and plan: Hg currently 7.5 Near baseline secondary to her MM also likely has a dilutional component. Transfuse should she become symptomatic or should her Hg drop below 7.0 05/26/16 stable Hg trending up (7) Leukocytosis Current Visit: Yes Status: Acute Assessment and plan: trending down. (8) Hyperkalemia Current Visit: Yes Status: Acute Assessment and plan: resolved (9) Diabetes Current Visit: Yes Status: Acute Assessment and plan: blood glucose above goal Levemir was increased overnight. will increase sliding scale. If still above goal will increase her basal insulin again. (10) Atrial fibrillation Current Visit: Yes Status: Acute Assessment and plan: currently rate controlled continue amioderone continue coumadin (11) Hypoalbuminemia Current Visit: Yes Status: Acute Assessment and plan: consult nutrition (12) Edema Current Visit: Yes Status: Acute Assessment and plan: likley from CKD and hypoalbuminemia (13) Muscular deconditioning Current Visit: Yes Status: Acute Assessment and plan: PT/OT (14) DVT prophylaxis Current Visit: Yes Status: Acute Assessment and plan: high risk for DVT given her immobility. resume coumadin can DC heparin once therapeutic - Subjective Interval history: No major everns overnight. Patient states that she is somewhat sleepy this AM because she id not sleep well overnight. She denies any aches or pains. She denies any chest pain or dyspnea. Denies syncope or presyncope. She has no further complaints or concerns at this time. - Constitutional Vitals: Temp Pulse Resp BP Pulse Ox 97.4 F L 69 16 113/49 100 05/26/16 11:12 05/26/16 14:15 05/26/16 11:12 05/26/16 11:12 05/26/16 14:15 General appearance: Present: disheveled, A&O X 3, morbidly obese, pleasant, no acute distress, obese. Absent: answers questions appropriately - Head Head exam: Present: atraumatic, normal inspection, normocephalic - Eye Eye exam: Present: PERRL, conjuntiva pink, sclera anicteric Pupils: Present: PERRL - Neck Neck exam general surgery: Present: supple, trachea midline. Absent: lymphadenopathy Additional comments: left EJ present. well dressed - Respiratory Respiratory exam: Present: CTAB. Absent: accessory muscle use, rales, rhonchi, wheezes Additional comments: somewhat diminished bilateraly. but likely from habitus - Cardiovascular Cardiovascular exam: Present: RRR, +S1, +S2. Absent: diastolic murmur, gallop, rubs, systolic murmur - GI/Abdominal GI/Abdominal exam: Present: normal bowel sounds, soft, no peritoneal signs. Absent: distended, tenderness Additional comments: obese - Extremities Exam Extremities exam: Present: warm, radial pulses palpable and symetrical. Absent : calf tenderness, cyanotic Additional comments: she continues to have lower extemity edema with 2-3 + pitting edema to the level of the thigh. - Skin Skin exam: Present: dry, intact Additional comments: less erythema around skin lesions today. multiple skin lesions of the right foot leg and thigh. Internal Medicine: Result - Labs CBC & Chem 7: 05/26/16 08:56 05/26/16 08:56 Labs: Short CBC 05/26/16 Range/Units 08:56 WBC 11.2 H (4.3-11.1) K/mcL Hgb 8.1 L (11.5-15.4) g/dL Hct 25.8 L (35.3-44.9) % Plt Count 360 (140-400) K/mcL Neutrophils # 10.0 H (1.6-8.9) K/mcL BMP 05/26/16 08:56 Sodium 134 L Potassium 3.8 D Chloride 103 Carbon Dioxide 19 BUN 88 H Creatinine 2.95 H Glucose 336 H Calcium 7.6 L - ABG Interpretation ABG results: ABG ABG pH 7.35 pH Units (7.32-7.45) 05/24/16 20:26 ABG pCO2 43 mmHg (35-45) 05/24/16 20:26 ABG pO2 128 mmHg (85-104) H 05/24/16 20:26 ABG O2 Saturation 99 % (95-98) H 05/24/16 20:26 PT/INR, D-dimer PT 11.5 Seconds (9.4-12.1) 05/26/16 04:30 Consult Discharge Plan - Plan Referrals: NO,PCP [Non-Partnered Physician] - (PATIENT IS FROM [facility], NO PCP APPOINTMENT NEEDED) <Jimmy Jones - Last Filed: 05/26/16 17:47> Date of Encounter: 05/26/16 - Constitutional Vitals: Temp Pulse Resp BP Pulse Ox 97.6 F 63 18 113/45 91 L 05/26/16 16:58 05/26/16 16:58 05/26/16 16:58 05/26/16 16:58 05/26/16 16:58 Internal Medicine: Result - Labs CBC & Chem 7: 05/26/16 08:56 05/26/16 08:56 Labs: Short CBC 05/26/16 Range/Units 08:56 WBC 11.2 H (4.3-11.1) K/mcL Hgb 8.1 L (11.5-15.4) g/dL Hct 25.8 L (35.3-44.9) % Plt Count 360 (140-400) K/mcL Neutrophils # 10.0 H (1.6-8.9) K/mcL BMP 05/26/16 08:56 Sodium 134 L Potassium 3.8 D Chloride 103 Carbon Dioxide 19 BUN 88 H Creatinine 2.95 H Glucose 336 H Calcium 7.6 L - ABG Interpretation ABG results: ABG ABG pH 7.35 pH Units (7.32-7.45) 05/24/16 20:26 ABG pCO2 43 mmHg (35-45) 05/24/16 20:26 ABG pO2 128 mmHg (85-104) H 05/24/16 20:26 ABG O2 Saturation 99 % (95-98) H 05/24/16 20:26 PT/INR, D-dimer PT 11.5 Seconds (9.4-12.1) 05/26/16 04:30 - Attending Attestation I examined this patient and my medical decision-making was reviewed with the MEDICAL ACCOUNTING CLERK/PA/Advanced Practice Nurse/Resident Physician. I agree with the documented findings, disposition and treatment plan as described except to the extent set forth below. UTI ESBL Ecoli, bacteremia. Continue with meropenem, d/ c vancomycin. Monitor coags and renal function. Agree with Dr. Hobbs.
[2016-05-26] MEDS: Acetaminophen 325 MG TABLET PO PRN (17:02)
[2016-05-26] MEDS: *HR* Heparin 5,000 UNIT/ML VIAL SQ SCH ×2 (17:08→23:14)
[2016-05-26] MEDS: *HR* Warfarin 5 MG TABLET PO SCH (18:50)
[2016-05-26] MEDS ORDERED: Insulin DETEMIR 100 UNIT/ML X5UNITS SQ SCH (21:00)
[2016-05-26] MEDS: tiZANidine 4 MG TABLET PO PRN (23:15)
[2016-05-27 05:27] LABS: Basophils % 0.1 %; Hematocrit 24.3 % (35.3-44.9); Hemoglobin 7.6 g/dL (11.5-15.4); Immature Granulocytes % 1.3 % (0-4); Lymphocytes # 0.5 K/mcL (0.6-4.6); Lymphocytes % 4.1 %; Mean Corpuscular HGB Conc 31.3 g/dL (31.6-35.5); Mean Corpuscular Hemoglobin 28.6 pg (28.0-33.3); Mean Corpuscular Volume 91.4 fL (83.0-100.0); Mean Platelet Volume 9.9 fL (9.4-12.4); Monocytes # 0.5 K/mcL (0.0-1.3); Monocytes % 4.6 %; Platelet Count 329 K/mcL (140-400); Red Blood Count 2.66 M/mcL (3.82-4.97); Red Cell Distribution Width 15.6 % (11.5-14.5); Segmented Neutrophils % 89.9 %
[2016-05-27 05:50] LABS: Albumin/Globulin Ratio 0.6 (1.1-2.2); Bilirubin,Total 0.3 mg/dL (0.2-1.2); Calcium 7.3 mg/dL (8.6-10.8); Globulin 2.7 g/dL (2.4-3.5); Potassium 3.4 mEq/L (3.5-4.5); Total Protein 4.4 g/dL (6.0-8.3)
[2016-05-27 05:51] LABS: Albumin 1.7 g/dL (3.5-5.0)
[2016-05-27] MEDS ORDERED: Meropenem 1,000 MG in 0.9 % Sodium Chloride Mini Bag 100 ML IVPB SCH (06:05)
[2016-05-27] MEDS: *HR* Heparin 5,000 UNIT/ML VIAL SQ SCH ×3 (06:12→23:00)
[2016-05-27] MEDS ORDERED: Potassium Chloride Elixir 20 MEQ/15 ML UDC PO ONE (06:27)
[2016-05-27] MEDS ORDERED: 0.9 % Sodium Chloride Mini Bag 100 ML ONE (06:35)
--- NOTE | 2016-05-27 06:39 | Internal Med Progress Note ---
<Aldo Hobbs - Last Filed: 05/27/16 13:20> Date of Encounter: 05/27/16 Time of Encounter: 06:37 - Assessment and plan (1) Sepsis Current Visit: Yes Status: Acute Assessment and plan: Patient admitted with Leukocytosis. dose not meet any other SIRS criteria. However hse dose meet QSOFA score of 2 Additionally she has bactermia with GNR. Severe Sepsis as her SBP < 90 She did respond well to fluids. Currently she is Hemodynamically stable. Possible sources would include UTI with chronic indwelling cooper catheter. 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 Will place her on Meropenem given her history of ESBL DC Zosyn Will continue Vancomycin as there is concern for MRSA from skin wound. Case is complicated as she is somewhat immunocomprimized by her multiple myeloma and malnutrition. Additionally she is a diabetic and has CKD 4. Discussed with Alvaro in pharmacy will dose Vancomycin by her levels. Will continue closely. we will keep her in 2N as she is at risk for decompensating given her immunocomprimised state 05/26/16 Patient is hemodynamically stable. Afebrile Urine cultures have grown ESBL. blood cultures are still pending. Discussed dicontinuing urinary catheter however patient is unwilling at this time. We will discontinue Vancomycin as there are No GPC in the blood cultures to date. Continue meropenem. when blood cultures finalize may be able to switch to Ertapenem. Duration of antibiotics will depend on clinical course. repeat blood cultures were ordered for this AM. 05/27/16 No longer meets sepsis criteria. awaiting final blood culture results. repeat cultures show NGTD. Qualifiers: Qualified Code(s): A41.9 - Sepsis, unspecified organism (2) Bacteremia Current Visit: Yes Status: Acute Assessment and plan: blood cultures from 05/24/16 have grown GNR. continue Meropenem await finalization of blood cultures repeat cultures show NGTD Day one of antibiotics will begin on day of first negative blood culture. (3) IgG multiple myeloma Current Visit: Yes Status: Acute Assessment and plan: I spoke with her Oncologist Dr. Zepeda. Will hold off on adding revlamid at this time giving her multiple issues. He should be consulted if any oncology questions arise (4) Plasmacytoma Current Visit: Yes Status: Acute Assessment and plan: S/P radiation therapy. (5) Acute kidney injury superimposed on chronic kidney disease Current Visit: Yes Status: Acute Assessment and plan: improving. good urine output. avoid nephrotoxins continue to adjust medications as needed. (6) Anemia Current Visit: Yes Status: Acute Assessment and plan: Hg currently 7.5 Near baseline secondary to her MM also likely has a dilutional component. Transfuse should she become symptomatic or should her Hg drop below 7.0 05/27/16 stable slight trend down. Qualifiers: Qualified Code(s): D64.9 - Anemia, unspecified (7) Leukocytosis Current Visit: Yes Status: Resolved Assessment and plan: resolved Qualifiers: Qualified Code(s): D72.829 - Elevated white blood cell count, unspecified (8) Hyperkalemia Current Visit: Yes Status: Resolved (9) Diabetes Current Visit: Yes Status: Acute Assessment and plan: Still above goal Spoke with Pharmacy this AM. she was not on chronic steroids. Will increase levemir and DC hydrocortisone. Qualifiers: Qualified Code(s): E11.9 - Type 2 diabetes mellitus without complications (10) Atrial fibrillation Current Visit: Yes Status: Acute Assessment and plan: currently rate controlled continue amioderone continue coumadin Qualifiers: Qualified Code(s): I48.91 - Unspecified atrial fibrillation (11) Hypoalbuminemia Current Visit: Yes Status: Acute Assessment and plan: consult nutrition (12) Edema Current Visit: Yes Status: Acute Assessment and plan: likley from CKD and hypoalbuminemia Qualifiers: Qualified Code(s): R60.9 - Edema, unspecified (13) Muscular deconditioning Current Visit: Yes Status: Acute Assessment and plan: PT/OT (14) DVT prophylaxis Current Visit: Yes Status: Acute Assessment and plan: Neuro: Metabolic encephalopathy has resolved. Now alert and orientated. No issues at this time. HEENT: No issues at this time. Cardio: History of Afib. Currently rate controlled and in sinus rhythm this AM. Continue coumadin. Repeat INr pending for this AM. Pulmonology: No issues at this time. Maintaining oxygen saturation on room air. GI: No issues at this time. : UTI with ESBL Ecoli. sensotive to meropenem. MSK: muscular deconditioning. PT/OT was consulted however no Notes. will discuss with property staff accountant to make sure she is getting therapy. HEME: Chronic anemia. Most likely from multiple myeloma. Near baseline. Continue to monitor. Will avoid excess labs. Oncology: Patient has multiple myeloma. Will likely start on renally dose linolinamide. However discussed with Oncology and will hold medication for now as she is still acutely ill. Will need to follow up with Oncology closely after discharge. Integument: Cutaneous plasmacytomas. S/P radiation therapy. wound care was consulted. Will need to follow up with radiation/Oncology after DC. Nutrition: severe PCM with low albumin and prealbumin. Consulted nutrition. Endocrine: IDDM. Above goal. Increase Levemir this AM. Continue high dose sliding scale insulin. Spoke with Pharmacy to confirm med rec of chronic steroids. she was not steroid dependent. steroids listed were only given with chemo to prevent infusion reaction. Will confirm with pharmacy and resume home dose. Electrolytes: Mild hypokalemia. replete and check Mg. pseudohypocalcemia corrects to 8.7 with correction for albumin. Nutrition: Nutrition consulted. ID: Sepsis and bacteremia. ESBL Ecoli has grown from urine. Will await for blood cultures to finalize and adjust antibiotics accordingly. Repeat blood cultures drawn 05/26/16. Duration of treatment will depend on clinical course and first day of negative blood cultures. Prophylaxis: On DVT prophylaxis. DC heparin once INR therapeutic. Will also add PPI for GI prophylaxis in the setting of Sepsis, anticoagulation, steroid use. lines: she has a port in the right chest wall. Left EJ and cooper catheter. volume status: + 5300 mL since admission. good urine output. Will give some lasix today. discharge planning: Will need to go back to [facility] for rehab. Will most likely need IV antibiotics for 2 weeks for GN bacteremia. Can use port. Awaiting PT/OT eval. Possible DC tomorrow or the next day if she continues to clinically improve. - Subjective Interval history: No major events overnight. Patient states that she is sleepy after code Gómez last night. She denies pain or discomfort this AM. she denies any difficulty in breathing. Denies subjective fever or chills. No further complaints or concerns at this time. - Constitutional Vitals: Temp Pulse Resp BP Pulse Ox 97.6 F 62 16 119/50 93 L 05/27/16 04:42 05/27/16 04:42 05/27/16 04:42 05/27/16 04:42 05/27/16 04:42 General appearance: Present: disheveled, A&O X 3, morbidly obese, pleasant, no acute distress, obese. Absent: answers questions appropriately - Head Head exam: Present: atraumatic, normocephalic - Eye Eye exam: Present: PERRL, conjuntiva pink, sclera anicteric Pupils: Present: PERRL - Neck Neck exam general surgery: Present: supple, trachea midline. Absent: lymphadenopathy - Respiratory Respiratory exam: Present: CTAB. Absent: accessory muscle use, rales, rhonchi, wheezes - Cardiovascular Cardiovascular exam: Present: RRR, +S1, +S2. Absent: diastolic murmur, gallop, rubs, systolic murmur - GI/Abdominal GI/Abdominal exam: Present: normal bowel sounds, soft, no peritoneal signs. Absent: distended, tenderness - Extremities Exam Extremities exam: Present: pedal edema (Lower extremity edema 3+ to the level of the thigh. ), warm, radial pulses palpable and symetrical. Absent: calf tenderness, cyanotic - Skin Skin exam: Present: dry, intact Additional comments: cutaneous plasma cytomas present left foot, leg, and thigh. No significant change from yesterday. Internal Medicine: Result - Labs CBC & Chem 7: 05/27/16 05:06 05/27/16 05:06 Labs: Short CBC 05/26/16 05/27/16 Range/Units 08:56 05:06 WBC 11.2 H 11.1 (4.3-11.1) K/mcL Hgb 8.1 L 7.6 L (11.5-15.4) g/dL Hct 25.8 L 24.3 L (35.3-44.9) % Plt Count 360 329 (140-400) K/mcL Neutrophils # 10.0 H 10.0 H (1.6-8.9) K/mcL BMP 05/26/16 05/27/16 08:56 05:06 Sodium 134 L 134 L Potassium 3.8 D 3.4 L Chloride 103 103 Carbon Dioxide 19 19 BUN 88 H 91 H Creatinine 2.95 H 2.78 H Glucose 336 H 305 H Calcium 7.6 L 7.3 L Liver Function 05/27/16 Range/Units 05:06 Total Bilirubin 0.3 (0.2-1.2) mg/dL AST 11 (5-34) Units/L ALT 18 (0-55) Units/L Alkaline Phosphatase 90 (38-126) Units/L Albumin 1.7 L D (3.5-5.0) g/dL - ABG Interpretation ABG results: ABG ABG pH 7.35 pH Units (7.32-7.45) 05/24/16 20:26 ABG pCO2 43 mmHg (35-45) 05/24/16 20:26 ABG pO2 128 mmHg (85-104) H 05/24/16 20:26 ABG O2 Saturation 99 % (95-98) H 05/24/16 20:26 PT/INR, D-dimer PT 11.5 Seconds (9.4-12.1) 05/26/16 04:30 Consult Discharge Plan - Plan Referrals: NO,PCP [Non-Partnered Physician] - (PATIENT IS FROM [facility], NO PCP APPOINTMENT NEEDED) <Jimmy Jones - Last Filed: 05/27/16 16:41> Date of Encounter: 05/27/16 - Constitutional Vitals: Temp Pulse Resp BP Pulse Ox 98.0 F 78 18 126/49 100 05/27/16 15:58 05/27/16 16:04 05/27/16 15:58 05/27/16 15:58 05/27/16 15:58 Internal Medicine: Result - Labs CBC & Chem 7: 05/27/16 05:06 05/27/16 05:06 Labs: Short CBC 05/27/16 Range/Units 05:06 WBC 11.1 (4.3-11.1) K/mcL Hgb 7.6 L (11.5-15.4) g/dL Hct 24.3 L (35.3-44.9) % Plt Count 329 (140-400) K/mcL Neutrophils # 10.0 H (1.6-8.9) K/mcL BMP 05/27/16 05:06 Sodium 134 L Potassium 3.4 L Chloride 103 Carbon Dioxide 19 BUN 91 H Creatinine 2.78 H Glucose 305 H Calcium 7.3 L Liver Function 05/27/16 Range/Units 05:06 Total Bilirubin 0.3 (0.2-1.2) mg/dL AST 11 (5-34) Units/L ALT 18 (0-55) Units/L Alkaline Phosphatase 90 (38-126) Units/L Albumin 1.7 L D (3.5-5.0) g/dL - ABG Interpretation ABG results: ABG ABG pH 7.35 pH Units (7.32-7.45) 05/24/16 20:26 ABG pCO2 43 mmHg (35-45) 05/24/16 20:26 ABG pO2 128 mmHg (85-104) H 05/24/16 20:26 ABG O2 Saturation 99 % (95-98) H 05/24/16 20:26 PT/INR, D-dimer PT 11.2 Seconds (9.4-12.1) 05/27/16 06:51 - Attending Attestation I examined this patient and my medical decision-making was reviewed with the ROCK CUTTER/PA/Advanced Practice Nurse/Resident Physician. I agree with the documented findings, disposition and treatment plan as described except to the extent set forth below. Follow cultures, continue with meropenem. Will likely need at least 2 weeks of iv antibiotics. No steroids. Insulin therapy.
[2016-05-27 07:35] LABS: Prothrombin Time 11.2 Seconds (9.4-12.1)
[2016-05-27] MEDS: Insulin LISPRO 300 UNITS/3 ML VIAL SQ SCH ×4 (08:01→20:40)
[2016-05-27] MEDS: *HR* Amiodarone 200 MG TABLET PO SCH ×2 (08:02→20:39)
[2016-05-27] MEDS: Nystatin POWDER 30 GM BOTTLE TP SCH ×3 (08:02→20:45)
[2016-05-27] MEDS: Aspirin Enteric Coated 81 MG Tablet PO SCH (08:02)
[2016-05-27] MEDS: Insulin DETEMIR 100 UNIT/ML X5UNITS SQ SCH ×2 (08:02→20:39)
[2016-05-27] MEDS ORDERED: Pantoprazole 40 MG VIAL IVP SCH (09:00)
[2016-05-27] MEDS: Meropenem 1,000 MG in 0.9 % Sodium Chloride Mini Bag 100 ML IVPB SCH ×2 (10:53→23:29)
[2016-05-27] MEDS: Albumin 25% 25gram/100mL 25 GM/100 ML IV.SOLN IVPB SCH ×2 (16:01→23:29)
[2016-05-27] MEDS ORDERED: Furosemide 40 MG/4 ML VIAL IVP ONE (17:00)
[2016-05-27] MEDS: *HR* Warfarin 5 MG TABLET PO SCH (17:02)
[2016-05-27] MEDS: tiZANidine 4 MG TABLET PO PRN (20:39)
[2016-05-27] MEDS: traMADol 50 MG TABLET PO PRN (22:58)
[2016-05-28 04:27] LABS: Hemoglobin 6.4 g/dL (11.5-15.4); Mean Corpuscular HGB Conc 30.5 g/dL (31.6-35.5); Mean Corpuscular Hemoglobin 28.2 pg (28.0-33.3); Mean Corpuscular Volume 92.5 fL (83.0-100.0); Mean Platelet Volume 9.8 fL (9.4-12.4); Platelet Count 253 K/mcL (140-400); Red Blood Count 2.27 M/mcL (3.82-4.97); Red Cell Distribution Width 15.6 % (11.5-14.5)
[2016-05-28 04:59] LABS: Calcium 7.5 mg/dL (8.6-10.8); Magnesium 1.8 mg/dL (1.6-2.6); Potassium 3.5 mEq/L (3.5-4.5)
[2016-05-28] MEDS: Aspirin Enteric Coated 81 MG Tablet PO SCH (07:39)
[2016-05-28] MEDS: Insulin LISPRO 300 UNITS/3 ML VIAL SQ SCH ×4 (07:40→21:20)
[2016-05-28] MEDS: *HR* Amiodarone 200 MG TABLET PO SCH ×2 (07:40→20:39)
[2016-05-28] MEDS: *HR* Heparin 5,000 UNIT/ML VIAL SQ SCH ×5 (07:40→22:53)
[2016-05-28] MEDS: Nystatin POWDER 30 GM BOTTLE TP SCH ×3 (07:41→21:20)
[2016-05-28] MEDS: traMADol 50 MG TABLET PO PRN ×2 (09:27→20:38)
[2016-05-28] MEDS: Insulin DETEMIR 100 UNIT/ML X5UNITS SQ SCH ×2 (09:27→20:39)
[2016-05-28 09:41] LABS: Hematocrit 24.1 % (35.3-44.9); Hemoglobin 7.6 g/dL (11.5-15.4)
[2016-05-28] MEDS: Meropenem 1,000 MG in 0.9 % Sodium Chloride Mini Bag 100 ML IVPB SCH ×2 (11:31→22:50)
--- NOTE | 2016-05-28 15:28 | Internal Med Progress Note ---
<Aldo Hobbs - Last Filed: 05/28/16 15:58> Date of Encounter: 05/28/16 Time of Encounter: 15:23 - Assessment and plan (1) Sepsis Current Visit: Yes Status: Acute Assessment and plan: Patient no Longer meets SIRS or QSOFA criteria. Afebrile Leukocytosis has resolved. She received 2 days of Vancomycin 1 day of Zosyn ( changed to Meropenem with history of ESBL) Day 4 of Meropenem. Blood cultures from 05/24/16 and 05/26/16 have grown ESBL Ecoli. repeat Blood cultures and cultures from port were ordered today. Given the patients persistent bacteremia with treatment with Meropenem which this ESBL Ecoli is sensitive to would suspect seeding of port in the right chest wall. No immunologic or embolic phenomena noted on exam. Currently She only meets on minor modified Braswell criteria ( persistent bacteremia but not a typical organism). she did have an echocardiogram on while she was bacteremic and this did not reveal any vegetation. We may consider repeat echo if she continues to have positive cultures or if recommended by ID. continue to monitor for drug toxicities. we will consult Infectious disease. We appreciate there recommendations. Qualifiers: Qualified Code(s): A41.9 - Sepsis, unspecified organism (2) Bacteremia Current Visit: Yes Status: Acute Assessment and plan: blood cultures from 05/24/16 have grown ESBL Ecoli. repeat cultures form 05/26/16 are positive as well. Repeat cultures and culture from port ordere 05/27/16 continue Meropenem await finalization of blood cultures Day one of antibiotics will begin on day of first negative blood culture. duration of antibiotics will depend on clinical course. (3) IgG multiple myeloma Current Visit: Yes Status: Acute Assessment and plan: I spoke with her Oncologist Dr. Zepeda. Will hold off on adding revlamid at this time giving her multiple issues. He should be consulted if any oncology questions arise (4) Plasmacytoma Current Visit: Yes Status: Acute Assessment and plan: S/P radiation therapy. wound care (5) Acute kidney injury superimposed on chronic kidney disease Current Visit: Yes Status: Acute Assessment and plan: improving. good urine output. avoid nephrotoxins continue to adjust medications as needed. (6) Anemia Current Visit: Yes Status: Acute Assessment and plan: Hg currently 7.5 Near baseline secondary to her MM also likely has a dilutional component. Transfuse should she become symptomatic or should her Hg drop below 7.0 05/28/16 stable Qualifiers: Qualified Code(s): D64.9 - Anemia, unspecified (7) Leukocytosis Current Visit: Yes Status: Resolved Assessment and plan: resolved Qualifiers: Qualified Code(s): D72.829 - Elevated white blood cell count, unspecified (8) Hyperkalemia Current Visit: Yes Status: Resolved (9) Diabetes Current Visit: Yes Status: Acute Assessment and plan: Continue high dose sliding scale and Levemir Qualifiers: Qualified Code(s): E11.9 - Type 2 diabetes mellitus without complications (10) Atrial fibrillation Current Visit: Yes Status: Acute Assessment and plan: currently rate controlled continue amioderone continue coumadin Qualifiers: Qualified Code(s): I48.91 - Unspecified atrial fibrillation (11) Hypoalbuminemia Current Visit: Yes Status: Acute Assessment and plan: nutrition consulted (12) Edema Current Visit: Yes Status: Acute Assessment and plan: likely from CKD and hypoalbuminemia Qualifiers: Qualified Code(s): R60.9 - Edema, unspecified (13) Muscular deconditioning Current Visit: Yes Status: Acute Assessment and plan: PT/OT (14) DVT prophylaxis Current Visit: Yes Status: Acute Assessment and plan: Neuro: Metabolic encephalopathy has resolved. Now alert and orientated. No issues at this time. HEENT: No issues at this time. Cardio: History of Afib. Currently rate controlled and in sinus rhythm this AM. Continue coumadin. Repeat INr in AM. Pulmonology: No issues at this time. Maintaining oxygen saturation on room air. GI: No issues at this time. : UTI with ESBL Ecoli. sensitive to meropenem. MSK: muscular deconditioning. PT/OT was consulted however did not see patient. Stated there was a bed rest order. However this was changed yesterday AM. I have requested they see her today. HEME: Chronic anemia. Most likely from multiple myeloma. Near baseline. Continue to monitor. Will avoid excess labs if possible Oncology: Patient has multiple myeloma. Will likely start on renally dose linolinamide. However discussed with Oncology and will hold medication for now as she is still acutely ill. Will need to follow up with Oncology closely after discharge. Integument: Cutaneous plasmacytomas. S/P radiation therapy. wound care was consulted. Will need to follow up with radiation/Oncology after DC. Nutrition: severe PCM with low albumin and prealbumin. Consulted nutrition. Endocrine: Currently at goal. Will need to watch closely as steroids were discontinued yesterday as well. Continue to monitor for hypoglycemia. Electrolytes: No major abnormalities today. Nutrition: Nutrition consulted. ID: Sepsis and bacteremia. ESBL Ecoli has grown from urine. Blood cultures persistently positive. Only meets one minor Braswell criteria. May need to remove port. Cnsulted ID. Prophylaxis: On DVT prophylaxis. DC heparin once INR therapeutic. Continue PPI for GI prophylaxis in the setting of Sepsis, anticoagulation, and recent steroid use. lines: she has a port in the right chest wall. Left EJ and cooper catheter. I have requested Cooper be discontinued. We will keep EJ as we may have to remove port. If ID recommend removing port we will hold coumadin tonight. volume status: + 4353 mL since admission. good urine output. will add some scheduled lasix and watch renal function closely. discharge planning: Will need to go back to [facility] for rehab. Will most likely need IV antibiotics for a minimum 2 weeks for GN bacteremia. May need PICC line if port removed. Awaiting PT/OT eval. DC pending clinical course. - Subjective Interval history: No major events overnight . Patient states that she is feeling better. She denies any pain or discomfort. She denies any chest pain or dyspnea. She has no further complaints or concerns at this time. - Constitutional Vitals: Temp Pulse Resp BP Pulse Ox 98.2 F 75 16 115/50 100 05/28/16 11:18 05/28/16 11:30 05/28/16 11:18 05/28/16 11:18 05/28/16 11:18 General appearance: Present: disheveled, A&O X 3, morbidly obese, pleasant, no acute distress, obese. Absent: answers questions appropriately - Head Head exam: Present: atraumatic, normal inspection, normocephalic - Eye Eye exam: Present: PERRL, conjuntiva pink, sclera anicteric Pupils: Present: PERRL - Neck Neck exam general surgery: Present: supple, trachea midline. Absent: lymphadenopathy - Respiratory Respiratory exam: Present: CTAB. Absent: accessory muscle use, rales, rhonchi, wheezes - Cardiovascular Cardiovascular exam: Present: RRR, +S1, +S2. Absent: diastolic murmur, gallop, rubs, systolic murmur - GI/Abdominal GI/Abdominal exam: Present: normal bowel sounds, soft, no peritoneal signs. Absent: distended, tenderness Additional comments: obese - Extremities Exam Extremities exam: Present: pedal edema, warm, radial pulses palpable and symetrical. Absent: calf tenderness, cyanotic Additional comments: 3+ pedal edema to the thigh bilaterally. Plasmacytomas of the right leg, foot and thigh. Internal Medicine: Result - Labs CBC & Chem 7: 05/28/16 08:38 05/28/16 03:55 Labs: Short CBC 05/28/16 05/28/16 Range/Units 03:55 08:38 WBC 8.9 (4.3-11.1) K/mcL Hgb 6.4 L 7.6 L (11.5-15.4) g/dL Hct 21.0 L 24.1 L (35.3-44.9) % Plt Count 253 (140-400) K/mcL BMP 05/28/16 03:55 Sodium 136 Potassium 3.5 Chloride 106 Carbon Dioxide 21 BUN 93 H Creatinine 2.49 H Glucose 106 H Calcium 7.5 L - ABG Interpretation ABG results: ABG ABG pH 7.35 pH Units (7.32-7.45) 05/24/16 20:26 ABG pCO2 43 mmHg (35-45) 05/24/16 20:26 ABG pO2 128 mmHg (85-104) H 05/24/16 20:26 ABG O2 Saturation 99 % (95-98) H 05/24/16 20:26 PT/INR, D-dimer PT 11.2 Seconds (9.4-12.1) 05/27/16 06:51 Consult Discharge Plan - Plan Referrals: NO,PCP [Non-Partnered Physician] - ([facility], NO [facility]POINTMENT NEEDED) <Jimmy Jones - Last Filed: 05/28/16 18:02> Date of Encounter: 05/28/16 - Constitutional Vitals: Temp Pulse Resp BP Pulse Ox 98.2 F 82 16 119/52 100 05/28/16 16:44 05/28/16 16:44 05/28/16 16:44 05/28/16 16:44 05/28/16 16:44 Internal Medicine: Result - Labs CBC & Chem 7: 05/28/16 08:38 05/28/16 03:55 Labs: Short CBC 05/28/16 05/28/16 Range/Units 03:55 08:38 WBC 8.9 (4.3-11.1) K/mcL Hgb 6.4 L 7.6 L (11.5-15.4) g/dL Hct 21.0 L 24.1 L (35.3-44.9) % Plt Count 253 (140-400) K/mcL BMP 05/28/16 03:55 Sodium 136 Potassium 3.5 Chloride 106 Carbon Dioxide 21 BUN 93 H Creatinine 2.49 H Glucose 106 H Calcium 7.5 L - ABG Interpretation ABG results: ABG ABG pH 7.35 pH Units (7.32-7.45) 05/24/16 20:26 ABG pCO2 43 mmHg (35-45) 05/24/16 20:26 ABG pO2 128 mmHg (85-104) H 05/24/16 20:26 ABG O2 Saturation 99 % (95-98) H 05/24/16 20:26 PT/INR, D-dimer PT 11.2 Seconds (9.4-12.1) 05/27/16 06:51 - Attending Attestation I examined this patient and my medical decision-making was reviewed with the WEB ANALYTICS DEVELOPER/PA/Advanced Practice Nurse/Resident Physician. I agree with the documented findings, disposition and treatment plan as described except to the extent set forth below. Ms. Vaughan was seen and examined during rounds. Hemoglobin initially was 6.4, however after a new sample was sent to the lab it was noted to be stable compared to yesterdays hemoglobin. We will not transfuse blood at this time. Bacteremia is persistent, We will obtain a new set of blood cultures. Obtain also a set of blood culture from IV port. Patient with multiple myeloma, hypoalbuminemia and edema. Continue with IV Lasix. Monitor kidney function tests. Avoid fluid overload. ID consult.
[2016-05-28] MEDS: *HR* Warfarin 5 MG TABLET PO SCH (19:30)
[2016-05-28] MEDS: Furosemide 40 MG/4 ML VIAL IVP SCH (19:31)
[2016-05-28] MEDS: tiZANidine 4 MG TABLET PO PRN (20:38)
[2016-05-28] MEDS ORDERED: *HR* LORazepam 1 MG TABLET PO PRN (22:40)
[2016-05-28] MEDS: Melatonin 3 MG TABLET PO SCH (22:50)
[2016-05-29 04:09] LABS: Basophils % 0.1 %; Eosinophils # 0.2 K/mcL (0.0-0.6); Eosinophils % 1.7 %; Hematocrit 22.3 % (35.3-44.9); Hemoglobin 6.8 g/dL (11.5-15.4); Lymphocytes # 0.9 K/mcL (0.6-4.6); Lymphocytes % 9.7 %; Mean Corpuscular HGB Conc 30.5 g/dL (31.6-35.5); Mean Corpuscular Hemoglobin 28.1 pg (28.0-33.3); Mean Corpuscular Volume 92.1 fL (83.0-100.0); Mean Platelet Volume 9.8 fL (9.4-12.4); Monocytes # 0.7 K/mcL (0.0-1.3); Monocytes % 8.4 %; Neutrophils # 6.9 K/mcL (1.6-8.9); Platelet Count 251 K/mcL (140-400); Red Blood Count 2.42 M/mcL (3.82-4.97); Red Cell Distribution Width 15.8 % (11.5-14.5); Segmented Neutrophils % 78.1 %
[2016-05-29 04:20] LABS: Calcium 7.4 mg/dL (8.6-10.8); Magnesium 1.7 mg/dL (1.6-2.6); Potassium 4.1 mEq/L (3.5-4.5)
[2016-05-29 04:37] LABS: INR 1.2; Prothrombin Time 12.8 Seconds (9.4-12.1)
[2016-05-29] MEDS: *HR* Heparin 5,000 UNIT/ML VIAL SQ SCH ×2 (06:13→14:11)
[2016-05-29] MEDS: *HR* Amiodarone 200 MG TABLET PO SCH ×2 (07:26→20:55)
[2016-05-29] MEDS: Aspirin Enteric Coated 81 MG Tablet PO SCH (07:27)
[2016-05-29] MEDS: traMADol 50 MG TABLET PO PRN ×2 (07:31→21:04)
[2016-05-29] MEDS: Furosemide 40 MG/4 ML VIAL IVP SCH ×2 (07:32→18:26)
[2016-05-29] MEDS: Nystatin POWDER 30 GM BOTTLE TP SCH ×2 (07:36→14:12)
[2016-05-29] MEDS: Insulin LISPRO 300 UNITS/3 ML VIAL SQ SCH ×4 (07:38→20:58)
[2016-05-29] MEDS: Insulin DETEMIR 100 UNIT/ML X5UNITS SQ SCH ×2 (10:20→21:04)
[2016-05-29] MEDS: Meropenem 1,000 MG in 0.9 % Sodium Chloride Mini Bag 100 ML IVPB SCH (11:30)
--- NOTE | 2016-05-29 12:22 | Infectious Disease Consult ---
Date of Encounter: 05/29/16 Time of Encounter: 12:20 Assessment and Plan (1) Severe sepsis Status: Acute Assessment and plan: The patient had two SIRS criteria plus PURNIMA and acute encephalopathy on admission. Likely secondary to bacteremia and UTI. Improved. Hypotension and leukocytosis have resolved. Blood cultures drawn 05/24/16 x 2 sets and 05/26/16 x 2 sets are all positive. Clinically, the patient has improved. (2) Bacteremia Status: Acute Assessment and plan: Causative organism ESBL E. coli. Source likely the urine with seeding of the a-port. During a hospitalization in April, the patient had E. coli ESBL bacteremia ( blood culture drawn from a-port positive, peripheral blood culture was negative) . The patient also had a positive urine culture for E. coli ESBL at that time. The patient had a chronic indwelling cooper catheter, but I am unsure if it was exchanged during that time. She was treated with seven days of Ertapenem in the hospital. Blood cultures drawn 05/24/16 were positive 2/2 sets (drawn peripherally). Repeat culture drawn 05/26/16 was positive 1/1 set (drawn peripherally). No cultures have been drawn from the a-port during this hospitalization. Given the patient's persistent bacteremia and immunocompromised stage, concern for seeding of the a-port. Consider removal of the a-port if okay with the Hem/ Onc team. Repeat blood cultures drawn 05/28/16 are pending x 2 sets. Cooepr catheter has been removed. No endocarditis stigmata noted. The patient has persistently positive blood cultures, but not with microorganisms typical of IE. She does have one minor criteria. Low index of suspicion for IE at this time. Once a-port is removed, repeat blood cultures. If positive, will need AUDIE. If a-port is removed, avoid replacing a-port or any type of central access until blood cultures are negative x 48 hours. Continue Meropenem 1 gram IV Q8H. Duration of treatment depends on the clinical picture, but like 14 days from the first set of negative blood cultures. Monitor renal function and dose-adjust antibiotics. Will continue to follow. (3) UTI (urinary tract infection) Status: Acute Assessment and plan: Causative organism E. coli ESBL. Likely secondary to chronic indwelling cooper catheter, which has been removed. Also consider colonization of the bladder. Continue antibiotics as above. Qualifiers: Urinary tract infection type: site unspecified Hematuria presence: with hematuria Qualified Code(s): N39.0 - Urinary tract infection, site not specified; R31.9 - Hematuria, unspecified (4) Encephalopathy acute Status: Resolved Assessment and plan: Likely secondary to sepsis. Resolved. (5) Acute kidney injury Status: Acute Assessment and plan: Acute kidney injury on chronic renal failure. Serum creatinine 2.92 on admission. Likely multifactorial: sepsis + UTI + hypotension. Improved. (6) Hyperkalemia Status: Resolved Assessment and plan: Likely secondary to PURNIMA. Resolved. (7) Anemia Status: Acute Qualifiers: Anemia type: unspecified type Qualified Code(s): D64.9 - Anemia, unspecified (8) IgG multiple myeloma Status: Acute (9) Plasmacytoma Status: Acute (10) Atrial fibrillation Status: Chronic Qualifiers: Atrial fibrillation type: unspecified Qualified Code(s): I48.91 - Unspecified atrial fibrillation (11) Diabetes Status: Chronic Qualifiers: Diabetes mellitus type: type 2 Diabetes mellitus complication status: with unspecified complications Diabetes mellitus exterminator insulin use: unspecified exterminator insulin use status Qualified Code(s): E11.8 - Type 2 diabetes mellitus with unspecified complications Infectious Disease HPI - Data of Consult Patient: new to practice Consult date: 05/29/16 Requesting Physician: Jimmy Jones Primary Care Provider: Johan Jha MD - Consult Narrative Reason for consult: Persistent Bacteremia History of present illness: Ms. Vaughan is a 70 year old female with a past medical history of multiple myeloma with cutaneous involvement, CAD, diabetes, CAD, and morbid obesity. The patient was admitted to the hospital May 24 for sepsis, UTI, and altered mental status. We are consulted May 29, 2016 for further evaluation and treatment recommendations regarding persistent bacteremia. Briefly, the patient 70-year-old female past history as stated above. She was admitted to the hospital on May 24 after she presented to the emergency department from a local [facility] where she was found to be hypotensive and had an elevated white count. Further workup revealed an acute kidney injury and hyperkalemia. Urinalysis was positive for pyuria. Culture was sent acute back positive for ESBL Escherichia coli in the urine. Additionally, blood cultures were obtained 2 sets and also came back positive for Escherichia coli ESBL. There was concern about a possible cellulitis of the right foot. CT of that affected foot showed findings consistent with cellulitis versus lymphedema. CT of the head was negative. Chest x-ray was negative. The patient received aggressive IV fluid hydration and was started on empiric antibiotics. She was admitted to the hospital for further evaluation and treatment. Since admission, the patient has remained hemodynamically stable. Her blood pressure has improved. Her leukocytosis has resolved. Review of the medical record reveals the patient was hospitalized recently back in April for bacteremia and UTI with a causative organism of Escherichia coli ESBL. She was treated with 7 days of ertapenem while hospitalized. Blood cultures at that time were +1 out of 2 sets. The positive set was drawn from the patient's a port. Blood cultures from this hospitalization are as mentioned above, and were drawn peripherally. No blood cultures have been obtained from a port during this hospitalization. Repeat blood cultures obtained every are +1 out of 1 set for Escherichia coli ESBL, also drawn peripherally. An additional repeat set was drawn May 28 and is currently pending 2 sets. Currently, patient is on day 4 of IV meropenem. We've asked to evaluate and make further recommendations. During my exam today, the patient states that overall she feels well. She somewhat of a poor historian reverse of the events leading up to her hospitalization, but states that she believes she was sent to the emergency department because she had altered mental status. She denies any known fevers or chills or rigors prior to admission. She denies any headache, neck pain, or congestion. She denies any weakness or dizziness. She denies chest pain, short of breath, or cough. She denies any nausea, vomiting, diarrhea, constipation. The patient had a chronic indwelling Cooper catheter prior to admission, which has been since discontinued. She reports chronic urinary incontinence and states she has not had any dysuria or malodorous urine. She states her appetite been okay. She complains of pain at the sites of the cutaneous myeloma lesions to the right lower extremity and right abdominal fold. She denies any oral thrush or new skin lesions. The patient follows with Dr. Zeepda at the [facility]. He of the medical record reveals that the patient has been on Daratumumab every 4 weeks with the last dose being given 05/22/16. CC: Jimmy Jones Past Med Surg Social Fam HX - Past Medical History Attestation: Yes The following information was validated with the patient. Source: patient, old records reviewed, nursing notes reviewed Medical history: cancer (Multiple myeloma with cutaneous nodules), coronary artery disease, diabetes, renal disease (CKD 4), other Psychiatric history: no psych history - Past Surgical History Surgical History: angioplasty/stent - Social History Smoking Status: Never smoker Smokeless Tobacco Status: No Alcohol use: none Drug use: none Occupational status: unemployed Current living situation: [facility] Activity Level: Uses cane/walker Recent Out of Country Travel Within the Last 8 Weeks: No Exposure or Possible Exposure to Illness During Travel: No - Family History Father Living Status: Hx Family Cardiac Disorders: Yes Hx Family Endocrine Disorder: Yes Sister Hx Family Cancer: Yes (kidney) Hx Family Endocrine Disorder: Yes Mother Living Status: Still Living Hx Family Cardiac Disorders: Yes (HTN) Hx Family Endocrine Disorder: Yes Infectious Disease-CN:Meds Aspirin [Adult Low Dose Aspirin EC] 81 mg PO QAM 04/04/15 [History] Atorvastatin Calcium [Lipitor] 20 mg PO DAILY 04/04/15 [History] Loperamide HCl [Imodium A-D] 2 mg PO Q6H PRN 04/04/15 [History] Prochlorperazine Maleate [Compazine] 10 mg PO Q6H PRN 04/04/15 [History] Tizanidine HCl [Zanaflex] 4 mg PO Q8H PRN 04/04/15 [History] Folic Acid 1 mg PO DAILY #30 tablet 04/18/15 [Rx] Docusate [Colace] 100 mg PO DAILY PRN 04/22/15 [History] Insulin Glargine,Hum.rec.anlog [Lantus Solostar] 15 unit SQ HS 04/22/15 [History ] Insulin Glargine,Hum.rec.anlog [Lantus Solostar] 18 unit SQ QAM 04/22/15 [ History] Insulin LISPRO [HumaLOG] 0 unit SQ ACHS 04/22/15 [History] Melatonin 10 mg PO HS PRN 04/22/15 [History] Simethicone [Gas-X] 160 mg PO Q6H PRN 04/22/15 [History] Acetaminophen [Tylenol] 650 mg PO Q4H PRN 06/11/15 [History] Gabapentin [Neurontin] 300 mg PO BID 06/11/15 [History] Magnesium Hydroxide/Al Hydrox [Mag-Al Liquid] 30 ml PO BID PRN 06/11/15 [History ] Glucagon HCl 1 mg IJ ONCE PRN 12/27/15 [History] Fluticasone Propionate Nasal [Flonase] 100 mcg NS DAILY 02/18/16 [History] Furosemide [Lasix] 40 mg PO DAILY 02/18/16 [History] Temazepam [Restoril] 15 mg PO HS 02/18/16 [History] MethylPREDNISolone [Medrol] 20 mg PO DAILY #10 tablet 04/14/16 [Rx] Albuterol Neb [Proventil Neb] 2.5 mg IH Q6H PRN 04/30/16 [History] GuaiFENesin/Dextromethorphan [Mucinex Dm ER 600-30 mg Tablet] 1 tab PO BID 04/30 [History] Guaifenesin [Diabetic Tussin Ex] 100 mg PO QID PRN 04/30/16 [History] Mirtazapine 7.5 mg PO HS 04/30/16 [History] Ondansetron HCl [Zofran] 4 mg PO Q6H PRN 04/30/16 [History] Saline Nasal [place] [[place] Nasal [place]] 1 spray NS TID 04/30/16 [History] Tramadol HCl [Ultram] 50 mg PO BID 04/30/16 [History] Amiodarone [Cordarone] 200 mg PO BID #60 tablet 05/09/16 [Rx] Metoprolol XL (24 HR) Succ [Toprol Xl] 50 mg PO DAILY #30 tab.er.24h 05/09/16 [ Rx] Tramadol HCl [Ultram] 50 mg PO Q6H PRN #20 tablet 05/09/16 [Rx] Lenalidomide [Revlimid] 5 mg PO AD #21 capsule 05/22/16 [Rx] Warfarin [Coumadin] 5 mg PO QPM 05/24/16 [History] Zolpidem [Ambien] 5 mg PO HS 05/24/16 [History] Allergies hydrocodone [From Vicodin] Allergy (Verified 04/04/15 11:12) Rash All systems: reviewed and no additional remarkable complaints except as stated Exam - Constitutional Vitals: Temp Pulse Resp BP Pulse Ox 97.8 F 80 18 113/41 100 05/29/16 10:48 05/29/16 10:48 05/29/16 10:48 05/29/16 10:48 05/29/16 07:40 General appearance: cooperative, morbidly obese, no acute distress - Head Head exam: Present: atraumatic, normal inspection, normocephalic - Eye Eye exam: Present: EOMI, normal appearance, PERRL Pupils: Present: normal accommodation Additional comments: No subconjunctival hemorrhage noted. - ENT ENT exam: Present: mucous membranes moist - Neck Neck exam: Present: normal inspection - Respiratory Respiratory exam: Present: CTAB. Absent: rales, respiratory distress, rhonchi, wheezes - Cardiovascular Cardiovascular exam: Present: RRR, +S1, +S2. Absent: diastolic murmur, systolic murmur - GI/Abdominal GI/Abdominal exam: Present: distended (obese), normal bowel sounds, soft. Absent: tenderness - Extremities Exam Extremities exam: Present: pedal edema (Lymphedema noted to the BLE), tenderness (right dorsal foot). Absent: joint swelling Additional comments: Multiple cutaneous nodules noted to the BLE, right lateral thigh, and right groin fold. No endocarditis stigmata noted. - Neurological Exam Neurological exam: Present: alert, oriented X3, no focal deficits - Psychiatric Psychiatric exam: Present: normal affect, normal mood - Skin Skin exam: Present: dry, intact, normal color, warm - Additional findings Additional findings: A-port noted to the right upper chest with Smyth needle intact and transparent dressing C/D/I. CVC noted to the left IJ with transparent dressing C/D/I. Infectious Disease CN: Results - Labs CBC & Chem 7: 06/01/16 05:38 06/01/16 05:38 Cultures: Cultures 05/26/16 05:16 Blood Culture - Final Peripheral Venipuncture Escherichia coli ESBL Cultures 05/26/16 05:16 Blood Culture - Final Peripheral Venipuncture Escherichia coli ESBL 05/24/16 13:21 Blood Culture - Final Peripheral Venipuncture Escherichia coli ESBL 05/24/16 15:47 Blood Culture - Final Peripheral Venipuncture Escherichia coli ESBL 05/24/16 15:48 Urine Culture - Final Urine,Clean Catch Escherichia coli ESBL Serology: Serology 05/25/16 Range/Units 13:35 Urine Creatinine 12 mg/dL Protein/Creatinin Ratio 1.08 H (0-0.20) mg/mg Urine Total Protein 13 (1-14) mg/dL Consult Discharge Plan - Plan Referrals: NO,PCP [Non-Partnered Physician] - (PATIENT IS FROM [facility], NO PCP APPOINTMENT NEEDED)
--- NOTE | 2016-05-29 14:56 | Internal Med Progress Note ---
<WilkinsYovana Luis E - Last Filed: 05/29/16 17:16> Date of Encounter: 05/29/16 Time of Encounter: 14:54 - Assessment and plan (1) Sepsis Current Visit: Yes Status: Acute Assessment and plan: Patient was admitted with leukocytosis, bacteremia with E. coli, SBP <90 She no longer meets sepsis or QSOFA criteria While leukocytosis has resolved, patient's urine and blood cultures are positive for ESBL E. coli 05/24/16 urine culture 1/1 positive 05/24/16 Blood cultures 2/2 positive 05/26/16 blood cultures 1/1 positive Repeat blood cultures 05/28/16 are pending x 2 sets Most likely source is a-port, which was culture positive at previous hospitalization Choi has been removed Patient was treated empirically with Vancomycin, and Zosyn Zosyn was changed to Meropenem due to previous hospitalization with positive cultures for EBSL E. coli Continue meropenem Infectious disease following, we appreciate recommendations Qualifiers: Sepsis type: Escherichia coli Qualified Code(s): A41.51 - Sepsis due to Escherichia coli [E. coli] (2) Bacteremia Current Visit: Yes Status: Acute Assessment and plan: Blood cultures from 05/24/16 positive for ESBL E. coli repeat cultures form 05/26/16 are positive for ESBL E. coli Port cultures obtained today and are pending Blood cultures obtained yesterday are pending Continue Meropenem Day one of antibiotics will begin on day of first negative blood culture Duration of antibiotics will depend on clinical course (3) IgG multiple myeloma Current Visit: Yes Status: Acute Assessment and plan: Oncologist is Dr. Zepeda. Will hold Revlamid at this time Dr. Zepeda should be consulted if any oncology questions arise (4) Plasmacytoma Current Visit: Yes Status: Acute Assessment and plan: S/P radiation therapy Continue wound care (5) Leukocytosis Current Visit: Yes Status: Resolved Assessment and plan: resolved Qualifiers: Leukocytosis type: unspecified Qualified Code(s): D72.829 - Elevated white blood cell count, unspecified (6) Acute kidney injury superimposed on chronic kidney disease Current Visit: Yes Status: Acute Assessment and plan: improving, Cr 2.39 today down from 2.92 on admission good urine output avoid nephrotoxins continue to monitor medications for renal toxicity adjust medications as needed (7) Diabetes Current Visit: Yes Status: Chronic Assessment and plan: Continue high dose sliding scale and Levemir Qualifiers: Qualified Code(s): E11.9 - Type 2 diabetes mellitus without complications (8) Atrial fibrillation Current Visit: Yes Status: Chronic Assessment and plan: currently rate controlled continue amioderone continue coumadin Qualifiers: Atrial fibrillation type: unspecified Qualified Code(s): I48.91 - Unspecified atrial fibrillation (9) Hyperkalemia Current Visit: Yes Status: Resolved Assessment and plan: resolved (10) Anemia Current Visit: Yes Status: Acute Assessment and plan: Hg currently 7.2 today Near baseline Secondary to her MM Also likely has a dilutional component. Transfuse should she become symptomatic or should her Hg drop below 7.0 Qualifiers: Anemia type: unspecified type Qualified Code(s): D64.9 - Anemia, unspecified (11) Hypoalbuminemia Current Visit: Yes Status: Acute Assessment and plan: nutrition consulted (12) Edema Current Visit: Yes Status: Acute Assessment and plan: likely from CKD and hypoalbuminemia Qualifiers: Qualified Code(s): R60.1 - Generalized edema (13) Muscular deconditioning Current Visit: Yes Status: Acute Assessment and plan: PT/OT (14) DVT prophylaxis Current Visit: No Status: Acute Assessment and plan: anticoagulated - Time Spent With Patient 25 - 35 minutes (30 minutes including time with patient and coordinating care) - Subjective Interval history: Patient is found in bed at time of patient interview. She denies dyspnea, chest pain, problems urinating. However, she has had 5 days of constipation with last small bowel movement on Wednesday, May 25. - Constitutional Vitals: Temp Pulse Resp BP Pulse Ox 97.8 F 80 18 113/41 100 05/29/16 11:45 05/29/16 11:45 05/29/16 11:45 05/29/16 11:45 05/29/16 11:45 General appearance: Present: disheveled, A&O X 3, morbidly obese, pleasant, no acute distress, answers questions appropriately Exam: Patient unable to move from bed due to year-long disability after starting treatment for multiple myeloma - Head Head exam: Present: atraumatic, normocephalic - Eye Eye exam: Present: EOMI, PERRL, conjuntiva pink, sclera anicteric - Neck Neck exam general surgery: Present: supple, trachea midline - Respiratory Respiratory exam: Present: CTAB. Absent: accessory muscle use, rales, rhonchi, wheezes - Cardiovascular Cardiovascular exam: Present: RRR, +S1, +S2. Absent: diastolic murmur, gallop, rubs, systolic murmur - GI/Abdominal GI/Abdominal exam: Present: normal bowel sounds, soft, no peritoneal signs. Absent: distended, tenderness - Extremities Exam Extremities exam: Present: pedal edema (3+ edema to upper leg. cutaneous plasma tumors to right foot. large plasma tumors to lateral upper right leg.), warm, radial pulses palpable and symetrical. Absent: calf tenderness, cyanotic - Neurological Exam Neurological exam: Present: CN II-XII intact, oriented X3, no focal deficits. Absent: pronater drift, facial droop, speech deficit - Skin Skin exam: Present: dry, intact Internal Medicine: Result - Labs CBC & Chem 7: 05/29/16 14:30 05/29/16 03:45 Labs: Short CBC 05/29/16 Range/Units 03:45 WBC 8.8 (4.3-11.1) K/mcL Hgb 6.8 L (11.5-15.4) g/dL Hct 22.3 L (35.3-44.9) % Plt Count 251 (140-400) K/mcL Neutrophils # 6.9 (1.6-8.9) K/mcL BMP 05/29/16 03:45 Sodium 137 Potassium 4.1 Chloride 106 Carbon Dioxide 20 BUN 97 H Creatinine 2.39 H Glucose 157 H Calcium 7.4 L - ABG Interpretation ABG results: ABG ABG pH 7.35 pH Units (7.32-7.45) 05/24/16 20:26 ABG pCO2 43 mmHg (35-45) 05/24/16 20:26 ABG pO2 128 mmHg (85-104) H 05/24/16 20:26 ABG O2 Saturation 99 % (95-98) H 05/24/16 20:26 PT/INR, D-dimer PT 12.8 Seconds (9.4-12.1) H 05/29/16 03:45 Consult Discharge Plan - Plan Referrals: NO,PCP [Non-Partnered Physician] - (PATIENT IS FROM [facility], NO PCP APPOINTMENT NEEDED) - Attending Attestation I examined this patient and my medical decision-making was reviewed with the SCHEDULING CLERK/PA/Advanced Practice Nurse/Resident Physician. I agree with the documented findings, disposition and treatment plan as described except to the extent set forth below. <Jimmy Jones - Last Filed: 05/29/16 18:25> Date of Encounter: 05/29/16 - Constitutional Vitals: Temp Pulse Resp BP Pulse Ox 98.0 F 83 16 119/74 98 05/29/16 16:10 05/29/16 16:10 05/29/16 16:10 05/29/16 16:10 05/29/16 16:10 Internal Medicine: Result - Labs CBC & Chem 7: 05/29/16 14:30 05/29/16 03:45 Labs: Short CBC 05/29/16 05/29/16 Range/Units 03:45 14:30 WBC 8.8 (4.3-11.1) K/mcL Hgb 6.8 L 7.2 L (11.5-15.4) g/dL Hct 22.3 L 23.1 L (35.3-44.9) % Plt Count 251 (140-400) K/mcL Neutrophils # 6.9 (1.6-8.9) K/mcL BMP 05/29/16 03:45 Sodium 137 Potassium 4.1 Chloride 106 Carbon Dioxide 20 BUN 97 H Creatinine 2.39 H Glucose 157 H Calcium 7.4 L - ABG Interpretation ABG results: ABG ABG pH 7.35 pH Units (7.32-7.45) 05/24/16 20:26 ABG pCO2 43 mmHg (35-45) 05/24/16 20:26 ABG pO2 128 mmHg (85-104) H 05/24/16 20:26 ABG O2 Saturation 99 % (95-98) H 05/24/16 20:26 PT/INR, D-dimer PT 12.8 Seconds (9.4-12.1) H 05/29/16 03:45 - Attending Attestation I examined this patient and my medical decision-making was reviewed with the SCHEDULING CLERK/PA/Advanced Practice Nurse/Resident Physician. I agree with the documented findings, disposition and treatment plan as described except to the extent set forth below. Cotinue iv antibiotics, follow cultures, follow ID inut.
[2016-05-29 15:02] LABS: Hematocrit 23.1 % (35.3-44.9); Hemoglobin 7.2 g/dL (11.5-15.4)
[2016-05-29] MEDS: *HR* Warfarin 5 MG TABLET PO SCH (18:26)
[2016-05-29] MEDS: Melatonin 3 MG TABLET PO SCH (20:55)
[2016-05-29] MEDS: tiZANidine 4 MG TABLET PO PRN (21:04)
[2016-05-30] MEDS: *HR* Heparin 5,000 UNIT/ML VIAL SQ SCH ×4 (01:14→23:49)
[2016-05-30] MEDS: Meropenem 1,000 MG in 0.9 % Sodium Chloride Mini Bag 100 ML IVPB SCH ×3 (01:16→23:50)
[2016-05-30] MEDS: Nystatin POWDER 30 GM BOTTLE TP SCH ×4 (05:11→21:52)
[2016-05-30] MEDS: Aspirin Enteric Coated 81 MG Tablet PO SCH (08:16)
[2016-05-30] MEDS: *HR* Amiodarone 200 MG TABLET PO SCH ×2 (08:16→21:53)
[2016-05-30] MEDS: Furosemide 40 MG/4 ML VIAL IVP SCH ×2 (08:16→17:44)
[2016-05-30] MEDS: Insulin LISPRO 300 UNITS/3 ML VIAL SQ SCH ×4 (08:17→21:51)
[2016-05-30] MEDS: Insulin DETEMIR 100 UNIT/ML X5UNITS SQ SCH ×2 (08:18→21:53)
[2016-05-30 11:24] LABS: Red Blood Count 2.29 M/mcL (3.82-4.97)
[2016-05-30 11:25] LABS: Basophils % 0.1 %; Eosinophils # 0.2 K/mcL (0.0-0.6); Eosinophils % 1.3 %; Hematocrit 20.9 % (35.3-44.9); Hemoglobin 6.6 g/dL (11.5-15.4); Immature Granulocytes % 1.3 % (0-4); Immature Platelets 2.3 % (1.1-6.1); Lymphocytes # 0.7 K/mcL (0.6-4.6); Lymphocytes % 5.9 %; Mean Corpuscular HGB Conc 31.6 g/dL (31.6-35.5); Mean Corpuscular Hemoglobin 28.8 pg (28.0-33.3); Mean Corpuscular Volume 91.3 fL (83.0-100.0); Monocytes # 0.7 K/mcL (0.0-1.3); Neutrophils # 9.6 K/mcL (1.6-8.9); Platelet Count 282 K/mcL (140-400); Red Cell Distribution Width 15.8 % (11.5-14.5); Segmented Neutrophils % 85.4 %
[2016-05-30 11:30] LABS: INR 1.3; Prothrombin Time 13.9 Seconds (9.4-12.1)
[2016-05-30 11:43] LABS: Calcium 7.7 mg/dL (8.6-10.8)
--- NOTE | 2016-05-30 14:22 | Internal Med Progress Note ---
<Aldo Hobbs - Last Filed: 05/30/16 14:39> Date of Encounter: 05/30/16 Time of Encounter: 11:05 - Assessment and plan (1) Sepsis Current Visit: Yes Status: Acute Assessment and plan: Patient no Longer meets SIRS or QSOFA criteria. Afebrile Leukocytosis has resolved. She received 2 days of Vancomycin 1 day of Zosyn ( changed to Meropenem with history of ESBL) Day 6 of Meropenem. Blood cultures from 05/24/16 and 05/26/16 have grown ESBL Ecoli. Blood cultures from port on 05/28 show NGTD. Given the patients persistent bacteremia with treatment with Meropenem which this ESBL Ecoli is sensitive to would suspect seeding of port in the right chest wall. No immunologic or embolic phenomena noted on exam. Currently She only meets on minor modified Braswell criteria ( persistent bacteremia but not a typical organism). she did have an echocardiogram on while she was bacteremic and this did not reveal any vegetation. We obtain AUDIE if she continues to have positive cultures after she has port removed. Port was placed by IR. Will hold coumadin and see if we can have it removed on Wednesday. continue to monitor for drug toxicities. Appreciate ID's recommendations. Qualifiers: Qualified Code(s): A41.9 - Sepsis, unspecified organism (2) Bacteremia Current Visit: Yes Status: Acute Assessment and plan: Blood cultures from 05/24/16 positive for ESBL E. coli repeat cultures form 05/26/16 are positive for ESBL E. coli Port cultures obtained from 05/28/16 show NGTD. Continue Meropenem Day one of antibiotics will begin after port removal. Duration of antibiotics will depend on clinical course (3) IgG multiple myeloma Current Visit: Yes Status: Acute Assessment and plan: Oncologist is Dr. Zepeda. Will hold Revlamid at this time Dr. 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 good urine output. (6) Anemia Current Visit: Yes Status: Acute Assessment and plan: Hg currently 7.2 today Near baseline Secondary to her MM Also likely has a dilutional component. Transfuse should she become symptomatic or should her Hg drop below 7.0 05/30/16 no signs of bleeding Hg 6.6 so we will transfuse today. Qualifiers: Anemia type: unspecified type Qualified Code(s): D64.9 - Anemia, unspecified (7) Leukocytosis Current Visit: Yes Status: Resolved Assessment and plan: resolved Qualifiers: Leukocytosis type: unspecified Qualified Code(s): D72.829 - Elevated white blood cell count, unspecified (8) Hyperkalemia Current Visit: Yes Status: Resolved Assessment and plan: resolved (9) Diabetes Current Visit: Yes Status: Chronic Assessment and plan: At goal Continue high dose sliding scale and Levemir Qualifiers: Qualified Code(s): E11.9 - Type 2 diabetes mellitus without complications (10) Atrial fibrillation Current Visit: Yes Status: Chronic Assessment and plan: currently rate controlled continue amioderone hold coumadin for possible port removal on Wednesday. I have discussed port removal with Oncology. Qualifiers: Atrial fibrillation type: unspecified Qualified Code(s): I48.91 - Unspecified atrial fibrillation (11) Hypoalbuminemia Current Visit: Yes Status: Acute Assessment and plan: nutrition consulted (12) Edema Current Visit: Yes Status: Acute Assessment and plan: likely from CKD and hypoalbuminemia Qualifiers: Qualified Code(s): R60.9 - Edema, unspecified (13) Muscular deconditioning Current Visit: Yes Status: Acute Assessment and plan: PT/OT (14) DVT prophylaxis Current Visit: Yes Status: Acute Assessment and plan: Neuro: Metabolic encephalopathy has resolved. Now alert and orientated. No issues at this time. HEENT: No issues at this time. Cardio: History of Afib. Currently rate controlled and in sinus rhythm this AM. Hold coumadin for possible procedure on Wednesday. Pulmonology: No issues at this time. Maintaining oxygen saturation on room air. GI: No issues at this time. : UTI with ESBL Ecoli. sensitive to meropenem. Disontinued cooper as this is likely the initial source of her infection. MSK: muscular deconditioning. Continue PT/OT HEME: Chronic anemia. Most likely from multiple myeloma. Hg down to 6.6. No signs of bleeding. Will transfuse today. Oncology: Patient has multiple myeloma. Will likely start on renally dose linolinamide. However discussed with Oncology and will hold medication for now as she is still acutely ill. Will need to follow up with Oncology closely after discharge. Integument: Cutaneous plasmacytomas. S/P radiation therapy. wound care was consulted. Will need to follow up with radiation/Oncology after DC. Nutrition: severe PCM with low albumin and prealbumin. Consulted nutrition. Endocrine: Goal less than 180 while inpatient. Currently she is meeting that goal. Electrolytes: No major abnormalities today. Nutrition: Nutrition consulted. ID: Sepsis and bacteremia. ESBL Ecoli has grown from urine. Blood cultures persistently positive. Only meets one minor Braswell criteria. Port removal wednesday. AUDIE if positive blood cultures thereafter. Appreciate ID. Prophylaxis: On DVT prophylaxis. Continue PPI for GI prophylaxis in the setting of Sepsis, anticoagulation, and recent steroid use. lines: she has a port in the right chest wall. Left EJ and cooper catheter. I have requested Cooper be discontinued. We will keep EJ as we may have to remove port. volume status: + 6000 mL since admission. good urine output. continue lasix discharge planning: Will need to go back to [facility] for rehab. Will most likely need IV antibiotics for a minimum 2 weeks for GN bacteremia. Will need a line. DC pending clinical course. - Subjective Interval history: No major events overnight . Patietn states that she is feeling better. She denies any pain or discomfort. She dose complain of inability to sleep. She dose admit to a mild generalized headache that she states is like one of her typical headaches. She has no further complaints or concerns at this time. - Constitutional Vitals: Temp Pulse Resp BP Pulse Ox 98.4 F 73 18 99/65 97 05/30/16 04:23 05/30/16 04:23 05/30/16 04:23 05/30/16 04:23 05/30/16 04:23 General appearance: Present: disheveled, A&O X 3, morbidly obese, pleasant, no acute distress, answers questions appropriately - Head Head exam: Present: atraumatic, normal inspection, normocephalic - Eye Eye exam: Present: PERRL, conjuntiva pink, sclera anicteric Pupils: Present: PERRL - Neck Neck exam general surgery: Present: supple, trachea midline. Absent: lymphadenopathy - Respiratory Respiratory exam: Present: CTAB. Absent: accessory muscle use, rales, rhonchi, wheezes - Cardiovascular Cardiovascular exam: Present: RRR, +S1, +S2. Absent: diastolic murmur, gallop, rubs, systolic murmur - GI/Abdominal GI/Abdominal exam: Present: normal bowel sounds, soft, no peritoneal signs. Absent: distended, tenderness - Extremities Exam Extremities exam: Present: warm, radial pulses palpable and symetrical. Absent : calf tenderness, cyanotic, pedal edema - Skin Skin exam: Present: dry, intact Additional comments: No change in appearence of the palsmacytomas on the right foot and leg. The ones on the thigh are clean and well dressed. Internal Medicine: Result - Labs CBC & Chem 7: 05/30/16 11:00 05/30/16 11:00 Labs: Short CBC 05/29/16 05/30/16 Range/Units 14:30 11:00 WBC 11.2 H (4.3-11.1) K/mcL Hgb 7.2 L 6.6 L (11.5-15.4) g/dL Hct 23.1 L 20.9 L (35.3-44.9) % Plt Count 282 (140-400) K/mcL Neutrophils # 9.6 H (1.6-8.9) K/mcL BMP 05/30/16 11:00 Sodium 133 L Potassium 4.0 Chloride 102 Carbon Dioxide 22 BUN 90 H Creatinine 2.31 H Glucose 152 H Calcium 7.7 L - ABG Interpretation ABG results: ABG ABG pH 7.35 pH Units (7.32-7.45) 05/24/16 20:26 ABG pCO2 43 mmHg (35-45) 05/24/16 20:26 ABG pO2 128 mmHg (85-104) H 05/24/16 20:26 ABG O2 Saturation 99 % (95-98) H 05/24/16 20:26 PT/INR, D-dimer PT 13.9 Seconds (9.4-12.1) H 05/30/16 11:00 Consult Discharge Plan - Plan Referrals: NO,PCP [Non-Partnered Physician] - (PATIENT IS FROM [facility], NO PCP APPOINTMENT NEEDED) <Jimmy Jones - Last Filed: 05/30/16 14:56> Date of Encounter: 05/30/16 - Constitutional Vitals: Temp Pulse Resp BP Pulse Ox 98.4 F 73 18 99/65 97 05/30/16 04:23 05/30/16 04:23 05/30/16 04:23 05/30/16 04:23 05/30/16 04:23 Internal Medicine: Result - Labs CBC & Chem 7: 05/30/16 11:00 05/30/16 11:00 Labs: Short CBC 05/29/16 05/30/16 Range/Units 14:30 11:00 WBC 11.2 H (4.3-11.1) K/mcL Hgb 7.2 L 6.6 L (11.5-15.4) g/dL Hct 23.1 L 20.9 L (35.3-44.9) % Plt Count 282 (140-400) K/mcL Neutrophils # 9.6 H (1.6-8.9) K/mcL BMP 05/30/16 11:00 Sodium 133 L Potassium 4.0 Chloride 102 Carbon Dioxide 22 BUN 90 H Creatinine 2.31 H Glucose 152 H Calcium 7.7 L - ABG Interpretation ABG results: ABG ABG pH 7.35 pH Units (7.32-7.45) 05/24/16 20:26 ABG pCO2 43 mmHg (35-45) 05/24/16 20:26 ABG pO2 128 mmHg (85-104) H 05/24/16 20:26 ABG O2 Saturation 99 % (95-98) H 05/24/16 20:26 PT/INR, D-dimer PT 13.9 Seconds (9.4-12.1) H 05/30/16 11:00 - Attending Attestation I examined this patient and my medical decision-making was reviewed with the VOCATIONAL TEACHER/PA/Advanced Practice Nurse/Resident Physician. I agree with the documented findings, disposition and treatment plan as described except to the extent set forth below. Hb dropped, will transfuse today. Continue monitoring. IV antibiotics. Follow cultures.
[2016-05-30] MEDS: traMADol 50 MG TABLET PO PRN (17:45)
[2016-05-30 18:43] LABS: Hematocrit 23.1 % (35.3-44.9); Hemoglobin 7.2 g/dL (11.5-15.4)
[2016-05-30] MEDS: Melatonin 3 MG TABLET PO SCH (21:52)
[2016-05-30] MEDS: Acetaminophen 325 MG TABLET PO PRN (22:04)
[2016-05-30] MEDS: tiZANidine 4 MG TABLET PO PRN (22:04)
[2016-05-31 04:58] LABS: Basophils % 0.1 %; Eosinophils # 0.2 K/mcL (0.0-0.6); Eosinophils % 1.7 %; Hematocrit 20.5 % (35.3-44.9); Hemoglobin 6.6 g/dL (11.5-15.4); Immature Granulocytes % 1.4 % (0-4); Lymphocytes % 10.3 %; Mean Corpuscular HGB Conc 32.2 g/dL (31.6-35.5); Mean Corpuscular Hemoglobin 29.2 pg (28.0-33.3); Mean Corpuscular Volume 90.7 fL (83.0-100.0); Mean Platelet Volume 9.9 fL (9.4-12.4); Monocytes # 0.7 K/mcL (0.0-1.3); Monocytes % 6.5 %; Platelet Count 245 K/mcL (140-400); Red Blood Count 2.26 M/mcL (3.82-4.97); Red Cell Distribution Width 15.9 % (11.5-14.5)
[2016-05-31 05:13] LABS: Calcium 7.4 mg/dL (8.6-10.8); Magnesium 1.4 mg/dL (1.6-2.6); Phosphorous 3.7 mg/dL (2.3-4.7); Potassium 3.8 mEq/L (3.5-4.5)
[2016-05-31] MEDS: *HR* Heparin 5,000 UNIT/ML VIAL SQ SCH ×3 (05:42→22:06)
[2016-05-31] MEDS: Insulin LISPRO 300 UNITS/3 ML VIAL SQ SCH ×4 (08:28→20:08)
[2016-05-31] MEDS: Aspirin Enteric Coated 81 MG Tablet PO SCH (08:52)
[2016-05-31] MEDS: Insulin DETEMIR 100 UNIT/ML X5UNITS SQ SCH ×2 (08:52→20:16)
[2016-05-31] MEDS: Magnesium Oxide 400 MG TABLET PO SCH ×2 (08:52→22:07)
[2016-05-31] MEDS: *HR* Amiodarone 200 MG TABLET PO SCH ×2 (08:52→22:07)
[2016-05-31] MEDS: Nystatin POWDER 30 GM BOTTLE TP SCH ×3 (08:53→22:08)
[2016-05-31 09:37] LABS: Hematocrit 26.5 % (35.3-44.9)
[2016-05-31] MEDS: Meropenem 1,000 MG in 0.9 % Sodium Chloride Mini Bag 100 ML IVPB SCH ×2 (12:13→22:28)
--- NOTE | 2016-05-31 12:45 | Internal Med Progress Note ---
<Aldo Hobbs - Last Filed: 05/31/16 12:56> Date of Encounter: 05/31/16 Time of Encounter: 08:20 - Assessment and plan (1) Sepsis Current Visit: Yes Status: Acute Assessment and plan: Patient no Longer meets SIRS or QSOFA criteria. Afebrile Leukocytosis has resolved. She received 2 days of Vancomycin 1 day of Zosyn ( changed to Meropenem with history of ESBL) Day 7 of Meropenem. Blood cultures from 05/24/16 and 05/26/16 have grown ESBL Ecoli. Blood cultures from port on 05/28 show NGTD. Given the patients persistent bacteremia with treatment with Meropenem which this ESBL Ecoli is sensitive to would suspect seeding of port in the right chest wall. No immunologic or embolic phenomena noted on exam. Currently She only meets on minor modified Braswell criteria ( persistent bacteremia but not a typical organism). she did have an echocardiogram on while she was bacteremic and this did not reveal any vegetation. We obtain AUDIE if she continues to have positive cultures after she has port removed. Port was placed by IR. Will hold coumadin and see if we can have it removed on Wednesday. I have placed a consult and will call them in the AM. continue to monitor for drug toxicities. Appreciate ID's recommendations. Qualifiers: Qualified Code(s): A41.9 - Sepsis, unspecified organism (2) Bacteremia Current Visit: Yes Status: Acute Assessment and plan: Blood cultures from 05/24/16 positive for ESBL E. coli repeat cultures form 05/26/16 are positive for ESBL E. coli Port cultures obtained from 05/28/16 show NGTD. Continue Meropenem Day one of antibiotics will begin after port removal. Duration of antibiotics will depend on clinical course (3) IgG multiple myeloma Current Visit: Yes Status: Acute Assessment and plan: Oncologist is Dr. Zepeda. Will hold Revlamid at this time Dr. 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 good urine output. (6) Anemia Current Visit: Yes Status: Acute Assessment and plan: currenly stable. spurious Hg of 6.6 this AM. Repeat in 8.0 If she dose need blood would call blood bank as this will need to [facility] as she has multiple antibodies. Qualifiers: Anemia type: unspecified type Qualified Code(s): D64.9 - Anemia, unspecified (7) Leukocytosis Current Visit: Yes Status: Resolved Assessment and plan: resolved Qualifiers: Leukocytosis type: unspecified Qualified Code(s): D72.829 - Elevated white blood cell count, unspecified (8) Hyperkalemia Current Visit: Yes Status: Resolved Assessment and plan: resolved (9) Diabetes Current Visit: Yes Status: Chronic Assessment and plan: At goal Continue high dose sliding scale and Levemir Qualifiers: Qualified Code(s): E11.9 - Type 2 diabetes mellitus without complications (10) Atrial fibrillation Current Visit: Yes Status: Chronic Assessment and plan: currently rate controlled continue amioderone hold coumadin for possible port removal on Wednesday. I have discussed port removal with Oncology. Qualifiers: Atrial fibrillation type: unspecified Qualified Code(s): I48.91 - Unspecified atrial fibrillation (11) Hypoalbuminemia Current Visit: Yes Status: Acute Assessment and plan: nutrition consulted (12) Edema Current Visit: Yes Status: Acute Assessment and plan: likely from CKD and hypoalbuminemia Qualifiers: Qualified Code(s): R60.9 - Edema, unspecified (13) Muscular deconditioning Current Visit: Yes Status: Acute Assessment and plan: PT/OT (14) DVT prophylaxis Current Visit: Yes Status: Acute Assessment and plan: Neuro: Metabolic encephalopathy has resolved. Now alert and orientated. No issues at this time. HEENT: No issues at this time. Cardio: History of Afib. Currently rate controlled and in sinus rhythm this AM. Hold coumadin for possible procedure on Wednesday. Hypotension overnight? I think this was a spurious reading as there was no intervention and the patient is asymptomatic and doing well this AM. Pulmonology: No issues at this time. Maintaining oxygen saturation on room air. GI: No issues at this time. : UTI with ESBL Ecoli. sensitive to meropenem. Disontinued cooper as this is likely the initial source of her infection. MSK: muscular deconditioning. Continue PT/OT HEME: Chronic anemia. Most likely from multiple myeloma. Hg stable. Oncology: Patient has multiple myeloma. Will likely start on renally dose linolinamide. However discussed with Oncology and will hold medication for now as she is still acutely ill. Will need to follow up with Oncology closely after discharge. Integument: Cutaneous plasmacytomas. S/P radiation therapy. wound care was consulted. Will need to follow up with radiation/Oncology after DC. Nutrition: severe PCM with low albumin and prealbumin. Consulted nutrition. Endocrine: Goal less than 180 while inpatient. Currently she is meeting that goal. Electrolytes: No major abnormalities today. Nutrition: Nutrition consulted. ID: Sepsis and bacteremia. ESBL Ecoli has grown from urine. Blood cultures persistently positive. Only meets one minor Braswell criteria. Port removal wednesday. AUDIE if positive blood cultures thereafter. Appreciate ID. Prophylaxis: On DVT prophylaxis. Continue PPI for GI prophylaxis in the setting of Sepsis, anticoagulation, and recent steroid use. lines: she has a port in the right chest wall. Left EJ and cooper catheter. I have requested Cooper be discontinued. We will keep EJ as we may have to remove port. volume status: + 6000 mL since admission. however she is no longer having her urine monitored. Continue lasix and we will monitor her renal function. discharge planning: Will need to go back to [facility] for rehab. Will most likely need IV antibiotics for a minimum 2 weeks for GN bacteremia. Will need a line. DC pending clinical course. - Subjective Interval history: No major events overnight . Patient had one episode of transient hypotension. However it corrected without any intervention. Possibly a spurious reading. She denies any bleeding, melena, or hematochezia. She denies any chest pain or dyspnea. She has no knew complaints at this time. - Constitutional Vitals: Temp Pulse Resp BP Pulse Ox 98.1 F 79 15 117/51 98 05/31/16 12:03 05/31/16 12:03 05/31/16 12:03 05/31/16 12:03 05/31/16 12:03 Exam: : This is a very pleasant well-developed well-nourished 70-year-old female is alert and orientated to person place time and situation. Head: Normocephalic atraumatic. EENT: Anicteric sclera, he was equally round reactive to light, moist mucous membranes area Heart: Heart is regular rate and rhythm without murmurs rubs or gallops. Heart sounds are somewhat distant but likely due to habitus. Lungs: Clear to auscultation bilaterally, diminished throughout also likely due to habitus. Normal effort of breathing speaks in full sentences. Abdomen: Obese, nondistended, nontender to palpation. Musculoskeletal: Grossly normal for his numbers to 4 is noted. Extremities: She does have a 2-3+ pitting edema of the lower extremities bilaterally to the level of the thigh. Does appear to be improving somewhat from yesterday. Integument: Multiple plasmacytomas. Unchanged from yesterday's exam. The plasmacytomas of the right thigh are clean and well dressed. Internal Medicine: Result - Labs CBC & Chem 7: 05/31/16 Unknown 05/31/16 Unknown Labs: Short CBC 05/30/16 05/31/16 05/31/16 Range/Units 18:25 09:20 Unknown WBC 10.0 (4.3-11.1) K/mcL Hgb 7.2 L 8.0 L 6.6 L (11.5-15.4) g/dL Hct 23.1 L 26.5 L 20.5 L (35.3-44.9) % Plt Count 245 (140-400) K/mcL Neutrophils # 8.0 (1.6-8.9) K/mcL BMP 05/31/16 Unknown Sodium 136 Potassium 3.8 Chloride 103 Carbon Dioxide 23 BUN 95 H Creatinine 2.25 H Glucose 84 Calcium 7.4 L - ABG Interpretation ABG results: ABG ABG pH 7.35 pH Units (7.32-7.45) 05/24/16 20:26 ABG pCO2 43 mmHg (35-45) 05/24/16 20:26 ABG pO2 128 mmHg (85-104) H 05/24/16 20:26 ABG O2 Saturation 99 % (95-98) H 05/24/16 20:26 PT/INR, D-dimer PT 13.9 Seconds (9.4-12.1) H 05/30/16 11:00 Consult Discharge Plan - Plan Referrals: NO,PCP [Non-Partnered Physician] - (PATIENT IS FROM [facility], NO PCP APPOINTMENT NEEDED) <Jimmy Jones - Last Filed: 05/31/16 15:59> Date of Encounter: 05/31/16 - Constitutional Vitals: Temp Pulse Resp BP Pulse Ox 98.1 F 79 15 117/51 98 05/31/16 12:03 05/31/16 12:03 05/31/16 12:03 05/31/16 12:03 05/31/16 12:03 Internal Medicine: Result - Labs CBC & Chem 7: 05/31/16 Unknown 05/31/16 Unknown Labs: Short CBC 05/30/16 05/31/16 05/31/16 Range/Units 18:25 09:20 Unknown WBC 10.0 (4.3-11.1) K/mcL Hgb 7.2 L 8.0 L 6.6 L (11.5-15.4) g/dL Hct 23.1 L 26.5 L 20.5 L (35.3-44.9) % Plt Count 245 (140-400) K/mcL Neutrophils # 8.0 (1.6-8.9) K/mcL BMP 05/31/16 Unknown Sodium 136 Potassium 3.8 Chloride 103 Carbon Dioxide 23 BUN 95 H Creatinine 2.25 H Glucose 84 Calcium 7.4 L - ABG Interpretation ABG results: ABG ABG pH 7.35 pH Units (7.32-7.45) 05/24/16 20:26 ABG pCO2 43 mmHg (35-45) 05/24/16 20:26 ABG pO2 128 mmHg (85-104) H 05/24/16 20:26 ABG O2 Saturation 99 % (95-98) H 05/24/16 20:26 PT/INR, D-dimer PT 13.9 Seconds (9.4-12.1) H 05/30/16 11:00 - Attending Attestation I examined this patient and my medical decision-making was reviewed with the BUS MECHANIC/PA/Advanced Practice Nurse/Resident Physician. I agree with the documented findings, disposition and treatment plan as described except to the extent set forth below. Ms. Vaughan was seen and examined on rounds. Continue monitoring hemoglobin. Evaluation by interventional radiology for possible removal of IV port. Antibiotics IV. Monitoring kidney function test and electrolytes. Discussed with the patient.
[2016-05-31] MEDS: Sennosides/Docusate Sodium TABLET PO SCH ×2 (18:10→22:07)
[2016-05-31] MEDS: traMADol 50 MG TABLET PO PRN (19:40)
[2016-05-31] MEDS: Melatonin 3 MG TABLET PO SCH (22:07)
[2016-05-31] MEDS: Furosemide 40 MG/4 ML VIAL IVP SCH (22:07)
[2016-05-31] MEDS: tiZANidine 4 MG TABLET PO PRN (22:07)
[2016-06-01] MEDS: *HR* Heparin 5,000 UNIT/ML VIAL SQ SCH ×3 (05:18→22:49)
[2016-06-01 05:43] LABS: Basophils % 0.1 %; Eosinophils # 0.2 K/mcL (0.0-0.6); Eosinophils % 1.8 %; Hematocrit 21.3 % (35.3-44.9); Hemoglobin 6.6 g/dL (11.5-15.4); Immature Granulocytes % 1.6 % (0-4); Lymphocytes # 0.9 K/mcL (0.6-4.6); Mean Corpuscular Hemoglobin 28.4 pg (28.0-33.3); Mean Corpuscular Volume 91.8 fL (83.0-100.0); Mean Platelet Volume 10.4 fL (9.4-12.4); Monocytes # 0.8 K/mcL (0.0-1.3); Platelet Count 295 K/mcL (140-400); Red Blood Count 2.32 M/mcL (3.82-4.97); Red Cell Distribution Width 15.9 % (11.5-14.5); Segmented Neutrophils % 77.5 %
[2016-06-01 05:49] LABS: INR 1.2; Prothrombin Time 13.1 Seconds (9.4-12.1)
[2016-06-01 05:58] LABS: Calcium 7.6 mg/dL (8.6-10.8); Magnesium 1.4 mg/dL (1.6-2.6); Potassium 3.9 mEq/L (3.5-4.5)
[2016-06-01] MEDS ORDERED: *HR* FentaNYL (PF) 100 MCG/2 ML VIAL IV PRN (09:38)
[2016-06-01] MEDS ORDERED: *HR* Midazolam HCl 2 MG/2 ML VIAL IV PRN (09:38)
--- NOTE | 2016-06-01 09:38 | Pre-Sedation Evaluation ---
Pre-sedation evaluation - Pre-sedation checklist Date of procedure: 06/01/16 Procedure: Transesophogeal Echocardiogram Guided Cardioversion Recent Vitals: Last Vital Signs Temp 97.9 F 06/01/16 07:39 Pulse 74 06/01/16 07:39 Resp 18 06/01/16 07:39 BP 98/46 06/01/16 07:39 Pulse Ox 93 L 06/01/16 07:39 H&P (including ROS) documented in medical record: Yes Previous reaction to sedatives/anesthetics: No Dietary Status: NPO after Midnight Airway Assessment: Patient can open mouth completely, TMJ function normal, Micrognathia (under-bite, receding chin) absent, Neck with adequate range of motion Dentition: dentures removed Possible difficult airway: No ASA Classification *see protocol: CLASS II-Mild systemic disease Plan of Care: Pt appropriate candidate for procedure/moderate/conscious sedation , Risks/benefits of procedure/sedation discussed w/ patient/family
--- NOTE | 2016-06-01 10:41 | Infectious Disease Progress No ---
Date of Encounter: 06/01/16 Time of Encounter: 10:39 - Assessment and Plan (1) Severe sepsis Current Visit: Yes Status: Acute The patient had two SIRS criteria plus PURNIMA and acute encephalopathy on admission. Likely secondary to bacteremia and UTI. Improved. Hypotension and leukocytosis have resolved. Blood cultures drawn 05/24/16 x 2 sets and 05/26/16 x 2 sets are all positive ( drawn peripherally). Repeat blood cultures drawn 05/28/16 x 1 set (from a-port) is NGTD. Clinically, the patient has improved. (2) Bacteremia Current Visit: Yes Status: Acute Causative organism ESBL E. coli. Source likely the urine with seeding of the a-port. During a hospitalization in April, the patient had E. coli ESBL bacteremia ( blood culture drawn from a-port positive, peripheral blood culture was negative) . The patient also had a positive urine culture for E. coli ESBL at that time. The patient had a chronic indwelling cooper catheter, but I am unsure if it was exchanged during that time. She was treated with seven days of Ertapenem in the hospital. Blood cultures drawn 05/24/16 were positive 2/2 sets (drawn peripherally). Repeat culture drawn 05/26/16 was positive 1/1 set (drawn peripherally). Blood culture drawn 05/28/16 (from the a-port) is NGTD 1/1 set. This was drawn after 4 days of IV antibiotics. Given the patient's persistent bacteremia and immunocompromised stage, concern for seeding of the a-port. No blood cultures were obtained from the port prior to the initiation of IV antibiotics. Repeat blood cultures x 2 sets peripherally now. Cooper catheter has been removed. No endocarditis stigmata noted. The patient has persistently positive blood cultures, but not with microorganisms typical of IE. She does have one minor criteria. Low index of suspicion for IE at this time. Given that the patient previously had bacteremia with known a-port involvement ( 04/30/16), there is a high risk that the patient's a-port has become seeded. No blood cultures were obtained from the a-port during this hospitalization until the patient had already been on IV antibiotics for four days. There is still a possibility that the a-port is seeded. At this point, we have two options for treatment: treat with IV carbapenem x 14 days through the a-port and attempt salvage. If this course of treatment is chosen, there should be a low threshold for removal in the event the patient completes treatment and exhibits symptoms of infection. Alternatively, we can proceed with removal of the a-port now if okay with Hem/Onc. If patient exhibits symptoms of infection once antibiotic therapy is completed, recommend getting two sets of peripheral blood cultures at the same time that one set of a-port cultures are done in order to determine time to positivity. If a-port is removed, avoid replacing a-port or any type of central access until blood cultures are negative x 48 hours. Continue Meropenem 1 gram IV Q8H. Give through the a-port. Duration of treatment depends on the clinical picture, but likely 14 days from the first set of negative blood cultures. Monitor renal function and dose-adjust antibiotics. Will continue to follow. (3) UTI (urinary tract infection) Current Visit: Yes Status: Acute Causative organism E. coli ESBL. Likely secondary to chronic indwelling cooper catheter, which has been removed. Also consider colonization of the bladder. Previously under-treated with only 7 days of IV Ertapenem. Continue antibiotics as above. Qualifiers: Urinary tract infection type: site unspecified Hematuria presence: with hematuria Qualified Code(s): N39.0 - Urinary tract infection, site not specified; R31.9 - Hematuria, unspecified (4) Encephalopathy acute Current Visit: Yes Status: Resolved Likely secondary to sepsis. Resolved. (5) Acute kidney injury Current Visit: Yes Status: Acute Acute kidney injury on chronic renal failure. Serum creatinine 2.92 on admission. Likely multifactorial: sepsis + UTI + hypotension. Improved. (6) Hyperkalemia Current Visit: Yes Status: Resolved Likely secondary to PURNIMA. Resolved. (7) Anemia Current Visit: Yes Status: Acute Qualifiers: Anemia type: unspecified type Qualified Code(s): D64.9 - Anemia, unspecified (8) IgG multiple myeloma Current Visit: Yes Status: Acute (9) Plasmacytoma Current Visit: Yes Status: Acute (10) Atrial fibrillation Current Visit: Yes Status: Chronic Qualifiers: Atrial fibrillation type: unspecified Qualified Code(s): I48.91 - Unspecified atrial fibrillation (11) Diabetes Current Visit: Yes Status: Chronic Qualifiers: Diabetes mellitus type: type 2 Diabetes mellitus complication status: with unspecified complications Diabetes mellitus long term care pharmacist insulin use: unspecified senior care insulin use status Qualified Code(s): E11.8 - Type 2 diabetes mellitus with unspecified complications - Subjective Interval history: Patient seen and examined. Weekend notes reviewed. No acute events noted. Patient states she feels well other than feeling like she needs to have bowel movement and is requesting an enema and something to drink. Denies fevers or chills or rigors. Denies chest pain, shortness of breath, or cough. Denies nausea, vomiting, or diarrhea. States has not had a BM since admission. Denies urinary complaints, but reports urinary incontinence. Denies pain at this time. Denies oral thrush or skin lesions. Infect Dis PN-Objective Data - Labs CBC & Chem 7: 06/01/16 05:38 06/01/16 05:38 Labs: Laboratory Results - last 24 hr 05/28/16 05/31/16 05/31/16 08:38 07:11 11:49 WBC RBC Hgb Hct MCV MCH MCHC RDW Plt Count MPV Immature Gran % Seg Neutrophils % Lymphocytes % Monocytes % Eosinophils % Basophils % Neutrophils # Lymphocytes # Monocytes # Eosinophils # Basophils # PT INR Sodium Potassium Chloride Carbon Dioxide BUN Creatinine Est GFR ( Amer) Est GFR (Non-Af Amer) BUN/Creatinine Ratio Glucose POC Glucose 93 H 121 H Calculated Osmolality Calcium Magnesium T.pallidum Ab Interpret Blood Type A POSITIVE Antibody Screen POSITIVE Antibody Identification Cancelled Antibody ID Referred Inconclusive 05/31/16 05/31/16 05/31/16 11:50 14:08 19:51 WBC RBC Hgb Hct MCV MCH MCHC RDW Plt Count MPV Immature Gran % Seg Neutrophils % Lymphocytes % Monocytes % Eosinophils % Basophils % Neutrophils # Lymphocytes # Monocytes # Eosinophils # Basophils # PT INR Sodium Potassium Chloride Carbon Dioxide BUN Creatinine Est GFR ( Amer) Est GFR (Non-Af Amer) BUN/Creatinine Ratio Glucose POC Glucose 144 H 128 H Calculated Osmolality Calcium Magnesium T.pallidum Ab Interpret NEGATIVE Blood Type Antibody Screen Antibody Identification Antibody ID Referred 06/01/16 06/01/16 06/01/16 05:38 05:38 05:38 WBC 9.0 RBC 2.32 L Hgb 6.6 L Hct 21.3 L MCV 91.8 MCH 28.4 MCHC 31.0 L RDW 15.9 H Plt Count 295 MPV 10.4 Immature Gran % 1.6 Seg Neutrophils % 77.5 Lymphocytes % 10.0 Monocytes % 9.0 Eosinophils % 1.8 Basophils % 0.1 Neutrophils # 7.0 Lymphocytes # 0.9 Monocytes # 0.8 Eosinophils # 0.2 Basophils # 0.0 PT 13.1 H INR 1.2 Sodium 136 Potassium 3.9 Chloride 102 Carbon Dioxide 23 BUN 99 H Creatinine 2.38 H Est GFR ( Amer) 24 L Est GFR (Non-Af Amer) 20 L BUN/Creatinine Ratio 42 H Glucose 162 H POC Glucose Calculated Osmolality 316 H Calcium 7.6 L Magnesium 1.4 L T.pallidum Ab Interpret Blood Type Antibody Screen Antibody Identification Antibody ID Referred Cultures: Cultures 05/28/16 15:54 Blood Culture - Preliminary Port System No growth. 05/26/16 05:16 Blood Culture - Final Peripheral Venipuncture Escherichia coli ESBL Serology 05/31/16 05/25/16 Range/Units 11:50 13:35 Urine Creatinine 12 mg/dL Protein/Creatinin Ratio 1.08 H (0-0.20) mg/mg Urine Total Protein 13 (1-14) mg/dL T.pallidum Ab Interpret NEGATIVE (NEGATIVE) Exam - Constitutional Vitals: Temp Pulse Resp BP Pulse Ox 97.9 F 74 18 98/46 93 L 06/01/16 07:39 06/01/16 07:39 06/01/16 07:39 06/01/16 07:39 06/01/16 07:39 General appearance: cooperative, morbidly obese, no acute distress - Head Head exam: Present: atraumatic, normal inspection, normocephalic - Eye Eye exam: Present: EOMI, normal appearance, PERRL Pupils: Present: normal accommodation Additional comments: No endocarditis stigmata noted. - ENT ENT exam: Present: mucous membranes dry - Neck Neck exam: Present: normal inspection - Respiratory Respiratory exam: Present: CTAB. Absent: rales, respiratory distress, rhonchi, wheezes - Cardiovascular Cardiovascular exam: Present: RRR, +S1, +S2 - GI/Abdominal GI/Abdominal exam: Present: distended (obese), normal bowel sounds, soft. Absent: tenderness - Extremities Exam Extremities exam: Present: pedal edema (Lymphedema noted to the BLE), tenderness (Right dorsal foot). Absent: joint swelling Additional comments: Multiple bullous lesions noted to the BLE and right groin fold. Dressing to the right lateral thigh is C/D/I. Erythema noted to the dorsal aspect of the right foot and anterior aspect of the right ankle. - Neurological Exam Neurological exam: Present: alert, oriented X3, no focal deficits - Psychiatric Psychiatric exam: Present: normal affect, normal mood - Skin Skin exam: Present: dry, intact, normal color, warm Consult Discharge Plan - Plan Referrals: NO,PCP [Non-Partnered Physician] - (PATIENT IS FROM [facility], NO PCP APPOINTMENT NEEDED)
[2016-06-01] MEDS: Insulin LISPRO 300 UNITS/3 ML VIAL SQ SCH ×4 (10:46→20:27)
[2016-06-01] MEDS: Insulin DETEMIR 100 UNIT/ML X5UNITS SQ SCH ×2 (10:46→20:28)
[2016-06-01] MEDS: Nystatin POWDER 30 GM BOTTLE TP SCH ×3 (10:47→20:45)
[2016-06-01] MEDS: Sennosides/Docusate Sodium TABLET PO SCH ×2 (10:49→20:28)
[2016-06-01] MEDS: Aspirin Enteric Coated 81 MG Tablet PO SCH (10:50)
[2016-06-01] MEDS: *HR* Amiodarone 200 MG TABLET PO SCH ×2 (10:50→20:27)
[2016-06-01] MEDS: Furosemide 40 MG/4 ML VIAL IVP SCH ×2 (10:51→20:27)
[2016-06-01] MEDS: Magnesium Oxide 400 MG TABLET PO SCH ×2 (10:51→20:28)
[2016-06-01] MEDS ORDERED: 0.9 % Sodium Chloride 500 ML ONE (12:19)
[2016-06-01] MEDS: ceFAZolin 1,000 MG in D5% in Water (Mini-Bag+) 100 ML IVPB SCH (12:35)
--- NOTE | 2016-06-01 13:15 | IR Procedure Note ---
Date of procedure: 06/01/16 Consent Obtained: Written consent Timeout: Correct patient and procedure verified, Correct site verified, Time out performed, Skin prep completed Indications: port infected Procedure Performed: port removal Site/Technique: rt chest Results/Findings: adwquate removal Estimated blood loss (cc): 2 Complications: None; Tolerated procedure well Post Procedure Treatment Plan: dc to floor
[2016-06-01] MEDS: Meropenem 1,000 MG in 0.9 % Sodium Chloride Mini Bag 100 ML IVPB SCH (14:51)
[2016-06-01] MEDS: Acetaminophen 325 MG TABLET PO PRN (14:51)
[2016-06-01 17:12] LABS: Hematocrit 23.6 % (35.3-44.9); Hemoglobin 7.5 g/dL (11.5-15.4)
--- NOTE | 2016-06-01 17:22 | Internal Med Progress Note ---
<Tanner Wilkinsssatul Kimbrough - Last Filed: 06/01/16 17:17> Date of Encounter: 06/01/16 Time of Encounter: 14:00 - Assessment and plan (1) Sepsis Current Visit: Yes Status: Acute Assessment and plan: Patient was admitted with leukocytosis, bacteremia with E. coli, SBP <90 She no longer meets sepsis or QSOFA criteria Blood cultures are positive for ESBL E. coli Patient was treated empirically with Vancomycin, and Zosyn Received 2 days of vancomycin Infectious disease following, we appreciate recommendations 06/01/16 Port was removed by IR this morning We will obtain repeat blood cultures in am Continue abx zosyn (day#2), meropenem (day#7) No immunologic or embolic phenomena noted on exam We will obtain AUDIE if she continues to have bacteremia after a-port removal Qualifiers: Sepsis type: Escherichia coli Qualified Code(s): A41.51 - Sepsis due to Escherichia coli [E. coli] (2) Bacteremia Current Visit: Yes Status: Acute Assessment and plan: Blood cultures from 05/24/16 positive for ESBL E. coli repeat cultures form 05/26/16 are positive for ESBL E. coli Port cultures obtained from 05/28/16 show NGTD. Continue Meropenem Day one of antibiotics will begin after port removal Duration of antibiotics will depend on clinical course (3) IgG multiple myeloma Current Visit: Yes Status: Acute Assessment and plan: Oncologist is Dr. Zepeda. Will hold Revlamid at this time Dr. Zepeda should be consulted if any oncology questions arise (4) Plasmacytoma Current Visit: Yes Status: Acute Assessment and plan: S/P radiation therapy Continue wound care (5) Leukocytosis Current Visit: Yes Status: Resolved Assessment and plan: Resolved Qualifiers: Leukocytosis type: unspecified Qualified Code(s): D72.829 - Elevated white blood cell count, unspecified (6) Acute kidney injury superimposed on chronic kidney disease Current Visit: Yes Status: Acute Assessment and plan: Sable good urine output (7) Diabetes Current Visit: Yes Status: Chronic Assessment and plan: At goal Continue high dose sliding scale and Levemir Qualifiers: Diabetes mellitus type: type 2 Diabetes mellitus complication status: with unspecified complications Diabetes mellitus card grinder insulin use: unspecified card grinder insulin use status Qualified Code(s): E11.8 - Type 2 diabetes mellitus with unspecified complications (8) Atrial fibrillation Current Visit: Yes Status: Chronic Assessment and plan: currently rate controlled continue amioderone will restart coumadin tomorrow Qualifiers: Atrial fibrillation type: unspecified Qualified Code(s): I48.91 - Unspecified atrial fibrillation (9) Hyperkalemia Current Visit: Yes Status: Resolved Assessment and plan: resolved (10) Anemia Current Visit: Yes Status: Acute Assessment and plan: currenly stable. spurious Hg of 6.6 this AM. Repeat in 7.5 this afternoon If she dose need blood would call blood bank as this will need to go through the red cross as she has multiple antibodies. Qualifiers: Anemia type: unspecified type Qualified Code(s): D64.9 - Anemia, unspecified (11) Hypoalbuminemia Current Visit: Yes Status: Acute Assessment and plan: nutrition consulted (12) Edema Current Visit: Yes Status: Acute Assessment and plan: likely from CKD and hypoalbuminemia Qualifiers: Qualified Code(s): R60.9 - Edema, unspecified (13) Muscular deconditioning Current Visit: Yes Status: Acute Assessment and plan: PT/OT (14) DVT prophylaxis Current Visit: No Status: Acute Assessment and plan: anticoagulated - Time Spent With Patient 25 - 35 minutes (30 minutes including time with patient and time coordinating care) - Subjective Interval history: Patient is found in bed at time of patient interview. She is s/p port removal per IR. She complains of headache and is requesting food and drink at this time. - Constitutional Vitals: Temp Pulse Resp BP Pulse Ox 98.3 F 93 19 108/71 100 06/01/16 16:26 06/01/16 16:26 06/01/16 16:26 06/01/16 16:26 06/01/16 16:26 General appearance: Present: disheveled, A&O X 3, morbidly obese, pleasant, no acute distress, answers questions appropriately - Head Head exam: Present: atraumatic, normocephalic - Eye Eye exam: Present: PERRL, sclera anicteric Pupils: Present: PERRL - Neck Neck exam general surgery: Present: supple, trachea midline Additional comments: Central line in place to left neck - Respiratory Respiratory exam: Present: wheezes (bilateral wheezes at lung bases). Absent: accessory muscle use, rales, rhonchi - Cardiovascular Cardiovascular exam: Present: RRR, +S1, +S2. Absent: diastolic murmur, gallop, rubs, systolic murmur - GI/Abdominal GI/Abdominal exam: Present: normal bowel sounds, soft, no peritoneal signs. Absent: distended, tenderness - Extremities Exam Extremities exam: Present: pedal edema (3+ edema to bilateral lower extremities to level of thigh), warm, radial pulses palpable and symetrical. Absent: cyanotic Additional comments: plasma cytomas on right lateral leg and right foot - Neurological Exam Neurological exam: Present: CN II-XII intact, oriented X3, no focal deficits. Absent: pronater drift, facial droop, speech deficit - Skin Skin exam: Present: dry, intact Internal Medicine: Result - Labs CBC & Chem 7: 06/01/16 16:45 06/01/16 05:38 Labs: Short CBC 06/01/16 06/01/16 Range/Units 05:38 16:45 WBC 9.0 (4.3-11.1) K/mcL Hgb 6.6 L 7.5 L (11.5-15.4) g/dL Hct 21.3 L 23.6 L (35.3-44.9) % Plt Count 295 (140-400) K/mcL Neutrophils # 7.0 (1.6-8.9) K/mcL BMP 06/01/16 05:38 Sodium 136 Potassium 3.9 Chloride 102 Carbon Dioxide 23 BUN 99 H Creatinine 2.38 H Glucose 162 H Calcium 7.6 L - ABG Interpretation ABG results: ABG ABG pH 7.35 pH Units (7.32-7.45) 05/24/16 20:26 ABG pCO2 43 mmHg (35-45) 05/24/16 20:26 ABG pO2 128 mmHg (85-104) H 05/24/16 20:26 ABG O2 Saturation 99 % (95-98) H 05/24/16 20:26 PT/INR, D-dimer PT 13.1 Seconds (9.4-12.1) H 06/01/16 05:38 - Impressions Impressions Tunnelled Catheter Removal 06/01/16 00:00 IMPRESSION: Successful subcutaneous Port-A-Cath removal D/ / Natasha Mills MD / Natasha Mills MD Interpreting Provider: Natasha Mills MD Consult Discharge Plan - Plan Referrals: NO,PCP [Non-Partnered Physician] - (PATIENT IS FROM [facility], NO PCP APPOINTMENT NEEDED) - Attending Attestation I examined this patient and my medical decision-making was reviewed with the INVESTMENT SALES ASSISTANT/PA/Advanced Practice Nurse/Resident Physician. I agree with the documented findings, disposition and treatment plan as described except to the extent set forth below. <Jimmy Jones - Last Filed: 06/01/16 18:49> - Constitutional Vitals: Temp Pulse Resp BP Pulse Ox 98.3 F 93 19 108/71 100 06/01/16 16:26 06/01/16 16:26 06/01/16 16:26 06/01/16 16:26 06/01/16 16:26 Internal Medicine: Result - Labs CBC & Chem 7: 06/01/16 16:45 06/01/16 05:38 Labs: Short CBC 06/01/16 06/01/16 Range/Units 05:38 16:45 WBC 9.0 (4.3-11.1) K/mcL Hgb 6.6 L 7.5 L (11.5-15.4) g/dL Hct 21.3 L 23.6 L (35.3-44.9) % Plt Count 295 (140-400) K/mcL Neutrophils # 7.0 (1.6-8.9) K/mcL BMP 06/01/16 05:38 Sodium 136 Potassium 3.9 Chloride 102 Carbon Dioxide 23 BUN 99 H Creatinine 2.38 H Glucose 162 H Calcium 7.6 L - ABG Interpretation ABG results: ABG ABG pH 7.35 pH Units (7.32-7.45) 05/24/16 20:26 ABG pCO2 43 mmHg (35-45) 05/24/16 20:26 ABG pO2 128 mmHg (85-104) H 05/24/16 20:26 ABG O2 Saturation 99 % (95-98) H 05/24/16 20:26 PT/INR, D-dimer PT 13.1 Seconds (9.4-12.1) H 06/01/16 05:38 - Impressions Impressions Tunnelled Catheter Removal 06/01/16 00:00 IMPRESSION: Successful subcutaneous Port-A-Cath removal D/ / Natasha Mills MD / Natasha Mills MD Interpreting Provider: Natasha Mills MD - Attending Attestation I examined this patient and my medical decision-making was reviewed with the INVESTMENT SALES ASSISTANT/PA/Advanced Practice Nurse/Resident Physician. I agree with the documented findings, disposition and treatment plan as described except to the extent set forth below. Ms. Vaughan. Multiple myeloma admitted with bacteremia and UTI (ESBL), sensitive to meropenem. Will continue on meropenem according to culture. Bacteremia was persistent. ID involved. Had an IV port (bacteremia also form IV port last month) which was removed by interventional radiology today. Anemia with Hb downtrending, multiple antibodies, if transfusions need involvement of red cross. Doing otherwise clinically well. Has a central line that needs to be removed, PICC team attempted to place powerglyde this afternoon and failed. D/C back to SNF to complete 2 weeks of antibiotics after bacteremia resolved.
[2016-06-01] MEDS: Melatonin 3 MG TABLET PO SCH (20:28)
[2016-06-01] MEDS: traMADol 50 MG TABLET PO PRN (23:46)
[2016-06-01] MEDS: tiZANidine 4 MG TABLET PO PRN (23:46)
[2016-06-02] MEDS: Meropenem 1,000 MG in 0.9 % Sodium Chloride Mini Bag 100 ML IVPB SCH ×2 (02:26→12:20)
[2016-06-02] MEDS: *HR* Heparin 5,000 UNIT/ML VIAL SQ SCH ×3 (07:05→23:00)
[2016-06-02] MEDS: Insulin LISPRO 300 UNITS/3 ML VIAL SQ SCH ×4 (09:25→21:27)
[2016-06-02] MEDS: Sennosides/Docusate Sodium TABLET PO SCH ×2 (09:37→21:25)
[2016-06-02] MEDS: *HR* Amiodarone 200 MG TABLET PO SCH ×2 (09:37→21:24)
[2016-06-02] MEDS: tiZANidine 4 MG TABLET PO PRN ×2 (09:37→21:24)
[2016-06-02] MEDS: Magnesium Oxide 400 MG TABLET PO SCH ×2 (09:37→21:25)
[2016-06-02] MEDS: Furosemide 40 MG/4 ML VIAL IVP SCH ×2 (09:37→15:38)
[2016-06-02] MEDS: ceFAZolin 1,000 MG in D5% in Water (Mini-Bag+) 100 ML IVPB SCH (09:38)
[2016-06-02] MEDS: Aspirin Enteric Coated 81 MG Tablet PO SCH (09:38)
[2016-06-02] MEDS: Insulin DETEMIR 100 UNIT/ML X5UNITS SQ SCH ×2 (09:38→21:31)
[2016-06-02] MEDS: Nystatin POWDER 30 GM BOTTLE TP SCH ×3 (09:39→21:25)
--- NOTE | 2016-06-02 10:25 | Internal Med Progress Note ---
<Aldo Hobbs - Last Filed: 06/02/16 10:43> Date of Encounter: 06/02/16 Time of Encounter: 10:05 - Assessment and plan (1) Sepsis Current Visit: Yes Status: Acute Assessment and plan: Patient no Longer meets SIRS or QSOFA criteria. Afebrile Leukocytosis has resolved. She received 2 days of Vancomycin 1 day of Zosyn ( changed to Meropenem with history of ESBL) Day 9 of Meropenem. Blood cultures from 05/24/16 and 05/26/16 have grown ESBL Ecoli. Blood cultures from port on 05/28 show NGTD. Port was removed on 06/01/[address] Mills. Blood cultures drawn again on 06/02/16 No immunologic or embolic phenomena noted on exam. Currently She only meets on minor modified Braswell criteria ( persistent bacteremia but not a typical organism). she did have an echocardiogram on while she was bacteremic and this did not reveal any vegetation. We obtain AUDIE if she continues to have positive cultures after the port removal. continue to monitor for drug toxicities. Appreciate ID's recommendations. Qualifiers: Qualified Code(s): A41.9 - Sepsis, unspecified organism (2) Bacteremia Current Visit: Yes Status: Acute Assessment and plan: Blood cultures from 05/24/16 positive for ESBL E. coli repeat cultures form 05/26/16 are positive for ESBL E. coli Port cultures obtained from 05/28/16 show NGTD. 0ort removed 06/01/16 Continue Meropenem Day one of antibiotics will begin after port removal if repeat blood cultures are negative. Duration of antibiotics will depend on clinical course. Appreciate IDs recommendations. (3) IgG multiple myeloma Current Visit: Yes Status: Acute Assessment and plan: Oncologist is Dr. Zepeda. Will hold Revlamid at this time Dr. 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 (6) Anemia Current Visit: Yes Status: Acute Assessment and plan: Hg has been stable Qualifiers: Anemia type: unspecified type Qualified Code(s): D64.9 - Anemia, unspecified (7) Leukocytosis Current Visit: Yes Status: Resolved Assessment and plan: Resolved Qualifiers: Leukocytosis type: unspecified Qualified Code(s): D72.829 - Elevated white blood cell count, unspecified (8) Hyperkalemia Current Visit: Yes Status: Resolved Assessment and plan: resolved (9) Diabetes Current Visit: Yes Status: Chronic Assessment and plan: At goal Continue high dose sliding scale and Levemir Qualifiers: Diabetes mellitus type: type 2 Diabetes mellitus complication status: with unspecified complications Diabetes mellitus intermediate insulin use: unspecified intermediate insulin use status Qualified Code(s): E11.8 - Type 2 diabetes mellitus with unspecified complications (10) Atrial fibrillation Current Visit: Yes Status: Chronic Assessment and plan: currently rate controlled continue amioderone will restart coumadin today. Qualifiers: Atrial fibrillation type: unspecified Qualified Code(s): I48.91 - Unspecified atrial fibrillation (11) Hypoalbuminemia Current Visit: Yes Status: Acute Assessment and plan: nutrition consulted (12) Edema Current Visit: Yes Status: Acute Assessment and plan: likely from CKD and hypoalbuminemia continue lasix monitor renal function. Qualifiers: Qualified Code(s): R60.9 - Edema, unspecified (13) Muscular deconditioning Current Visit: Yes Status: Acute Assessment and plan: PT/OT (14) DVT prophylaxis Current Visit: Yes Status: Acute Assessment and plan: Neuro: Metabolic encephalopathy has resolved. Secondary to UTI. Now alert and orientated. No issues at this time. HEENT: No issues at this time. Cardio: History of Afib. Currently rate controlled and in sinus rhythm this AM. Resume coumadin. Hypotension overnight? Pulmonology: No issues at this time. Maintaining oxygen saturation on room air. GI: constipation resolved. : UTI with ESBL Ecoli. sensitive to meropenem. [place] [address] cooper todya as she is having skin break down. Plan will be to exchange weekly . \ MSK: muscular deconditioning. Continue PT/OT HEME: Chronic anemia. Most likely from multiple myeloma. Hg stable. Oncology: Patient has multiple myeloma. Will likely start on renally dose linolinamide. However discussed with Oncology and will hold medication for now as she is still acutely ill. Will need to follow up with Oncology closely after discharge. Integument: Cutaneous plasmacytomas. S/P radiation therapy. wound care was consulted. Will need to follow up with radiation/Oncology after DC. Nutrition: severe PCM with low albumin and prealbumin. Consulted nutrition. Endocrine: Goal less than 180 while inpatient. Currently she is meeting that goal. Electrolytes: No major abnormalities today. Nutrition: Nutrition consulted. Integument: Plasmacytomas-Wpound care. Skin break down. Reinitiate cooper. ID: Sepsis and bacteremia. ESBL Ecoli has grown from urine. Blood cultures persistently positive. Only meets one minor Braswell criteria. Port removed wednesday. AUDIE if positive blood cultures thereafter. Appreciate ID. Prophylaxis: On DVT prophylaxis. Continue PPI for GI prophylaxis in the setting of Sepsis, anticoagulation, and recent steroid use. lines: port removed 06/01/16 . Left EJ and cooper catheter. place cooper to prevent further skin break down. discharge planning: [facility]. Will most likely need IV antibiotics for a minimum 2 weeks for GN bacteremia. Will need a line. If cultures negative tomorrow will call picc team. DC pending clinical course. - Subjective Interval history: No major events overnight . Patient had port removal yesterday and states that the site is a little tender. she state that her back side is raw from having urinary incontinence. She denies any bleeding, melena, or hematochezia. She denies any chest pain or dyspnea. She is eating and drinking well and had a BM thisn AM. She has no new complaints at this time. - Constitutional Vitals: Temp Pulse Resp BP Pulse Ox 97.9 F 74 17 101/52 97 06/02/16 08:08 06/02/16 08:08 06/02/16 08:08 06/02/16 08:08 06/02/16 08:08 General appearance: Present: disheveled, A&O X 3, morbidly obese, pleasant, no acute distress, answers questions appropriately - Head Head exam: Present: atraumatic, normal inspection, normocephalic - Eye Eye exam: Present: PERRL, conjuntiva pink, sclera anicteric Pupils: Present: PERRL - Neck Neck exam general surgery: Present: supple, trachea midline. Absent: lymphadenopathy - Respiratory Respiratory exam: Present: CTAB. Absent: accessory muscle use, rales, rhonchi, wheezes - Cardiovascular Cardiovascular exam: Present: RRR, +S1, +S2. Absent: diastolic murmur, gallop, rubs, systolic murmur - GI/Abdominal GI/Abdominal exam: Present: normal bowel sounds, soft, no peritoneal signs. Absent: distended, tenderness Additional comments: obese - Extremities Exam Extremities exam: Present: pedal edema, warm, radial pulses palpable and symetrical. Absent: calf tenderness, cyanotic Additional comments: 3+ edema to the level of the high bilaterally. Improving some. - Skin Skin exam: Present: dry, intact Additional comments: plasmacytomas of the right foot, leg, and thigh and flank. Right thigh is clean and well dressed. Internal Medicine: Result - Labs CBC & Chem 7: 06/01/16 16:45 06/01/16 05:38 Labs: Short CBC 06/01/16 Range/Units 16:45 Hgb 7.5 L (11.5-15.4) g/dL Hct 23.6 L (35.3-44.9) % - ABG Interpretation ABG results: ABG ABG pH 7.35 pH Units (7.32-7.45) 05/24/16 20:26 ABG pCO2 43 mmHg (35-45) 05/24/16 20:26 ABG pO2 128 mmHg (85-104) H 05/24/16 20:26 ABG O2 Saturation 99 % (95-98) H 05/24/16 20:26 PT/INR, D-dimer PT 13.1 Seconds (9.4-12.1) H 06/01/16 05:38 - Impressions Impressions Tunnelled Catheter Removal 06/01/16 00:00 IMPRESSION: Successful subcutaneous Port-A-Cath removal D/ / Natasha Mills MD / Natasha Mills MD Interpreting Provider: Natasha Mills MD Consult Discharge Plan - Plan Referrals: NO,PCP [Non-Partnered Physician] - (PATIENT IS FROM [facility], NO PCP APPOINTMENT NEEDED) Prescriptions: Meropenem [Merrem] 1,000 mg IVPB Q8HR 13 Days <Azael Robles P - Last Filed: 06/02/16 18:31> - Constitutional Vitals: Temp Pulse Resp BP Pulse Ox 98.2 F 84 18 109/68 98 06/02/16 15:24 06/02/16 15:24 06/02/16 15:24 06/02/16 15:24 06/02/16 15:24 Internal Medicine: Result - Labs CBC & Chem 7: 06/01/16 16:45 06/02/16 10:20 Labs: BMP 06/02/16 10:20 Sodium 136 Potassium 3.8 Chloride 101 Carbon Dioxide 23 BUN 92 H Creatinine 2.35 H Glucose 180 H Calcium 8.0 L - ABG Interpretation ABG results: ABG ABG pH 7.35 pH Units (7.32-7.45) 05/24/16 20:26 ABG pCO2 43 mmHg (35-45) 05/24/16 20:26 ABG pO2 128 mmHg (85-104) H 05/24/16 20:26 ABG O2 Saturation 99 % (95-98) H 05/24/16 20:26 PT/INR, D-dimer PT 13.1 Seconds (9.4-12.1) H 06/01/16 05:38 - Attending Attestation I examined this patient and my medical decision-making was reviewed with the DISTRIBUTOR SALES MANAGER/PA/Advanced Practice Nurse/Resident Physician. I agree with the documented findings, disposition and treatment plan as described except to the extent set forth below.
--- NOTE | 2016-06-02 10:54 | Infectious Disease Progress No ---
Date of Encounter: 06/02/16 Time of Encounter: 09:00 - Assessment and Plan (1) Severe sepsis Current Visit: Yes Status: Acute The patient had two SIRS criteria plus PURNIMA and acute encephalopathy on admission. Likely secondary to bacteremia and UTI. Improved. Hypotension and leukocytosis have resolved. Blood cultures drawn 05/24/16 x 2 sets and 05/26/16 x 2 sets are all positive ( drawn peripherally). Repeat blood cultures drawn 05/28/16 x 1 set (from a-port) is NGTD. Repeat blood cultures (peripherally) x2 sets now. Clinically, the patient has improved. (2) Bacteremia Current Visit: Yes Status: Acute Causative organism ESBL E. coli. Source likely the urine with seeding of the a-port. During a hospitalization in April, the patient had E. coli ESBL bacteremia ( blood culture drawn from a-port positive, peripheral blood culture was negative) . The patient also had a positive urine culture for E. coli ESBL at that time. The patient had a chronic indwelling cooper catheter, but I am unsure if it was exchanged during that time. She was treated with seven days of Ertapenem in the hospital. Blood cultures drawn 05/24/16 were positive 2/2 sets (drawn peripherally). Repeat culture drawn 05/26/16 was positive 1/1 set (drawn peripherally). Blood culture drawn 05/28/16 (from the a-port) is NGTD 1/1 set. This was drawn after 4 days of IV antibiotics. Given the patient's persistent bacteremia and immunocompromised stage, concern for seeding of the a-port. No blood cultures were obtained from the port prior to the initiation of IV antibiotics. Repeat blood cultures x 2 sets peripherally now. Cooper catheter has been removed. No endocarditis stigmata noted. The patient has persistently positive blood cultures, but not with microorganisms typical of IE. She does have one minor criteria. Low index of suspicion for IE at this time. A-port removed 06/01/16. Continue Meropenem 1 gram IV Q8H. Duration of treatment depends on the clinical picture, but likely 14 days from the first set of negative peripheral blood cultures . Monitor renal function and dose-adjust antibiotics. Will continue to follow. (3) UTI (urinary tract infection) Current Visit: Yes Status: Acute Causative organism E. coli ESBL. Likely secondary to chronic indwelling cooper catheter, which has been removed. Also consider colonization of the bladder. Previously under-treated with only 7 days of IV Ertapenem. Continue antibiotics as above. Qualifiers: Urinary tract infection type: site unspecified Hematuria presence: with hematuria Qualified Code(s): N39.0 - Urinary tract infection, site not specified; R31.9 - Hematuria, unspecified (4) Encephalopathy acute Current Visit: Yes Status: Resolved Likely secondary to sepsis. Resolved. (5) Acute kidney injury Current Visit: Yes Status: Resolved Acute kidney injury on chronic renal failure. Serum creatinine 2.92 on admission. Likely multifactorial: sepsis + UTI + hypotension. Improved. (6) Hyperkalemia Current Visit: Yes Status: Resolved Likely secondary to PURNIMA. Resolved. (7) Anemia Current Visit: Yes Status: Acute Qualifiers: Anemia type: unspecified type Qualified Code(s): D64.9 - Anemia, unspecified (8) IgG multiple myeloma Current Visit: Yes Status: Acute (9) Plasmacytoma Current Visit: Yes Status: Acute (10) Atrial fibrillation Current Visit: Yes Status: Chronic Qualifiers: Atrial fibrillation type: unspecified Qualified Code(s): I48.91 - Unspecified atrial fibrillation (11) Diabetes Current Visit: Yes Status: Chronic Qualifiers: Diabetes mellitus type: type 2 Diabetes mellitus complication status: with unspecified complications Diabetes mellitus extermination inspector insulin use: unspecified detention insulin use status Qualified Code(s): E11.8 - Type 2 diabetes mellitus with unspecified complications - Subjective Interval history: Patient seen and examined. No acute events noted overnight. Status post a-port removal 06/01/16. Patient states she feels better today. Denies fevers or chills or rigors. Denies chest pain, shortness of breath, or cough. Denies nausea, vomiting, or diarrhea. Reports BM yesterday and this morning. States she has an appetite this morning. Denies urinary complaints, but reports urinary incontinence. Denies pain at this time. Denies oral thrush or new skin lesions. Infect Dis PN-Objective Data - Labs CBC & Chem 7: 06/01/16 16:45 06/01/16 05:38 Labs: Laboratory Results - last 24 hr 06/01/16 06/01/16 06/01/16 14:54 15:57 16:45 Hgb 7.5 L Hct 23.6 L POC Glucose 149 H 123 H 06/01/16 20:24 Hgb Hct POC Glucose 173 H Cultures: Cultures 05/28/16 15:54 Blood Culture - Preliminary Port System No growth. 05/26/16 05:16 Blood Culture - Final Peripheral Venipuncture Escherichia coli ESBL Serology 05/31/16 05/25/16 Range/Units 11:50 13:35 Urine Creatinine 12 mg/dL Protein/Creatinin Ratio 1.08 H (0-0.20) mg/mg Urine Total Protein 13 (1-14) mg/dL T.pallidum Ab Interpret NEGATIVE (NEGATIVE) - Impressions Impressions Tunnelled Catheter Removal 06/01/16 00:00 IMPRESSION: Successful subcutaneous Port-A-Cath removal D/ / Natasha Mills MD / Natasha Mills MD Interpreting Provider: Natasha Mills MD Exam - Constitutional Vitals: Temp Pulse Resp BP Pulse Ox 97.9 F 74 17 101/52 97 06/02/16 08:08 06/02/16 08:08 06/02/16 08:08 06/02/16 08:08 06/02/16 08:08 General appearance: cooperative, morbidly obese, no acute distress - Head Head exam: Present: atraumatic, normal inspection, normocephalic - Eye Eye exam: Present: EOMI, normal appearance, PERRL Pupils: Present: normal accommodation Additional comments: No subconjunctival hemorrhage noted. - ENT ENT exam: Present: mucous membranes moist Additional comments: No oral thrush noted. - Neck Neck exam: Present: normal inspection - Respiratory Respiratory exam: Present: CTAB. Absent: rales, respiratory distress, rhonchi, wheezes - Cardiovascular Cardiovascular exam: Present: RRR, +S1, +S2 - GI/Abdominal GI/Abdominal exam: Present: distended (obese), normal bowel sounds, soft. Absent: tenderness - Extremities Exam Extremities exam: Present: pedal edema (Lymphedema to BLE), tenderness (Right dorsal foot and anterior ankle) Additional comments: Multiple bullous lesions noted to the BLE of varying sizes. No drainage noted. Large bullous lesions noted to the right lateral thigh. No endocarditis stigmata noted. - Neurological Exam Neurological exam: Present: alert, oriented X3, no focal deficits - Psychiatric Psychiatric exam: Present: normal affect, normal mood - Skin Skin exam: Present: dry, intact, normal color, warm Additional comments: No endocarditis stigmata noted. - Additional findings Additional findings: IJ CVC noted to the right neck with transparent dressing C/D/I. Right chest-aport removal site with guaze dressing C/D/I. Mild ecchymosis noted surrounding the incision site. No erythema, warmth, or tenderness. Consult Discharge Plan - Plan Referrals: NO,PCP [Non-Partnered Physician] - (PATIENT IS FROM [facility], NO PCP APPOINTMENT NEEDED)
[2016-06-02 10:59] LABS: Magnesium 1.8 mg/dL (1.6-2.6); Potassium 3.8 mEq/L (3.5-4.5)
[2016-06-02] MEDS ORDERED: *HR* Warfarin 5 MG TABLET PO SCH (18:00)
[2016-06-02] MEDS: Melatonin 3 MG TABLET PO SCH (21:24)
[2016-06-02] MEDS: traMADol 50 MG TABLET PO PRN (21:24)
[2016-06-03] MEDS: Meropenem 1,000 MG in 0.9 % Sodium Chloride Mini Bag 100 ML IVPB SCH ×3 (01:00→22:35)
[2016-06-03] MEDS: *HR* Heparin 5,000 UNIT/ML VIAL SQ SCH ×3 (07:29→22:35)
[2016-06-03] MEDS: Insulin LISPRO 300 UNITS/3 ML VIAL SQ SCH ×4 (10:01→22:35)
[2016-06-03] MEDS: Furosemide 40 MG/4 ML VIAL IVP SCH ×2 (10:03→16:20)
[2016-06-03] MEDS: Aspirin Enteric Coated 81 MG Tablet PO SCH (10:04)
[2016-06-03] MEDS: Sennosides/Docusate Sodium TABLET PO SCH ×2 (10:04→20:06)
[2016-06-03] MEDS: Magnesium Oxide 400 MG TABLET PO SCH ×2 (10:04→20:05)
[2016-06-03] MEDS: Nystatin POWDER 30 GM BOTTLE TP SCH ×3 (10:06→22:41)
[2016-06-03] MEDS: Insulin DETEMIR 100 UNIT/ML X5UNITS SQ SCH ×2 (10:06→22:34)
[2016-06-03] MEDS: *HR* Amiodarone 200 MG TABLET PO SCH ×2 (10:06→20:07)
[2016-06-03 11:48] LABS: Basophils % 0.2 %; Eosinophils # 0.1 K/mcL (0.0-0.6); Eosinophils % 1.3 %; Hematocrit 21.5 % (35.3-44.9); Hemoglobin 6.8 g/dL (11.5-15.4); Immature Granulocytes % 0.7 % (0-4); Lymphocytes # 0.5 K/mcL (0.6-4.6); Lymphocytes % 4.7 %; Mean Corpuscular HGB Conc 31.6 g/dL (31.6-35.5); Mean Corpuscular Hemoglobin 28.9 pg (28.0-33.3); Mean Corpuscular Volume 91.5 fL (83.0-100.0); Mean Platelet Volume 9.9 fL (9.4-12.4); Monocytes # 0.6 K/mcL (0.0-1.3); Monocytes % 5.8 %; Neutrophils # 8.8 K/mcL (1.6-8.9); Platelet Count 322 K/mcL (140-400); Red Blood Count 2.35 M/mcL (3.82-4.97); Red Cell Distribution Width 15.9 % (11.5-14.5); Segmented Neutrophils % 87.3 %
[2016-06-03 11:50] LABS: INR 1.2; Prothrombin Time 12.5 Seconds (9.4-12.1)
[2016-06-03 11:59] LABS: Calcium 7.6 mg/dL (8.6-10.8); Potassium 3.9 mEq/L (3.5-4.5)
--- NOTE | 2016-06-03 13:48 | Infectious Disease Progress No ---
Date of Encounter: 06/03/16 Time of Encounter: 13:46 - Assessment and Plan (1) Severe sepsis Current Visit: Yes Status: Acute The patient had two SIRS criteria plus PURNIMA and acute encephalopathy on admission. Likely secondary to bacteremia and UTI. Improved. Hypotension and leukocytosis have resolved. Blood cultures drawn 05/24/16 x 2 sets and 05/26/16 x 2 sets are all positive ( drawn peripherally). Repeat blood cultures drawn 05/28/16 x 1 set (from a-port) is negative. Repeat blood cultures (peripherally) x2 sets drawn 06/03/15 are pending. Clinically, the patient has improved. (2) Bacteremia Current Visit: Yes Status: Acute Causative organism ESBL E. coli. Source likely the urine with seeding of the a-port. During a hospitalization in April, the patient had E. coli ESBL bacteremia ( blood culture drawn from a-port positive, peripheral blood culture was negative) . The patient also had a positive urine culture for E. coli ESBL at that time. The patient had a chronic indwelling cooper catheter, but I am unsure if it was exchanged during that time. She was treated with seven days of Ertapenem in the hospital. Blood cultures drawn 05/24/16 were positive 2/2 sets (drawn peripherally). Repeat culture drawn 05/26/16 was positive 1/1 set (drawn peripherally). Blood culture drawn 05/28/16 (from the a-port) is negative 1/1 set. This was drawn after 4 days of IV antibiotics. Given the patient's persistent bacteremia and immunocompromised stage, concern for seeding of the a-port. No blood cultures were obtained from the port prior to the initiation of IV antibiotics. Repeat blood cultures x 2 sets drawn 06/03/15 are pending x 2 sets. Discussed the case with Dr. Palencia with IR. Advised him that I recommend holding off on re -inserting central access until repeat peripheral blood cultures are negative x 48 hours. Also discussed with Dr. Hobbs with the primary team. Cooper catheter has been re-inserted. No endocarditis stigmata noted. The patient has persistently positive blood cultures, but not with microorganisms typical of IE. She does have one minor criteria. Low index of suspicion for IE at this time. A-port removed 06/01/16. Continue Meropenem 1 gram IV Q8H. Duration of treatment depends on the clinical picture, but likely 14 days from the first set of negative peripheral blood cultures . Monitor renal function and dose-adjust antibiotics. Will continue to follow. (3) UTI (urinary tract infection) Current Visit: Yes Status: Acute Causative organism E. coli ESBL. Likely secondary to chronic indwelling cooper catheter, which has been removed. Also consider colonization of the bladder. Previously under-treated with only 7 days of IV Ertapenem. Continue antibiotics as above. Qualifiers: Urinary tract infection type: site unspecified Hematuria presence: with hematuria Qualified Code(s): N39.0 - Urinary tract infection, site not specified; R31.9 - Hematuria, unspecified (4) Encephalopathy acute Current Visit: Yes Status: Resolved Likely secondary to sepsis. Resolved. (5) Acute kidney injury Current Visit: Yes Status: Resolved Acute kidney injury on chronic renal failure. Serum creatinine 2.92 on admission. Likely multifactorial: sepsis + UTI + hypotension. Improved. (6) Hyperkalemia Current Visit: Yes Status: Resolved Likely secondary to PURNIMA. Resolved. 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 No acute events noted overnight. Status post a-port removal 06/01/16. Patient states she feels better today. Denies fevers or chills or rigors. Denies chest pain, shortness of breath, or cough. Denies vomiting or diarrhea. Reports one episode of nausea this morning after eating a large breakfast. Reports multiple loose BMs yesterday and today. States she has an appetite this morning. Denies urinary complaints,Denies pain at this time. Denies oral thrush or new skin lesions. Infect Dis PN-Objective Data - Labs CBC & Chem 7: 06/03/16 11:18 06/03/16 11:18 Labs: Laboratory Results - last 24 hr 05/28/16 06/02/16 06/02/16 08:38 12:03 16:36 WBC RBC Hgb Hct MCV MCH MCHC RDW Plt Count MPV Immature Gran % Seg Neutrophils % Lymphocytes % Monocytes % Eosinophils % Basophils % Neutrophils # Lymphocytes # Monocytes # Eosinophils # Basophils # PT INR Sodium Potassium Chloride Carbon Dioxide BUN Creatinine Est GFR ( Amer) Est GFR (Non-Af Amer) BUN/Creatinine Ratio Glucose POC Glucose 158 H 113 H Calculated Osmolality Calcium Blood Type A POSITIVE Antibody Screen POSITIVE Antibody ID Referred Inconclusive Crossmatch See Detail 06/02/16 06/03/16 06/03/16 20:02 07:02 10:58 WBC RBC Hgb Hct MCV MCH MCHC RDW Plt Count MPV Immature Gran % Seg Neutrophils % Lymphocytes % Monocytes % Eosinophils % Basophils % Neutrophils # Lymphocytes # Monocytes # Eosinophils # Basophils # PT INR Sodium Potassium Chloride Carbon Dioxide BUN Creatinine Est GFR ( Amer) Est GFR (Non-Af Amer) BUN/Creatinine Ratio Glucose POC Glucose 135 H 95 H 125 H Calculated Osmolality Calcium Blood Type Antibody Screen Antibody ID Referred Crossmatch 06/03/16 06/03/16 06/03/16 11:18 11:18 11:18 WBC 10.1 RBC 2.35 L Hgb 6.8 L Hct 21.5 L MCV 91.5 MCH 28.9 MCHC 31.6 RDW 15.9 H Plt Count 322 MPV 9.9 Immature Gran % 0.7 Seg Neutrophils % 87.3 Lymphocytes % 4.7 Monocytes % 5.8 Eosinophils % 1.3 Basophils % 0.2 Neutrophils # 8.8 Lymphocytes # 0.5 L Monocytes # 0.6 Eosinophils # 0.1 Basophils # 0.0 PT 12.5 H INR 1.2 Sodium 137 Potassium 3.9 Chloride 104 Carbon Dioxide 22 BUN 96 H Creatinine 2.22 H Est GFR ( Amer) 26 L Est GFR (Non-Af Amer) 22 L BUN/Creatinine Ratio 43 H Glucose 108 H POC Glucose Calculated Osmolality 314 H Calcium 7.6 L Blood Type Antibody Screen Antibody ID Referred Crossmatch Cultures: Cultures 05/28/16 15:54 Blood Culture - Final Port System No growth. 05/26/16 05:16 Blood Culture - Final Peripheral Venipuncture Escherichia coli ESBL Serology 05/31/16 05/25/16 Range/Units 11:50 13:35 Urine Creatinine 12 mg/dL Protein/Creatinin Ratio 1.08 H (0-0.20) mg/mg Urine Total Protein 13 (1-14) mg/dL T.pallidum Ab Interpret NEGATIVE (NEGATIVE) Exam - Constitutional Vitals: Temp Pulse Resp BP Pulse Ox 98.4 F 79 18 96/61 99 06/03/16 09:59 06/03/16 09:59 06/03/16 09:59 06/03/16 09:59 06/03/16 09:59 General appearance: cooperative, morbidly obese, no acute distress - Head Head exam: Present: atraumatic, normal inspection, normocephalic - Eye Eye exam: Present: EOMI, normal appearance, PERRL Pupils: Present: normal accommodation Additional comments: No subconjunctival hemorrhage noted. - ENT ENT exam: Present: mucous membranes moist - Neck Neck exam: Present: normal inspection Additional comments: CVC noted to the left neck with transparent dressing C/D/I. - Respiratory Respiratory exam: Present: CTAB. Absent: rales, respiratory distress, rhonchi, wheezes - Cardiovascular Cardiovascular exam: Present: irregular rhythm. Absent: tachycardia - GI/Abdominal GI/Abdominal exam: Present: distended (obese), normal bowel sounds, soft. Absent: tenderness Additional comments: Cooper catheter noted to be draining clear yellow urine. - Extremities Exam Extremities exam: Present: pedal edema (Lymphedema noted to the BLE.), tenderness (Dorsal aspect right foot and anterior right ankle) Additional comments: Multiple bullous lesions noted to the BLE and groin/abdominal folds. - Back Exam Back exam: Present: normal inspection - Neurological Exam Neurological exam: Present: alert, oriented X3, no focal deficits - Psychiatric Psychiatric exam: Present: normal affect, normal mood - Skin Skin exam: Present: dry, intact, normal color, warm Additional comments: A-port site noted to the right upper chest with guaze dressing C/D/I. Tenderness noted on exam. No erythema or drainage noted. Consult Discharge Plan - Plan Referrals: NO,PCP [Non-Partnered Physician] - (PATIENT IS FROM [facility], NO PCP APPOINTMENT NEEDED) Prescriptions: Meropenem [Merrem] 1,000 mg IVPB Q8HR 13 Days
--- NOTE | 2016-06-03 15:18 | Internal Med Progress Note ---
<Aldo Hobbs - Last Filed: 06/03/16 16:31> Date of Encounter: 06/03/16 Time of Encounter: 11:10 - Assessment and plan (1) Sepsis Current Visit: Yes Status: Acute Assessment and plan: Patient no Longer meets SIRS or QSOFA criteria. Afebrile Leukocytosis has resolved. She received 2 days of Vancomycin 1 day of Zosyn ( changed to Meropenem with history of ESBL) Day 10 of Meropenem. Blood cultures from 05/24/16 and 05/26/16 have grown ESBL Ecoli. Blood cultures from port on 05/28 show NGTD. Port was removed on 06/01/[address] Mills. Blood cultures drawn again on 06/02/16 No immunologic or embolic phenomena noted on exam. Currently She only meets on minor modified Braswell criteria ( persistent bacteremia but not a typical organism). she did have an echocardiogram on while she was bacteremic and this did not reveal any vegetation. We obtain AUDIE if she continues to have positive cultures after the port removal. continue to monitor for drug toxicities. Appreciate ID's recommendations. 06/03/16 Patient is stable and doing well. Plan will be to await negative blood cultures and send her home with a total of 2 weeks of IV antibiotics after her first negative culture. Will plan to get vascular access tomorrow. Qualifiers: Qualified Code(s): A41.9 - Sepsis, unspecified organism (2) Bacteremia Current Visit: Yes Status: Acute Assessment and plan: Blood cultures from 05/24/16 positive for ESBL E. coli repeat cultures form 05/26/16 are positive for ESBL E. coli Port cultures obtained from 05/28/16 show NGTD. 0ort removed 06/01/16 Continue Meropenem Day one of antibiotics will begin after port removal if repeat blood cultures are negative. Duration of antibiotics will depend on clinical course. Appreciate IDs recommendations. (3) IgG multiple myeloma Current Visit: Yes Status: Acute Assessment and plan: Oncologist is Dr. Zepeda. Will hold Revlamid at this time Dr. Zepeda should be consulted if any oncology questions arise (4) Plasmacytoma Current Visit: Yes Status: Acute Assessment and plan: S/P radiation therapy Continue wound care (5) Acute kidney injury superimposed on chronic kidney disease Current Visit: Yes Status: Acute Assessment and plan: Stable/improving (6) Anemia Current Visit: Yes Status: Acute Assessment and plan: Hg has been stable Asymptomatic. Hemoglobin trended down to 6.8. We will repeat hemoglobin to make sure this is accurate. Qualifiers: Anemia type: unspecified type Qualified Code(s): D64.9 - Anemia, unspecified (7) Leukocytosis Current Visit: Yes Status: Resolved Assessment and plan: Resolved Qualifiers: Leukocytosis type: unspecified Qualified Code(s): D72.829 - Elevated white blood cell count, unspecified (8) Hyperkalemia Current Visit: Yes Status: Resolved Assessment and plan: resolved (9) Diabetes Current Visit: Yes Status: Chronic Assessment and plan: At goal Continue high dose sliding scale and Levemir Qualifiers: Diabetes mellitus type: type 2 Diabetes mellitus complication status: with unspecified complications Diabetes mellitus termite treater helper insulin use: unspecified termite treater helper insulin use status Qualified Code(s): E11.8 - Type 2 diabetes mellitus with unspecified complications (10) Atrial fibrillation Current Visit: Yes Status: Chronic Assessment and plan: currently rate controlled continue amioderone We will plan to restart Coumadin after vascular access has been obtained tomorrow. Qualifiers: Atrial fibrillation type: unspecified Qualified Code(s): I48.91 - Unspecified atrial fibrillation (11) Hypoalbuminemia Current Visit: Yes Status: Acute Assessment and plan: nutrition consulted (12) Edema Current Visit: Yes Status: Acute Assessment and plan: likely from CKD and hypoalbuminemia continue lasix monitor renal function. Qualifiers: Qualified Code(s): R60.9 - Edema, unspecified (13) Muscular deconditioning Current Visit: Yes Status: Acute Assessment and plan: PT/OT (14) DVT prophylaxis Current Visit: Yes Status: Acute Assessment and plan: Neuro: Metabolic encephalopathy has resolved. Secondary to UTI. Now alert and orientated. No issues at this time. HEENT: No issues at this time. Cardio: History of Afib. Currently rate controlled and in sinus rhythm this AM. Resume coumadin. Hypotension overnight? Pulmonology: No issues at this time. Maintaining oxygen saturation on room air. GI: constipation resolved. : UTI with ESBL Ecoli. sensitive to meropenem. [address] place cooper todya as she is having skin break down. Plan will be to exchange weekly . \ MSK: muscular deconditioning. Continue PT/OT HEME: Chronic anemia. Most likely from multiple myeloma. Hg stable. Oncology: Patient has multiple myeloma. Will likely start on renally dose linolinamide. However discussed with Oncology and will hold medication for now as she is still acutely ill. Will need to follow up with Oncology closely after discharge. Integument: Cutaneous plasmacytomas. S/P radiation therapy. wound care was consulted. Will need to follow up with radiation/Oncology after DC. Nutrition: severe PCM with low albumin and prealbumin. Consulted nutrition. Endocrine: Goal less than 180 while inpatient. Currently she is meeting that goal. Electrolytes: No major abnormalities today. Nutrition: Nutrition consulted. Integument: Plasmacytomas-Wpound care. Skin break down. Reinitiate cooper. ID: Sepsis and bacteremia. ESBL Ecoli has grown from urine. Blood cultures persistently positive. Only meets one minor Braswell criteria. Port removed wednesday. AUDIE if positive blood cultures thereafter. Appreciate ID. Prophylaxis: On DVT prophylaxis. Continue PPI for GI prophylaxis in the setting of Sepsis, anticoagulation, and recent steroid use. lines: port removed 06/01/16 . Left EJ and cooper catheter. place cooper to prevent further skin break down. discharge planning: [facility]. Will most likely need IV antibiotics for a minimum 2 weeks for GN bacteremia. Will need a line.NPO at midnight and coumadin held. DC pending clinical course. - Subjective Interval history: No major events overnight Patient is complaining of some mild nausea this morning. She denies any vomiting. She states is secondary to eating too much this morning and too quickly. She denies any abdominal pain. She denies any dyspnea, chest pain, any other pain or discomfort. She has no further complaints or concerns at this time. She does inquire as to when she can be discharged [facility] to [facility]. - Constitutional Vitals: Temp Pulse Resp BP Pulse Ox 98.4 F 79 18 96/61 99 06/03/16 09:59 06/03/16 09:59 06/03/16 09:59 06/03/16 09:59 06/03/16 09:59 Exam: General: This is a well-developed well-nourished 70-year-old female who is alert and orientated to person place time and situation. She is lying in bed appears to be comfortable she is in no acute distress at this time. Head: There is no cephalic and atraumatic. EENT: Anicteric sclera, pupils equally round reactive to light and accommodation. Normal external appearance of ears nose and eyes. She does have a left internal jugular triple-lumen catheter present. It is clean and well dressed. Neck is supple without mass or thyromegaly. Neck is obese. Neck is supple without mass or thyromegaly. No supraclavicular or cervical lymphadenopathy palpable on exam. Next heart: Regular rate and rhythm without murmurs rubs or gallops. Heart sounds are somewhat distant. However this most likely secondary to body habitus. Lungs: Clear to auscultation bilaterally globally diminished likely secondary to habitus. Normal effort of breathing. Abdomen: Obese, nondistended, nontender to palpation. Musculoskeletal: Grossly normal for age no gross 40 noted. Extremities: No clubbing, cyanosis there is some pedal edema bilaterally that is 3+ up to the level of the thighs. Appears to be improving. Integument: She does have multiple plasmacytomas of the lower extremities the right thigh is clean and well dressed. Internal Medicine: Result - Labs CBC & Chem 7: 06/03/16 11:18 06/03/16 11:18 Labs: Short CBC 06/03/16 Range/Units 11:18 WBC 10.1 (4.3-11.1) K/mcL Hgb 6.8 L (11.5-15.4) g/dL Hct 21.5 L (35.3-44.9) % Plt Count 322 (140-400) K/mcL Neutrophils # 8.8 (1.6-8.9) K/mcL BMP 06/03/16 11:18 Sodium 137 Potassium 3.9 Chloride 104 Carbon Dioxide 22 BUN 96 H Creatinine 2.22 H Glucose 108 H Calcium 7.6 L - ABG Interpretation ABG results: ABG ABG pH 7.35 pH Units (7.32-7.45) 05/24/16 20:26 ABG pCO2 43 mmHg (35-45) 05/24/16 20:26 ABG pO2 128 mmHg (85-104) H 05/24/16 20:26 ABG O2 Saturation 99 % (95-98) H 05/24/16 20:26 PT/INR, D-dimer PT 12.5 Seconds (9.4-12.1) H 06/03/16 11:18 Consult Discharge Plan - Plan Referrals: NO,PCP [Non-Partnered Physician] - ([facility], NO [facility]CP APPOINTMENT NEEDED) Prescriptions: Meropenem [Merrem] 1,000 mg IVPB Q8HR 13 Days <Azael Robles P - Last Filed: 06/03/16 18:42> - Constitutional Vitals: Temp Pulse Resp BP Pulse Ox 97.9 F 80 18 92/43 98 06/03/16 15:29 06/03/16 15:29 06/03/16 15:29 06/03/16 15:29 06/03/16 15:29 Internal Medicine: Result - Labs CBC & Chem 7: 06/03/16 17:25 06/03/16 11:18 Labs: Short CBC 06/03/16 06/03/16 Range/Units 11:18 17:25 WBC 10.1 (4.3-11.1) K/mcL Hgb 6.8 L 7.4 L (11.5-15.4) g/dL Hct 21.5 L 23.7 L (35.3-44.9) % Plt Count 322 (140-400) K/mcL Neutrophils # 8.8 (1.6-8.9) K/mcL BMP 06/03/16 11:18 Sodium 137 Potassium 3.9 Chloride 104 Carbon Dioxide 22 BUN 96 H Creatinine 2.22 H Glucose 108 H Calcium 7.6 L - ABG Interpretation ABG results: ABG ABG pH 7.35 pH Units (7.32-7.45) 05/24/16 20:26 ABG pCO2 43 mmHg (35-45) 05/24/16 20:26 ABG pO2 128 mmHg (85-104) H 05/24/16 20:26 ABG O2 Saturation 99 % (95-98) H 05/24/16 20:26 PT/INR, D-dimer PT 12.5 Seconds (9.4-12.1) H 06/03/16 11:18 - Attending Attestation I examined this patient and my medical decision-making was reviewed with the AMMUNITION STORAGE SUPERINTENDENT/PA/Advanced Practice Nurse/Resident Physician. I agree with the documented findings, disposition and treatment plan as described except to the extent set forth below.
[2016-06-03] MEDS: Acetaminophen 325 MG TABLET PO PRN (17:24)
[2016-06-03 17:55] LABS: Hematocrit 23.7 % (35.3-44.9); Hemoglobin 7.4 g/dL (11.5-15.4)
[2016-06-03] MEDS: Melatonin 3 MG TABLET PO SCH (20:06)
[2016-06-03] MEDS: tiZANidine 4 MG TABLET PO PRN (20:07)
[2016-06-03] MEDS: traMADol 50 MG TABLET PO PRN (20:07)
[2016-06-04 03:30] LABS: Eosinophils # 0.2 K/mcL (0.0-0.6); Eosinophils % 2.6 %; Hematocrit 19.1 % (35.3-44.9); Hemoglobin 6.1 g/dL (11.5-15.4); Lymphocytes # 0.9 K/mcL (0.6-4.6); Lymphocytes % 11.4 %; Mean Corpuscular HGB Conc 31.9 g/dL (31.6-35.5); Mean Platelet Volume 9.6 fL (9.4-12.4); Monocytes # 0.7 K/mcL (0.0-1.3); Monocytes % 8.4 %; Platelet Count 284 K/mcL (140-400); Red Cell Distribution Width 15.9 % (11.5-14.5); Segmented Neutrophils % 76.6 %
[2016-06-04 03:34] LABS: INR 1.2; Prothrombin Time 12.7 Seconds (9.4-12.1)
[2016-06-04 03:40] LABS: Calcium 7.3 mg/dL (8.6-10.8); Potassium 3.8 mEq/L (3.5-4.5)
[2016-06-04] MEDS: *HR* Heparin 5,000 UNIT/ML VIAL SQ SCH ×2 (05:38→16:00)
[2016-06-04] MEDS: Furosemide 40 MG/4 ML VIAL IVP SCH ×2 (08:26→16:01)
[2016-06-04] MEDS: Magnesium Oxide 400 MG TABLET PO SCH (08:27)
[2016-06-04] MEDS: Insulin LISPRO 300 UNITS/3 ML VIAL SQ SCH ×3 (08:27→16:01)
[2016-06-04] MEDS: Aspirin Enteric Coated 81 MG Tablet PO SCH (08:27)
[2016-06-04] MEDS: *HR* Amiodarone 200 MG TABLET PO SCH (08:28)
[2016-06-04] MEDS: Nystatin POWDER 30 GM BOTTLE TP SCH ×2 (08:28→16:01)
[2016-06-04] MEDS: Sennosides/Docusate Sodium TABLET PO SCH (08:28)
[2016-06-04] MEDS: Insulin DETEMIR 100 UNIT/ML X5UNITS SQ SCH (08:32)
[2016-06-04 09:51] LABS: Hematocrit 22.6 % (35.3-44.9); Hemoglobin 7.3 g/dL (11.5-15.4)
--- NOTE | 2016-06-04 11:30 | Infectious Disease Progress No ---
Date of Encounter: 06/04/16 Time of Encounter: 11:28 - Assessment and Plan (1) Severe sepsis Current Visit: Yes Status: Resolved The patient had two SIRS criteria plus PURNIMA and acute encephalopathy on admission. Likely secondary to bacteremia and UTI. Improved. Hypotension and leukocytosis have resolved. Blood cultures drawn 05/24/16 x 2 sets and 05/26/16 x 2 sets are all positive ( drawn peripherally). Repeat blood cultures drawn 05/28/16 x 1 set (from a-port) is negative. Repeat blood cultures (peripherally) x2 sets drawn 06/03/15 are NGTD as well. Clinically, the patient has improved. (2) Bacteremia Current Visit: Yes Status: Acute Causative organism ESBL E. coli. Source likely the urine with seeding of the a-port. During a hospitalization in April, the patient had E. coli ESBL bacteremia ( blood culture drawn from a-port positive, peripheral blood culture was negative) . The patient also had a positive urine culture for E. coli ESBL at that time. The patient had a chronic indwelling cooper catheter, but I am unsure if it was exchanged during that time. She was treated with seven days of Ertapenem in the hospital. Blood cultures drawn 05/24/16 were positive 2/2 sets (drawn peripherally). Repeat culture drawn 05/26/16 was positive 1/1 set (drawn peripherally). Blood culture drawn 05/28/16 (from the a-port) is negative 1/1 set. This was drawn after 4 days of IV antibiotics. Given the patient's persistent bacteremia and immunocompromised stage, concern for seeding of the a-port. No blood cultures were obtained from the port prior to the initiation of IV antibiotics. Repeat blood cultures x 2 sets drawn 06/03/15 are NGTD x 2 sets. No endocarditis stigmata noted. The patient has persistently positive blood cultures, but not with microorganisms typical of IE. She does have one minor Braswell's criteria. Low index of suspicion for IE at this time. A-port removed 06/01/16. Scheduled for placement of tunneled PICC line today. Discontinue Meropenem and switch to Ertapenem 1 gram IV daily in preparation for discharge. Cr Cl ~30. Discussed dose with Hugo John. Duration of treatment depends on the clinical picture, but likely 14 days from the first set of negative peripheral blood cultures. Treat through 06/16/16. Monitor renal function and dose-adjust antibiotics. Get weekly CBC and BMP for the duration of antibiotic therapy. Weekly PICC care per protocol. Arrange for removal of PICC line when completed with antibiotic therapy if okay with Hem/Onc. (3) UTI (urinary tract infection) Current Visit: Yes Status: Acute Causative organism E. coli ESBL. Likely secondary to chronic indwelling cooper catheter, which has been removed. Also consider colonization of the bladder. Previously under-treated with only 7 days of IV Ertapenem. Continue antibiotics as above. Qualifiers: Urinary tract infection type: site unspecified Hematuria presence: with hematuria Qualified Code(s): N39.0 - Urinary tract infection, site not specified; R31.9 - Hematuria, unspecified (4) Encephalopathy acute Current Visit: Yes Status: Resolved Likely secondary to sepsis. Resolved. (5) Acute kidney injury Current Visit: Yes Status: Resolved Acute kidney injury on chronic renal failure. Serum creatinine 2.92 on admission. Likely multifactorial: sepsis + UTI + hypotension. Improved. (6) Hyperkalemia Current Visit: Yes Status: Resolved Likely secondary to PURNIMA. Resolved. 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 No acute events noted overnight. Status post a-port removal 06/01/16. Patient states she feels better today. Denies fevers or chills or rigors. Denies chest pain, shortness of breath, or cough. Denies vomiting or diarrhea. Currently NPO for tunneled PICC placement later today and is requesting something to drink. States she has an appetite this morning. Denies urinary complaints, cooper catheter remains in place. Denies pain at this time. Denies oral thrush or new skin lesions. Infect Dis PN-Objective Data - Labs CBC & Chem 7: 06/04/16 09:43 06/04/16 03:19 Labs: Laboratory Results - last 24 hr 06/03/16 06/03/16 06/03/16 07:02 10:58 11:18 WBC 10.1 RBC 2.35 L Hgb 6.8 L Hct 21.5 L MCV 91.5 MCH 28.9 MCHC 31.6 RDW 15.9 H Plt Count 322 MPV 9.9 Immature Gran % 0.7 Seg Neutrophils % 87.3 Lymphocytes % 4.7 Monocytes % 5.8 Eosinophils % 1.3 Basophils % 0.2 Neutrophils # 8.8 Lymphocytes # 0.5 L Monocytes # 0.6 Eosinophils # 0.1 Basophils # 0.0 PT INR Sodium Potassium Chloride Carbon Dioxide BUN Creatinine Est GFR ( Amer) Est GFR (Non-Af Amer) BUN/Creatinine Ratio Glucose POC Glucose 95 H 125 H Calculated Osmolality Calcium 06/03/16 06/03/16 06/03/16 11:18 11:18 16:07 WBC RBC Hgb Hct MCV MCH MCHC RDW Plt Count MPV Immature Gran % Seg Neutrophils % Lymphocytes % Monocytes % Eosinophils % Basophils % Neutrophils # Lymphocytes # Monocytes # Eosinophils # Basophils # PT 12.5 H INR 1.2 Sodium 137 Potassium 3.9 Chloride 104 Carbon Dioxide 22 BUN 96 H Creatinine 2.22 H Est GFR ( Amer) 26 L Est GFR (Non-Af Amer) 22 L BUN/Creatinine Ratio 43 H Glucose 108 H POC Glucose 169 H Calculated Osmolality 314 H Calcium 7.6 L 06/03/16 06/04/16 06/04/16 17:25 03:19 03:19 WBC 7.8 RBC 2.10 L Hgb 7.4 L 6.1 L Hct 23.7 L 19.1 L MCV 91.0 MCH 29.0 MCHC 31.9 RDW 15.9 H Plt Count 284 MPV 9.6 Immature Gran % 1.0 Seg Neutrophils % 76.6 Lymphocytes % 11.4 Monocytes % 8.4 Eosinophils % 2.6 Basophils % 0.0 Neutrophils # 6.0 Lymphocytes # 0.9 Monocytes # 0.7 Eosinophils # 0.2 Basophils # 0.0 PT 12.7 H INR 1.2 Sodium Potassium Chloride Carbon Dioxide BUN Creatinine Est GFR ( Amer) Est GFR (Non-Af Amer) BUN/Creatinine Ratio Glucose POC Glucose Calculated Osmolality Calcium 06/04/16 06/04/16 06/04/16 03:19 07:34 09:43 WBC RBC Hgb 7.3 L Hct 22.6 L MCV MCH MCHC RDW Plt Count MPV Immature Gran % Seg Neutrophils % Lymphocytes % Monocytes % Eosinophils % Basophils % Neutrophils # Lymphocytes # Monocytes # Eosinophils # Basophils # PT INR Sodium 137 Potassium 3.8 Chloride 104 Carbon Dioxide 23 BUN 95 H Creatinine 2.11 H Est GFR ( Amer) 28 L Est GFR (Non-Af Amer) 23 L BUN/Creatinine Ratio 45 H Glucose 106 H POC Glucose 92 H Calculated Osmolality 314 H Calcium 7.3 L Cultures: Cultures 06/02/16 10:20 Blood Culture - Preliminary Peripheral Venipuncture No growth. 06/02/16 10:20 Blood Culture - Preliminary Peripheral Venipuncture No growth. 06/02/16 13:00 Catheter Tip Culture - Preliminary Intravenous or Arterial Cath No growth. 05/28/16 15:54 Blood Culture - Final Port System No growth. 05/26/16 05:16 Blood Culture - Final Peripheral Venipuncture Escherichia coli ESBL Serology 05/31/16 05/25/16 Range/Units 11:50 13:35 Urine Creatinine 12 mg/dL Protein/Creatinin Ratio 1.08 H (0-0.20) mg/mg Urine Total Protein 13 (1-14) mg/dL T.pallidum Ab Interpret NEGATIVE (NEGATIVE) Exam - Constitutional Vitals: Temp Pulse Resp BP Pulse Ox 97.4 F L 78 16 115/44 99 06/04/16 07:39 06/04/16 07:39 06/04/16 07:39 06/04/16 07:39 06/04/16 07:39 General appearance: cooperative, morbidly obese, no acute distress - Head Head exam: Present: atraumatic, normal inspection, normocephalic - Eye Eye exam: Present: EOMI, normal appearance, PERRL Pupils: Present: normal accommodation - ENT ENT exam: Present: mucous membranes moist - Neck Neck exam: Present: normal inspection Additional comments: Right IJ noted with dressing C/D/I. - Respiratory Respiratory exam: Present: CTAB. Absent: rales, respiratory distress, rhonchi, wheezes - Cardiovascular Cardiovascular exam: Present: RRR, +S1, +S2 - GI/Abdominal GI/Abdominal exam: Present: distended (obese), normal bowel sounds, soft. Absent: tenderness Additional comments: Cooper catheter patent draining clear yellow urine. - Extremities Exam Extremities exam: Present: pedal edema (lymphedema noted to the BLE), tenderness (right dorsal foot/anterior ankle) Additional comments: Multiple bullous lesions noted to the BLE and right groin/abdominal fold. Dressing to the right upper thigh C/D/I. - Neurological Exam Neurological exam: Present: alert, oriented X3, no focal deficits - Psychiatric Psychiatric exam: Present: normal affect, normal mood - Skin Skin exam: Present: dry, intact, normal color, warm Consult Discharge Plan - Plan Referrals: NO,PCP [Non-Partnered Physician] - (PATIENT IS FROM [facility], NO PCP APPOINTMENT NEEDED) Prescriptions: Meropenem [Merrem] 1,000 mg IVPB Q8HR 13 Days
[2016-06-04 11:57] VITALS: BP 110/38
[2016-06-04] MEDS ORDERED: Ertapenem 1,000 MG in 0.9 % Sodium Chloride Mini Bag 100 ML IVPB SCH (12:00)
[2016-06-04] MEDS ORDERED: Heparin 1,000 UNITS/500 mL NS 500 ML ONE (14:56)
--- NOTE | 2016-06-04 16:04 | Discharge Summary ---
<Aldo Hobbs - Last Filed: 06/04/16 16:31> Date of Encounter: 06/04/16 Time of Encounter: 15:49 - Discharge Diagnosis (1) Sepsis Priority: Primary Status: Acute Qualifiers: Qualified Code(s): A41.9 - Sepsis, unspecified organism (2) Bacteremia Priority: Secondary Status: Acute (3) IgG multiple myeloma Priority: Secondary Status: Acute (4) Plasmacytoma Priority: Secondary Status: Acute (5) Acute kidney injury superimposed on chronic kidney disease Priority: Secondary Status: Acute (6) Anemia Priority: Secondary Status: Acute Qualifiers: Anemia type: unspecified type Qualified Code(s): D64.9 - Anemia, unspecified (7) Leukocytosis Priority: Secondary Status: Resolved Qualifiers: Leukocytosis type: unspecified Qualified Code(s): D72.829 - Elevated white blood cell count, unspecified (8) Hyperkalemia Priority: Secondary Status: Resolved (9) Diabetes Priority: Secondary Status: Chronic Qualifiers: Diabetes mellitus type: type 2 Diabetes mellitus complication status: with unspecified complications Diabetes mellitus protective signal operations supervisor insulin use: unspecified alf insulin use status Qualified Code(s): E11.8 - Type 2 diabetes mellitus with unspecified complications (10) Atrial fibrillation Priority: Secondary Status: Chronic Qualifiers: Atrial fibrillation type: unspecified Qualified Code(s): I48.91 - Unspecified atrial fibrillation (11) Hypoalbuminemia Priority: Secondary Status: Acute (12) Edema Priority: Secondary Status: Acute Qualifiers: Qualified Code(s): R60.9 - Edema, unspecified (13) Muscular deconditioning Priority: Secondary Status: Acute (14) DVT prophylaxis Priority: Secondary Status: Acute - Discharge Medications Prescriptions: Meropenem [Merrem] 1,000 mg IVPB Q8HR 13 Days Sennosides/Docusate Sodium [Senna Plus] 2 each PO BID #30 tablet Tramadol HCl [Ultram] 50 mg PO Q6H PRN #20 tablet PRN Reason: Pain Zolpidem [Ambien] 5 mg PO HS #7 tablet Home Medications: Aspirin [Adult Low Dose Aspirin EC] 81 mg PO QAM 04/04/15 [History] Atorvastatin Calcium [Lipitor] 20 mg PO DAILY 04/04/15 [History] Prochlorperazine Maleate [Compazine] 10 mg PO Q6H PRN 04/04/15 [History] Tizanidine HCl [Zanaflex] 4 mg PO Q8H PRN 04/04/15 [History] Folic Acid 1 mg PO DAILY #30 tablet 04/18/15 [Rx] Docusate [Colace] 100 mg PO DAILY PRN 04/22/15 [History] Insulin Glargine,Hum.rec.anlog [Lantus Solostar] 15 unit SQ HS 04/22/15 [History ] Insulin Glargine,Hum.rec.anlog [Lantus Solostar] 18 unit SQ QAM 04/22/15 [ History] Insulin LISPRO [HumaLOG] 0 unit SQ ACHS 04/22/15 [History] Melatonin 10 mg PO HS PRN 04/22/15 [History] Simethicone [Gas-X] 160 mg PO Q6H PRN 04/22/15 [History] Acetaminophen [Tylenol] 650 mg PO Q4H PRN 06/11/15 [History] Gabapentin [Neurontin] 300 mg PO BID 06/11/15 [History] Magnesium Hydroxide/Al Hydrox [Mag-Al Liquid] 30 ml PO BID PRN 06/11/15 [History ] Glucagon HCl 1 mg IJ ONCE PRN 12/27/15 [History] Fluticasone Propionate Nasal [Flonase] 100 mcg NS DAILY 02/18/16 [History] Furosemide [Lasix] 40 mg PO DAILY 02/18/16 [History] Albuterol Neb [Proventil Neb] 2.5 mg IH Q6H PRN 04/30/16 [History] GuaiFENesin/Dextromethorphan [Mucinex Dm ER 600-30 mg Tablet] 1 tab PO BID 04/30 [History] Mirtazapine 7.5 mg PO HS 04/30/16 [History] Ondansetron HCl [Zofran] 4 mg PO Q6H PRN 04/30/16 [History] Saline Nasal [place] [[place] Nasal [place]] 1 spray NS TID 04/30/16 [History] Tramadol HCl [Ultram] 50 mg PO BID 04/30/16 [History] Amiodarone [Cordarone] 200 mg PO BID #60 tablet 05/09/16 [Rx] Metoprolol XL (24 HR) Succ [Toprol Xl] 50 mg PO DAILY #30 tab.er.24h 05/09/16 [ Rx] Meropenem [Merrem] 1,000 mg IVPB Q8HR 13 Days 06/02/16 [Rx] Sennosides/Docusate Sodium [Senna Plus] 2 each PO BID #30 tablet 06/04/16 [Rx] Tramadol HCl [Ultram] 50 mg PO Q6H PRN #20 tablet 06/04/16 [Rx] Warfarin [Coumadin] 5 mg PO QPM #0 06/04/16 [Rx] Zolpidem [Ambien] 5 mg PO HS #7 tablet 06/04/16 [Rx] Allergies/Adverse Reactions: Allergies hydrocodone [From Vicodin] Allergy (Verified 04/04/15 11:12) Rash Procedures/tests Complete & Pending: Procedures Performed prior 72 hours Category Date Time Status IR cvc insrt tunnel wo prt/change house attendant [IR] Routine IR 06/04/16 Taken IR us guide needle place [IR] Routine IR 06/04/16 Taken Date of admission: 05/24/16 20:04 Primary care physician: Johan Jha MD Consults: 05/24/16 21:38 Consult to Marking Machine Operator [CONS] Routine Reason for SW Consult: ECF 05/25/16 08:50 Consult to Wound Care [CONS] Routine Reason for Consult: wounds on right leg Call Completed: No 05/25/16 14:43 Consult to Nutrition [CONS] Routine Comment: Consulting Provider: NUTRITION Reason for Dietary Consult: Supplemental Nutrition 05/26/16 14:14 Consult to Occupational Therapy [CONS] Routine Comment: Evaluate, develop and implement POC PT [Consult to Physical Therapy] [CONS] Routine Comment: Evaluate, develop and implement POC 05/28/16 15:27 Consult to Infectious Diseases [CONS] Routine Consulting Provider: Yovana Atkinson Reason for Consult: Bacteremia ESBL Ecoli patient has a port. Please commned on whether or not to remove. Call Completed: Yes 05/31/16 12:20 Consult to Interventional Radiology [CONS] Routine Consulting Provider: Radiology Interventional Cols Reason for Consult: removal of port. Placed by Dr. Saba. Patient has persistant bacteremia. Discussed with both Oncology and ID. Coumadin held over weekend and will keep NPO at midnight in case you all have time tomorrow. Thank you. I will call in the AM. Call Completed: Yes 06/03/16 09:47 Consult to Interventional Radiology [CONS] Routine Consulting Provider: Radiology Interventional Cols Reason for Consult: PICC line/ Vacular access. Patient will require 2 weeks of IV antibiotics. PICC Team unable to place. Call Completed: Yes Discharging clinician: Aldo Hobbs Anticipated date of discharge: 06/04/16 - Patient Status Disposition: Transfer SNF Condition: Fair Functional capacity at discharge: bed bound Overall status at discharge: patient is progressing back to baseline - Discharge Instructions Instructions: Urinary Tract Infection in Women (DC), Sepsis (DC) Follow Up With: NO,PCP [Non-Partnered Physician] - (PATIENT IS FROM [facility], NO PCP APPOINTMENT NEEDED) Additional Instructions: please exchange cooper on a weekly bases - Diet and Activity Activity: as per physical therapy Diet: diabetic diet Hospital course: Ms. Vaughan is a 70 year old female with past medical history of multiple myeloma. She also has a cutaneous plasmacytomas being treated with radiation. She has a indwelling Cooper catheter. She has had a recent hospitalization and discharge for ESBL Escherichia coli. She was admitted again for sepsis, ESBL Escherichia coli urinary tract infection, and also gram-negative bacteremia with ESBL Escherichia coli. 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 She also had some altered mentation upon arrival to the hospital. She was treated with broad-spectrum antibiotics initially. It was tapered down to meropenem. She had a prolonged bacteremia for 48 hours. We also noted that she had had cultures from the port that were positive on prior admission. We did discuss this with both infectious disease and oncology. We felt that she could possibly have an infected port. Unfortunately cultures from the port were not obtained upon admission. We did go ahead and have the port removed. After 48 hours cultures were negative. We had a tunneled CVC placed for long- term antibiotic use. She will later have a port placed if oncology deems this necessary. Today the patient is doing well. No major abnormalities on her vital signs or labs. She does have chronic kidney disease and is at baseline. She also has chronic anemia which is been stable throughout her hospitalization. We will discharge her today to extended care facility for continued physical therapy and rehabilitation. I have indicated in the discharge instructions to please exchange the Cooper catheter on weekly intervals to hopefully prevent catheter related infections. We will have her follow-up with both her PCP and oncology. Her cancer medications were held during this hospitalization during her acute illness. We will defer to oncology as to when to resume those. We will restart her coumadin tomorrow. Also will order INR and CBC in 3 days to follow up with iNr and Hg. She will have a total of 2 weeks of Meropenem after port removal. She should be continued to be monitored for drug toxicities while she is on this medication. The patient voices back understanding and agreement to the above plan. We will discharge her today. - Time Spent with Patient Total time spent providing and/or coordinating discharge services: Greater than 30 minutes (Apporximately 50 minutes) - Constitutional Vitals: Temp Pulse Resp BP Pulse Ox 97.8 F 87 16 110/38 100 06/04/16 11:56 06/04/16 11:56 06/04/16 11:56 06/04/16 11:56 06/04/16 11:56 Exam: General: Mrs. Vaughan is a very pleasant well-developed well-nourished 70-year- old female she is alert and oriented to person place time and situation. She is lying in bed appears to be comfortable and in no acute distress at this time. Head: Head is normocephalic atraumatic. EENT: Anicteric sclera, pupils equally round react light and accommodation, extraocular motions are intact. Normal external appearance of the nose ears and eyes. Moist mucous membranes. Tongue is midline, trachea midline, neck supple without mass or thyromegaly. There is currently a left internal jugular central venous catheter that will be removed. She does have a right tunneled central venous catheter just placed in the right chest wall and is a internal jugular. Heart: Heart is regular rate and rhythm without murmurs rubs or gallops. Heart sounds are distant but this is secondary to habitus. No JVD. Lungs: Clear to auscultation bilaterally normal effort of breathing. Normal X rise expanse of the chest wall bilaterally. Abdomen: The abdomen is obese, soft, nondistended, bowel sounds are positive in all 4 quadrants. No tenderness to palpation. No organomegaly, no bruits, exam is somewhat limited by habitus. Musculoskeletal: Grossly normal for age no gross deformities noted. Extremities: She does have a 3+ pitting edema of the lower extremities up to the level of the thigh bilaterally. This is lessened over the course of her hospital stay however it is still markedly edematous. She has no clubbing or cyanosis. 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 The ones in the right thigh are clean and well dressed. She also has them on her right foot left foot right leg and right flank. Lines: She has a left internal jugular central venous catheter that will be removed before discharge. She has a right tunneled internal jugular venous catheter that was placed on 06/04/2016. She has a Cooper catheter that she will be discharged with. <Azael Robles P - Last Filed: 06/04/16 18:37> Procedures/tests Complete & Pending: Procedures Performed prior 72 hours Category Date Time Status IR cvc insrt tunnel wo prt/change house attendant [IR] Routine IR 06/04/16 Taken IR us guide needle place [IR] Routine IR 06/04/16 Taken Date of admission: 05/24/16 20:04 Primary care physician: Johan Jha MD Consults: 05/24/16 21:38 Consult to Marking Machine Operator [CONS] Routine Reason for SW Consult: ECF 05/25/16 08:50 Consult to Wound Care [CONS] Routine Reason for Consult: wounds on right leg Call Completed: No 05/25/16 14:43 Consult to Nutrition [CONS] Routine Comment: Consulting Provider: NUTRITION Reason for Dietary Consult: Supplemental Nutrition 05/26/16 14:14 Consult to Occupational Therapy [CONS] Routine Comment: Evaluate, develop and implement POC PT [Consult to Physical Therapy] [CONS] Routine Comment: Evaluate, develop and implement POC 05/28/16 15:27 Consult to Infectious Diseases [CONS] Routine Consulting Provider: Yovana Atkinson Reason for Consult: Bacteremia ESBL Ecoli patient has a port. Please commned on whether or not to remove. Call Completed: Yes 05/31/16 12:20 Consult to Interventional Radiology [CONS] Routine Consulting Provider: Radiology Interventional Cols Reason for Consult: removal of port. Placed by Dr. Saba. Patient has persistant bacteremia. Discussed with both Oncology and ID. Coumadin held over weekend and will keep NPO at midnight in case you all have time tomorrow. Thank you. I will call in the AM. Call Completed: Yes 06/03/16 09:47 Consult to Interventional Radiology [CONS] Routine Consulting Provider: Radiology Interventional Cols Reason for Consult: PICC line/ Vacular access. Patient will require 2 weeks of IV antibiotics. PICC Team unable to place. Call Completed: Yes Hospital course: Ms. Vaughan is a 70 year old female - Time Spent with Patient Total time spent providing and/or coordinating discharge services: - Constitutional Vitals: Temp Pulse Resp BP Pulse Ox 97.8 F 87 16 110/38 100 06/04/16 11:56 06/04/16 11:56 06/04/16 11:56 06/04/16 11:56 06/04/16 11:56 - Attending Attestation I examined this patient and my medical decision-making was reviewed with the DISPLAYER MERCHANDISE/PA/Advanced Practice Nurse/Resident Physician. I agree with the documented findings, disposition and treatment plan as described except to the extent set forth below.
--- NOTE | 2016-06-04 16:25 | Physician Discharge Referral ---
<Aldo Hobbs - Last Filed: 06/04/16 16:26> ExtendedCare Referral Info Transfer To: [facility] ([facility]) Provider in Charge after Transfer: PCP Institutional Level of Care: Skilled - Diagnosis (1) Sepsis Priority: Primary Status: Acute (2) Bacteremia Priority: Primary Status: Acute (3) IgG multiple myeloma Priority: Secondary Status: Acute (4) Plasmacytoma Priority: Secondary Status: Acute (5) Acute kidney injury superimposed on chronic kidney disease Priority: Secondary Status: Acute (6) Anemia Priority: Secondary Status: Acute (7) Leukocytosis Status: Resolved (8) Hyperkalemia Priority: Secondary Status: Resolved (9) Diabetes Priority: Secondary Status: Chronic (10) Atrial fibrillation Priority: Secondary Status: Chronic (11) Hypoalbuminemia Priority: Secondary Status: Acute (12) Edema Priority: Secondary Status: Acute (13) Muscular deconditioning Priority: Secondary Status: Acute (14) DVT prophylaxis Priority: Secondary Status: Acute Prognosis: Good Aware of Diagnosis: Patient Aware of Prognosis: Patient - Transfer Medications Prescriptions: Meropenem [Merrem] 1,000 mg IVPB Q8HR 13 Days Sennosides/Docusate Sodium [Senna Plus] 2 each PO BID #30 tablet Tramadol HCl [Ultram] 50 mg PO Q6H PRN #20 tablet PRN Reason: Pain Zolpidem [Ambien] 5 mg PO HS #7 tablet Home Medications: Aspirin [Adult Low Dose Aspirin EC] 81 mg PO QAM 04/04/15 [History] Atorvastatin Calcium [Lipitor] 20 mg PO DAILY 04/04/15 [History] Prochlorperazine Maleate [Compazine] 10 mg PO Q6H PRN 04/04/15 [History] Tizanidine HCl [Zanaflex] 4 mg PO Q8H PRN 04/04/15 [History] Folic Acid 1 mg PO DAILY #30 tablet 04/18/15 [Rx] Docusate [Colace] 100 mg PO DAILY PRN 04/22/15 [History] Insulin Glargine,Hum.rec.anlog [Lantus Solostar] 15 unit SQ HS 04/22/15 [History ] Insulin Glargine,Hum.rec.anlog [Lantus Solostar] 18 unit SQ QAM 04/22/15 [ History] Insulin LISPRO [HumaLOG] 0 unit SQ ACHS 04/22/15 [History] Melatonin 10 mg PO HS PRN 04/22/15 [History] Simethicone [Gas-X] 160 mg PO Q6H PRN 04/22/15 [History] Acetaminophen [Tylenol] 650 mg PO Q4H PRN 06/11/15 [History] Gabapentin [Neurontin] 300 mg PO BID 06/11/15 [History] Magnesium Hydroxide/Al Hydrox [Mag-Al Liquid] 30 ml PO BID PRN 06/11/15 [History ] Glucagon HCl 1 mg IJ ONCE PRN 12/27/15 [History] Fluticasone Propionate Nasal [Flonase] 100 mcg NS DAILY 02/18/16 [History] Furosemide [Lasix] 40 mg PO DAILY 02/18/16 [History] Albuterol Neb [Proventil Neb] 2.5 mg IH Q6H PRN 04/30/16 [History] GuaiFENesin/Dextromethorphan [Mucinex Dm ER 600-30 mg Tablet] 1 tab PO BID 04/30 [History] Mirtazapine 7.5 mg PO HS 04/30/16 [History] Ondansetron HCl [Zofran] 4 mg PO Q6H PRN 04/30/16 [History] Saline Nasal [place] [[place] Nasal [place]] 1 spray NS TID 04/30/16 [History] Tramadol HCl [Ultram] 50 mg PO BID 04/30/16 [History] Amiodarone [Cordarone] 200 mg PO BID #60 tablet 05/09/16 [Rx] Metoprolol XL (24 HR) Succ [Toprol Xl] 50 mg PO DAILY #30 tab.er.24h 05/09/16 [ Rx] Meropenem [Merrem] 1,000 mg IVPB Q8HR 13 Days 06/02/16 [Rx] Sennosides/Docusate Sodium [Senna Plus] 2 each PO BID #30 tablet 06/04/16 [Rx] Tramadol HCl [Ultram] 50 mg PO Q6H PRN #20 tablet 06/04/16 [Rx] Warfarin [Coumadin] 5 mg PO QPM #0 06/04/16 [Rx] Zolpidem [Ambien] 5 mg PO HS #7 tablet 06/04/16 [Rx] Allergies/Adverse Reactions: Allergies hydrocodone [From Vicodin] Allergy (Verified 04/04/15 11:12) Rash - Lab Orders Lab Orders: Other (include drug levels w/frequency) (Please have a CBC and INR drawn in 3 days and results sent to facility physician or PCP. 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: No Code Status: Full Code - History and Physical History/Physical reviewed & approved w/add comments: Please make sure cooper is exchaged weekly - Mobility Orders Other ( per PT/OT) - Rehabiliation Orders Rehab Potential: Fair Rehab Orders: ROM Exercises, Evaluation for Physical Therapy, Evaluation for Occupational Therapy - Treatments Skin tear care topically daily PRN per policy (please make sure cooper is exchanged on a weekly bases), Fleet enema rectally every other day PRN cleansing purposes - Diet Orders Cardiac (nd diabetic) CERTIFICATION: I certify that the transfer of the above named patient to an Extended Care Facility is necessary for the continuing treatment of the diagnosis listed. The above information is true and accurate reflection of patient's current condition. Confidential - Redisclosure prohibited without a patient's written consent. <Azael Robles P - Last Filed: 06/04/16 18:38> - Respiratory Orders Smoking Cessation: Smoking cessation has been advised. For more information, call the [place] Tobacco Quit Line at 8-997-MRWI-NOW. CERTIFICATION: I certify that the transfer of the above named patient to an Extended Care Facility is necessary for the continuing treatment of the diagnosis listed. The above information is true and accurate reflection of patient's current condition. Confidential - Redisclosure prohibited without a patient's written consent.
== END 2016-06-04 18:52 | DRG 698 ==
LOC: EMEROO 12:51 → 2NNU 12:51 → SUATTDRO 20:04 → 2NNU 21:09 → 2ANU 05-29 15:19
PROVIDERS: ADMIT Internal Medicine; ATTEND Internal Medicine

== ENCOUNTER 2016-06-09 13:18 | Inpatient (IN) ==
--- NOTE | 2016-06-09 14:09 | Emergency Department Note ---
Disposition Clinical Impression: Chronic anemia, Pyelonephritis Altered mental status, unspecified Qualifiers: Altered mental status type: unspecified Qualified Code(s): R41.82 - Altered mental status, unspecified Multiple myeloma Qualifiers: Multiple myeloma remission status: not in remission Qualified Code(s): C90.00 - Multiple myeloma not having achieved remission UTI (urinary tract infection) Qualifiers: Urinary tract infection type: site unspecified Hematuria presence: with hematuria Qualified Code(s): N39.0 - Urinary tract infection, site not specified ; R31.9 - Hematuria, unspecified Hypotension Qualifiers: Hypotension type: other hypotension type Qualified Code(s): I95.89 - Other hypotension Disposition: Admitted As Inpatient Condition: Serious Time of Disposition: 16:54 General Adult HPI - General Chief complaint: ED Pediatric General Illness Stated complaint: Altered mental status Time Seen by Provider: 06/09/16 13:42 Source: EMS Limitations: no limitations Nursing Notes Reviewed: Yes Vital Signs Reviewed: Yes - History of Present Illness HPI Narrative: Patient is a 70-year-old female past history significant for MT in 2015 status post stent no problems since. Patient also has history of multiple myeloma undergoing chemotherapy with Dr. Zepeda, which is currently on hold secondary to recent admission for sepsis secondary to bacteremia with UTI secondary to ESBL in acute encephalopathy with AKA, anemia, hyperkalemia and A. fib. Patient was discharged 5 days ago. Patient is at [facility] when her nurse noticed hypotension at BP 80/30 called EMS. When EMS arrived the nurse stated to them that "she is not acting right" EMS stated that she GCS of 15 and was alert and oriented 3, but could not get a blood pressure with cough and was 90 over palp. No reports of loss of consciousness no blood in stool. Paramedics are unable to start an IV patient was transported to ED. blood pressures taken at 1209 hrs. today Pain Scale: 0 - Related Data Home Medications Medication Instructions Recorded Confirmed Atorvastatin Calcium [Lipitor] 20 mg PO DAILY 04/04/15 06/09/16 Prochlorperazine Maleate 10 mg PO Q6H PRN 04/04/15 06/09/16 [Compazine] Tizanidine HCl [Zanaflex] 4 mg PO Q8H PRN 04/04/15 06/09/16 Docusate [Colace] 100 mg PO DAILY PRN 04/22/15 06/09/16 Insulin Glargine,Hum.rec.anlog 15 unit SQ HS 04/22/15 06/09/16 [Lantus Solostar] Insulin Glargine,Hum.rec.anlog 18 unit SQ QAM 04/22/15 06/09/16 [Lantus Solostar] Insulin LISPRO [HumaLOG] 0 unit SQ ACHS 04/22/15 06/09/16 Melatonin 10 mg PO HS PRN 04/22/15 06/09/16 Simethicone [Gas-X] 160 mg PO Q6H PRN 04/22/15 06/09/16 Acetaminophen [Tylenol] 650 mg PO Q4H PRN 06/11/15 06/09/16 Gabapentin [Neurontin] 300 mg PO BID 06/11/15 06/09/16 Magnesium Hydroxide/Al Hydrox 30 ml PO BID PRN 06/11/15 06/09/16 [Mag-Al Liquid] Glucagon HCl 1 mg IJ ONCE PRN 12/27/15 06/09/16 Fluticasone Propionate Nasal 100 mcg NS DAILY 02/18/16 06/09/16 [Flonase] Furosemide [Lasix] 40 mg PO DAILY 02/18/16 06/09/16 Albuterol Neb [Proventil Neb] 2.5 mg IH Q6H PRN 04/30/16 06/09/16 GuaiFENesin/Dextromethorphan 1 tab PO BID 04/30/16 06/09/16 [Mucinex Dm ER 600-30 mg Tablet] Mirtazapine 7.5 mg PO HS 04/30/16 06/09/16 Ondansetron HCl [Zofran] 4 mg PO Q6H PRN 04/30/16 06/09/16 Saline Nasal [place] [[place] Nasal 1 spray NS TID 04/30/16 06/09/16 [place]] Tramadol HCl [Ultram] 50 mg PO BID 04/30/16 06/09/16 0.9 % Sodium Chloride [Normal 5 - 20 ml .ROUTE AD 06/09/16 06/09/16 Saline Flush] Aspirin 81 mg PO DAILY 06/09/16 06/09/16 Oxycodone HCl 10 mg PO TID PRN 06/09/16 06/09/16 Temazepam [Restoril] 15 mg PO HS 06/09/16 06/09/16 Previous Rx's Medication Instructions Recorded Folic Acid 1 mg PO DAILY #30 tablet 04/18/15 Amiodarone [Cordarone] 200 mg PO BID #60 tablet 05/09/16 Metoprolol XL (24 HR) Succ [Toprol 50 mg PO DAILY #30 tab.er.24h 05/09/16 Xl] Meropenem [Merrem] 1,000 mg IVPB Q8HR 13 Days 06/02/16 Sennosides/Docusate Sodium [Senna 2 each PO BID #30 tablet 06/04/16 Plus] Tramadol HCl [Ultram] 50 mg PO Q6H PRN #20 tablet 06/04/16 Warfarin [Coumadin] 5 mg PO QPM #0 06/04/16 Zolpidem [Ambien] 5 mg PO HS #7 tablet 06/04/16 Allergies Allergy/AdvReac Type Severity Reaction Status Date / Time hydrocodone [From Vicodin] Allergy Rash Verified 04/04/15 11:12 All systems ED: reviewed and negative except as stated. Constitutional: Denies: fever, chills Eyes: Denies: eye pain, vision change ENT ED: Denies: congestion Cardiovascular: Denies: chest pain, dyspnea on exertion Respiratory: Denies: cough, wheezes Gastrointestinal: Denies: abdominal pain, nausea, vomiting, diarrhea Genitourinary: Reports: hematuria Musculoskeletal: Reports: joint swelling, other Integumentary: Reports: lesions Psychiatric: Denies: visual hallucinations Past Medical History - Past Medical History Attestation: Yes The following information was validated with the patient. Source: patient Medical history: Reports: cancer, coronary artery disease, diabetes, renal disease, other Surgical history: Reports: angioplasty/stent Psychiatric history: Reports: no psych history - Social History Smoking Status: Never smoker Smokeless Tobacco Status: No Alcohol use: Reports: none Drug use: Reports: none Physical Exam Vital Signs Temperature 97.8 F 06/09/16 13:19 Pulse Rate 87 06/09/16 13:19 Respiratory Rate 20 06/09/16 13:19 Blood Pressure 114/52 06/09/16 13:19 O2 Sat by Pulse Oximetry 100 06/09/16 13:19 Temperature 97.8 F 06/09/16 13:19 Pulse Rate 83 06/09/16 14:13 Respiratory Rate 18 06/09/16 14:13 Blood Pressure 86/48 06/09/16 14:13 O2 Sat by Pulse Oximetry 99 06/09/16 14:13 Oxygen Delivery Oxygen Delivery Room Air -General Appearance: Patient is a 70-year-old female who is alert and oriented 3 with a GCS of 15. Patient appears pale but is otherwise comfortable -Neurological exam: Cranial nerves II-12 intact, no focal deficits observed, strength equal 5/5 bilaterally in upper extremities. Patient does not walk only sit up with assistance due to chronic issues - Head Head exam: atraumatic, normocephalic, normal inspection - Eye Eye exam: Present: normal appearance, PERRL, EOMI, negative for scleral icterus positive for conjunctival pallor - ENT ENT exam: normal exam, normal oropharynx, mucous membranes moist and pale - Neck Neck exam: Present: normal inspection, full ROM, trachea midline, negative JVD - Chest Chest inspection: Present: Patient has bilateral equal rise and fall of chest wall. Non-tender to palpation. Temporary dialysis port right chest wall. OpSite with gauze pad medial from previous report placement, and similar OpSite as bad superior right-sided neck edema to central line removal. No purulence at either site - Respiratory Respiratory exam: Clear to auscultation bilaterally with R[place] lower left lung area and possibly the right side Cardiovascular Cardiovascular exam: Present: regular rate, normal rhythm, normal heart sounds, without murmurs rubs or gallops. - Abdominal Exam Abdominal exam: Present: soft, nondistended, Non-Tender light and deep palpation in all quadrants. Bowel sounds normoactive throughout all 4 quadrants. Negative for hyper or hyperresonance. - Extremities Exam Extremities exam: Present: normal inspection, full ROM, patient has widespread edema. Of upper and lower extremities much worse and lower extremities at 4+ and pitting - Back Exam Back exam: Genitourinary exam: Patient is fully place with hematuria and collection bag - Psychiatric Psychiatric exam: Present: normal affect, normal mood - Skin Skin exam: Present: warm, dry, intact, skin pale, right lower extremity has multiple fleshy erythematous nodules from distally at the ankle and medial right foot extending up the leg - General Limitations: no limitations General appearance: alert, in no apparent distress Course Course Narrative: Patient was seen and examined. Sepsis order set ordered secondary to patient' s history. - Consultations Time: 16:53 Vital Signs Temperature 97.8 F 06/09/16 13:19 Pulse Rate 87 06/09/16 13:19 Respiratory Rate 20 06/09/16 13:19 Blood Pressure 114/52 06/09/16 13:19 O2 Sat by Pulse Oximetry 100 06/09/16 13:19 Temperature 98.3 F 06/09/16 19:46 Pulse Rate 84 06/09/16 19:46 Respiratory Rate 16 06/09/16 19:46 Blood Pressure 98/45 06/09/16 19:46 O2 Sat by Pulse Oximetry 100 06/09/16 19:46 Oxygen Delivery Oxygen Delivery Room Air Medical Decision Making - MDM Narrative Medical decision making narrative: Ms. Vaughan is a 70-year-old female past history significant for MT in 2015 status post stent no problems since. Patient also has history of multiple myeloma undergoing chemotherapy with Dr. Zepeda, which is currently on hold secondary to recent admission for sepsis secondary to bacteremia with UTI secondary to ESBL in acute encephalopathy with AKA, anemia, hyperkalemia and A. fib. Patient was discharged 5 days ago. Patient is at [facility] when her nurse noticed hypotension at BP 80/30 called EMS. When EMS arrived the nurse stated to them that "she is not acting right" EMS stated that she GCS of 15 and was alert and oriented 3, but could not get a blood pressure with cough and was 90 over palp. No reports of loss of consciousness no blood in stool. Patient's concerning for possible sepsis, hypotension secondary to severe anemia and Hypovolemia 2/2 dehydration and UTI, pulmonary edema secondary to CHF and was holding fluid resuscitation until BNP is accomplished. Patient's labs returned negative troponin, negative chest x-ray, negative signs for CHF with negative BNP. Patient does have an increase in creatinine of 2.71 which is greater than previous accounts showing acute on chronic kidney injury. Patient's urine shows large leukocyte esterase bacteria and WBCs too numerous to count. Patient has previous history of ESBL and recent admission which was discharged as 5 days ago. Patient also has indwelling catheter. It appears the patient has UTI possibly pyelonephritis with current increase in BUN and creatinine. Lactic acid negative Patient states she has she has not been eating enough and states that she will do better but patient appears to the behind and hydration and dietary intake. I recommend admission for treatment of patient's UTI/pyelonephritis and appropriate IV hydration, consultation with dietitian, to prevent further deterioration of patient's renal issues that may lead her to dialysis. Patient understands and agrees to treatment plan for admission. Patient was admitted to Dr. Frazier. Acute hypovolemic encephalopathy secondary to chronic anemia and acute hypotension, with acute on chronic PURNIMA secondary to pyelonephritis/UTI. Patient is received 1 L fluid bolus. Patient has a history of previous ESBL prior admission. We will discharge her initiation of antibiotic therapy to infectious disease to ensure patient is on the proper regimen during admission. - Medical Records Medical records reviewed: Yes I reviewed the patient's medical records. - Lab Data Lab results reviewed: Yes I reviewed the patient's lab results. Lab results narrative: Short CBC 06/09/16 Range/Units 15:00 WBC 10.4 (4.3-11.1) K/mcL Hgb 7.4 L (11.5-15.4) g/dL Hct 23.3 L (35.3-44.9) % Plt Count 355 (140-400) K/mcL Neutrophils # 8.3 (1.6-8.9) K/mcL BMP 06/09/16 Range/Units 15:00 Sodium 135 L (136-145) mEq/L Potassium 4.4 (3.5-4.5) mEq/L Chloride 103 (98-109) mEq/L Carbon Dioxide 21 (19-29) mEq/L BUN 98 H (7-20) mg/dL Creatinine 2.71 H (0.57-1.11) mg/dL Glucose 103 H (70-99) mg/dL Calcium 7.5 L (8.6-10.8) mg/dL Cardiac Enzymes 06/09/16 Range/Units 15:00 Troponin I 0.00 (0-0.03) ng/mL Liver Function 06/09/16 Range/Units 15:00 Total Bilirubin 0.3 (0.2-1.2) mg/dL Direct Bilirubin 0.2 (0.0-0.5) mg/dL AST 17 (5-34) Units/L ALT < 6 (0-55) Units/L Alkaline Phosphatase 110 (38-126) Units/L Albumin 1.4 L (3.5-5.0) g/dL Urine 06/09/16 Range/Units 15:20 Urine Color Yellow (Yellow) Urine Clarity Turbid A (Clear) Urine pH 6.0 (5.0-8.0) pH Units Ur Specific [place] 1.019 (1.010-1.025) Urine Protein 100 H (Neg-Trace) mg/dL Urine Glucose (UA) Normal (Normal) mg/dL Result diagrams: 06/09/16 15:00 06/09/16 15:00 Lab Results 06/09/16 06/09/16 06/09/16 Range/Units 15:00 15:00 15:00 WBC 10.4 (4.3-11.1) K/mcL RBC 2.55 L (3.82-4.97) M/mcL Hgb 7.4 L (11.5-15.4) g/dL Hct 23.3 L (35.3-44.9) % MCV 91.4 (83.0-100.0) fL MCH 29.0 (28.0-33.3) pg MCHC 31.8 (31.6-35.5) g/dL RDW 16.5 H (11.5-14.5) % Plt Count 355 (140-400) K/mcL MPV 9.3 L (9.4-12.4) fL Immature Gran % 0.8 (0-4) % Seg Neutrophils % 79.6 % Lymphocytes % 6.0 % Monocytes % 8.2 % Eosinophils % 5.1 % Basophils % 0.3 % Neutrophils # 8.3 (1.6-8.9) K/mcL Lymphocytes # 0.6 (0.6-4.6) K/mcL Monocytes # 0.9 (0.0-1.3) K/mcL Eosinophils # 0.5 (0.0-0.6) K/mcL Basophils # 0.0 (0.0-0.2) K/mcL PT 14.4 H (9.4-12.1) Seconds INR 1.3 APTT 28.4 (26.0-36.0) Seconds Sodium 135 L (136-145) mEq/L Potassium 4.4 (3.5-4.5) mEq/L Chloride 103 (98-109) mEq/L Carbon Dioxide 21 (19-29) mEq/L BUN 98 H (7-20) mg/dL Creatinine 2.71 H (0.57-1.11) mg/dL Est GFR ( Amer) 21 L (> 60) Est GFR (Non-Af Amer) 17 L (> 60) BUN/Creatinine Ratio 36 H (6-26) Glucose 103 H (70-99) mg/dL Calculated Osmolality 311 H (280-300) Lactic Acid (0.5-2.2) mmol/L Calcium 7.5 L (8.6-10.8) mg/dL Phosphorus 5.9 H (2.3-4.7) mg/dL Magnesium 1.9 (1.6-2.6) mg/dL Total Bilirubin 0.3 (0.2-1.2) mg/dL Direct Bilirubin 0.2 (0.0-0.5) mg/dL Indirect Bilirubin 0.1 (0.0-1.2) mg/dL AST 17 (5-34) Units/L ALT < 6 (0-55) Units/L Alkaline Phosphatase 110 (38-126) Units/L Troponin I (0-0.03) ng/mL B-Natriuretic Peptide (0-100) pg/mL Serum Total Protein 4.1 L (6.0-8.3) g/dL Albumin 1.4 L (3.5-5.0) g/dL Globulin 2.7 (2.4-3.5) g/dL Albumin/Globulin Ratio 0.5 L (1.1-2.2) Urine Color (Yellow) Urine Clarity (Clear) Urine pH (5.0-8.0) pH Units Ur Specific [place] (1.010-1.025) Urine Protein (Neg-Trace) mg/dL Urine Glucose (UA) (Normal) mg/dL Urine Ketones (Negative) mg/dL Urine Blood (Negative) Urine Nitrite (Negative) Urine Bilirubin (Negative) Urine Urobilinogen (Normal) mg/dL Ur Leukocyte Esterase (Negative) Urine Microscopic RBC (0-3) per hpf Urine Microscopic WBC (0-3) per hpf Ur Squamous Epith Cells (None-Few) per lpf Urine Bacteria (None-Few) per hpf Hyaline Casts (None-Few) per lpf Urine Yeast Ur Culture Indicated? (NO) 06/09/16 06/09/16 06/09/16 Range/Units 15:00 15:00 15:00 WBC (4.3-11.1) K/mcL RBC (3.82-4.97) M/mcL Hgb (11.5-15.4) g/dL Hct (35.3-44.9) % MCV (83.0-100.0) fL MCH (28.0-33.3) pg MCHC (31.6-35.5) g/dL RDW (11.5-14.5) % Plt Count (140-400) K/mcL MPV (9.4-12.4) fL Immature Gran % (0-4) % Seg Neutrophils % % Lymphocytes % % Monocytes % % Eosinophils % % Basophils % % Neutrophils # (1.6-8.9) K/mcL Lymphocytes # (0.6-4.6) K/mcL Monocytes # (0.0-1.3) K/mcL Eosinophils # (0.0-0.6) K/mcL Basophils # (0.0-0.2) K/mcL PT (9.4-12.1) Seconds INR APTT (26.0-36.0) Seconds Sodium (136-145) mEq/L Potassium (3.5-4.5) mEq/L Chloride (98-109) mEq/L Carbon Dioxide (19-29) mEq/L BUN (7-20) mg/dL Creatinine (0.57-1.11) mg/dL Est GFR ( Amer) (> 60) Est GFR (Non-Af Amer) (> 60) BUN/Creatinine Ratio (6-26) Glucose (70-99) mg/dL Calculated Osmolality (280-300) Lactic Acid 1.0 (0.5-2.2) mmol/L Calcium (8.6-10.8) mg/dL Phosphorus (2.3-4.7) mg/dL Magnesium (1.6-2.6) mg/dL Total Bilirubin (0.2-1.2) mg/dL Direct Bilirubin (0.0-0.5) mg/dL Indirect Bilirubin (0.0-1.2) mg/dL AST (5-34) Units/L ALT (0-55) Units/L Alkaline Phosphatase (38-126) Units/L Troponin I 0.00 (0-0.03) ng/mL B-Natriuretic Peptide 33 (0-100) pg/mL Serum Total Protein (6.0-8.3) g/dL Albumin (3.5-5.0) g/dL Globulin (2.4-3.5) g/dL Albumin/Globulin Ratio (1.1-2.2) Urine Color (Yellow) Urine Clarity (Clear) Urine pH (5.0-8.0) pH Units Ur Specific [place] (1.010-1.025) Urine Protein (Neg-Trace) mg/dL Urine Glucose (UA) (Normal) mg/dL Urine Ketones (Negative) mg/dL Urine Blood (Negative) Urine Nitrite (Negative) Urine Bilirubin (Negative) Urine Urobilinogen (Normal) mg/dL Ur Leukocyte Esterase (Negative) Urine Microscopic RBC (0-3) per hpf Urine Microscopic WBC (0-3) per hpf Ur Squamous Epith Cells (None-Few) per lpf Urine Bacteria (None-Few) per hpf Hyaline Casts (None-Few) per lpf Urine Yeast Ur Culture Indicated? (NO) 06/09/16 Range/Units 15:20 WBC (4.3-11.1) K/mcL RBC (3.82-4.97) M/mcL Hgb (11.5-15.4) g/dL Hct (35.3-44.9) % MCV (83.0-100.0) fL MCH (28.0-33.3) pg MCHC (31.6-35.5) g/dL RDW (11.5-14.5) % Plt Count (140-400) K/mcL MPV (9.4-12.4) fL Immature Gran % (0-4) % Seg Neutrophils % % Lymphocytes % % Monocytes % % Eosinophils % % Basophils % % Neutrophils # (1.6-8.9) K/mcL Lymphocytes # (0.6-4.6) K/mcL Monocytes # (0.0-1.3) K/mcL Eosinophils # (0.0-0.6) K/mcL Basophils # (0.0-0.2) K/mcL PT (9.4-12.1) Seconds INR APTT (26.0-36.0) Seconds Sodium (136-145) mEq/L Potassium (3.5-4.5) mEq/L Chloride (98-109) mEq/L Carbon Dioxide (19-29) mEq/L BUN (7-20) mg/dL Creatinine (0.57-1.11) mg/dL Est GFR ( Amer) (> 60) Est GFR (Non-Af Amer) (> 60) BUN/Creatinine Ratio (6-26) Glucose (70-99) mg/dL Calculated Osmolality (280-300) Lactic Acid (0.5-2.2) mmol/L Calcium (8.6-10.8) mg/dL Phosphorus (2.3-4.7) mg/dL Magnesium (1.6-2.6) mg/dL Total Bilirubin (0.2-1.2) mg/dL Direct Bilirubin (0.0-0.5) mg/dL Indirect Bilirubin (0.0-1.2) mg/dL AST (5-34) Units/L ALT (0-55) Units/L Alkaline Phosphatase (38-126) Units/L Troponin I (0-0.03) ng/mL B-Natriuretic Peptide (0-100) pg/mL Serum Total Protein (6.0-8.3) g/dL Albumin (3.5-5.0) g/dL Globulin (2.4-3.5) g/dL Albumin/Globulin Ratio (1.1-2.2) Urine Color Yellow (Yellow) Urine Clarity Turbid A (Clear) Urine pH 6.0 (5.0-8.0) pH Units Ur Specific [place] 1.019 (1.010-1.025) Urine Protein 100 H (Neg-Trace) mg/dL Urine Glucose (UA) Normal (Normal) mg/dL Urine Ketones Negative (Negative) mg/dL Urine Blood Moderate H (Negative) Urine Nitrite Negative (Negative) Urine Bilirubin Small H (Negative) Urine Urobilinogen Normal (Normal) mg/dL Ur Leukocyte Esterase Large H (Negative) Urine Microscopic RBC 5-15 H (0-3) per hpf Urine Microscopic WBC TNTC H (0-3) per hpf Ur Squamous Epith Cells Many H (None-Few) per lpf Urine Bacteria None Seen (None-Few) per hpf Hyaline Casts None Seen (None-Few) per lpf Urine Yeast Test Not Performed Ur Culture Indicated? YES A (NO) - Radiology Data Radiology results reviewed: Yes I reviewed the patient's radiology results. Chest X-Ray 06/09/16 14:23 IMPRESSION: 1. Support devices as above. 2. Mild prominence of the pulmonary vasculature. 3. Otherwise, no evidence of acute cardiopulmonary abnormality. D/ / Alexis Preciado MD / Alexis Preciado MD Interpreting Provider: Alexis Preciado MD - EKG Data EKG #1 EKG attestation: Yes I reviewed and interpreted this EKG. EKG results narrative: EKG taken at 06/09/2016 at 1440 hrs. shows a sinus rhythm with a ventricular rate of [address] depressions or elevations in leads, no QT prolongation, no QRS widening, there is T-wave inversion in lead aVL. P-wave inversion in lead 3
[2016-06-09 15:07] LABS: Basophils % 0.3 %; Eosinophils # 0.5 K/mcL (0.0-0.6); Eosinophils % 5.1 %; Hematocrit 23.3 % (35.3-44.9); Hemoglobin 7.4 g/dL (11.5-15.4); Immature Granulocytes % 0.8 % (0-4); Lymphocytes # 0.6 K/mcL (0.6-4.6); Mean Corpuscular HGB Conc 31.8 g/dL (31.6-35.5); Mean Corpuscular Volume 91.4 fL (83.0-100.0); Mean Platelet Volume 9.3 fL (9.4-12.4); Monocytes # 0.9 K/mcL (0.0-1.3); Monocytes % 8.2 %; Neutrophils # 8.3 K/mcL (1.6-8.9); Platelet Count 355 K/mcL (140-400); Red Blood Count 2.55 M/mcL (3.82-4.97); Red Cell Distribution Width 16.5 % (11.5-14.5); Segmented Neutrophils % 79.6 %
[2016-06-09 15:13] LABS: INR 1.3; Prothrombin Time 14.4 Seconds (9.4-12.1)
[2016-06-09 15:15] LABS: Activated Partial Thrombo Time 28.4 Seconds (26.0-36.0)
[2016-06-09 15:20] LABS: Albumin/Globulin Ratio 0.5 (1.1-2.2); Alkaline Phosphatase 110 Units/L (38-126); Aspartate Amino Transferase 17 Units/L (5-34); BUN/Creatinine Ratio 36 (6-26); Bilirubin,Direct 0.2 mg/dL (0.0-0.5); Bilirubin,Indirect 0.1 mg/dL (0.0-1.2); Bilirubin,Total 0.3 mg/dL (0.2-1.2); Blood Urea Nitrogen 98 mg/dL (7-20); Calcium 7.5 mg/dL (8.6-10.8); Carbon Dioxide 21 mEq/L (19-29); Chloride 103 mEq/L (98-109); Globulin 2.7 g/dL (2.4-3.5); Glucose 103 mg/dL (70-99); Magnesium 1.9 mg/dL (1.6-2.6); Osmolality,Calculated 311 (280-300); Phosphorous 5.9 mg/dL (2.3-4.7); Potassium 4.4 mEq/L (3.5-4.5); Sodium 135 mEq/L (136-145); Total Protein 4.1 g/dL (6.0-8.3); eGFR For African Americans 21 (> 60); eGFR For Non-African Americans 17 (> 60)
--- NOTE | 2016-06-09 15:20 | Electrocardiograph Report ---
[facility] Test Date: 2016-06-09 Pat Name: Alesha Vaughan Department: 104 Room: Gender: F [employer] Worker: : 1945 Requested By: Tanner Mcdaniel Order Number: [id number] Reading MD: Jimi Kilpatrick MD Measurements Intervals [place] Rate: 82 P: 13 SC: 170 QRS: -3 QRSD: 94 T: 75 QT: 392 QTc: 431 Interpretive Statements SINUS RHYTHM LOW QRS VOLTAGE IN PRECORDIAL LEADS NONSPECIFIC T-WAVE ABNORMALITY Electronically Signed On 06-09-2016 15:18:59 EDT by Jimi Kilpatrick MD
[2016-06-09 15:28] LABS: Bilirubin,Urine Small (Negative); Blood,Urine Moderate (Negative); Clarity,Urine Turbid (Clear); Color,Urine Yellow (Yellow); Glucose,Urine (UA) Normal (Normal); Ketones,Urine Negative (Negative); Leukocyte Esterase,Urine Large (Negative); Nitrite,Urine Negative (Negative); Protein,Urine 100 mg/dL (Neg-Trace); Specific Gravity,Urine 1.019 (1.010-1.025); Urobilinogen,Urine Normal (Normal)
[2016-06-09 15:29] LABS: Alanine Aminotransferase < 6 Units/L (0-55); Albumin 1.4 g/dL (3.5-5.0)
[2016-06-09 15:31] LABS: Bacteria,Urine None Seen per hpf (None-Few); Squamous Epithelial Cell,Urine Many per lpf (None-Few); WBC,Urine TNTC per hpf (0-3)
[2016-06-09 15:43] LABS: Hyaline Casts,Urine None Seen per lpf (None-Few)
[2016-06-09] MEDS ORDERED: 0.9 % Sodium Chloride 1,000 ML IV ONE (15:52)
[2016-06-09] MEDS ORDERED: 0.9 % Sodium Chloride 1,000 ML ONE (15:53)
[2016-06-09] MEDS ORDERED: 0.9 % Sodium Chloride 1,000 ML IVC ONE (16:00)
--- NOTE | 2016-06-09 18:05 | Emergency Department Note ---
Disposition Clinical Impression: Altered mental status, unspecified, Chronic anemia, Multiple myeloma, UTI ( urinary tract infection), Pyelonephritis, Hypotension Disposition: Admitted As Inpatient Condition: Serious General Adult HPI - General Chief complaint: ED Pediatric General Illness Stated complaint: Altered mental status Time Seen by Provider: 06/09/16 13:42 Source: EMS Limitations: no limitations - History of Present Illness Pain Scale: 0 - Related Data Home Medications Medication Instructions Recorded Confirmed Atorvastatin Calcium [Lipitor] 20 mg PO DAILY 04/04/15 06/09/16 Prochlorperazine Maleate 10 mg PO Q6H PRN 04/04/15 06/09/16 [Compazine] Tizanidine HCl [Zanaflex] 4 mg PO Q8H PRN 04/04/15 06/09/16 Docusate [Colace] 100 mg PO DAILY PRN 04/22/15 06/09/16 Insulin Glargine,Hum.rec.anlog 15 unit SQ HS 04/22/15 06/09/16 [Lantus Solostar] Insulin Glargine,Hum.rec.anlog 18 unit SQ QAM 04/22/15 06/09/16 [Lantus Solostar] Insulin LISPRO [HumaLOG] 0 unit SQ ACHS 04/22/15 06/09/16 Melatonin 10 mg PO HS PRN 04/22/15 06/09/16 Simethicone [Gas-X] 160 mg PO Q6H PRN 04/22/15 06/09/16 Acetaminophen [Tylenol] 650 mg PO Q4H PRN 06/11/15 06/09/16 Gabapentin [Neurontin] 300 mg PO BID 06/11/15 06/09/16 Magnesium Hydroxide/Al Hydrox 30 ml PO BID PRN 06/11/15 06/09/16 [Mag-Al Liquid] Glucagon HCl 1 mg IJ ONCE PRN 12/27/15 06/09/16 Fluticasone Propionate Nasal 100 mcg NS DAILY 02/18/16 06/09/16 [Flonase] Furosemide [Lasix] 40 mg PO DAILY 02/18/16 06/09/16 Albuterol Neb [Proventil Neb] 2.5 mg IH Q6H PRN 04/30/16 06/09/16 GuaiFENesin/Dextromethorphan 1 tab PO BID 04/30/16 06/09/16 [Mucinex Dm ER 600-30 mg Tablet] Mirtazapine 7.5 mg PO HS 04/30/16 06/09/16 Ondansetron HCl [Zofran] 4 mg PO Q6H PRN 04/30/16 06/09/16 Saline Nasal [place] [[place] Nasal 1 spray NS TID 04/30/16 06/09/16 [place]] Tramadol HCl [Ultram] 50 mg PO BID 04/30/16 06/09/16 0.9 % Sodium Chloride [Normal 5 - 20 ml .ROUTE AD 06/09/16 06/09/16 Saline Flush] Aspirin 81 mg PO DAILY 06/09/16 06/09/16 Oxycodone HCl 10 mg PO TID PRN 06/09/16 06/09/16 Temazepam [Restoril] 15 mg PO HS 06/09/16 06/09/16 Previous Rx's Medication Instructions Recorded Folic Acid 1 mg PO DAILY #30 tablet 04/18/15 Amiodarone [Cordarone] 200 mg PO BID #60 tablet 05/09/16 Metoprolol XL (24 HR) Succ [Toprol 50 mg PO DAILY #30 tab.er.24h 05/09/16 Xl] Meropenem [Merrem] 1,000 mg IVPB Q8HR 13 Days 06/02/16 Sennosides/Docusate Sodium [Senna 2 each PO BID #30 tablet 06/04/16 Plus] Tramadol HCl [Ultram] 50 mg PO Q6H PRN #20 tablet 06/04/16 Warfarin [Coumadin] 5 mg PO QPM #0 06/04/16 Zolpidem [Ambien] 5 mg PO HS #7 tablet 06/04/16 Allergies Allergy/AdvReac Type Severity Reaction Status Date / Time hydrocodone [From Vicodin] Allergy Rash Verified 04/04/15 11:12 Constitutional: Denies: fever, chills Eyes: Denies: eye pain, vision change ENT ED: Denies: congestion Cardiovascular: Denies: chest pain, dyspnea on exertion Respiratory: Denies: cough, wheezes Gastrointestinal: Denies: abdominal pain, nausea, vomiting, diarrhea Genitourinary: Reports: hematuria Musculoskeletal: Reports: joint swelling, other Integumentary: Reports: lesions Psychiatric: Denies: visual hallucinations Past Medical History - Past Medical History Medical history: Reports: cancer, coronary artery disease, diabetes, renal disease, other Surgical history: Reports: angioplasty/stent Psychiatric history: Reports: no psych history - Social History Smoking Status: Never smoker Smokeless Tobacco Status: No Alcohol use: Reports: none Drug use: Reports: none Physical Exam - General Limitations: no limitations General appearance: alert, in no apparent distress Course - Reevaluation(s) Reevaluation #1: I saw the patient with resident, Dr. Mcdaniel. Patient presented with altered mental status and weakness. I really feel that her mental status was significantly altered here although she was visibly weak. She has number of chronic medical issues and it appears that she has a urinary tract infection here. Her vital signs are okay. I do not see any indications of sepsis. Patient will be admitted to the hospital to the hospitalist service. Time: 18:05 Vital Signs Temperature 97.8 F 06/09/16 13:19 Pulse Rate 87 06/09/16 13:19 Respiratory Rate 20 06/09/16 13:19 Blood Pressure 114/52 06/09/16 13:19 O2 Sat by Pulse Oximetry 100 06/09/16 13:19 Temperature 98.1 F 06/17/16 08:06 Pulse Rate 91 06/17/16 13:00 Respiratory Rate 16 06/17/16 13:00 Blood Pressure 73/24 06/17/16 13:00 O2 Sat by Pulse Oximetry 87 L 06/17/16 13:00 Oxygen Delivery Oxygen Delivery Room Air Medical Decision Making - Lab Data Result diagrams: 06/16/16 03:20 06/17/16 03:40 Lab Results 06/09/16 06/09/16 06/09/16 Range/Units 15:00 15:00 15:00 WBC 10.4 (4.3-11.1) K/mcL RBC 2.55 L (3.82-4.97) M/mcL Hgb 7.4 L (11.5-15.4) g/dL Hct 23.3 L (35.3-44.9) % MCV 91.4 (83.0-100.0) fL MCH 29.0 (28.0-33.3) pg MCHC 31.8 (31.6-35.5) g/dL RDW 16.5 H (11.5-14.5) % Plt Count 355 (140-400) K/mcL MPV 9.3 L (9.4-12.4) fL Immature Gran % 0.8 (0-4) % Seg Neutrophils % 79.6 % Lymphocytes % 6.0 % Monocytes % 8.2 % Eosinophils % 5.1 % Basophils % 0.3 % Neutrophils # 8.3 (1.6-8.9) K/mcL Lymphocytes # 0.6 (0.6-4.6) K/mcL Monocytes # 0.9 (0.0-1.3) K/mcL Eosinophils # 0.5 (0.0-0.6) K/mcL Basophils # 0.0 (0.0-0.2) K/mcL PT 14.4 H (9.4-12.1) Seconds INR 1.3 APTT 28.4 (26.0-36.0) Seconds Sodium 135 L (136-145) mEq/L Potassium 4.4 (3.5-4.5) mEq/L Chloride 103 (98-109) mEq/L Carbon Dioxide 21 (19-29) mEq/L BUN 98 H (7-20) mg/dL Creatinine 2.71 H (0.57-1.11) mg/dL Est GFR ( Amer) 21 L (> 60) Est GFR (Non-Af Amer) 17 L (> 60) BUN/Creatinine Ratio 36 H (6-26) Glucose 103 H (70-99) mg/dL POC Glucose (58-89) Calculated Osmolality 311 H (280-300) Lactic Acid (0.5-2.2) mmol/L Calcium 7.5 L (8.6-10.8) mg/dL Phosphorus 5.9 H (2.3-4.7) mg/dL Magnesium 1.9 (1.6-2.6) mg/dL Total Bilirubin 0.3 (0.2-1.2) mg/dL Direct Bilirubin 0.2 (0.0-0.5) mg/dL Indirect Bilirubin 0.1 (0.0-1.2) mg/dL AST 17 (5-34) Units/L ALT < 6 (0-55) Units/L Alkaline Phosphatase 110 (38-126) Units/L Troponin I (0-0.03) ng/mL B-Natriuretic Peptide (0-100) pg/mL Serum Total Protein 4.1 L (6.0-8.3) g/dL Albumin 1.4 L (3.5-5.0) g/dL Globulin 2.7 (2.4-3.5) g/dL Albumin/Globulin Ratio 0.5 L (1.1-2.2) Urine Color (Yellow) Urine Clarity (Clear) Urine pH (5.0-8.0) pH Units Ur Specific [place] (1.010-1.025) Urine Protein (Neg-Trace) mg/dL Urine Glucose (UA) (Normal) mg/dL Urine Ketones (Negative) mg/dL Urine Blood (Negative) Urine Nitrite (Negative) Urine Bilirubin (Negative) Urine Urobilinogen (Normal) mg/dL Ur Leukocyte Esterase (Negative) Urine Microscopic RBC (0-3) per hpf Urine Microscopic WBC (0-3) per hpf Ur Squamous Epith Cells (None-Few) per lpf Urine Bacteria (None-Few) per hpf Hyaline Casts (None-Few) per lpf Urine Yeast Ur Culture Indicated? (NO) 06/09/16 06/09/16 06/09/16 Range/Units 15:00 15:00 15:00 WBC (4.3-11.1) K/mcL RBC (3.82-4.97) M/mcL Hgb (11.5-15.4) g/dL Hct (35.3-44.9) % MCV (83.0-100.0) fL MCH (28.0-33.3) pg MCHC (31.6-35.5) g/dL RDW (11.5-14.5) % Plt Count (140-400) K/mcL MPV (9.4-12.4) fL Immature Gran % (0-4) % Seg Neutrophils % % Lymphocytes % % Monocytes % % Eosinophils % % Basophils % % Neutrophils # (1.6-8.9) K/mcL Lymphocytes # (0.6-4.6) K/mcL Monocytes # (0.0-1.3) K/mcL Eosinophils # (0.0-0.6) K/mcL Basophils # (0.0-0.2) K/mcL PT (9.4-12.1) Seconds INR APTT (26.0-36.0) Seconds Sodium (136-145) mEq/L Potassium (3.5-4.5) mEq/L Chloride (98-109) mEq/L Carbon Dioxide (19-29) mEq/L BUN (7-20) mg/dL Creatinine (0.57-1.11) mg/dL Est GFR ( Amer) (> 60) Est GFR (Non-Af Amer) (> 60) BUN/Creatinine Ratio (6-26) Glucose (70-99) mg/dL POC Glucose (58-89) Calculated Osmolality (280-300) Lactic Acid 1.0 (0.5-2.2) mmol/L Calcium (8.6-10.8) mg/dL Phosphorus (2.3-4.7) mg/dL Magnesium (1.6-2.6) mg/dL Total Bilirubin (0.2-1.2) mg/dL Direct Bilirubin (0.0-0.5) mg/dL Indirect Bilirubin (0.0-1.2) mg/dL AST (5-34) Units/L ALT (0-55) Units/L Alkaline Phosphatase (38-126) Units/L Troponin I 0.00 (0-0.03) ng/mL B-Natriuretic Peptide 33 (0-100) pg/mL Serum Total Protein (6.0-8.3) g/dL Albumin (3.5-5.0) g/dL Globulin (2.4-3.5) g/dL Albumin/Globulin Ratio (1.1-2.2) Urine Color (Yellow) Urine Clarity (Clear) Urine pH (5.0-8.0) pH Units Ur Specific [place] (1.010-1.025) Urine Protein (Neg-Trace) mg/dL Urine Glucose (UA) (Normal) mg/dL Urine Ketones (Negative) mg/dL Urine Blood (Negative) Urine Nitrite (Negative) Urine Bilirubin (Negative) Urine Urobilinogen (Normal) mg/dL Ur Leukocyte Esterase (Negative) Urine Microscopic RBC (0-3) per hpf Urine Microscopic WBC (0-3) per hpf Ur Squamous Epith Cells (None-Few) per lpf Urine Bacteria (None-Few) per hpf Hyaline Casts (None-Few) per lpf Urine Yeast Ur Culture Indicated? (NO) 06/09/16 06/09/16 06/09/16 Range/Units 15:20 18:16 21:00 WBC (4.3-11.1) K/mcL RBC (3.82-4.97) M/mcL Hgb (11.5-15.4) g/dL Hct (35.3-44.9) % MCV (83.0-100.0) fL MCH (28.0-33.3) pg MCHC (31.6-35.5) g/dL RDW (11.5-14.5) % Plt Count (140-400) K/mcL MPV (9.4-12.4) fL Immature Gran % (0-4) % Seg Neutrophils % % Lymphocytes % % Monocytes % % Eosinophils % % Basophils % % Neutrophils # (1.6-8.9) K/mcL Lymphocytes # (0.6-4.6) K/mcL Monocytes # (0.0-1.3) K/mcL Eosinophils # (0.0-0.6) K/mcL Basophils # (0.0-0.2) K/mcL PT (9.4-12.1) Seconds INR APTT (26.0-36.0) Seconds Sodium (136-145) mEq/L Potassium (3.5-4.5) mEq/L Chloride (98-109) mEq/L Carbon Dioxide (19-29) mEq/L BUN (7-20) mg/dL Creatinine (0.57-1.11) mg/dL Est GFR ( Amer) (> 60) Est GFR (Non-Af Amer) (> 60) BUN/Creatinine Ratio (6-26) Glucose (70-99) mg/dL POC Glucose 93 H 136 H (58-89) Calculated Osmolality (280-300) Lactic Acid (0.5-2.2) mmol/L Calcium (8.6-10.8) mg/dL Phosphorus (2.3-4.7) mg/dL Magnesium (1.6-2.6) mg/dL Total Bilirubin (0.2-1.2) mg/dL Direct Bilirubin (0.0-0.5) mg/dL Indirect Bilirubin (0.0-1.2) mg/dL AST (5-34) Units/L ALT (0-55) Units/L Alkaline Phosphatase (38-126) Units/L Troponin I (0-0.03) ng/mL B-Natriuretic Peptide (0-100) pg/mL Serum Total Protein (6.0-8.3) g/dL Albumin (3.5-5.0) g/dL Globulin (2.4-3.5) g/dL Albumin/Globulin Ratio (1.1-2.2) Urine Color Yellow (Yellow) Urine Clarity Turbid A (Clear) Urine pH 6.0 (5.0-8.0) pH Units Ur Specific [place] 1.019 (1.010-1.025) Urine Protein 100 H (Neg-Trace) mg/dL Urine Glucose (UA) Normal (Normal) mg/dL Urine Ketones Negative (Negative) mg/dL Urine Blood Moderate H (Negative) Urine Nitrite Negative (Negative) Urine Bilirubin Small H (Negative) Urine Urobilinogen Normal (Normal) mg/dL Ur Leukocyte Esterase Large H (Negative) Urine Microscopic RBC 5-15 H (0-3) per hpf Urine Microscopic WBC TNTC H (0-3) per hpf Ur Squamous Epith Cells Many H (None-Few) per lpf Urine Bacteria None Seen (None-Few) per hpf Hyaline Casts None Seen (None-Few) per lpf Urine Yeast Test Not Performed Ur Culture Indicated? YES A (NO) 06/10/16 06/10/16 06/10/16 Range/Units 04:24 04:24 04:24 WBC 9.8 (4.3-11.1) K/mcL RBC 2.24 L (3.82-4.97) M/mcL Hgb 6.6 L (11.5-15.4) g/dL Hct 20.6 L (35.3-44.9) % MCV 92.0 (83.0-100.0) fL MCH 29.5 (28.0-33.3) pg MCHC 32.0 (31.6-35.5) g/dL RDW 16.7 H (11.5-14.5) % Plt Count 328 (140-400) K/mcL MPV 9.5 (9.4-12.4) fL Immature Gran % 0.8 (0-4) % Seg Neutrophils % 74.3 % Lymphocytes % 6.6 % Monocytes % 10.3 % Eosinophils % 7.7 % Basophils % 0.3 % Neutrophils # 7.3 (1.6-8.9) K/mcL Lymphocytes # 0.7 (0.6-4.6) K/mcL Monocytes # 1.0 (0.0-1.3) K/mcL Eosinophils # 0.8 H (0.0-0.6) K/mcL Basophils # 0.0 (0.0-0.2) K/mcL PT 15.0 H (9.4-12.1) Seconds INR 1.4 APTT (26.0-36.0) Seconds Sodium 138 (136-145) mEq/L Potassium 4.3 (3.5-4.5) mEq/L Chloride 108 (98-109) mEq/L Carbon Dioxide 19 (19-29) mEq/L BUN 97 H (7-20) mg/dL Creatinine 2.54 H (0.57-1.11) mg/dL Est GFR ( Amer) 23 L (> 60) Est GFR (Non-Af Amer) 19 L (> 60) BUN/Creatinine Ratio 38 H (6-26) Glucose 61 L (70-99) mg/dL POC Glucose (58-89) Calculated Osmolality 314 H (280-300) Lactic Acid (0.5-2.2) mmol/L Calcium 7.0 L (8.6-10.8) mg/dL Phosphorus (2.3-4.7) mg/dL Magnesium (1.6-2.6) mg/dL Total Bilirubin (0.2-1.2) mg/dL Direct Bilirubin (0.0-0.5) mg/dL Indirect Bilirubin (0.0-1.2) mg/dL AST (5-34) Units/L ALT (0-55) Units/L Alkaline Phosphatase (38-126) Units/L Troponin I (0-0.03) ng/mL B-Natriuretic Peptide (0-100) pg/mL Serum Total Protein (6.0-8.3) g/dL Albumin (3.5-5.0) g/dL Globulin (2.4-3.5) g/dL Albumin/Globulin Ratio (1.1-2.2) Urine Color (Yellow) Urine Clarity (Clear) Urine pH (5.0-8.0) pH Units Ur Specific [place] (1.010-1.025) Urine Protein (Neg-Trace) mg/dL Urine Glucose (UA) (Normal) mg/dL Urine Ketones (Negative) mg/dL Urine Blood (Negative) Urine Nitrite (Negative) Urine Bilirubin (Negative) Urine Urobilinogen (Normal) mg/dL Ur Leukocyte Esterase (Negative) Urine Microscopic RBC (0-3) per hpf Urine Microscopic WBC (0-3) per hpf Ur Squamous Epith Cells (None-Few) per lpf Urine Bacteria (None-Few) per hpf Hyaline Casts (None-Few) per lpf Urine Yeast Ur Culture Indicated? (NO) 06/10/16 06/10/16 Range/Units 07:59 11:50 WBC (4.3-11.1) K/mcL RBC (3.82-4.97) M/mcL Hgb (11.5-15.4) g/dL Hct (35.3-44.9) % MCV (83.0-100.0) fL MCH (28.0-33.3) pg MCHC (31.6-35.5) g/dL RDW (11.5-14.5) % Plt Count (140-400) K/mcL MPV (9.4-12.4) fL Immature Gran % (0-4) % Seg Neutrophils % % Lymphocytes % % Monocytes % % Eosinophils % % Basophils % % Neutrophils # (1.6-8.9) K/mcL Lymphocytes # (0.6-4.6) K/mcL Monocytes # (0.0-1.3) K/mcL Eosinophils # (0.0-0.6) K/mcL Basophils # (0.0-0.2) K/mcL PT (9.4-12.1) Seconds INR APTT (26.0-36.0) Seconds Sodium (136-145) mEq/L Potassium (3.5-4.5) mEq/L Chloride (98-109) mEq/L Carbon Dioxide (19-29) mEq/L BUN (7-20) mg/dL Creatinine (0.57-1.11) mg/dL Est GFR ( Amer) (> 60) Est GFR (Non-Af Amer) (> 60) BUN/Creatinine Ratio (6-26) Glucose (70-99) mg/dL POC Glucose 76 84 (58-89) Calculated Osmolality (280-300) Lactic Acid (0.5-2.2) mmol/L Calcium (8.6-10.8) mg/dL Phosphorus (2.3-4.7) mg/dL Magnesium (1.6-2.6) mg/dL Total Bilirubin (0.2-1.2) mg/dL Direct Bilirubin (0.0-0.5) mg/dL Indirect Bilirubin (0.0-1.2) mg/dL AST (5-34) Units/L ALT (0-55) Units/L Alkaline Phosphatase (38-126) Units/L Troponin I (0-0.03) ng/mL B-Natriuretic Peptide (0-100) pg/mL Serum Total Protein (6.0-8.3) g/dL Albumin (3.5-5.0) g/dL Globulin (2.4-3.5) g/dL Albumin/Globulin Ratio (1.1-2.2) Urine Color (Yellow) Urine Clarity (Clear) Urine pH (5.0-8.0) pH Units Ur Specific [place] (1.010-1.025) Urine Protein (Neg-Trace) mg/dL Urine Glucose (UA) (Normal) mg/dL Urine Ketones (Negative) mg/dL Urine Blood (Negative) Urine Nitrite (Negative) Urine Bilirubin (Negative) Urine Urobilinogen (Normal) mg/dL Ur Leukocyte Esterase (Negative) Urine Microscopic RBC (0-3) per hpf Urine Microscopic WBC (0-3) per hpf Ur Squamous Epith Cells (None-Few) per lpf Urine Bacteria (None-Few) per hpf Hyaline Casts (None-Few) per lpf Urine Yeast Ur Culture Indicated? (NO) Attestation Statement - Attestation Attestation: I, Dr. Fitzgerald, examined this patient [id number] and my medical decision- making was reviewed with Dr. Mcdaniel, Resident Physician. I agree with the documented findings, disposition and treatment plan as described except to the extent set forth below. Please see my progress notes for details.
[2016-06-09] MEDS ORDERED: Ondansetron 4 MG/2 ML VIAL IVP PRN (18:23)
[2016-06-09] MEDS ORDERED: Naloxone 0.4 MG/ML INJ IVP PRN (18:23)
[2016-06-09] MEDS ORDERED: Simethicone 80 MG TAB.CHEW PO PRN (18:27)
[2016-06-09] MEDS ORDERED: tiZANidine 4 MG TABLET PO PRN (18:27)
[2016-06-09] MEDS ORDERED: traMADol 50 MG TABLET PO PRN (18:27)
[2016-06-09] MEDS ORDERED: Albuterol 2.5 MG/3 ML NEBULIZER IH PRN (18:27)
[2016-06-09] MEDS ORDERED: Melatonin 3 MG TABLET PO PRN (18:27)
[2016-06-09] MEDS ORDERED: Ondansetron ODT 4 MG TAB.RAPDIS PO PRN (18:27)
[2016-06-09] MEDS ORDERED: Mag Hydrox/Al Hydrox/Simeth 30 ML UDC PO PRN (18:27)
[2016-06-09] MEDS ORDERED: Acetaminophen 325 MG TABLET PO PRN (18:27)
--- NOTE | 2016-06-09 19:24 | Internal Med History&Physical ---
Date of Encounter: 06/09/16 Time of Encounter: 18:36 Assessment and Plan (1) Severe sepsis Current visit: No Status: Resolved Low BP, responded to IV fluids, concerning for sepsis in patient with recent admission for ESBL producing E coli bacteremia. - IV meropenem and vancomycin - Continue IV fluids - Monitor lactate (1 in ER) (2) Altered mental status Current visit: No Status: Acute Mental status near baseline in ER according to family. Likely related to infectious process, dehydration and possible sepsis - Treat for infectious process (likely UTI?) - Monitor Qualifiers: Altered mental status type: unspecified Qualified Code(s): R41.82 - Altered mental status, unspecified (3) Multiple myeloma Current visit: No Status: Acute Qualifiers: Multiple myeloma remission status: not in remission Qualified Code(s): C90.00 - Multiple myeloma not having achieved remission (4) UTI (urinary tract infection) due to urinary indwelling Choi catheter Current visit: No Status: Acute Has history of recent admission for ESBL producing E coli in urine and blood, on meropenem at [facility] BEDS AT [facility] - ID consulted for assistance given complicated history - Continue home meropenem - Add vancomycin - Blood cultures obtained from PICC and peripheral - Urine culture pending Qualifiers: Indwelling urinary catheter type: indwelling urethral catheter Encounter type: initial encounter Qualified Code(s): T83.511A - Infection and inflammatory reaction due to indwelling urethral catheter, initial encounter; N39.0 - Urinary tract infection, site not specified (5) DM (diabetes mellitus), type 2 Current visit: No Status: Chronic Continue home insulin regimen Qualifiers: Diabetes mellitus complication status: with unspecified complications Diabetes mellitus long term care phlebotomist insulin use: unspecified chcf insulin use status Qualified Code(s): E11.8 - Type 2 diabetes mellitus with unspecified complications (6) Acute renal failure Current visit: No Status: Acute Creatinine slightly elevated from baseline, likely prerenal etiology - IV fluids - Monitor creatinine Qualifiers: Acute renal failure type: unspecified Qualified Code(s): N17.9 - Acute kidney failure, unspecified Internal Medicine - H&P: HPI Chief complaint: Hypotension, altered mentation Admitted From: Emergency Dept Plans for Post Hospital Care: Transfer Jail Care History of present illness: Ms. Vaughan is a 70 year old female with complicated medical history including multiple myeloma with plasmacytoma, and recent hospitalization for ESBL producing E coli bacteremia who presented to the ER this afternoon from her ECF because of hypotension and confusion. Her daughter in law, who is present at bedside, notes that the patient is sleepy but doesn't seem very confused to her. The patient denies any pain and states that other than being sleepy she feels well. BP on arrival to the ER is 70s/30s. She notes that she has been eating and drinking normally. Her family noticed that her urine looked darker over the past two days, and UA/micro in the ER shows TNTC WBCs. She had her a port removed during her recent hospitalization and had tunneled PICC placed. She has been on meropenem at the long term and has been receiving it twice daily per patient report. She denies fever or chills. She has no cough or shortness of breath. Past Med Surg Social Fam HX - Past Medical History Medical history: cancer, coronary artery disease, diabetes, renal disease, other Psychiatric history: no psych history - Past Surgical History Surgical History: angioplasty/stent - Social History Smoking Status: Never smoker Smokeless Tobacco Status: No Alcohol use: none Drug use: none - Family History Father Living Status: Hx Family Cardiac Disorders: Yes Hx Family Endocrine Disorder: Yes Sister Hx Family Cancer: Yes (kidney) Hx Family Endocrine Disorder: Yes Mother Living Status: Still Living Hx Family Cardiac Disorders: Yes (HTN) Hx Family Endocrine Disorder: Yes Internal Medicine - H&P: Meds Atorvastatin Calcium [Lipitor] 20 mg PO DAILY 04/04/15 [History] Prochlorperazine Maleate [Compazine] 10 mg PO Q6H PRN 04/04/15 [History] Tizanidine HCl [Zanaflex] 4 mg PO Q8H PRN 04/04/15 [History] Folic Acid 1 mg PO DAILY #30 tablet 04/18/15 [Rx] Docusate [Colace] 100 mg PO DAILY PRN 04/22/15 [History] Insulin Glargine,Hum.rec.anlog [Lantus Solostar] 15 unit SQ HS 04/22/15 [History ] Insulin Glargine,Hum.rec.anlog [Lantus Solostar] 18 unit SQ QAM 04/22/15 [ History] Insulin LISPRO [HumaLOG] 0 unit SQ ACHS 04/22/15 [History] Melatonin 10 mg PO HS PRN 04/22/15 [History] Simethicone [Gas-X] 160 mg PO Q6H PRN 04/22/15 [History] Acetaminophen [Tylenol] 650 mg PO Q4H PRN 06/11/15 [History] Gabapentin [Neurontin] 300 mg PO BID 06/11/15 [History] Magnesium Hydroxide/Al Hydrox [Mag-Al Liquid] 30 ml PO BID PRN 06/11/15 [History ] Glucagon HCl 1 mg IJ ONCE PRN 12/27/15 [History] Fluticasone Propionate Nasal [Flonase] 100 mcg NS DAILY 02/18/16 [History] Furosemide [Lasix] 40 mg PO DAILY 02/18/16 [History] Albuterol Neb [Proventil Neb] 2.5 mg IH Q6H PRN 04/30/16 [History] GuaiFENesin/Dextromethorphan [Mucinex Dm ER 600-30 mg Tablet] 1 tab PO BID 04/30 [History] Mirtazapine 7.5 mg PO HS 04/30/16 [History] Ondansetron HCl [Zofran] 4 mg PO Q6H PRN 04/30/16 [History] Saline Nasal [place] [[place] Nasal [place]] 1 spray NS TID 04/30/16 [History] Tramadol HCl [Ultram] 50 mg PO BID 04/30/16 [History] Amiodarone [Cordarone] 200 mg PO BID #60 tablet 05/09/16 [Rx] Metoprolol XL (24 HR) Succ [Toprol Xl] 50 mg PO DAILY #30 tab.er.24h 05/09/16 [ Rx] Meropenem [Merrem] 1,000 mg IVPB Q8HR 13 Days 06/02/16 [Rx] Sennosides/Docusate Sodium [Senna Plus] 2 each PO BID #30 tablet 06/04/16 [Rx] Tramadol HCl [Ultram] 50 mg PO Q6H PRN #20 tablet 06/04/16 [Rx] Warfarin [Coumadin] 5 mg PO QPM #0 06/04/16 [Rx] Zolpidem [Ambien] 5 mg PO HS #7 tablet 06/04/16 [Rx] 0.9 % Sodium Chloride [Normal Saline Flush] 5 - 20 ml .ROUTE AD 06/09/16 [ History] Aspirin 81 mg PO DAILY 06/09/16 [History] Oxycodone HCl 10 mg PO TID PRN 06/09/16 [History] Temazepam [Restoril] 15 mg PO HS 06/09/16 [History] Allergies hydrocodone [From Vicodin] Allergy (Verified 04/04/15 11:12) Rash All Systems PM: A 10-system review of systems was performed and is negative for pertinent findings except as documented above in the HPI. - Constitutional Vitals: Temp Pulse Resp BP Pulse Ox 97.8 F 89 18 101/39 98 06/09/16 13:19 06/09/16 18:19 06/09/16 18:19 06/09/16 18:19 06/09/16 18:19 General appearance: Present: A&O X 3 Exam: Sleepy but wakes very easily to voice. - Head Head exam: Present: atraumatic - Eye Eye exam: Present: EOMI, sclera anicteric - ENT ENT exam: Present: mucous membranes moist - Neck Neck exam general surgery: Present: supple - Respiratory Respiratory exam: Present: CTAB - Cardiovascular Cardiovascular exam: Present: RRR. Absent: diastolic murmur, gallop, rubs, systolic murmur - GI/Abdominal GI/Abdominal exam: Present: normal bowel sounds, soft. Absent: distended, tenderness - Extremities Exam Extremities exam: Present: pedal edema Additional comments: 3+ edema bilateral lower extremities - Neurological Exam Neurological exam: Present: no focal deficits - Skin Skin exam: Absent: rash Internal Med - H&P Results - Labs CBC & Chem 7: 06/09/16 15:00 06/09/16 15:00
[2016-06-09] MEDS: 0.9 % Sodium Chloride 1,000 ML IVC SCH (19:41)
[2016-06-09] MEDS: Meropenem 500 MG in 0.9 % Sodium Chloride Mini Bag 100 ML IVPB SCH (19:42)
[2016-06-09] MEDS: *HR* Amiodarone 200 MG TABLET PO SCH (21:21)
[2016-06-09] MEDS: traMADol 50 MG TABLET PO SCH (21:21)
[2016-06-09] MEDS: Mirtazapine 15 MG TABLET PO SCH (21:24)
[2016-06-09] MEDS: Temazepam 15 MG CAPSULE PO SCH (21:25)
[2016-06-09] MEDS: Gabapentin 300 MG CAPSULE PO SCH (21:32)
[2016-06-09] MEDS: Sennosides/Docusate Sodium TABLET PO SCH (21:32)
[2016-06-09] MEDS: Insulin DETEMIR 100 UNIT/ML X5UNITS SQ SCH (21:32)
[2016-06-09] MEDS: GuaiFENesin/Dextromethorphan TABLET PO SCH (21:32)
[2016-06-09] MEDS: Saline Nasal Spray 44 ML BOTTLE NS SCH (21:33)
[2016-06-09] MEDS ORDERED: Dextrose Gel 15 GM PO PRN ×2 (22:02)
[2016-06-09] MEDS ORDERED: D5% in Water 1,000 ML IV PRN (22:02)
[2016-06-09] MEDS ORDERED: *HR* Dextrose 50 % in Water (Syg) 50 ML SYRINGE IVP PRN (22:02)
[2016-06-10] MEDS: 0.9 % Sodium Chloride 1,000 ML IVC SCH ×2 (04:25→14:32)
[2016-06-10 04:33] LABS: Basophils % 0.3 %; Eosinophils # 0.8 K/mcL (0.0-0.6); Eosinophils % 7.7 %; Hematocrit 20.6 % (35.3-44.9); Hemoglobin 6.6 g/dL (11.5-15.4); INR 1.4; Immature Granulocytes % 0.8 % (0-4); Lymphocytes # 0.7 K/mcL (0.6-4.6); Lymphocytes % 6.6 %; Mean Corpuscular Hemoglobin 29.5 pg (28.0-33.3); Mean Platelet Volume 9.5 fL (9.4-12.4); Monocytes % 10.3 %; Neutrophils # 7.3 K/mcL (1.6-8.9); Platelet Count 328 K/mcL (140-400); Red Blood Count 2.24 M/mcL (3.82-4.97); Red Cell Distribution Width 16.7 % (11.5-14.5); Segmented Neutrophils % 74.3 %
[2016-06-10 04:41] LABS: Potassium 4.3 mEq/L (3.5-4.5)
[2016-06-10] MEDS: Sennosides/Docusate Sodium TABLET PO SCH ×2 (08:16→20:19)
[2016-06-10] MEDS: Insulin LISPRO 300 UNITS/3 ML VIAL SQ SCH ×4 (08:16→20:27)
[2016-06-10] MEDS: Folic Acid 1 MG TABLET PO SCH (08:17)
[2016-06-10] MEDS: Metoprolol XL (24 HR) Succ 50 MG TAB.ER.24H PO SCH (08:17)
[2016-06-10] MEDS: *HR* Amiodarone 200 MG TABLET PO SCH ×2 (08:17→20:20)
[2016-06-10] MEDS: traMADol 50 MG TABLET PO SCH ×2 (08:17→20:19)
[2016-06-10] MEDS: Insulin DETEMIR 100 UNIT/ML X5UNITS SQ SCH ×2 (08:18→20:19)
[2016-06-10] MEDS: Aspirin 81 MG TAB.CHEW PO SCH (08:18)
[2016-06-10] MEDS: GuaiFENesin/Dextromethorphan TABLET PO SCH ×2 (08:18→20:19)
[2016-06-10] MEDS: Gabapentin 300 MG CAPSULE PO SCH ×2 (08:18→20:20)
[2016-06-10] MEDS: Saline Nasal Spray 44 ML BOTTLE NS SCH ×3 (08:21→20:20)
[2016-06-10] MEDS: Fluticasone Propionate Nasal 50 MCG/SPRAY BOTTLE NS SCH (08:21)
[2016-06-10] MEDS: Meropenem 500 MG in 0.9 % Sodium Chloride Mini Bag 100 ML IVPB SCH (08:26)
--- NOTE | 2016-06-10 11:17 | Internal Med Progress Note ---
Date of Encounter: 06/10/16 Time of Encounter: 11:15 - Assessment and plan (1) Severe sepsis Current Visit: Yes Status: Ruled-out Assessment and plan: Patient only had hypotension at admission with no tachycardia, fever, tachypnea or leukocytosis and lactic acidosis. Less likely infectious in etiology. (2) Encephalopathy acute Current Visit: Yes Status: Resolved Assessment and plan: Likely related to multiple medications including benzodiazepines and narcotic analgesics along with hypotension. Currently at baseline mental status. (3) Acute kidney injury superimposed on chronic kidney disease Current Visit: Yes Status: Acute Assessment and plan: Serum creatinine noted to be improving with IV hydration. Likely related to dehydration and hypotension. Continue to monitor blood pressure closely, continue IV fluids and avoid hypotensive insults. (4) UTI (urinary tract infection) Current Visit: Yes Status: Acute Assessment and plan: Patient was recently diagnosed with ESBL Escherichia coli UTI and [facility], to complete course on June 17. Follow up new urine culture and continue IV meropenem for now. Qualifiers: Urinary tract infection type: site unspecified Hematuria presence: with hematuria Qualified Code(s): N39.0 - Urinary tract infection, site not specified; R31.9 - Hematuria, unspecified (5) Multiple myeloma Current Visit: Yes Status: Chronic Qualifiers: Multiple myeloma remission status: not in remission Qualified Code(s): C90.00 - Multiple myeloma not having achieved remission (6) Anemia Current Visit: Yes Status: Acute Assessment and plan: Acute on chronic anemia, multifactorial with underlying myeloma and chemotherapy. No evidence of active bleeding. Transfuse 2 units PRBC and continue to monitor closely. Iron profile from about 6 months back shows mild iron deficiency. 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 Oncology follow-up as outpatient. (8) Atrial fibrillation Current Visit: Yes Status: Chronic Assessment and plan: Rate controlled. Continue beta tonie. Long-term anticoagulation with Coumadin, INR subtherapeutic at 1.4. Qualifiers: Atrial fibrillation type: unspecified Qualified Code(s): I48.91 - Unspecified atrial fibrillation (9) CKD (chronic kidney disease), stage III Current Visit: Yes Status: Chronic (10) DM (diabetes mellitus), type 2 Current Visit: Yes Status: Chronic Assessment and plan: Accu-Chek blood glucose monitoring with basal bolus insulin regimen. Diabetic diet. 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 Alert and oriented, no chest or abdominal pain, no vomiting or diarrhea. - Constitutional Vitals: Temp Pulse Resp BP Pulse Ox 99.1 F 80 16 97/47 97 06/10/16 03:28 06/10/16 07:30 06/10/16 03:28 06/10/16 03:28 06/10/16 03:28 General appearance: Present: A&O X 3 - Respiratory Respiratory exam: Present: CTAB. Absent: accessory muscle use, rales, rhonchi, wheezes - Cardiovascular Cardiovascular exam: Present: RRR, +S1, +S2. Absent: diastolic murmur, gallop, rubs, systolic murmur - GI/Abdominal GI/Abdominal exam: Present: normal bowel sounds, soft (Obese), no peritoneal signs. Absent: distended, tenderness - Extremities Exam Extremities exam: Present: warm, radial pulses palpable and symetrical. Absent : calf tenderness, cyanotic, pedal edema Additional comments: Right foot and lower leg cutaneous lesions, mildly tender with surrounding erythema, related to plasmacytoma. Bilateral diffuse 3+ pitting pedal edema. - Neurological Exam Neurological exam: Present: CN II-XII intact, oriented X3, no focal deficits. Absent: pronater drift, facial droop, speech deficit - Skin Skin exam: Present: dry, erythema, intact, rash Internal Medicine: Result - Labs CBC & Chem 7: 06/10/16 04:24 06/10/16 04:24 Labs: Short CBC 06/10/16 Range/Units 04:24 WBC 9.8 (4.3-11.1) K/mcL Hgb 6.6 L (11.5-15.4) g/dL Hct 20.6 L (35.3-44.9) % Plt Count 328 (140-400) K/mcL Neutrophils # 7.3 (1.6-8.9) K/mcL BMP 06/10/16 04:24 Sodium 138 Potassium 4.3 Chloride 108 Carbon Dioxide 19 BUN 97 H Creatinine 2.54 H Glucose 61 L Calcium 7.0 L - ABG Interpretation ABG results: PT/INR, D-dimer PT 15.0 Seconds (9.4-12.1) H 06/10/16 04:24 Consult Discharge Plan - Plan Referrals: NO,PCP [Primary Care Provider] -
--- NOTE | 2016-06-10 13:28 | Infectious Disease Consult ---
Date of Encounter: 06/10/16 Time of Encounter: 11:00 Assessment and Plan (1) Hypotension Status: Acute Assessment and plan: Resolved after fluid resuscitation. Likely multifactorial --> poor PO intake/dehydration + medication effects ( amiodarone, metoprolol, zanaflex). Low index of suspicion for new infectious etiology. CXR negative. Urinalysis positive for TNTC WBC and leukocyte esterase, but no bacteria noted. Blood cultures x 2 sets drawn peripherally 06/09/16 are pending. No blood cultures were drawn from the patient's tunneled PICC line. Get blood cultures x 2 sets now from the tunneled PICC line now. Await urine culture results. Continue Meropenem 1 gram IV Q12H as prescribed for her previous UTI/bacteremia. Await culture results. Continue IV fluid resuscitation as outlined by the primary team. Qualifiers: Hypotension type: other hypotension type Qualified Code(s): I95.89 - Other hypotension (2) Altered mental status, unspecified Status: Resolved Assessment and plan: Etiology unclear, possibly related to the patient's hypotension. Appears resolved. Qualifiers: Altered mental status type: unspecified Qualified Code(s): R41.82 - Altered mental status, unspecified (3) Chronic anemia Status: Acute Assessment and plan: Hgb down to 6.6 today. No evidence of acute bleeding noted. Could be contributing to the patient's hypotension as well. Workup/management per the primary team. (4) Acute kidney injury superimposed on chronic kidney disease Status: Acute Assessment and plan: Serum creatinine 2.71 on admission. Etiology likely multifactorial --> hypotension + dehydration. Improved today. Continue to monitor closely and consult nephrology if worsens. Dose-adjust antibiotics based on creatinine clearance. (5) Bacteremia Status: Acute Assessment and plan: Diagnosed during previous hospitalization and continues to undergo treatment. Blood cultures drawn 05/24/16 were positive 2/2 sets (peripheral). Blood cultures drawn 05/26/16 were positive 1/1 set (drawn peripherally). Additional blood cultures drawn 05/28/16 (from a-port) and 06/02/16 (drawn peripherally) were negative. Source was likely UTI with seeding of her a-port. A-port was removed 06/01/16. Tip culture was negative. Discharged 06/04/16 to complete a 14 day course. We recommended discharging on Ertapenem due to the once daily dosing, but apparently the patient was discharged on Meropenem Q12H (dose-adjusted for low CrCl). Continue Meropenem for now. Previous treatment was to continue through 06/16/16. Blood cultures drawn during this hospitalization are pending. Await culture results. (6) IDDM (insulin dependent diabetes mellitus) Status: Chronic (7) Multiple myeloma Status: Chronic Assessment and plan: Follows with Dr. Zepeda with [facility]. Chemotherapy currently on hold until resolution of infectious issues. Qualifiers: Multiple myeloma remission status: not in remission Qualified Code(s): C90.00 - Multiple myeloma not having achieved remission Infectious Disease HPI - Data of Consult Patient: known to practice within the last 3 years Consult date: 06/10/16 Requesting Physician: Geno Caro MD Primary Care Provider: PCP NO - Consult Narrative Reason for consult: Previous ESBL bacteremia History of present illness: Ms. Vaughan is a 70 year old female with a past medical history of multiple myeloma with plasmacytomas, CAD, diabetes, CAD, and recent history of Escherichia coli ESBL bacteremia secondary to UTI. The patient was admitted to the hospital on June 09, 2016 for altered mental status and hypotension. We are consulted June 10, 2016 for further evaluation and treatment recommendations regarding possible sepsis. Briefly, the patient is a 70-year-old female past medical history as stated above. She is noted to the ID service as we are consulted on her case during her most recent hospitalization. At that time, patient was diagnosed with Escherichia coli ESBL bacteremia secondary to UTI with seeding of her a port. Her a port was removed and she was discharged to complete a 14 day course of IV ertapenem. Review of the discharge summary reveals that the patient actually discharged on meropenem, which has been receiving every 12 hours due to her decreased renal function. The patient comes back to the ER yesterday due to confusion and hypotension noted during an exam at the extended care facility where she stays. Upon arrival to the ER, the patient was afebrile and hemodynamically stable. Her blood pressure was 90s over 50s upon arrival and increase to 1 teens over 50s with a small amount of IV fluid. Laboratory studies revealed that her creatinine was mildly elevated at 2.71, but her baseline is around 2. Her hemoglobin was a little bit lower at 7.4. Lactic acid was negative. A urinalysis was obtained that was positive for large amounts of leukocyte esterase and white blood cells, but there were also many epithelial cells and no bacteria noted. Chest x-ray was negative. The patient received 1 L of normal saline and was admitted to the hospital for further evaluation and treatment. She was given a dose of IV vancomycin and placed back on meropenem. We've been asked to evaluate and make further recommendations. During my exam today, the patient states that overall she feels well. She does not think that she was confused as previously reported by the ECF staff and can' t recall the events leading up to her transfer to the hospital. She does report that she's been tired and has not been eating or drinking as much. She denies any fevers or chills or rigors. She denies any chest pain, shortness of breath, or cough. She denies any headache, neck pain, or dizziness. She denies any nausea, vomiting, diarrhea, or constipation. The patient has a Choi catheter in place that was put in during her last hospitalization. She denies any back pain. She does report chronic bilateral lower extremity pain that is not changed. She denies any problems with the tunneled PICC line to her right upper chest. She denies any warmth or pain or drainage from that site. She also denies any problems with the site where her previous a port was removed. She states overall she feels well, just a little bit tired, and is requesting to be discharged back to the ECF. CC: Geno Caro MD Past Med Surg Social Fam HX - Past Medical History Attestation: Yes The following information was validated with the patient. Source: patient, old records reviewed, nursing notes reviewed Medical history: cancer (Multiple myeloma with plasmacytoma), coronary artery disease, diabetes, renal disease, other Psychiatric history: no psych history - Past Surgical History Surgical History: angioplasty/stent - Social History Smoking Status: Never smoker Smokeless Tobacco Status: No Alcohol use: none Drug use: none Occupational status: unemployed Current living situation: [facility] Activity Level: Bed bound Recent Out of Country Travel Within the Last 8 Weeks: No Exposure or Possible Exposure to Illness During Travel: No - Family History Father Living Status: Hx Family Cardiac Disorders: Yes Hx Family Endocrine Disorder: Yes Sister Hx Family Cancer: Yes (kidney) Hx Family Endocrine Disorder: Yes Mother Living Status: Still Living Hx Family Cardiac Disorders: Yes (HTN) Hx Family Endocrine Disorder: Yes Infectious Disease-CN:Meds Atorvastatin Calcium [Lipitor] 20 mg PO DAILY 04/04/15 [History] Prochlorperazine Maleate [Compazine] 10 mg PO Q6H PRN 04/04/15 [History] Tizanidine HCl [Zanaflex] 4 mg PO Q8H PRN 04/04/15 [History] Folic Acid 1 mg PO DAILY #30 tablet 04/18/15 [Rx] Docusate [Colace] 100 mg PO DAILY PRN 04/22/15 [History] Insulin Glargine,Hum.rec.anlog [Lantus Solostar] 15 unit SQ HS 04/22/15 [History ] Insulin Glargine,Hum.rec.anlog [Lantus Solostar] 18 unit SQ QAM 04/22/15 [ History] Insulin LISPRO [HumaLOG] 0 unit SQ ACHS 04/22/15 [History] Melatonin 10 mg PO HS PRN 04/22/15 [History] Simethicone [Gas-X] 160 mg PO Q6H PRN 04/22/15 [History] Acetaminophen [Tylenol] 650 mg PO Q4H PRN 06/11/15 [History] Gabapentin [Neurontin] 300 mg PO BID 06/11/15 [History] Magnesium Hydroxide/Al Hydrox [Mag-Al Liquid] 30 ml PO BID PRN 06/11/15 [History ] Glucagon HCl 1 mg IJ ONCE PRN 12/27/15 [History] Fluticasone Propionate Nasal [Flonase] 100 mcg NS DAILY 02/18/16 [History] Furosemide [Lasix] 40 mg PO DAILY 02/18/16 [History] Albuterol Neb [Proventil Neb] 2.5 mg IH Q6H PRN 04/30/16 [History] GuaiFENesin/Dextromethorphan [Mucinex Dm ER 600-30 mg Tablet] 1 tab PO BID 04/30 [History] Mirtazapine 7.5 mg PO HS 04/30/16 [History] Ondansetron HCl [Zofran] 4 mg PO Q6H PRN 04/30/16 [History] Saline Nasal [place] [[place] Nasal [place]mar] 1 spray NS TID 04/30/16 [History] Tramadol HCl [Ultram] 50 mg PO BID 04/30/16 [History] Amiodarone [Cordarone] 200 mg PO BID #60 tablet 05/09/16 [Rx] Metoprolol XL (24 HR) Succ [Toprol Xl] 50 mg PO DAILY #30 tab.er.24h 05/09/16 [ Rx] Meropenem [Merrem] 1,000 mg IVPB Q8HR 13 Days 06/02/16 [Rx] Sennosides/Docusate Sodium [Senna Plus] 2 each PO BID #30 tablet 06/04/16 [Rx] Tramadol HCl [Ultram] 50 mg PO Q6H PRN #20 tablet 06/04/16 [Rx] Warfarin [Coumadin] 5 mg PO QPM #0 06/04/16 [Rx] Zolpidem [Ambien] 5 mg PO HS #7 tablet 06/04/16 [Rx] 0.9 % Sodium Chloride [Normal Saline Flush] 5 - 20 ml .ROUTE AD 06/09/16 [ History] Aspirin 81 mg PO DAILY 06/09/16 [History] Oxycodone HCl 10 mg PO TID PRN 06/09/16 [History] Temazepam [Restoril] 15 mg PO HS 06/09/16 [History] Allergies hydrocodone [From Vicodin] Allergy (Verified 04/04/15 11:12) Rash All systems: reviewed and no additional remarkable complaints except as stated Exam - Constitutional Vitals: Temp Pulse Resp BP Pulse Ox 98.2 F 81 16 96/65 98 06/10/16 11:30 06/10/16 11:30 06/10/16 11:30 06/10/16 11:30 06/10/16 11:30 General appearance: cooperative, morbidly obese, no acute distress - Head Head exam: Present: atraumatic, normal inspection, normocephalic - Eye Eye exam: Present: EOMI, normal appearance, PERRL Pupils: Present: normal accommodation - ENT ENT exam: Present: mucous membranes moist - Neck Neck exam: Present: normal inspection - Respiratory Respiratory exam: Present: CTAB. Absent: rales, respiratory distress, rhonchi, wheezes - Cardiovascular Cardiovascular exam: Present: irregular rhythm. Absent: tachycardia - GI/Abdominal GI/Abdominal exam: Present: distended (obese), normal bowel sounds, soft. Absent: tenderness Additional comments: Choi catheter noted to be draining dark yellow, cloudy urine. - Extremities Exam Extremities exam: Present: pedal edema (Lymphedema noted to the BLE). Absent: joint swelling, tenderness Additional comments: Dark purple skin discoloration noted to the dorsal/anterior aspect of the right foot/ankle. Multiple bullous lesions noted to the BLE and right groin/abdominal fold. - Neurological Exam Neurological exam: Present: alert, oriented X3, no focal deficits - Psychiatric Psychiatric exam: Present: normal affect, normal mood - Skin Skin exam: Present: dry, intact, normal color, warm - Additional findings Additional findings: Tunneled PICC line noted to the right upper chest with transparent dressing C/D/ I. No erythema, warmth or tenderness noted. A-port removal site to the right upper chest MARIAN with scab noted. No erythema, warmth, or drainage noted. Infectious Disease CN: Results - Labs CBC & Chem 7: 06/10/16 04:24 06/10/16 04:24 Consult Discharge Plan - Plan Referrals: NO,PCP [Primary Care Provider] -
[2016-06-10] MEDS: *HR* OxyCODONE Immed Rel 5 MG TABLET PO PRN (15:44)
[2016-06-10] MEDS: *HR* Warfarin 5 MG TABLET PO SCH (18:58)
[2016-06-10] MEDS ORDERED: 0.9 % Sodium Chloride 250 ML ONE (19:17)
[2016-06-10] MEDS: Meropenem 1,000 MG in 0.9 % Sodium Chloride Mini Bag 100 ML IVPB SCH (19:36)
[2016-06-10] MEDS: Temazepam 15 MG CAPSULE PO SCH (20:06)
[2016-06-10] MEDS: Mirtazapine 15 MG TABLET PO SCH (20:06)
[2016-06-11 07:10] LABS: Basophils % 0.4 %; Eosinophils # 0.8 K/mcL (0.0-0.6); Eosinophils % 7.2 %; Hematocrit 24.8 % (35.3-44.9); Hemoglobin 7.9 g/dL (11.5-15.4); Immature Granulocytes % 0.9 % (0-4); Lymphocytes # 0.7 K/mcL (0.6-4.6); Lymphocytes % 6.2 %; Mean Corpuscular HGB Conc 31.9 g/dL (31.6-35.5); Mean Corpuscular Volume 91.2 fL (83.0-100.0); Mean Platelet Volume 9.9 fL (9.4-12.4); Monocytes # 1.1 K/mcL (0.0-1.3); Monocytes % 10.2 %; Neutrophils # 8.4 K/mcL (1.6-8.9); Platelet Count 352 K/mcL (140-400); Red Blood Count 2.72 M/mcL (3.82-4.97); Red Cell Distribution Width 16.5 % (11.5-14.5); Segmented Neutrophils % 75.1 %
[2016-06-11 07:11] LABS: Potassium 4.2 mEq/L (3.5-4.5)
[2016-06-11 07:12] LABS: INR 1.4; Prothrombin Time 15.2 Seconds (9.4-12.1)
[2016-06-11] MEDS: Insulin LISPRO 300 UNITS/3 ML VIAL SQ SCH ×4 (08:00→21:07)
[2016-06-11] MEDS: Meropenem 1,000 MG in 0.9 % Sodium Chloride Mini Bag 100 ML IVPB SCH ×2 (08:15→21:33)
[2016-06-11] MEDS ORDERED: 0.9 % Sodium Chloride 250 ML ONE (08:31)
[2016-06-11] MEDS: Gabapentin 300 MG CAPSULE PO SCH ×2 (08:59→21:37)
[2016-06-11] MEDS: *HR* Amiodarone 200 MG TABLET PO SCH (08:59)
[2016-06-11] MEDS: Folic Acid 1 MG TABLET PO SCH (09:00)
[2016-06-11] MEDS: Metoprolol XL (24 HR) Succ 50 MG TAB.ER.24H PO SCH (09:00)
[2016-06-11] MEDS: GuaiFENesin/Dextromethorphan TABLET PO SCH ×2 (09:00→21:37)
[2016-06-11] MEDS: Aspirin 81 MG TAB.CHEW PO SCH (09:00)
[2016-06-11] MEDS: traMADol 50 MG TABLET PO SCH ×2 (09:00→21:35)
[2016-06-11] MEDS: Fluticasone Propionate Nasal 50 MCG/SPRAY BOTTLE NS SCH (09:00)
[2016-06-11] MEDS: Sennosides/Docusate Sodium TABLET PO SCH ×2 (09:00→21:35)
[2016-06-11] MEDS: Insulin DETEMIR 100 UNIT/ML X5UNITS SQ SCH ×2 (09:03→21:35)
[2016-06-11] MEDS: Saline Nasal Spray 44 ML BOTTLE NS SCH ×3 (09:03→21:35)
--- NOTE | 2016-06-11 11:00 | Internal Med Progress Note ---
Date of Encounter: 06/11/16 Time of Encounter: 10:58 - Assessment and plan (1) Hypotension Current Visit: Yes Status: Acute Assessment and plan: Uncertain etiology but likely related to underlying hypoalbuminemia. No source of sepsis identified at this time. Blood and urine cultures remain negative so far. Patient is noted to be asymptomatic with no reactive tachycardia and has received aggressive IV fluid hydration since admission. Serum lactic acid and troponin noted to be normal. Echocardiogram from last month shows preserved ejection fraction. Case discussed with rectangular tank cooper and agreed with IV albumin along with midodrine and continue to monitor blood pressure closely. Patient's body habitus also makes obtaining accurate blood pressure difficult. Plan for arterial line for blood pressure monitoring if not improving. Nutrition consult. High risk for complications. Qualifiers: Hypotension type: other hypotension type Qualified Code(s): I95.89 - Other hypotension (2) Severe sepsis Current Visit: Yes Status: Ruled-out (3) Encephalopathy acute Current Visit: Yes Status: Resolved (4) Acute kidney injury superimposed on chronic kidney disease Current Visit: Yes Status: Acute Assessment and plan: Serum creatinine noted to be improving with IV hydration. Likely related to dehydration and hypotension. Continue to monitor blood pressure closely, continue IV fluids and avoid hypotensive insults. (5) UTI (urinary tract infection) Current Visit: Yes Status: Acute Assessment and plan: Patient was recently diagnosed with ESBL Escherichia coli UTI and has been discharged to detention on IV meropenem, to complete course on June 17. continue IV meropenem for now. New urine culture from 06/09 is negative. 1/2 peripheral blood cultures grows gram positive rods, which is likely a contaminant; cultures from tunneled CVC sent on 06/10 are pending; repeat peripheral blood cultures now; Qualifiers: Urinary tract infection type: site unspecified Hematuria presence: with hematuria Qualified Code(s): N39.0 - Urinary tract infection, site not specified; R31.9 - Hematuria, unspecified (6) Multiple myeloma Current Visit: Yes Status: Chronic Qualifiers: Multiple myeloma remission status: not in remission Qualified Code(s): C90.00 - Multiple myeloma not having achieved remission (7) Anemia Current Visit: Yes Status: Acute Assessment and plan: Acute on chronic anemia, multifactorial with underlying myeloma and chemotherapy. No evidence of active bleeding. Hb noted to be improving with PRBC transfusion; Iron profile from about 6 months back shows mild iron deficiency. Qualifiers: Anemia type: unspecified type Qualified Code(s): D64.9 - Anemia, unspecified (8) Plasmacytoma Current Visit: Yes Status: Chronic (9) Atrial fibrillation Current Visit: Yes Status: Chronic Assessment and plan: Rate controlled. Continue beta tonie. Long-term anticoagulation with Coumadin, INR subtherapeutic at 1.4. Qualifiers: Atrial fibrillation type: unspecified Qualified Code(s): I48.91 - Unspecified atrial fibrillation (10) CKD (chronic kidney disease), stage III Current Visit: Yes Status: Chronic (11) DM (diabetes mellitus), type 2 Current Visit: Yes Status: Chronic Qualifiers: Diabetes mellitus complication status: with kidney complications Diabetes mellitus complication detail: with chronic kidney disease Diabetes mellitus meterman insulin use: with meterman use Chronic kidney disease stage: stage 3 (moderate) Qualified Code(s): E11.22 - Type 2 diabetes mellitus with diabetic chronic kidney disease; N18.3 - Chronic kidney disease, stage 3 ( moderate); 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 Nodding off constantly. No chest or abdominal pain, vomiting or diarrhea. - Constitutional Vitals: Temp Pulse Resp BP Pulse Ox 97.2 F L 73 14 85/45 100 06/11/16 10:30 06/11/16 10:30 06/11/16 10:30 06/11/16 10:30 06/11/16 10:30 General appearance: Present: A&O X 3 (Lethargic and drowsy), answers questions appropriately - Respiratory Respiratory exam: Present: rales (Faint rales bilaterally). Absent: accessory muscle use, rhonchi, wheezes - Cardiovascular Cardiovascular exam: Present: RRR, +S1, +S2. Absent: diastolic murmur, gallop, rubs, systolic murmur - GI/Abdominal GI/Abdominal exam: Present: normal bowel sounds, soft, no peritoneal signs. Absent: distended, tenderness - Extremities Exam Extremities exam: Present: pedal edema (Worsening pedal edema bilaterally), warm , radial pulses palpable and symetrical. Absent: calf tenderness, cyanotic Additional comments: Stable cutaneous lesions on right lower extremity related to plasmacytoma Internal Medicine: Result - Labs CBC & Chem 7: 06/11/16 04:30 06/11/16 04:30 Labs: Short CBC 06/11/16 Range/Units 04:30 WBC 11.1 (4.3-11.1) K/mcL Hgb 7.9 L (11.5-15.4) g/dL Hct 24.8 L (35.3-44.9) % Plt Count 352 (140-400) K/mcL Neutrophils # 8.4 (1.6-8.9) K/mcL BMP 06/11/16 04:30 Sodium 137 Potassium 4.2 Chloride 109 Carbon Dioxide 18 L BUN 97 H Creatinine 2.62 H Glucose 43 L Calcium 7.0 L - ABG Interpretation ABG results: PT/INR, D-dimer PT 15.2 Seconds (9.4-12.1) H 06/11/16 04:30 Consult Discharge Plan - Plan Referrals: NO,PCP [Primary Care Provider] -
--- NOTE | 2016-06-11 11:07 | Infectious Disease Progress No ---
Date of Encounter: 06/11/16 Time of Encounter: 10:35 - Assessment and Plan (1) Hypotension Current Visit: Yes Status: Acute Resolved after fluid resuscitation, but has recurred this morning. Status post 1 unit of PRBCs with 2nd to be given this morning. Likely multifactorial --> poor PO intake/dehydration + medication effects ( amiodarone, metoprolol, zanaflex). Low index of suspicion for new infectious etiology. CXR negative. Urinalysis positive for TNTC WBC and leukocyte esterase, but no bacteria noted. Urine culture pending. Blood cultures x 2 sets drawn peripherally 06/09/16 are NGTD. Blood cultures x 2 sets drawn 06/10/16 from the tunneled PICC are pending. Await urine culture results. Continue Meropenem 1 gram IV Q12H as prescribed for her previous UTI/ bacteremia. Continue IV fluid resuscitation as outlined by the primary team. Consider a-line insertion for close monitoring of the patient's blood pressure as her body habitus makes it difficult to get an accurate blood pressure with a standard BP cuff. Qualifiers: Hypotension type: other hypotension type Qualified Code(s): I95.89 - Other hypotension (2) Altered mental status, unspecified Current Visit: Yes Status: Resolved Etiology unclear, possibly related to the patient's hypotension. Appears resolved. Qualifiers: Altered mental status type: unspecified Qualified Code(s): R41.82 - Altered mental status, unspecified (3) Chronic anemia Current Visit: Yes Status: Acute Improved after 1 unit PRBC. Second unit ordered for today. No evidence of acute bleeding noted. Could be contributing to the patient's hypotension as well. Workup/management per the primary team. (4) Acute kidney injury superimposed on chronic kidney disease Current Visit: Yes Status: Acute Serum creatinine 2.71 on admission. Etiology likely multifactorial --> hypotension + dehydration. Stable at 2.62 today. Continue to monitor closely and consult nephrology if worsens. Dose-adjust antibiotics based on creatinine clearance. (5) Bacteremia Current Visit: No Status: Acute Diagnosed during previous hospitalization and continues to undergo treatment. Blood cultures drawn 05/24/16 were positive 2/2 sets (peripheral). Blood cultures drawn 05/26/16 were positive 1/1 set (drawn peripherally). Additional blood cultures drawn 05/28/16 (from a-port) and 06/02/16 (drawn peripherally) were negative. Source was likely UTI with seeding of her a-port. A-port was removed 06/01/16. Tip culture was negative. Discharged 06/04/16 to complete a 14 day course. We recommended discharging on Ertapenem due to the once daily dosing, but apparently the patient was discharged on Meropenem Q12H (dose-adjusted for low CrCl). Continue Meropenem for now. Previous treatment was to continue through 06/16/16. Blood cultures drawn during this hospitalization are pending. Await culture results. (6) IDDM (insulin dependent diabetes mellitus) Current Visit: No Status: Chronic (7) Multiple myeloma Current Visit: Yes Status: Chronic Qualifiers: Multiple myeloma remission status: not in remission Qualified Code(s): C90.00 - Multiple myeloma not having achieved remission - Subjective Interval history: Patient seen and examined. No acute events noted overnight. Patient noted to have hypotension this morning with current MAP of 57. Patient complains of feeling weak, but denies fevers, chills, or rigors. Denies chest pain, shortness of breath, or cough. Denies nausea, vomiting, or diarrhea. Denies abdominal pain and states she ate most of her breakfast this morning. Choi remains in place and is patent. Denies oral thrush or new skin lesions. Denies extremity or back pain. Infect Dis PN-Objective Data - Labs CBC & Chem 7: 06/11/16 04:30 06/11/16 04:30 Labs: Laboratory Results - last 24 hr 06/10/16 06/10/16 06/10/16 15:41 16:20 20:24 WBC RBC Hgb Hct MCV MCH MCHC RDW Plt Count MPV Immature Gran % Seg Neutrophils % Lymphocytes % Monocytes % Eosinophils % Basophils % Neutrophils # Lymphocytes # Monocytes # Eosinophils # Basophils # PT INR Sodium Potassium Chloride Carbon Dioxide BUN Creatinine Est GFR ( Amer) Est GFR (Non-Af Amer) BUN/Creatinine Ratio Glucose POC Glucose 89 86 Calculated Osmolality Calcium Blood Type A POSITIVE Antibody Screen POSITIVE Antibody Identification Inconclusive Crossmatch See Detail 06/11/16 06/11/16 06/11/16 04:30 04:30 04:30 WBC 11.1 RBC 2.72 L Hgb 7.9 L Hct 24.8 L MCV 91.2 MCH 29.0 MCHC 31.9 RDW 16.5 H Plt Count 352 MPV 9.9 Immature Gran % 0.9 Seg Neutrophils % 75.1 Lymphocytes % 6.2 Monocytes % 10.2 Eosinophils % 7.2 Basophils % 0.4 Neutrophils # 8.4 Lymphocytes # 0.7 Monocytes # 1.1 Eosinophils # 0.8 H Basophils # 0.0 PT 15.2 H INR 1.4 Sodium 137 Potassium 4.2 Chloride 109 Carbon Dioxide 18 L BUN 97 H Creatinine 2.62 H Est GFR ( Amer) 22 L Est GFR (Non-Af Amer) 18 L BUN/Creatinine Ratio 37 H Glucose 43 L POC Glucose Calculated Osmolality 311 H Calcium 7.0 L Blood Type Antibody Screen Antibody Identification Crossmatch Exam - Constitutional Vitals: Temp Pulse Resp BP Pulse Ox 97.2 F L 73 14 85/45 100 06/11/16 10:30 06/11/16 10:30 06/11/16 10:30 06/11/16 10:30 06/11/16 10:30 General appearance: cooperative, morbidly obese, no acute distress - Head Head exam: Present: atraumatic, normal inspection, normocephalic - Eye Eye exam: Present: EOMI, normal appearance, PERRL Pupils: Present: normal accommodation - ENT ENT exam: Present: mucous membranes moist - Neck Neck exam: Present: normal inspection - Respiratory Respiratory exam: Present: CTAB. Absent: rales, respiratory distress, rhonchi, wheezes - Cardiovascular Cardiovascular exam: Present: irregular rhythm. Absent: tachycardia - GI/Abdominal GI/Abdominal exam: Present: distended (obese), normal bowel sounds, soft. Absent: tenderness Additional comments: Choi catheter noted to be draining clear yellow urine. - Extremities Exam Extremities exam: Present: pedal edema (BLE Lymphedema). Absent: joint swelling , tenderness Additional comments: Multiple bullous lesions noted to the BLE, right>left. - Neurological Exam Neurological exam: Present: alert, oriented X3, no focal deficits - Psychiatric Psychiatric exam: Present: normal affect, normal mood - Skin Skin exam: Present: dry, intact, pallor, warm - Additional findings Additional findings: Tunneled PICC line noted to the right upper chest without erythema, warmth, drainage, or tenderness. Previous a-port site noted to be without erythema, warmth, or drainage, but is tender to palpation. Consult Discharge Plan - Plan Referrals: NO,PCP [Primary Care Provider] -
[2016-06-11] MEDS: 0.9 % Sodium Chloride 1,000 ML IVC SCH (12:54)
[2016-06-11] MEDS: Albumin 25% 25gram/100mL 25 GM/100 ML IV.SOLN IVPB SCH (16:00)
[2016-06-11] MEDS: *HR* Warfarin 5 MG TABLET PO SCH (16:29)
[2016-06-11] MEDS ORDERED: *HR* Warfarin 2.5 MG TABLET PO ONE (18:00)
[2016-06-11] MEDS ORDERED: *HR* Warfarin 5 MG TABLET PO SCH (18:00)
[2016-06-11] MEDS: *HR* OxyCODONE Immed Rel 5 MG TABLET PO PRN (18:39)
[2016-06-11] MEDS: Mirtazapine 15 MG TABLET PO SCH (21:35)
[2016-06-11] MEDS: Temazepam 15 MG CAPSULE PO SCH (21:36)
[2016-06-12] MEDS: Albumin 25% 25gram/100mL 25 GM/100 ML IV.SOLN IVPB SCH ×4 (00:48→18:24)
[2016-06-12 05:10] LABS: Basophils % 0.1 %; Eosinophils % 10.2 %; Hematocrit 24.4 % (35.3-44.9); Hemoglobin 7.8 g/dL (11.5-15.4); Immature Granulocytes % 0.7 % (0-4); Lymphocytes # 0.5 K/mcL (0.6-4.6); Lymphocytes % 5.3 %; Mean Corpuscular Hemoglobin 28.9 pg (28.0-33.3); Mean Corpuscular Volume 90.4 fL (83.0-100.0); Mean Platelet Volume 9.8 fL (9.4-12.4); Monocytes # 0.8 K/mcL (0.0-1.3); Monocytes % 8.3 %; Neutrophils # 7.1 K/mcL (1.6-8.9); Platelet Count 302 K/mcL (140-400); Red Cell Distribution Width 16.5 % (11.5-14.5); Segmented Neutrophils % 75.4 %
[2016-06-12 05:26] LABS: INR 1.6
[2016-06-12 05:34] LABS: Calcium 7.2 mg/dL (8.6-10.8); Potassium 4.3 mEq/L (3.5-4.5)
[2016-06-12] MEDS: GuaiFENesin/Dextromethorphan TABLET PO SCH ×2 (08:26→21:10)
[2016-06-12] MEDS: Aspirin 81 MG TAB.CHEW PO SCH (08:26)
[2016-06-12] MEDS: Sennosides/Docusate Sodium TABLET PO SCH ×2 (08:26→20:30)
[2016-06-12] MEDS: Meropenem 1,000 MG in 0.9 % Sodium Chloride Mini Bag 100 ML IVPB SCH ×2 (08:27→18:23)
[2016-06-12] MEDS: Folic Acid 1 MG TABLET PO SCH (08:27)
[2016-06-12] MEDS: Gabapentin 300 MG CAPSULE PO SCH ×2 (08:27→20:31)
[2016-06-12] MEDS: Insulin LISPRO 300 UNITS/3 ML VIAL SQ SCH ×3 (08:28→20:34)
[2016-06-12] MEDS: traMADol 50 MG TABLET PO SCH (08:30)
[2016-06-12] MEDS: Insulin DETEMIR 100 UNIT/ML X5UNITS SQ SCH ×2 (08:30→20:33)
[2016-06-12] MEDS: Fluticasone Propionate Nasal 50 MCG/SPRAY BOTTLE NS SCH (08:35)
[2016-06-12] MEDS: Saline Nasal Spray 44 ML BOTTLE NS SCH ×3 (09:00→21:12)
--- NOTE | 2016-06-12 09:46 | Internal Med Progress Note ---
Date of Encounter: 06/12/16 Time of Encounter: 09:42 - Assessment and plan (1) Hypotension Current Visit: Yes Status: Acute Assessment and plan: Uncertain etiology but likely related to underlying hypoalbuminemia. No source of sepsis identified at this time. Blood and urine cultures remain negative so far. Serum lactic acid and troponin noted to be normal. Echocardiogram from last month shows preserved ejection fraction. Has been on IV Albumin and PO Midodrine since yesterday with very minimal improvement in BP; she may need arterial line for accurate BP monitoring and IV vasopressor support at this time ; Will consult Critical care/Director [employer]; f/up Nutrition consult. High risk for complications. Qualifiers: Hypotension type: other hypotension type Qualified Code(s): I95.89 - Other hypotension (2) Severe sepsis Current Visit: Yes Status: Ruled-out Assessment and plan: Patient only had hypotension at admission with no tachycardia, fever, tachypnea or leukocytosis and lactic acidosis. Less likely infectious in etiology. 1/2 peripheral blood cultures grow gram negative rods, which is likely a contaminant ; 2/2 blood cultures from [facility] are negative; urine culture is negative; (3) Encephalopathy acute Current Visit: Yes Status: Resolved (4) Acute kidney injury superimposed on chronic kidney disease Current Visit: Yes Status: Acute Assessment and plan: Likely related to dehydration and hypotension. Serum creatinine currently stable ; (5) UTI (urinary tract infection) Current Visit: Yes Status: Acute Assessment and plan: Patient was recently diagnosed with ESBL Escherichia coli UTI and has been discharged to [facility] on IV meropenem, to complete course on June 17. continue IV meropenem for now. New urine culture from 06/09 is negative. Qualifiers: Urinary tract infection type: site unspecified Hematuria presence: with hematuria Qualified Code(s): N39.0 - Urinary tract infection, site not specified; R31.9 - Hematuria, unspecified (6) Multiple myeloma Current Visit: Yes Status: Chronic Qualifiers: Multiple myeloma remission status: not in remission Qualified Code(s): C90.00 - Multiple myeloma not having achieved remission (7) Anemia Current Visit: Yes Status: Chronic Assessment and plan: Acute on chronic anemia, multifactorial with underlying myeloma and chemotherapy. No evidence of active bleeding. 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 Hold beta tonie and Amiodarone due to hypotension. Long- term anticoagulation with Coumadin, INR subtherapeutic at 1.6, although improving. Qualifiers: Atrial fibrillation type: unspecified Qualified Code(s): I48.91 - Unspecified atrial fibrillation (10) CKD (chronic kidney disease), stage III Current Visit: Yes Status: Chronic (11) DM (diabetes mellitus), type 2 Current Visit: Yes Status: Chronic Assessment and plan: Accu-Chek blood glucose monitoring with basal bolus insulin regimen. Diabetic diet. 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 Absent: accessory muscle use, rales, rhonchi, wheezes - Cardiovascular Cardiovascular exam: Present: RRR, +S1, +S2. Absent: diastolic murmur, gallop, rubs, systolic murmur - GI/Abdominal GI/Abdominal exam: Present: normal bowel sounds, soft, no peritoneal signs. Absent: distended, tenderness - Extremities Exam Extremities exam: Present: pedal edema (4+ pedal edema B/L), warm, radial pulses palpable and symetrical. Absent: calf tenderness, cyanotic Additional comments: stable right lower leg lesions from plasmacytoma - Neurological Exam Neurological exam: Present: CN II-XII intact, oriented X3, no focal deficits. Absent: pronater drift, facial droop, speech deficit - Skin Skin exam: Present: dry, intact Internal Medicine: Result - Labs CBC & Chem 7: 06/12/16 04:20 06/12/16 04:20 Labs: Short CBC 06/12/16 Range/Units 04:20 WBC 9.4 (4.3-11.1) K/mcL Hgb 7.8 L (11.5-15.4) g/dL Hct 24.4 L (35.3-44.9) % Plt Count 302 (140-400) K/mcL Neutrophils # 7.1 (1.6-8.9) K/mcL BMP 06/12/16 04:20 Sodium 138 Potassium 4.3 Chloride 109 Carbon Dioxide 17 L BUN 97 H Creatinine 2.57 H Glucose 66 L Calcium 7.2 L Cardiac Enzymes 06/11/16 Range/Units 11:00 Troponin I 0.00 (0-0.03) ng/mL - ABG Interpretation ABG results: PT/INR, D-dimer PT 18.0 Seconds (9.4-12.1) H 06/12/16 04:20 Consult Discharge Plan - Plan Referrals: NO,PCP [Primary Care Provider] -
--- NOTE | 2016-06-12 11:23 | Pulmonology Consult Note ---
Date of Encounter: 06/12/16 Time of Encounter: 11:23 Assessment and Plan (1) Hypotension Current Visit: Yes Status: Acute Despite IV fluid resuscitation and IV albumin infusion, she continued to have a persistent hypotension, her echo from 1 months ago showed preserved ejection fraction with normal left ventricular systolic function, she does have a low albumin level of 1.4, patient is not in septic shock, and unlikely this is due to infectious etiology based on her clinical symptoms, we will start her on levophed IV drip and change frequency of albumin IV infusion to every 6 hrs, followed by IV lasix, will con't to closely monitor her VS and clinical status. Qualifiers: Qualified Code(s): I95.9 - Hypotension, unspecified (2) CKD (chronic kidney disease), stage IV Current Visit: Yes Status: Acute Somewhat at her baseline, continue to avoid nephrotoxic agents, closely monitor her renal function while she is on IV Lasix and recheck her renal function in the morning. (3) History of bacteremia Current Visit: Yes Status: Acute Patient was recently diagnosed with ESBL Escherichia coli UTI and bacteremia, currently on meropenem IV antibiotic treatment for total 14 days. (4) Hypoalbuminemia Current Visit: No Status: Acute We will continue to infuse IV albumin, but change frequency to every 6 hours followed by IV Lasix. (5) Paroxysmal a-fib Current Visit: Yes Status: Acute This was recently diagnosed, currently amiodarone is on hold, pharmacy to dose Coumadin, INR has been subtherapeutic over the last few days and recheck INR in the morning. (6) Multiple myeloma Current Visit: Yes Status: Chronic Patient sees Dr. Zepeda in [facility], currently not getting any chemotherapy due to recent infection. Follow-up with her primary oncologist as outpatient. Qualifiers: Multiple myeloma remission status: not in remission Qualified Code(s): C90.00 - Multiple myeloma not having achieved remission (7) DM (diabetes mellitus), type 2 Current Visit: Yes Status: Chronic Patient is hypoglycemic in the morning, will adjust her current insulin regimen , continue basal and Accu-Chek with sliding scale insulin. 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 (9) DVT prophylaxis Current Visit: No Status: Acute Coumadin. History of Present Illness Consult date: 06/12/16 Requesting physician: Geno Caro Reason for consult: other (hypotension) Chief complaint: Altered mental status and hypotension History of present illness: Ms. Vaughan is 70 years old female with past medical history of multiple myeloma with plasmacytoma, diabetes types 2, coronary artery disease, recently diagnosed atrial fibrillation and CKD stage IV, who was recently discharged from this hospital for ESBL Escherichia coli UTI and bacteremia, she was getting meropenem IV antibiotic treatment for total of 14 days at [facility], this time she was brought to the ER for change in mental status and persistent hypotension. During this hospital course she was afebrile, no leukocytosis, and no septic picture, however she continued to have confusion and persistent hypotension despite IV fluid resuscitation and IV albumin infusion. Her blood and urine cultures this time have been negative except the one from June 09, which grew gram-positive rods, in which likely is contaminant based on patient' s clinical picture. Today patient was still having hypotension with MAP less than 60, therefore she was transferred from stepdown unit to ICU for close monitoring of her blood pressure. Past Med Surg Social Fam HX - Past Medical History Medical history: atrial fibrillation (Recently diagnosed, on Coumadin therapy), cancer (Multiple myeloma with plasmacytoma), coronary artery disease, diabetes ( Type 2), renal disease (CKD stage IV) - Past Surgical History Surgical History: angioplasty/stent - Social History Smoking Status: Never smoker Smokeless Tobacco Status: No Alcohol use: none Drug use: none - Family History Father Living Status: Hx Family Cardiac Disorders: Yes Hx Family Endocrine Disorder: Yes Sister Hx Family Cancer: Yes (kidney) Hx Family Endocrine Disorder: Yes Mother Living Status: Still Living Hx Family Cardiac Disorders: Yes (HTN) Hx Family Endocrine Disorder: Yes Medications and Allergies Atorvastatin Calcium [Lipitor] 20 mg PO DAILY 04/04/15 [History] Prochlorperazine Maleate [Compazine] 10 mg PO Q6H PRN 04/04/15 [History] Tizanidine HCl [Zanaflex] 4 mg PO Q8H PRN 04/04/15 [History] Folic Acid 1 mg PO DAILY #30 tablet 04/18/15 [Rx] Docusate [Colace] 100 mg PO DAILY PRN 04/22/15 [History] Insulin Glargine,Hum.rec.anlog [Lantus Solostar] 15 unit SQ HS 04/22/15 [History ] Insulin Glargine,Hum.rec.anlog [Lantus Solostar] 18 unit SQ QAM 04/22/15 [ History] Insulin LISPRO [HumaLOG] 0 unit SQ ACHS 04/22/15 [History] Melatonin 10 mg PO HS PRN 04/22/15 [History] Simethicone [Gas-X] 160 mg PO Q6H PRN 04/22/15 [History] Acetaminophen [Tylenol] 650 mg PO Q4H PRN 06/11/15 [History] Gabapentin [Neurontin] 300 mg PO BID 06/11/15 [History] Magnesium Hydroxide/Al Hydrox [Mag-Al Liquid] 30 ml PO BID PRN 06/11/15 [History ] Glucagon HCl 1 mg IJ ONCE PRN 12/27/15 [History] Fluticasone Propionate Nasal [Flonase] 100 mcg NS DAILY 02/18/16 [History] Furosemide [Lasix] 40 mg PO DAILY 02/18/16 [History] Albuterol Neb [Proventil Neb] 2.5 mg IH Q6H PRN 04/30/16 [History] GuaiFENesin/Dextromethorphan [Mucinex Dm ER 600-30 mg Tablet] 1 tab PO BID 04/30 [History] Mirtazapine 7.5 mg PO HS 04/30/16 [History] Ondansetron HCl [Zofran] 4 mg PO Q6H PRN 04/30/16 [History] Saline Nasal [place] [[place] Nasal [place]] 1 spray NS TID 04/30/16 [History] Tramadol HCl [Ultram] 50 mg PO BID 04/30/16 [History] Amiodarone [Cordarone] 200 mg PO BID #60 tablet 05/09/16 [Rx] Metoprolol XL (24 HR) Succ [Toprol Xl] 50 mg PO DAILY #30 tab.er.24h 05/09/16 [ Rx] Meropenem [Merrem] 1,000 mg IVPB Q8HR 13 Days 06/02/16 [Rx] Sennosides/Docusate Sodium [Senna Plus] 2 each PO BID #30 tablet 06/04/16 [Rx] Tramadol HCl [Ultram] 50 mg PO Q6H PRN #20 tablet 06/04/16 [Rx] Warfarin [Coumadin] 5 mg PO QPM #0 06/04/16 [Rx] Zolpidem [Ambien] 5 mg PO HS #7 tablet 06/04/16 [Rx] 0.9 % Sodium Chloride [Normal Saline Flush] 5 - 20 ml .ROUTE AD 06/09/16 [ History] Aspirin 81 mg PO DAILY 06/09/16 [History] Oxycodone HCl 10 mg PO TID PRN 06/09/16 [History] Temazepam [Restoril] 15 mg PO HS 06/09/16 [History] Allergies hydrocodone [From Vicodin] Allergy (Verified 04/04/15 11:12) Rash All Systems: A 10-system review of systems was performed and is negative for pertinent findings except as documented above in the HPI. Review of Systems: Patient is A and Ox3, denies fever, chill, headache, nausea, vomiting, chest pain, shortness of breath, productive cough, diarrhea, abdominal pain, and dysuria. Physical Examination Vital Signs: Vital Signs, Last 4 Hours Temp Pulse Resp BP Pulse Ox 06/12/16 09:00 80 16 93/42 98 06/12/16 07:43 99.4 F 80 16 89/44 98 General appearance: no acute distress, alert Eyes: nonicteric ENT: oropharynx moist Neck: supple Effort: normal Inspection: normal Auscultation: bilateral: clear Cardiovascular: regular rate and rhythm Gastrointestinal: normoactive bowel sounds, non-distended Integumentary: other (multiple cutaneous plasmacytomas. The ones in the right thigh are clean and dressed. She also has them on her right foot, left foot, and right leg.) Extremities: no cyanosis (The), edema (+2 pitting pedal, bilaterally) Musculoskeletal: no deformities non-focal exam, pupils equal and round, CN II-XII normal, other (A and O 3 however decreased mentation, according to her son at bedside, still her mental status is not back to baseline) mood appropriate, affect normal Results - Laboratory Findings CBC and BMP: 06/12/16 04:20 06/12/16 04:20 PT/INR, D-dimer PT 18.0 Seconds (9.4-12.1) H 06/12/16 04:20 Abnormal lab findings: Abnormal lab results RBC 2.70 M/mcL (3.82-4.97) L 06/12/16 04:20 Hgb 7.8 g/dL (11.5-15.4) L 06/12/16 04:20 Hct 24.4 % (35.3-44.9) L 06/12/16 04:20 RDW 16.5 % (11.5-14.5) H 06/12/16 04:20 Lymphocytes # 0.5 K/mcL (0.6-4.6) L 06/12/16 04:20 Eosinophils # 1.0 K/mcL (0.0-0.6) H 06/12/16 04:20 PT 18.0 Seconds (9.4-12.1) H 06/12/16 04:20 Carbon Dioxide 17 mEq/L (19-29) L 06/12/16 04:20 BUN 97 mg/dL (7-20) H 06/12/16 04:20 Creatinine 2.57 mg/dL (0.57-1.11) H 06/12/16 04:20 Est GFR ( Amer) 22 (> 60) L 06/12/16 04:20 Est GFR (Non-Af Amer) 18 (> 60) L 06/12/16 04:20 BUN/Creatinine Ratio 38 (6-26) H 06/12/16 04:20 Glucose 66 mg/dL (70-99) L 06/12/16 04:20 POC Glucose 119 (58-89) H 06/11/16 20:34 Calculated Osmolality 314 (280-300) H 06/12/16 04:20 Calcium 7.2 mg/dL (8.6-10.8) L 06/12/16 04:20 Phosphorus 5.9 mg/dL (2.3-4.7) H 06/09/16 15:00 Serum Total Protein 4.1 g/dL (6.0-8.3) L 06/09/16 15:00 Albumin 1.4 g/dL (3.5-5.0) L 06/09/16 15:00 Albumin/Globulin Ratio 0.5 (1.1-2.2) L 06/09/16 15:00 Urine Clarity Turbid (Clear) A 06/09/16 15:20 Urine Protein 100 mg/dL (Neg-Trace) H 06/09/16 15:20 Urine Blood Moderate (Negative) H 06/09/16 15:20 Urine Bilirubin Small (Negative) H 06/09/16 15:20 Ur Leukocyte Esterase Large (Negative) H 06/09/16 15:20 Urine Microscopic RBC 5-15 per hpf (0-3) H 06/09/16 15:20 Urine Microscopic WBC TNTC per hpf (0-3) H 06/09/16 15:20 Ur Squamous Epith Cells Many per lpf (None-Few) H 06/09/16 15:20 Ur Culture Indicated? YES (NO) A 06/09/16 15:20 - Microbiology Findings Microbiology Findings: Microbiology, Last 48 Hours 06/10/16 17:15 Blood Culture - Preliminary Central Venous Catheter No growth. 06/10/16 16:20 Blood Culture - Preliminary Central Venous Catheter No growth. - Clinical Findings Intake & Output: Intake & Output 06/11/16 06/12/16 06/12/16 23:59 07:59 15:59 Intake Total 440 / 440 100 / 100 200 / 200 Output Total 475 / 475 475 / 475 Balance -35 / -35 -375 / -375 200 / 200 Weight 140.2 kg Consult Discharge Plan - Plan Referrals: NO,PCP [Primary Care Provider] - (PATIENT IS FROM [facility] NO PCP APPOINTMENT NEEDED )
--- NOTE | 2016-06-12 11:32 | Infectious Disease Progress No ---
Date of Encounter: 06/12/16 Time of Encounter: 11:29 - Assessment and Plan (1) Hypotension Current Visit: Yes Status: Acute Responsive to IV fluids and albumin infusions. Likely multifactorial --> poor PO intake/dehydration + medication effects ( amiodarone, metoprolol, zanaflex). Low index of suspicion for new infectious etiology. She continues to be afebrile and HR normal. WBC remains normal as well. The patient has no complaints to indicate a new foci of infection. CXR negative. Urinalysis positive for TNTC WBC and leukocyte esterase, but no bacteria noted. Urine culture negative. Blood culture x 1 set drawn from the tunneled PICC 06/09/16 is positive for GPR. Peripheral blood culture drawn at the same time is NGTD. High index of suspicion that this is a contaminant given the patient's clinical picture and the fact that repeat cultures from the line are negative despite not having received any antibiotics that would cover potential GPR organisms. Blood cultures x 2 sets drawn 06/10/16 from the tunneled PICC are NGTD. Continue Meropenem 1 gram IV Q12H as prescribed for her previous UTI/ bacteremia. Continue IV fluid resuscitation as outlined by the primary team. Consider a-line insertion for close monitoring of the patient's blood pressure as her body habitus makes it difficult to get an accurate blood pressure with a standard BP cuff. Qualifiers: Hypotension type: other hypotension type Qualified Code(s): I95.89 - Other hypotension (2) Altered mental status, unspecified Current Visit: Yes Status: Resolved Etiology unclear, possibly related to the patient's hypotension. Patient appears drowsy during exam, but is A/O x 3. Qualifiers: Altered mental status type: unspecified Qualified Code(s): R41.82 - Altered mental status, unspecified (3) Chronic anemia Current Visit: Yes Status: Acute Improved after 2 unit PRBC. No evidence of acute bleeding noted. Could be contributing to the patient's hypotension as well. Workup/management per the primary team. (4) Acute kidney injury superimposed on chronic kidney disease Current Visit: Yes Status: Acute Serum creatinine 2.71 on admission. Etiology likely multifactorial --> hypotension + dehydration. Stable. Continue to monitor closely and consult nephrology if worsens. Dose-adjust antibiotics based on creatinine clearance. (5) Bacteremia Current Visit: No Status: Acute Diagnosed during previous hospitalization and continues to undergo treatment. Blood cultures drawn 05/24/16 were positive 2/2 sets (peripheral). Blood cultures drawn 05/26/16 were positive 1/1 set (drawn peripherally). Additional blood cultures drawn 05/28/16 (from a-port) and 06/02/16 (drawn peripherally) were negative. Source was likely UTI with seeding of her a-port. A-port was removed 06/01/16. Tip culture was negative. Discharged 06/04/16 to complete a 14 day course. We recommended discharging on Ertapenem due to the once daily dosing, but apparently the patient was discharged on Meropenem Q12H (dose-adjusted for low CrCl). Continue Meropenem for now. Previous treatment was to continue through 06/16/16. Blood cultures drawn 06/09/16 x 1 set from the tunneled PICC is positive for GPR. Final ID and sensitivities are pending. Blood culture drawn peripherally at the same time if NGTD. Additional cultures from the tunneled PICC line are NGTD. High index of suspicion for contamination given the patient's clinical picture. Await final culture results. (6) IDDM (insulin dependent diabetes mellitus) Current Visit: No Status: Chronic (7) Multiple myeloma Current Visit: Yes Status: Chronic Qualifiers: Multiple myeloma remission status: not in remission Qualified Code(s): C90.00 - Multiple myeloma not having achieved remission - Subjective Interval history: Patient seen and examined. No acute events noted overnight. Patient noted to have continued hypotension this morning, but appears stable. Patient complains of feeling tired, but denies fevers, chills, or rigors and states she wants some [employer] and iced tea. Denies chest pain, shortness of breath, or cough. Denies nausea, vomiting, or diarrhea. Denies abdominal pain and states she is hungry but doesn't like the food here. Choi remains in place and is patent. Denies oral thrush or new skin lesions. Denies extremity or back pain. Infect Dis PN-Objective Data - Labs CBC & Chem 7: 06/12/16 04:20 06/12/16 04:20 Labs: Laboratory Results - last 24 hr 06/11/16 06/11/16 06/11/16 07:58 08:01 08:58 WBC RBC Hgb Hct MCV MCH MCHC RDW Plt Count MPV Immature Gran % Seg Neutrophils % Lymphocytes % Monocytes % Eosinophils % Basophils % Neutrophils # Lymphocytes # Monocytes # Eosinophils # Basophils # PT INR Sodium Potassium Chloride Carbon Dioxide BUN Creatinine Est GFR ( Amer) Est GFR (Non-Af Amer) BUN/Creatinine Ratio Glucose POC Glucose 48 L* 49 L* 52 L Calculated Osmolality Lactic Acid Calcium Troponin I 06/11/16 06/11/16 06/11/16 11:00 11:00 11:36 WBC RBC Hgb Hct MCV MCH MCHC RDW Plt Count MPV Immature Gran % Seg Neutrophils % Lymphocytes % Monocytes % Eosinophils % Basophils % Neutrophils # Lymphocytes # Monocytes # Eosinophils # Basophils # PT INR Sodium Potassium Chloride Carbon Dioxide BUN Creatinine Est GFR ( Amer) Est GFR (Non-Af Amer) BUN/Creatinine Ratio Glucose POC Glucose 81 Calculated Osmolality Lactic Acid 0.9 Calcium Troponin I 0.00 06/11/16 06/11/16 06/12/16 16:16 20:34 04:20 WBC 9.4 RBC 2.70 L Hgb 7.8 L Hct 24.4 L MCV 90.4 MCH 28.9 MCHC 32.0 RDW 16.5 H Plt Count 302 MPV 9.8 Immature Gran % 0.7 Seg Neutrophils % 75.4 Lymphocytes % 5.3 Monocytes % 8.3 Eosinophils % 10.2 Basophils % 0.1 Neutrophils # 7.1 Lymphocytes # 0.5 L Monocytes # 0.8 Eosinophils # 1.0 H Basophils # 0.0 PT INR Sodium Potassium Chloride Carbon Dioxide BUN Creatinine Est GFR ( Amer) Est GFR (Non-Af Amer) BUN/Creatinine Ratio Glucose POC Glucose 116 H 119 H Calculated Osmolality Lactic Acid Calcium Troponin I 06/12/16 06/12/16 04:20 04:20 WBC RBC Hgb Hct MCV MCH MCHC RDW Plt Count MPV Immature Gran % Seg Neutrophils % Lymphocytes % Monocytes % Eosinophils % Basophils % Neutrophils # Lymphocytes # Monocytes # Eosinophils # Basophils # PT 18.0 H INR 1.6 Sodium 138 Potassium 4.3 Chloride 109 Carbon Dioxide 17 L BUN 97 H Creatinine 2.57 H Est GFR ( Amer) 22 L Est GFR (Non-Af Amer) 18 L BUN/Creatinine Ratio 38 H Glucose 66 L POC Glucose Calculated Osmolality 314 H Lactic Acid Calcium 7.2 L Troponin I Cultures: Cultures 06/10/16 17:15 Blood Culture - Preliminary Central Venous Catheter No growth. 06/10/16 16:20 Blood Culture - Preliminary Central Venous Catheter No growth. Exam - Constitutional Vitals: Temp Pulse Resp BP Pulse Ox 99.4 F 80 16 93/42 98 06/12/16 07:43 06/12/16 09:00 06/12/16 09:00 06/12/16 09:00 06/12/16 09:00 General appearance: cooperative, morbidly obese, no acute distress - Head Head exam: Present: atraumatic, normal inspection, normocephalic - Eye Eye exam: Present: EOMI, normal appearance, PERRL Pupils: Present: normal accommodation - ENT ENT exam: Present: mucous membranes dry - Neck Neck exam: Present: normal inspection. Absent: lymphadenopathy - Respiratory Respiratory exam: Present: CTAB. Absent: rales, respiratory distress, rhonchi, wheezes - Cardiovascular Cardiovascular exam: Present: irregular rhythm. Absent: tachycardia - GI/Abdominal GI/Abdominal exam: Present: distended (obese), normal bowel sounds, soft. Absent: tenderness Additional comments: Choi catheter noted to be draining clear yellow urine. - Extremities Exam Extremities exam: Present: pedal edema (Lymphedema noted to the BLE). Absent: joint swelling, tenderness Additional comments: Multiple bullous lesions noted to the BLE and right groin/lower abdomen. Dark purple discoloration noted to the dorsal/anterior foot/ankle. - Neurological Exam Neurological exam: Present: alert, oriented X3, no focal deficits Additional comments: Drowsy, but awakens to verbal stimuli and converses throughout exam. Answers questions appropriately. - Psychiatric Psychiatric exam: Present: normal affect, normal mood - Skin Skin exam: Present: dry, intact, normal color, warm Additional comments: Flushing noted to the cheeks and forehead. - Additional findings Additional findings: Tunneled PICC line noted to the right upper chest with transparent dressing C/D/ I. No erythema, warmth, or tenderness noted. A-port removal site noted to the right upper chest, [employer], without erythema, warmth, or tenderness. No drainage noted. Consult Discharge Plan - Plan Referrals: NO,PCP [Primary Care Provider] - (PATIENT IS FROM [facility] NO PCP APPOINTMENT NEEDED )
[2016-06-12] MEDS ORDERED: D5% in Water 1,000 ML IV PRN (12:04)
[2016-06-12] MEDS ORDERED: Mag Hydrox/Al Hydrox/Simeth 30 ML UDC PO PRN (12:04)
[2016-06-12] MEDS ORDERED: Ondansetron 4 MG/2 ML VIAL IVP PRN (12:04)
[2016-06-12] MEDS ORDERED: Simethicone 80 MG TAB.CHEW PO PRN (12:04)
[2016-06-12] MEDS ORDERED: Dextrose Gel 15 GM PO PRN ×2 (12:04)
[2016-06-12] MEDS ORDERED: Naloxone 0.4 MG/ML INJ IVP PRN (12:04)
[2016-06-12] MEDS ORDERED: Melatonin 3 MG TABLET PO PRN (12:04)
[2016-06-12] MEDS ORDERED: Albuterol 2.5 MG/3 ML NEBULIZER IH PRN (12:04)
[2016-06-12] MEDS ORDERED: *HR* Dextrose 50 % in Water (Syg) 50 ML SYRINGE IVP PRN (12:04)
[2016-06-12] MEDS ORDERED: Norepinephrine 4 MG in D5% in Water 250 ML IVC SCH (13:15)
[2016-06-12] MEDS: Furosemide 40 MG/4 ML VIAL IVP SCH ×2 (14:27→18:24)
[2016-06-12] MEDS ORDERED: Albumin 25% 25gram/100mL 25 GM/100 ML IV.SOLN IVPB SCH (16:00)
[2016-06-12] MEDS ORDERED: *HR* OxyCODONE/APAP 5/325 TABLET PO PRN (17:51)
[2016-06-12] MEDS ORDERED: *HR* Warfarin 7.5 MG TABLET PO SCH (18:00)
[2016-06-12] MEDS ORDERED: *HR* Warfarin 5 MG TABLET PO SCH ×2 (18:00)
[2016-06-12] MEDS ORDERED: Warfarin perPT PO PRN (18:00)
[2016-06-12] MEDS: Temazepam 15 MG CAPSULE PO SCH (20:30)
[2016-06-12] MEDS: Mirtazapine 15 MG TABLET PO SCH (20:31)
[2016-06-12] MEDS ORDERED: traMADol 50 MG TABLET PO SCH (21:00)
[2016-06-12] MEDS ORDERED: Insulin DETEMIR 100 UNIT/ML X5UNITS SQ SCH (21:00)
[2016-06-13] MEDS: Albumin 25% 25gram/100mL 25 GM/100 ML IV.SOLN IVPB SCH ×5 (00:56→23:23)
[2016-06-13] MEDS: Furosemide 40 MG/4 ML VIAL IVP SCH ×4 (03:05→19:56)
[2016-06-13 04:04] LABS: Basophils % 0.1 %; Eosinophils # 0.4 K/mcL (0.0-0.6); Eosinophils % 5.2 %; Immature Granulocytes % 0.5 % (0-4); Lymphocytes # 0.3 K/mcL (0.6-4.6); Lymphocytes % 4.5 %; Mean Corpuscular HGB Conc 31.8 g/dL (31.6-35.5); Mean Corpuscular Hemoglobin 29.2 pg (28.0-33.3); Mean Corpuscular Volume 91.7 fL (83.0-100.0); Mean Platelet Volume 8.8 fL (9.4-12.4); Monocytes # 0.4 K/mcL (0.0-1.3); Monocytes % 5.4 %; Neutrophils # 6.4 K/mcL (1.6-8.9); Platelet Count 244 K/mcL (140-400); Red Cell Distribution Width 16.3 % (11.5-14.5); Segmented Neutrophils % 84.3 %
[2016-06-13 04:09] LABS: INR 2.3; Prothrombin Time 25.9 Seconds (9.4-12.1)
[2016-06-13 04:17] LABS: Calcium 7.6 mg/dL (8.6-10.8); Potassium 4.3 mEq/L (3.5-4.5)
[2016-06-13 04:51] LABS: Hypersegmented Neutrophils Present (Not Present); Platelet Estimate Normal (Normal); Reactive Lymphocytes Present (Not Present); Toxic Granulation Present (Not Present)
[2016-06-13] MEDS: Meropenem 1,000 MG in 0.9 % Sodium Chloride Mini Bag 100 ML IVPB SCH ×2 (06:24→18:17)
[2016-06-13] MEDS: Insulin LISPRO 300 UNITS/3 ML VIAL SQ SCH ×4 (08:19→20:34)
[2016-06-13] MEDS ORDERED: Insulin DETEMIR 100 UNIT/ML X5UNITS SQ SCH (09:00)
[2016-06-13] MEDS: Aspirin 81 MG TAB.CHEW PO SCH (09:32)
[2016-06-13] MEDS: Sennosides/Docusate Sodium TABLET PO SCH ×2 (09:32→19:57)
[2016-06-13] MEDS: Folic Acid 1 MG TABLET PO SCH (09:32)
[2016-06-13] MEDS: GuaiFENesin/Dextromethorphan TABLET PO SCH ×2 (09:32→19:57)
[2016-06-13] MEDS: Gabapentin 300 MG CAPSULE PO SCH (09:32)
[2016-06-13] MEDS: Saline Nasal Spray 44 ML BOTTLE NS SCH ×3 (09:33→19:59)
[2016-06-13] MEDS: Fluticasone Propionate Nasal 50 MCG/SPRAY BOTTLE NS SCH (09:33)
--- NOTE | 2016-06-13 11:14 | Pulmonology Progress Note ---
Date of Encounter: 06/13/16 Time of Encounter: 11:12 Assessment and Plan (1) Hypotension Current Visit: Yes Status: Acute 70-year-old morbidly obese female with medical history significant for multiple myeloma, chronic kidney disease, insulin-dependent diabetes, and severe overall debility. She initially presented to the emergency department from an extended care facility on 06/09/2016 for evaluation of hypotension and encephalopathy. Due to unresolving hypotension, she was transferred to the intensive care unit for further evaluation and management on 06/12/2016. Hypotension is multifactorial in etiology. I suspect the blood pressure cuff on her forearm was inaccurate. Of note, she is morbidly obese which makes accurate noninvasive blood pressure monitoring difficult. Sepsis is also a possible etiology of her hypotension, with possible sources being urinary tract infection or cellulitis of lower extremities. Otherwise, she does appear to be massively volume overloaded, and right heart failure could also be playing a role. We will continue treatment with antibiotics per infectious disease recommendations. She had been treated with IV fluids upon admission. In light of her volume overload, we are trialing IV albumin plus IV Lasix for diuresis. Given her chronic kidney disease, we will need to closely monitor her kidney function has been diuresis. I added by mouth Midodrin to her regimen. She is off vasopressors. Lactate was normal with no signs of hypoperfusion. Qualifiers: Hypotension type: other hypotension type Qualified Code(s): I95.89 - Other hypotension (2) Bacteremia Current Visit: No Status: Acute Followed by infectious disease for a history of positive blood cultures in the setting of a tunneled catheter. Most recent blood cultures from 06/10/2016 show no growth to date. She is on meropenem per infectious disease recommendations. (3) Ktqwx-yo-ybarvog renal failure Current Visit: Yes Status: Acute She has chronic kidney disease , which is likely related to multiple myeloma and underlying diabetes. Is difficult to tell what her baseline creatinine is, but over the course of the last 2 months it is ranged from as low as 1.90 and as high as 4.49. Her creatinine is currently 2.64 and has remained relatively stable since admission. Her urine output is adequate. Clinically she has anasarca, which is likely related to volume overload and low protein state. As above, we are trialing albumin plus Lasix. She is slowly developing indications for dialysis, which include volume overload , acidosis, and uremia. She is not a great dialysis candidate in my opinion. I will consult nephrology for further evaluation. (4) Encephalopathy Current Visit: Yes Status: Acute Multifactorial in etiology and due to uremia and sedating medications. I have decreased the dose of her Neurontin to 100 mg by mouth twice a day, in light of her renal function. She is also on melatonin, Remeron, and Restoril at night. We can consider holding these medications if her encephalopathy worsens. (5) Multiple myeloma Current Visit: No Status: Chronic By history. She has received chemotherapy in the past. Review of oncology notes, the current plan is to trial additional chemotherapeutic agents as her disease has been refractory to treatment as far. Currently, her functional status is too poor to consider chemotherapy. She has impressive soft tissue plasmacytomas noted. Qualifiers: Multiple myeloma remission status: not in remission Qualified Code(s): C90.00 - Multiple myeloma not having achieved remission (6) Failure to thrive in adult Current Visit: Yes Status: Acute Overall failure to thrive and the patient was essentially untreatable multiple myeloma, malnutrition, and multiple recent hospitalizations. I suspect she will never be well enough to have a functional status suitable for further chemotherapy treatments. She is hospice appropriate in my opinion. I have counsulted palliative care medicine for further evaluation regarding goals of care. Continue ICU level of care for now. Subjective Principal diagnosis: Hypotension Interval history: No acute overnight events. The patient remains lethargic and sleepy. The blood pressure cuff was changed from the forearm to the left upper arm with more reliable blood pressure as noted. Patient reports poor by mouth intake. No fever/chills. Objective PUL Vital signs: Last Vital Signs Temp 99.6 F 06/13/16 08:09 Pulse 84 06/13/16 10:12 Resp 20 06/13/16 10:12 BP 122/44 06/13/16 10:12 Pulse Ox 98 06/13/16 10:12 General: no acute distress, sleepy on exam Eyes: nonicteric ENT: oropharynx moist Neck: supple, no lymphadenopathy Lungs: Clear to auscultation bilaterally Cardiovascular: regular rate and rhythm Gastrointestinal: normoactive bowel sounds, soft, non-tender, non-distended Integumentary: Large fungating soft tissue masses noted, erythematous legs with increased warmth left greater than right Extremities: no cyanosis, pitting bilateral lower extremity edema Musculoskeletal: Bilateral foot drop noted Neuro: Depressed mental status, awakens and is interactive, non-focal exam Psych: Somewhat withdrawn but overall normal mood and affect Results - Laboratory Findings CBC and BMP: 06/13/16 03:53 06/13/16 03:53 PT/INR, D-dimer PT 25.9 Seconds (9.4-12.1) H 06/13/16 03:53 Abnormal lab findings: Abnormal lab results RBC 2.40 M/mcL (3.82-4.97) L 06/13/16 03:53 Hgb 7.0 g/dL (11.5-15.4) L 06/13/16 03:53 Hct 22.0 % (35.3-44.9) L 06/13/16 03:53 RDW 16.3 % (11.5-14.5) H 06/13/16 03:53 MPV 8.8 fL (9.4-12.4) L 06/13/16 03:53 Lymphocytes # 0.3 K/mcL (0.6-4.6) L 06/13/16 03:53 Hypersegmented Neuts Present (Not Present) A 06/13/16 03:53 Reactive Lymphocytes Present (Not Present) A 06/13/16 03:53 Toxic Granulation Present (Not Present) A 06/13/16 03:53 PT 25.9 Seconds (9.4-12.1) H 06/13/16 03:53 Chloride 111 mEq/L (98-109) H 06/13/16 03:53 Carbon Dioxide 16 mEq/L (19-29) L 06/13/16 03:53 BUN 100 mg/dL (7-20) H 06/13/16 03:53 Creatinine 2.64 mg/dL (0.57-1.11) H 06/13/16 03:53 Est GFR ( Amer) 22 (> 60) L 06/13/16 03:53 Est GFR (Non-Af Amer) 18 (> 60) L 06/13/16 03:53 BUN/Creatinine Ratio 38 (6-26) H 06/13/16 03:53 Calculated Osmolality 320 (280-300) H 06/13/16 03:53 Calcium 7.6 mg/dL (8.6-10.8) L 06/13/16 03:53 Phosphorus 5.9 mg/dL (2.3-4.7) H 06/09/16 15:00 Serum Total Protein 4.1 g/dL (6.0-8.3) L 06/09/16 15:00 Albumin 1.4 g/dL (3.5-5.0) L 06/09/16 15:00 Albumin/Globulin Ratio 0.5 (1.1-2.2) L 06/09/16 15:00 Urine Clarity Turbid (Clear) A 06/09/16 15:20 Urine Protein 100 mg/dL (Neg-Trace) H 06/09/16 15:20 Urine Blood Moderate (Negative) H 06/09/16 15:20 Urine Bilirubin Small (Negative) H 06/09/16 15:20 Ur Leukocyte Esterase Large (Negative) H 06/09/16 15:20 Urine Microscopic RBC 5-15 per hpf (0-3) H 06/09/16 15:20 Urine Microscopic WBC TNTC per hpf (0-3) H 06/09/16 15:20 Ur Squamous Epith Cells Many per lpf (None-Few) H 06/09/16 15:20 Ur Culture Indicated? YES (NO) A 06/09/16 15:20 - Microbiology Findings Microbiology Findings: Microbiology, Last 48 Hours 06/10/16 17:15 Blood Culture - Preliminary Central Venous Catheter No growth. 06/10/16 16:20 Blood Culture - Preliminary Central Venous Catheter No growth. - Clinical Findings Intake & Output: Intake & Output 06/12/16 06/13/16 06/13/16 23:59 07:59 15:59 Intake Total 357.3 / 357.3 117.4 / 117.4 Output Total 750 / 750 550 / 550 200 / 200 Balance -392.7 / -392.7 -432.6 / -432.6 -200 / -200 Weight 143 kg Consult Discharge Plan - Plan Referrals: NO,PCP [Primary Care Provider] - ([facility] NO PCP APPOINTMENT NEEDED )
[2016-06-13] MEDS ORDERED: *HR* Warfarin 5 MG TABLET PO ONE (18:00)
[2016-06-13] MEDS: Acetaminophen 325 MG TABLET PO PRN (18:16)
[2016-06-13] MEDS: Insulin DETEMIR 100 UNIT/ML X5UNITS SQ SCH (19:56)
[2016-06-13] MEDS: Gabapentin 100 MG CAPSULE PO SCH (19:58)
[2016-06-13] MEDS: Mirtazapine 15 MG TABLET PO SCH (19:58)
[2016-06-13] MEDS: Temazepam 15 MG CAPSULE PO SCH (19:59)
[2016-06-14] MEDS: Furosemide 40 MG/4 ML VIAL IVP SCH ×4 (00:46→17:51)
[2016-06-14 04:21] LABS: Calcium 7.6 mg/dL (8.6-10.8); Potassium 3.6 mEq/L (3.5-4.5)
[2016-06-14 04:49] LABS: INR 3.5; Prothrombin Time 39.6 Seconds (9.4-12.1)
[2016-06-14] MEDS: Albumin 25% 25gram/100mL 25 GM/100 ML IV.SOLN IVPB SCH ×4 (05:47→23:38)
[2016-06-14] MEDS: Meropenem 1,000 MG in 0.9 % Sodium Chloride Mini Bag 100 ML IVPB SCH ×2 (05:47→17:50)
--- NOTE | 2016-06-14 08:08 | Nephrology Consult Note ---
Date of Encounter: 06/14/16 Time of Encounter: 08:05 Assessment and Plan (1) Chronic kidney disease, stage IV (severe) Current Visit: Yes Status: Acute Patient has a history of stage IV chronic kidney disease in the setting of multiple myeloma and plasmacytoma. She was recently hospitalized with ESBL Escherichia coli urinary tract infection and bacteremia. She was on outpatient IV antibiotics at the snf prior to this admission. Her renal function is relatively stable. She does appear to be volume overloaded which is chronic for her. I agree with the current Lasix regimen. We will monitor her renal function and follow along. Her overall prognosis is poor. (2) Multiple myeloma, failed remission Current Visit: No Status: Chronic (3) Mass of right lower extremity Current Visit: No Status: Acute (4) Altered mental status Current Visit: No Status: Acute Qualifiers: Altered mental status type: unspecified Qualified Code(s): R41.82 - Altered mental status, unspecified History of Present Illness - History of Present Illness This is a 70-year-old female with a history of stage IV chronic kidney disease in the setting of multiple myeloma and a plasmacytoma. Patient was admitted from the sn[facility] with hypotension and altered mental status. Baseline creatinine ranges from 2-2.5. Current creatinine is 2.69. B1 is elevated out of proportion to serum creatinine. Patient does have chronic edema as well as a plasmacytoma of the right lower extremity. Patient is unable to give any additional history currently. Blood pressure is stable. Urine output yesterday is recorded as 1.8 L. She is currently on IV Lasix 40 mg every 6 hours. The patient was recently hospitalized with a urinary tract infection and bacteremia related to ESBL positive Escherichia coli. She was on meropenem as an outpatient in the [facility]. Past Med Surg Social Fam HX - Past Medical History Medical history: atrial fibrillation (Recently diagnosed, on Coumadin therapy), cancer (Multiple myeloma with plasmacytoma), coronary artery disease, diabetes ( Type 2), renal disease (CKD stage IV) Psychiatric history: no psych history - Past Surgical History Surgical History: angioplasty/stent - Social History Smoking Status: Never smoker Smokeless Tobacco Status: No Alcohol use: none Drug use: none - Family History Father Living Status: Hx Family Cardiac Disorders: Yes Hx Family Endocrine Disorder: Yes Sister Hx Family Cancer: Yes (kidney) Hx Family Endocrine Disorder: Yes Mother Living Status: Still Living Hx Family Cardiac Disorders: Yes (HTN) Hx Family Endocrine Disorder: Yes Medications and Allergies Atorvastatin Calcium [Lipitor] 20 mg PO DAILY 04/04/15 [History] Prochlorperazine Maleate [Compazine] 10 mg PO Q6H PRN 04/04/15 [History] Tizanidine HCl [Zanaflex] 4 mg PO Q8H PRN 04/04/15 [History] Folic Acid 1 mg PO DAILY #30 tablet 04/18/15 [Rx] Docusate [Colace] 100 mg PO DAILY PRN 04/22/15 [History] Insulin Glargine,Hum.rec.anlog [Lantus Solostar] 15 unit SQ HS 04/22/15 [History ] Insulin Glargine,Hum.rec.anlog [Lantus Solostar] 18 unit SQ QAM 04/22/15 [ History] Insulin LISPRO [HumaLOG] 0 unit SQ ACHS 04/22/15 [History] Melatonin 10 mg PO HS PRN 04/22/15 [History] Simethicone [Gas-X] 160 mg PO Q6H PRN 04/22/15 [History] Acetaminophen [Tylenol] 650 mg PO Q4H PRN 06/11/15 [History] Gabapentin [Neurontin] 300 mg PO BID 06/11/15 [History] Magnesium Hydroxide/Al Hydrox [Mag-Al Liquid] 30 ml PO BID PRN 06/11/15 [History ] Glucagon HCl 1 mg IJ ONCE PRN 12/27/15 [History] Fluticasone Propionate Nasal [Flonase] 100 mcg NS DAILY 02/18/16 [History] Furosemide [Lasix] 40 mg PO DAILY 02/18/16 [History] Albuterol Neb [Proventil Neb] 2.5 mg IH Q6H PRN 04/30/16 [History] GuaiFENesin/Dextromethorphan [Mucinex Dm ER 600-30 mg Tablet] 1 tab PO BID 04/30 [History] Mirtazapine 7.5 mg PO HS 04/30/16 [History] Ondansetron HCl [Zofran] 4 mg PO Q6H PRN 04/30/16 [History] Saline Nasal Salol [[place] Nasal Salol] 1 spray NS TID 04/30/16 [History] Tramadol HCl [Ultram] 50 mg PO BID 04/30/16 [History] Amiodarone [Cordarone] 200 mg PO BID #60 tablet 05/09/16 [Rx] Metoprolol XL (24 HR) Succ [Toprol Xl] 50 mg PO DAILY #30 tab.er.24h 05/09/16 [ Rx] Meropenem [Merrem] 1,000 mg IVPB Q8HR 13 Days 06/02/16 [Rx] Sennosides/Docusate Sodium [Senna Plus] 2 each PO BID #30 tablet 06/04/16 [Rx] Tramadol HCl [Ultram] 50 mg PO Q6H PRN #20 tablet 06/04/16 [Rx] Warfarin [Coumadin] 5 mg PO QPM #0 06/04/16 [Rx] Zolpidem [Ambien] 5 mg PO HS #7 tablet 06/04/16 [Rx] 0.9 % Sodium Chloride [Normal Saline Flush] 5 - 20 ml .ROUTE AD 06/09/16 [ History] Aspirin 81 mg PO DAILY 06/09/16 [History] Oxycodone HCl 10 mg PO TID PRN 06/09/16 [History] Temazepam [Restoril] 15 mg PO HS 06/09/16 [History] Allergies hydrocodone [From Vicodin] Allergy (Verified 04/04/15 11:12) Rash Review of Systems ROS unobtainable: due to mental status Exam - Vital Signs Vital signs: Initial Vital Signs Temp Pulse Resp BP Pulse Ox 97.8 F 87 20 114/52 100 06/09/16 13:19 06/09/16 13:19 06/09/16 13:19 06/09/16 13:19 06/09/16 13:19 Vital Signs - Last 8 Hours Temp Pulse Resp BP Pulse Ox 06/14/16 06:00 84 18 156/55 97 06/14/16 05:37 97.3 F L 06/14/16 05:00 74 14 140/51 97 06/14/16 04:30 73 16 144/55 98 06/14/16 03:00 74 14 129/45 98 06/14/16 02:30 78 14 131/53 97 06/14/16 01:00 88 16 116/78 96 06/14/16 00:26 99.2 F 06/14/16 00:06 87 18 107/77 98 Intake and Output 06/13/16 06/14/16 06/14/16 23:59 07:59 15:59 Intake Total 320 / 320 200 / 200 Output Total 500 / 500 800 / 800 Balance -180 / -180 -600 / -600 Intake: IV Fluids 200 / 200 200 / 200 Flexbumin 25 gm In 100 ml 100 / 100 100 / 100 @ 60 mls/hr IVPB Q6H EDDIE Rx#:[id number] Merrem 1,000 MG In 0.9 % 100 / 100 100 / 100 Sodium Chloride (Mini-Bag +) 100 ML @ 200 mls/hr IVPB Q12H EDDIE Rx#: [id number] Oral 120 / 120 0 / 0 Output: Urine 250 / 250 400 / 400 Urethral (Choi) 250 / 250 400 / 400 Catheter 250 / 250 400 / 400 Other: Meal Dinner Percent of Meal Consumed 10% Weight 146.2 kg Blood Glucose* 143 Patient Weight 06/14/16 23:59 Weight 146.2 kg - General Appearance Exam: Patient is difficult to arouse. Vital signs are stable. Choi catheter is in place. She has some type of a tunneled IV catheter in the right chest. Lungs diminished breath sounds. Heart regular rate and rhythm without any rub. Systolic murmurs in place. Abdomen is soft. There is no guarding or rigidity. Patient has 3+ lower extremity swelling. There is a plasmacytoma of the right lower extremity. Results - Lab Results 06/13/16 03:53 06/14/16 03:55 Most recent lab results Calcium 7.6 mg/dL (8.6-10.8) L 06/14/16 03:55 Phosphorus 5.9 mg/dL (2.3-4.7) H 06/09/16 15:00 Magnesium 1.9 mg/dL (1.6-2.6) 06/09/16 15:00 Consult Discharge Plan - Plan Referrals: NO,PCP [Primary Care Provider] - (PATIENT IS FROM [facility] NO PCP APPOINTMENT NEEDED )
[2016-06-14] MEDS: Insulin LISPRO 300 UNITS/3 ML VIAL SQ SCH ×4 (09:19→21:33)
[2016-06-14] MEDS: GuaiFENesin/Dextromethorphan TABLET PO SCH ×2 (09:20→21:46)
[2016-06-14] MEDS: Saline Nasal Spray 44 ML BOTTLE NS SCH ×3 (09:20→21:35)
[2016-06-14] MEDS: Fluticasone Propionate Nasal 50 MCG/SPRAY BOTTLE NS SCH (09:20)
[2016-06-14] MEDS: Folic Acid 1 MG TABLET PO SCH (09:26)
[2016-06-14] MEDS: Gabapentin 100 MG CAPSULE PO SCH ×2 (09:26→21:46)
[2016-06-14] MEDS: Sennosides/Docusate Sodium TABLET PO SCH ×2 (09:26→21:46)
[2016-06-14] MEDS: Aspirin 81 MG TAB.CHEW PO SCH (09:26)
--- NOTE | 2016-06-14 10:42 | Pulmonology Progress Note ---
Date of Encounter: 06/14/16 Time of Encounter: 10:40 Assessment and Plan (1) Hypotension Current Visit: Yes Status: Acute 70-year-old morbidly obese female with medical history significant for multiple myeloma, chronic kidney disease, insulin-dependent diabetes, and severe overall debility. She initially presented to the emergency department from an extended care facility on 06/09/2016 for evaluation of hypotension and encephalopathy. Due to unresolving hypotension, she was transferred to the intensive care unit for further evaluation and management on 06/12/2016. Hypotension is multifactorial in etiology. I suspect the blood pressure cuff on her forearm was inaccurate. Of note, she is morbidly obese which makes accurate noninvasive blood pressure monitoring difficult. Sepsis is also a possible etiology of her hypotension, with possible sources being urinary tract infection or cellulitis of lower extremities. Otherwise, she does appear to be massively volume overloaded, and right heart failure could also be playing a role. We will continue treatment with antibiotics per infectious disease recommendations. She had been treated with IV fluids upon admission. In light of her volume overload, we are trialing IV albumin plus IV Lasix for diuresis. Given her chronic kidney disease, we will need to closely monitor her kidney function has been diuresis. I added by mouth Midodrin to her regimen. She is off vasopressors. Lactate was normal with no signs of hypoperfusion. Qualifiers: Hypotension type: other hypotension type Qualified Code(s): I95.89 - Other hypotension (2) Bacteremia Current Visit: No Status: Acute Followed by infectious disease for a history of positive blood cultures in the setting of a tunneled catheter. Most recent blood cultures from 06/10/2016 show no growth to date. She is on meropenem per infectious disease recommendations. (3) [id number] renal failure Current Visit: Yes Status: Acute She has chronic kidney disease , which is likely related to multiple myeloma and underlying diabetes. Is difficult to tell what her baseline creatinine is, but over the course of the last 2 months it is ranged from as low as 1.90 and as high as 4.49. Her creatinine is currently 2.64 and has remained relatively stable since admission. Her urine output is adequate. Clinically she has anasarca, which is likely related to volume overload and low protein state. As above, we are trialing albumin plus Lasix. She is slowly developing indications for dialysis, which include volume overload , acidosis, and uremia. She is not a great dialysis candidate in my opinion. I will consult nephrology for further evaluation. (4) Encephalopathy Current Visit: Yes Status: Acute Multifactorial in etiology and due to uremia and sedating medications. I have decreased the dose of her Neurontin to 100 mg by mouth twice a day, in light of her renal function. She is also on melatonin, Remeron, and Restoril at night. We can consider holding these medications if her encephalopathy worsens. (5) Multiple myeloma Current Visit: No Status: Chronic By history. She has received chemotherapy in the past. Review of oncology notes, the current plan is to trial additional chemotherapeutic agents as her disease has been refractory to treatment as far. Currently, her functional status is too poor to consider chemotherapy. She has impressive soft tissue plasmacytomas noted. Qualifiers: Multiple myeloma remission status: not in remission Qualified Code(s): C90.00 - Multiple myeloma not having achieved remission (6) Failure to thrive in adult Current Visit: Yes Status: Acute Overall failure to thrive and the patient was essentially untreatable multiple myeloma, malnutrition, and multiple recent hospitalizations. I suspect she will never be well enough to have a functional status suitable for further chemotherapy treatments. She is hospice appropriate in my opinion. I have counsulted palliative care medicine for further evaluation regarding goals of care. Continue ICU level of care for now. Subjective Principal diagnosis: Hypotension Interval history: No acute overnight events. The patient remains lethargic and sleepy. The blood pressure cuff was changed from the forearm to the left upper arm with more reliable blood pressure as noted. Patient reports poor by mouth intake. No fever/chills. All other systems reviewed and otherwise negative Objective PUL Vital signs: Last Vital Signs Temp 98.1 F 06/14/16 09:31 Pulse 91 06/14/16 10:00 Resp 16 06/14/16 10:00 BP 144/62 06/14/16 10:00 Pulse Ox 99 06/14/16 10:00 General: no acute distress, sleepy on exam Eyes: nonicteric ENT: oropharynx moist Neck: supple, no lymphadenopathy Lungs: Clear to auscultation bilaterally Cardiovascular: regular rate and rhythm Gastrointestinal: normoactive bowel sounds, soft, non-tender, non-distended Integumentary: Large fungating soft tissue masses noted, erythematous legs with increased warmth left greater than right Extremities: no cyanosis, pitting bilateral lower extremity edema Musculoskeletal: Bilateral foot drop noted Neuro: Depressed mental status, awakens and is interactive, non-focal exam Psych: Somewhat withdrawn but overall normal mood and affect Results - Laboratory Findings CBC and BMP: 06/13/16 03:53 06/14/16 03:55 PT/INR, D-dimer PT 39.6 Seconds (9.4-12.1) H D 06/14/16 03:55 Abnormal lab findings: Abnormal lab results RBC 2.40 M/mcL (3.82-4.97) L 06/13/16 03:53 Hgb 7.0 g/dL (11.5-15.4) L 06/13/16 03:53 Hct 22.0 % (35.3-44.9) L 06/13/16 03:53 RDW 16.3 % (11.5-14.5) H 06/13/16 03:53 MPV 8.8 fL (9.4-12.4) L 06/13/16 03:53 Lymphocytes # 0.3 K/mcL (0.6-4.6) L 06/13/16 03:53 Hypersegmented Neuts Present (Not Present) A 06/13/16 03:53 Reactive Lymphocytes Present (Not Present) A 06/13/16 03:53 Toxic Granulation Present (Not Present) A 06/13/16 03:53 PT 39.6 Seconds (9.4-12.1) H D 06/14/16 03:55 Carbon Dioxide 17 mEq/L (19-29) L 06/14/16 03:55 BUN 98 mg/dL (7-20) H 06/14/16 03:55 Creatinine 2.69 mg/dL (0.57-1.11) H 06/14/16 03:55 Est GFR ( Amer) 21 (> 60) L 06/14/16 03:55 Est GFR (Non-Af Amer) 17 (> 60) L 06/14/16 03:55 BUN/Creatinine Ratio 36 (6-26) H 06/14/16 03:55 Calculated Osmolality 316 (280-300) H 06/14/16 03:55 Calcium 7.6 mg/dL (8.6-10.8) L 06/14/16 03:55 Phosphorus 5.9 mg/dL (2.3-4.7) H 06/09/16 15:00 Serum Total Protein 4.1 g/dL (6.0-8.3) L 06/09/16 15:00 Albumin 1.4 g/dL (3.5-5.0) L 06/09/16 15:00 Albumin/Globulin Ratio 0.5 (1.1-2.2) L 06/09/16 15:00 Urine Clarity Turbid (Clear) A 06/09/16 15:20 Urine Protein 100 mg/dL (Neg-Trace) H 06/09/16 15:20 Urine Blood Moderate (Negative) H 06/09/16 15:20 Urine Bilirubin Small (Negative) H 06/09/16 15:20 Ur Leukocyte Esterase Large (Negative) H 06/09/16 15:20 Urine Microscopic RBC 5-15 per hpf (0-3) H 06/09/16 15:20 Urine Microscopic WBC TNTC per hpf (0-3) H 06/09/16 15:20 Ur Squamous Epith Cells Many per lpf (None-Few) H 06/09/16 15:20 Ur Culture Indicated? YES (NO) A 06/09/16 15:20 - Microbiology Findings Microbiology Findings: Microbiology, Last 48 Hours 06/10/16 17:15 Blood Culture - Preliminary Central Venous Catheter No growth. 06/10/16 16:20 Blood Culture - Preliminary Central Venous Catheter No growth. - Clinical Findings Intake & Output: Intake & Output 06/13/16 06/14/16 06/14/16 23:59 07:59 15:59 Intake Total 320 / 320 200 / 200 Output Total 500 / 500 800 / 800 100 / 100 Balance -180 / -180 -600 / -600 -100 / -100 Weight 146.2 kg Consult Discharge Plan - Plan Referrals: NO,PCP [Primary Care Provider] - (PATIENT IS FROM [facility] NO PCP APPOINTMENT NEEDED )
[2016-06-14] MEDS: Acetaminophen 325 MG TABLET PO PRN (17:51)
[2016-06-14] MEDS: Insulin DETEMIR 100 UNIT/ML X5UNITS SQ SCH (21:44)
[2016-06-14] MEDS: Mirtazapine 15 MG TABLET PO SCH (21:47)
[2016-06-14] MEDS: Temazepam 15 MG CAPSULE PO SCH ×2 (21:49→22:09)
[2016-06-15] MEDS: Furosemide 40 MG/4 ML VIAL IVP SCH ×3 (01:23→13:21)
[2016-06-15] MEDS: *HR* HYDROmorphone 2 MG/ML SYRINGE IVP PRN ×2 (03:18→15:26)
[2016-06-15 03:47] LABS: INR 3.8; Prothrombin Time 43.2 Seconds (9.4-12.1)
[2016-06-15 03:51] LABS: Potassium 3.6 mEq/L (3.5-4.5)
[2016-06-15] MEDS: Meropenem 1,000 MG in 0.9 % Sodium Chloride Mini Bag 100 ML IVPB SCH ×2 (05:50→18:48)
[2016-06-15] MEDS: Albumin 25% 25gram/100mL 25 GM/100 ML IV.SOLN IVPB SCH ×2 (05:50→11:08)
[2016-06-15] MEDS: Insulin LISPRO 300 UNITS/3 ML VIAL SQ SCH ×4 (07:33→20:23)
[2016-06-15 08:35] LABS: Basophils % 0.1 %; Eosinophils # 0.5 K/mcL (0.0-0.6); Eosinophils % 5.9 %; Hematocrit 22.1 % (35.3-44.9); Hemoglobin 7.1 g/dL (11.5-15.4); Immature Granulocytes % 0.9 % (0-4); Lymphocytes # 0.2 K/mcL (0.6-4.6); Lymphocytes % 2.2 %; Mean Corpuscular HGB Conc 32.1 g/dL (31.6-35.5); Mean Corpuscular Hemoglobin 29.2 pg (28.0-33.3); Mean Corpuscular Volume 90.9 fL (83.0-100.0); Mean Platelet Volume 9.3 fL (9.4-12.4); Monocytes # 0.5 K/mcL (0.0-1.3); Monocytes % 6.4 %; Neutrophils # 7.2 K/mcL (1.6-8.9); Platelet Count 287 K/mcL (140-400); Red Blood Count 2.43 M/mcL (3.82-4.97); Red Cell Distribution Width 16.4 % (11.5-14.5); Segmented Neutrophils % 84.5 %
--- NOTE | 2016-06-15 08:35 | Pulmonology Progress Note ---
<Aldo Gee - Last Filed: 06/15/16 10:50> Date of Encounter: 06/15/16 Time of Encounter: 08:35 Assessment and Plan (1) Hypotension Current Visit: Yes Status: Acute Resolved. Her blood pressure has been stable for last few days. Unclear etiology for her initial hypotension, her echo from 1 months ago showed preserved ejection fraction with normal left ventricular systolic function, patient was not in septic shock, unlikely infectious etiology based on her clinical symptoms, however she does have a low albumin level of 1.4, her hypotension could relate to hypoalbuminemia and third spacing which could be causing anasarca and b/l pedal edema, now she is off of levophed, currently on albumin IV infusion, followed by IV lasix, will stop midodrine since she has been hypertensive for last few days, will con't to closely monitor her VS and clinical status in ICU. Qualifiers: Qualified Code(s): I95.9 - Hypotension, unspecified (2) Altered mental status Current Visit: No Status: Acute Multifactorial in etiology and possibly sedating medications could also be contributing to this issue. Decreased the dose of her Neurontin to 100 mg by mouth twice a day in light of her renal function. She is also on melatonin, Remeron, and Restoril at night, consider holding these medications if her encephalopathy con't to worsens, or imaging her head. Qualifiers: Altered mental status type: unspecified Qualified Code(s): R41.82 - Altered mental status, unspecified (3) Multiple myeloma Current Visit: Yes Status: Chronic Patient sees Dr. Zepeda in [facility], [place], currently not getting radiation/chemotherapy due to recent infection and hospitalization. Follow-up with her primary oncologist as outpatient. Likely overall poor prognosis. Qualifiers: Multiple myeloma remission status: not in remission Qualified Code(s): C90.00 - Multiple myeloma not having achieved remission (4) CKD (chronic kidney disease), stage IV Current Visit: Yes Status: Acute Her Scr level has been stable for last few days even on lasix IV, almost 2L of urine output in last 24 hrs, negative 1 L fluid balance, nephrology on board, likely current her SCr at baseline, con't to avoid nephrotoxic agents and con't to monitor her renal function. (5) History of bacteremia Current Visit: Yes Status: Acute Patient was recently diagnosed with ESBL Escherichia coli UTI and bacteremia, currently on meropenem IV antibiotic treatment for total 14 days, stop day is today, ID on board. (6) Hypoalbuminemia Current Visit: No Status: Acute Likely 2/2 malnutrition and poor po intake. We will continue to infuse IV albumin, followed by IV Lasix, stop date has been put it for tomorrow, con't high protein diet as well. (7) Paroxysmal a-fib Current Visit: Yes Status: Acute This was recently diagnosed, currently amiodarone is on hold, pharmacy to dose Coumadin, INR has been supratherapeutic over the last few days, likely 2/2 coumadin over dosage on 06/12 and , likely it is at peak now and we should see decrease in INR tomorrow, con't to monitor her INR. (8) DM (diabetes mellitus), type 2 Current Visit: Yes Status: Chronic Patient is hypoglycemic in the morning, will adjust her current insulin regimen by decreasing basal dosage, continue Accu-Chek with sliding scale insulin. Qualifiers: Diabetes mellitus complication status: with kidney complications Diabetes mellitus complication detail: with chronic kidney disease Diabetes mellitus skilled nursing insulin use: with skilled nursing use Chronic kidney disease stage: stage 3 (moderate) Qualified Code(s): E11.22 - Type 2 diabetes mellitus with diabetic chronic kidney disease; N18.3 - Chronic kidney disease, stage 3 ( moderate); Z79.4 - halfway (current) use of insulin (9) Chronic anemia Current Visit: No Status: Acute S/p 2 units of PRBC on 06/10 and , hgb stable, not actively bleeding, con't to monitor. (10) Goals of care, counseling/discussion Current Visit: Yes Status: Acute Hx of multiple hospitalizations, overall poor prognosis multiple myeloma with plasmacytomas, palliative care has been consulted, will spoke to the team later today to have discussion of goal of care. (11) DVT prophylaxis Current Visit: No Status: Acute Supratherapeutic INR. Subjective Principal diagnosis: Hypotension Interval history: patient with a history of multiple myeloma and plasmacytoma, who was admitted to the hospital for change in mental status and hypotension, transferred from stepdown to ICU for persistent hypotension. Patient seen and examined. Patient is A and O x2, mental status is worse than yesterday, does not answer simple questions or follow simple commands, does not eat breakfast this AM. Objective PUL Vital signs: Last Vital Signs Temp 98.2 F 06/15/16 07:00 Pulse 108 06/15/16 08:00 Resp 18 06/15/16 08:00 BP 123/66 06/15/16 08:00 Pulse Ox 99 06/15/16 08:00 General appearance: no acute distress, other (A and Ox2, decreased mentation compared to yesterday) Eyes: nonicteric ENT: oropharynx moist Neck: supple Effort: normal Auscultation: bilateral: clear Cardiovascular: regular rate and rhythm Gastrointestinal: normoactive bowel sounds, soft, non-tender, non-distended Integumentary: other (multiple cutaneous plasmacytomas. The ones in the right thigh are weeping and dressed. She also has them on her right foot which is also dressed.) Extremities: no cyanosis, edema (+3 pitting pedal b/l), anasarca Musculoskeletal: no deformities pupils equal and round, unable to assess due to mental status Results - Laboratory Findings CBC and BMP: 06/15/16 08:19 06/15/16 03:30 PT/INR, D-dimer PT 43.2 Seconds (9.4-12.1) H 06/15/16 03:30 Abnormal lab findings: Abnormal lab results RBC 2.40 M/mcL (3.82-4.97) L 06/13/16 03:53 Hgb 7.0 g/dL (11.5-15.4) L 06/13/16 03:53 Hct 22.0 % (35.3-44.9) L 06/13/16 03:53 RDW 16.3 % (11.5-14.5) H 06/13/16 03:53 MPV 8.8 fL (9.4-12.4) L 06/13/16 03:53 Lymphocytes # 0.3 K/mcL (0.6-4.6) L 06/13/16 03:53 Hypersegmented Neuts Present (Not Present) A 06/13/16 03:53 Reactive Lymphocytes Present (Not Present) A 06/13/16 03:53 Toxic Granulation Present (Not Present) A 06/13/16 03:53 PT 43.2 Seconds (9.4-12.1) H 06/15/16 03:30 Carbon Dioxide 17 mEq/L (19-29) L 06/15/16 03:30 BUN 101 mg/dL (7-20) H 06/15/16 03:30 Creatinine 2.65 mg/dL (0.57-1.11) H 06/15/16 03:30 Est GFR ( Amer) 22 (> 60) L 06/15/16 03:30 Est GFR (Non-Af Amer) 18 (> 60) L 06/15/16 03:30 BUN/Creatinine Ratio 38 (6-26) H 06/15/16 03:30 Glucose 65 mg/dL (70-99) L 06/15/16 03:30 Calculated Osmolality 318 (280-300) H 06/15/16 03:30 Calcium 8.0 mg/dL (8.6-10.8) L 06/15/16 03:30 Phosphorus 5.9 mg/dL (2.3-4.7) H 06/09/16 15:00 Serum Total Protein 4.1 g/dL (6.0-8.3) L 06/09/16 15:00 Albumin 1.4 g/dL (3.5-5.0) L 06/09/16 15:00 Albumin/Globulin Ratio 0.5 (1.1-2.2) L 06/09/16 15:00 Urine Clarity Turbid (Clear) A 06/09/16 15:20 Urine Protein 100 mg/dL (Neg-Trace) H 06/09/16 15:20 Urine Blood Moderate (Negative) H 06/09/16 15:20 Urine Bilirubin Small (Negative) H 06/09/16 15:20 Ur Leukocyte Esterase Large (Negative) H 06/09/16 15:20 Urine Microscopic RBC 5-15 per hpf (0-3) H 06/09/16 15:20 Urine Microscopic WBC TNTC per hpf (0-3) H 06/09/16 15:20 Ur Squamous Epith Cells Many per lpf (None-Few) H 06/09/16 15:20 Ur Culture Indicated? YES (NO) A 06/09/16 15:20 - Clinical Findings Intake & Output: Intake & Output 06/14/16 06/15/16 06/15/16 23:59 07:59 15:59 Intake Total 420 / 420 300 / 300 Output Total 850 / 850 750 / 750 Balance -430 / -430 -450 / -450 Weight 143.698 kg Consult Discharge Plan - Plan Referrals: NO,PCP [Primary Care Provider] - ([facility] NO PCP APPOINTMENT NEEDED ) <Helena Johnson - Last Filed: 06/15/16 16:21> Objective PUL Vital signs: Last Vital Signs Temp 99.4 F 06/15/16 15:00 Pulse 110 06/15/16 15:10 Resp 20 06/15/16 15:00 BP 146/48 06/15/16 15:00 Pulse Ox 96 06/15/16 15:00 Results - Laboratory Findings CBC and BMP: 06/15/16 08:19 06/15/16 03:30 PT/INR, D-dimer PT 43.2 Seconds (9.4-12.1) H 06/15/16 03:30 Abnormal lab findings: Abnormal lab results RBC 2.43 M/mcL (3.82-4.97) L 06/15/16 08:19 Hgb 7.1 g/dL (11.5-15.4) L 06/15/16 08:19 Hct 22.1 % (35.3-44.9) L 06/15/16 08:19 RDW 16.4 % (11.5-14.5) H 06/15/16 08:19 MPV 9.3 fL (9.4-12.4) L 06/15/16 08:19 Lymphocytes # 0.2 K/mcL (0.6-4.6) L 06/15/16 08:19 Hypersegmented Neuts Present (Not Present) A 06/13/16 03:53 Reactive Lymphocytes Present (Not Present) A 06/13/16 03:53 Toxic Granulation Present (Not Present) A 06/13/16 03:53 Anisocytosis 1+ (Not Present) A 06/15/16 08:19 PT 43.2 Seconds (9.4-12.1) H 06/15/16 03:30 Carbon Dioxide 17 mEq/L (19-29) L 06/15/16 03:30 BUN 101 mg/dL (7-20) H 06/15/16 03:30 Creatinine 2.65 mg/dL (0.57-1.11) H 06/15/16 03:30 Est GFR ( Amer) 22 (> 60) L 06/15/16 03:30 Est GFR (Non-Af Amer) 18 (> 60) L 06/15/16 03:30 BUN/Creatinine Ratio 38 (6-26) H 06/15/16 03:30 Glucose 65 mg/dL (70-99) L 06/15/16 03:30 Calculated Osmolality 318 (280-300) H 06/15/16 03:30 Calcium 8.0 mg/dL (8.6-10.8) L 06/15/16 03:30 Phosphorus 5.9 mg/dL (2.3-4.7) H 06/09/16 15:00 Serum Total Protein 4.1 g/dL (6.0-8.3) L 06/09/16 15:00 Albumin 1.4 g/dL (3.5-5.0) L 06/09/16 15:00 Albumin/Globulin Ratio 0.5 (1.1-2.2) L 06/09/16 15:00 Urine Clarity Turbid (Clear) A 06/09/16 15:20 Urine Protein 100 mg/dL (Neg-Trace) H 06/09/16 15:20 Urine Blood Moderate (Negative) H 06/09/16 15:20 Urine Bilirubin Small (Negative) H 06/09/16 15:20 Ur Leukocyte Esterase Large (Negative) H 06/09/16 15:20 Urine Microscopic RBC 5-15 per hpf (0-3) H 06/09/16 15:20 Urine Microscopic WBC TNTC per hpf (0-3) H 06/09/16 15:20 Ur Squamous Epith Cells Many per lpf (None-Few) H 06/09/16 15:20 Ur Culture Indicated? YES (NO) A 06/09/16 15:20 - Clinical Findings Intake & Output: Intake & Output 06/15/16 06/15/16 06/15/16 07:59 15:59 23:59 Intake Total 300 / 300 100 / 100 Output Total 750 / 750 175 / 175 Balance -450 / -450 -75 / -75 Weight 143.698 kg - Attending Attestation I examined this patient and my medical decision-making was reviewed with the SALT MANAGER/PA/Advanced Practice Nurse/Resident Physician. I agree with the documented findings, disposition and treatment plan as described except to the extent set forth below. Patient seen and examined. Labs, radiology, chart personally reviewed. 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 Patient at risk of deteriorating secondary to possible hypoventilation. Cardiovascular: stable GI: Nutrition per dietary and GI prophylaxis per routine Heme: DVT prophylaxis per routine Renal; urine out put and renal funtion reviewed Endorcine: blood glucose is monitored Lines: all lines checked and no evidence of infections Skin: skin care to prevent pressure ulcers per nursing routine care Palliative care and prognosis and possible transfer in next 24 hours, if remain stable.
--- NOTE | 2016-06-15 08:56 | Nephrology Progress Note ---
Date of Encounter: 06/15/16 Time of Encounter: 08:54 - Assessment and Plan (1) Chronic kidney disease, stage IV (severe) Current Visit: Yes Status: Acute Patient has stage IV chronic kidney disease and volume overload. She is responding to the diuretics. Her renal function is stable. Unfortunately her overall prognosis is very poor because of the multiple myeloma and plasmacytoma which have failed therapy. There is no indication for dialysis currently. Should the patient's renal function worsen I do not believe that she would be a dialysis candidate because of her overall poor prognosis. (2) Multiple myeloma, failed remission Current Visit: No Status: Chronic (3) Mass of right lower extremity Current Visit: No Status: Acute (4) Altered mental status Current Visit: No Status: Acute Qualifiers: Altered mental status type: unspecified Qualified Code(s): R41.82 - Altered mental status, unspecified Subjective Principal diagnosis: Hypotension Interval history: Patient remains lethargic. Urine output is recorded as 1.9 L. Renal function is essentially stable. Patient's family is at bedside. Vital signs are stable. Objective - Vital Signs Vital signs: Vital Signs Temp Pulse Resp BP Pulse Ox 06/15/16 08:00 108 18 123/66 99 06/15/16 07:50 104 06/15/16 07:00 98.2 F 109 16 119/58 100 06/15/16 06:00 108 16 127/50 100 06/15/16 05:30 16 99 06/15/16 05:28 108 18 117/89 100 06/15/16 05:19 98.9 F 06/15/16 04:00 91 18 149/48 96 06/15/16 03:00 97 14 152/58 97 06/15/16 02:30 97 14 149/72 97 06/15/16 01:00 87 16 150/51 97 06/15/16 00:29 99.3 F 06/15/16 00:00 89 16 149/67 96 06/14/16 23:00 95 16 154/52 96 06/14/16 22:00 94 18 161/53 96 06/14/16 21:30 90 18 134/52 97 06/14/16 21:25 98.4 F 06/14/16 20:00 90 18 141/60 95 06/14/16 19:00 89 16 138/64 95 06/14/16 18:15 98 16 149/46 97 06/14/16 17:00 86 18 146/63 98 06/14/16 16:00 98.4 F 88 18 149/59 97 06/14/16 15:00 80 18 140/55 98 06/14/16 14:00 89 18 131/53 99 06/14/16 13:00 87 16 144/65 100 06/14/16 12:00 98.2 F 96 16 154/73 100 06/14/16 11:00 78 16 140/49 98 06/14/16 10:00 91 16 144/62 99 06/14/16 09:31 98.1 F 06/14/16 09:17 77 16 132/46 97 Intake and Output 06/14/16 06/15/16 06/15/16 23:59 07:59 15:59 Intake Total 420 / 420 300 / 300 Output Total 850 / 850 750 / 750 Balance -430 / -430 -450 / -450 Intake: IV Fluids 300 / 300 300 / 300 Flexbumin 25 gm In 100 ml 200 / 200 200 / 200 @ 60 mls/hr IVPB Q6H EDD[facility] Rx#:[id number] Merrem 1,000 MG In 0.9 % 100 / 100 100 / 100 Sodium Chloride (Mini-Bag +) 100 ML @ 200 mls/hr IVPB Q12H EDDIE Rx#: [id number] Oral 120 / 120 0 / 0 Output: Urine 300 / 300 200 / 200 Urethral (Choi) 300 / 300 200 / 200 Catheter 550 / 550 550 / 550 Other: Weight 143.698 kg Blood Glucose* 114 66 Patient Weight 06/15/16 23:59 Weight 143.698 kg - General Appearance Exam: Patient is lethargic. She is in no acute distress. She is resting comfortably. Lungs to manage breath sounds. Heart regular rate and rhythm. Abdomen is obese. No guarding or rigidity. There is continued lower extremity swelling along with plasmacytoma of the right lower extremity. - Lab 06/15/16 08:19 06/15/16 03:30 Most recent lab results Calcium 8.0 mg/dL (8.6-10.8) L 06/15/16 03:30 Phosphorus 5.9 mg/dL (2.3-4.7) H 06/09/16 15:00 Magnesium 1.9 mg/dL (1.6-2.6) 06/09/16 15:00 Consult Discharge Plan - Plan Referrals: NO,PCP [Primary Care Provider] - (PATIENT IS FROM [facility] NO PCP APPOINTMENT NEEDED )
[2016-06-15 09:13] LABS: Anisocytosis 1+ (Not Present); Platelet Estimate Normal (Normal)
[2016-06-15] MEDS: Sennosides/Docusate Sodium TABLET PO SCH ×2 (09:20→20:24)
[2016-06-15] MEDS: Folic Acid 1 MG TABLET PO SCH (09:20)
[2016-06-15] MEDS: Gabapentin 100 MG CAPSULE PO SCH (09:21)
[2016-06-15] MEDS: Fluticasone Propionate Nasal 50 MCG/SPRAY BOTTLE NS SCH (09:21)
[2016-06-15] MEDS: Aspirin 81 MG TAB.CHEW PO SCH (09:21)
[2016-06-15] MEDS: GuaiFENesin/Dextromethorphan TABLET PO SCH ×2 (09:21→20:23)
[2016-06-15] MEDS: Saline Nasal Spray 44 ML BOTTLE NS SCH ×3 (09:22→21:42)
--- NOTE | 2016-06-15 10:38 | Infectious Disease Progress No ---
Date of Encounter: 06/15/16 Time of Encounter: 10:35 - Assessment and Plan (1) Hypotension Current Visit: Yes Status: Acute Responsive to IV fluids and albumin infusions. Likely multifactorial --> poor PO intake + medication effects (amiodarone, metoprolol, zanaflex). Low index of suspicion for new infectious etiology. She continues to be afebrile and HR normal. WBC remains normal as well. The patient has no complaints to indicate a new foci of infection. CXR negative. Urinalysis positive for TNTC WBC and leukocyte esterase, but no bacteria noted. Urine culture negative. Blood culture x 1 set drawn from the tunneled PICC 06/09/16 is positive for GPR, likely Corynebacterium. Peripheral blood culture drawn at the same time is NGTD. High index of suspicion that this is a contaminant given the patient's clinical picture and the fact that repeat cultures from the line are negative despite not having received any antibiotics that would cover potential GPR organisms. Blood cultures x 2 sets drawn 06/10/16 from the tunneled PICC are NGTD. Continue Meropenem 1 gram IV Q12H as prescribed for her previous UTI/ bacteremia. Treat through 06/16/16, then will likely discontinue. Monitor renal function and dose-adjust antibiotics based on creatinine clearance. Qualifiers: Hypotension type: other hypotension type Qualified Code(s): I95.89 - Other hypotension (2) Altered mental status, unspecified Current Visit: Yes Status: Acute Patient appears drowsy during exam, but is A/O x 3. Etiology unclear. Qualifiers: Altered mental status type: unspecified Qualified Code(s): R41.82 - Altered mental status, unspecified (3) Chronic anemia Current Visit: Yes Status: Acute Improved after 2 unit PRBC. Hgb stable around 7. No evidence of acute bleeding noted. Workup/management per the primary team. (4) Acute kidney injury superimposed on chronic kidney disease Current Visit: Yes Status: Acute Serum creatinine 2.71 on admission. Etiology likely multifactorial --> hypotension + dehydration. Stable. Continue to monitor closely. Nephrology consulted and following. Dose-adjust antibiotics based on creatinine clearance. (5) Bacteremia Current Visit: No Status: Acute Diagnosed during previous hospitalization and continues to undergo treatment. Blood cultures drawn 05/24/16 were positive 2/2 sets (peripheral). Blood cultures drawn 05/26/16 were positive 1/1 set (drawn peripherally). Additional blood cultures drawn 05/28/16 (from a-port) and 06/02/16 (drawn peripherally) were negative. Source was likely UTI with seeding of her a-port. A-port was removed 06/01/16. Tip culture was negative. Discharged 06/04/16 to complete a 14 day course. We recommended discharging on Ertapenem due to the once daily dosing, but apparently the patient was discharged on Meropenem Q12H (dose-adjusted for low CrCl). Continue Meropenem for now. Previous treatment was to continue through 06/16/16. Blood cultures drawn 06/09/16 x 1 set from the tunneled PICC is positive for GPR , likely corynebacterium. Final ID and sensitivities are pending. Blood culture drawn peripherally at the same time if NGTD. Additional cultures from the tunneled PICC line 06/10/16 are NGTD. High index of suspicion for contamination given the patient's clinical picture. Await final culture results. (6) IDDM (insulin dependent diabetes mellitus) Current Visit: No Status: Chronic (7) Multiple myeloma Current Visit: Yes Status: Chronic Follows with Dr. Zepeda with [facility]. Chemotherapy currently on hold due to infectious processes. Palliative care team consulted for treatment goal planning. Qualifiers: Multiple myeloma remission status: not in remission Qualified Code(s): C90.00 - Multiple myeloma not having achieved remission - Subjective Interval history: Patient seen and examined. Weekend notes reviewed. Patient transferred to the ICU on Wednesday for persistent hypotension which has resolved. Patient states she feels "pretty good this morning," but her mental status appears to have declined over the weekend. She denies fevers or chills. She denies pain when asked if she has any pain, but complains of pain in the chest and abdomen when asked about these specific locations. Denies fevers or chills. Denies nausea or vomiting. Denies abdominal pain. Daughter is at the bedside and states she is waiting for Palliative Care team to come talk to her. Choi remains in place and is patent. Denies oral thrush or new skin lesions. Denies extremity or back pain. Infect Dis PN-Objective Data - Labs CBC & Chem 7: 06/15/16 08:19 06/15/16 03:30 Labs: Laboratory Results - last 24 hr 06/14/16 06/14/16 06/14/16 11:58 16:30 20:42 WBC RBC Hgb Hct MCV MCH MCHC RDW Plt Count MPV Immature Gran % Seg Neutrophils % Lymphocytes % Monocytes % Eosinophils % Basophils % Neutrophils # Lymphocytes # Monocytes # Eosinophils # Basophils # Platelet Estimate Anisocytosis PT INR Sodium Potassium Chloride Carbon Dioxide BUN Creatinine Est GFR ( Amer) Est GFR (Non-Af Amer) BUN/Creatinine Ratio Glucose POC Glucose 92 H 89 114 H Calculated Osmolality Calcium 06/15/16 06/15/16 06/15/16 03:30 03:30 07:32 WBC RBC Hgb Hct MCV MCH MCHC RDW Plt Count MPV Immature Gran % Seg Neutrophils % Lymphocytes % Monocytes % Eosinophils % Basophils % Neutrophils # Lymphocytes # Monocytes # Eosinophils # Basophils # Platelet Estimate Anisocytosis PT 43.2 H INR 3.8 Sodium 139 Potassium 3.6 Chloride 108 Carbon Dioxide 17 L BUN 101 H Creatinine 2.65 H Est GFR ( Amer) 22 L Est GFR (Non-Af Amer) 18 L BUN/Creatinine Ratio 38 H Glucose 65 L POC Glucose 66 Calculated Osmolality 318 H Calcium 8.0 L 06/15/16 08:19 WBC 8.5 RBC 2.43 L Hgb 7.1 L Hct 22.1 L MCV 90.9 MCH 29.2 MCHC 32.1 RDW 16.4 H Plt Count 287 MPV 9.3 L Immature Gran % 0.9 Seg Neutrophils % 84.5 Lymphocytes % 2.2 Monocytes % 6.4 Eosinophils % 5.9 Basophils % 0.1 Neutrophils # 7.2 Lymphocytes # 0.2 L Monocytes # 0.5 Eosinophils # 0.5 Basophils # 0.0 Platelet Estimate Normal Anisocytosis 1+ A PT INR Sodium Potassium Chloride Carbon Dioxide BUN Creatinine Est GFR ( Amer) Est GFR (Non-Af Amer) BUN/Creatinine Ratio Glucose POC Glucose Calculated Osmolality Calcium Cultures: Cultures 06/10/16 17:15 Blood Culture - Preliminary Central Venous Catheter No growth. 06/10/16 16:20 Blood Culture - Preliminary Central Venous Catheter No growth. Exam - Constitutional Vitals: Temp Pulse Resp BP Pulse Ox 98.2 F 112 14 153/55 98 06/15/16 07:00 06/15/16 09:00 06/15/16 09:00 06/15/16 09:00 06/15/16 09:00 General appearance: cooperative, morbidly obese, no acute distress - Head Head exam: Present: atraumatic, normal inspection, normocephalic - Eye Eye exam: Present: EOMI, normal appearance Pupils: Present: normal accommodation, PERRL - ENT ENT exam: Present: mucous membranes dry - Neck Neck exam: Present: normal inspection - Respiratory Respiratory exam: Present: CTAB. Absent: rales, respiratory distress, rhonchi, wheezes - Cardiovascular Cardiovascular exam: Present: irregular rhythm. Absent: tachycardia - GI/Abdominal GI/Abdominal exam: Present: distended (obese), normal bowel sounds, soft. Absent: tenderness Additional comments: Choi catheter noted to be patent with clear yellow urine. - Extremities Exam Extremities exam: Present: pedal edema (BLE Lymphedema). Absent: joint swelling , tenderness Additional comments: Dressing to the right foot/ankle noted to be C/D/I. Right lateral thigh dressing C/D/I. - Neurological Exam Neurological exam: Present: altered (Drowsy, difficult to keep awake.), oriented X3, strengths equal and symetr throughout (Weak, but symmetrical bilaterally.) - Skin Skin exam: Present: dry, intact, pallor, warm Consult Discharge Plan - Plan Referrals: NO,PCP [Primary Care Provider] - ([facility] NO PCP APPOINTMENT NEEDED )
[2016-06-15] MEDS: Pantoprazole 40 MG VIAL IVP SCH (11:09)
--- NOTE | 2016-06-15 11:58 | Palliative - Consult Note ---
Date of Encounter: 06/15/16 Time of Encounter: 10:45 - Assessment and Plan (1) Goals of care, counseling/discussion Current Visit: Yes Status: Acute Assessment and plan: Discussed goals of care with the patient's [id number]/Vielka Vaughan. Prior discussions and advanced directives indicate that the patient did not want heroic measures taken in the event of a cardiac arrest. MARII Vaughan also indicated that the patient would not want to be placed on mechanical ventilation. Code status will be transitioned to DNR-Arrest/DO NOT INTUBATE to reflect the patient's prior known wishes. The patient was able to confirm her wishes following the conversation. student support services director will be following for further discharge planning needs. Goals of care evaluation ongoing pending clinical course. Will update oncology services. The palliative care team will continue to follow. (2) Multiple myeloma Current Visit: No Status: Chronic Assessment and plan: Follows with oncology and radiation oncology as an outpatient. Qualifiers: Multiple myeloma remission status: not in remission Qualified Code(s): C90.00 - Multiple myeloma not having achieved remission (3) Constipation Current Visit: No Status: Acute Assessment and plan: Senna plus 2 pills twice a day. Continue to monitor Qualifiers: Constipation type: unspecified constipation type Qualified Code(s): K59.00 - Constipation, unspecified (4) Cancer associated pain Current Visit: No Status: Acute Assessment and plan: Will D/C oral oxycodone/acetaminophen at this time as the patient cannot swallow and is lethargic at times. We will utilize IV hydromorphone as needed in the event of severe pain that is unrelieved by Tylenol. Proceed with pain management cautiously due to the patient's altered mental status. With also caution against utilizing morphine given the patient's stage IV chronic kidney disease. Palliative-CN HPI - Data of Consult Patient: new to practice Consult date: 06/15/16 Requesting Physician: Geno Caro MD Primary Care Provider: PCP NO - Consult Narrative Palliative Care/Comfort Measures: Palliative care Reason for consult: Goals of care History of present illness: Ms. Vaughan is a 70 year old female with a history of multiple myeloma that was diagnosed in March 2014. Ms. Vaughan follows with the [facility] for her care. She has undergone both chemotherapy and radiation. Radiation was to her right leg due to cutaneous lesions related to the multiple myeloma. Ms. Vaughan has been a resident of a local [facility] for the past year for ongoing medical needs. She has had 3 admissions in the past 2 months related to urinary tract infection. Most recently, she was discharged from the hospital to the extended care facility with IV antibiotics. Ms. Vaughan returns to [facility] with an altered mental status. She was found to be severely septic with a low blood pressure and altered mental status. Source is likely urinary tract as she had a recent UTI that was positive for ESBL, Escherichia coli. Upon admission to the hospital, the patient developed hypotension requiring transition to the intensive care unit for vasopressor therapy. She is also severely edematous with underlying chronic kidney disease stage IV. Her most recent albumin level on 06/09/2016 was 1.4. The palliative care team was consulted to assist with goals of care given the patient's chronic illnesses and fragile state. 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), coronary artery disease, diabetes (Type 2), renal disease (CKD stage IV) Psychiatric history: no psych history - Past Surgical History Surgical History: angioplasty/stent - Social History Smoking Status: Never smoker Smokeless Tobacco Status: No Alcohol use: none Drug use: none Current living situation: [facility]) Activity Level: Bed bound (for 2-3 months) - Family History Father Living Status: Hx Family Cardiac Disorders: Yes Hx Family Endocrine Disorder: Yes Sister Hx Family Cancer: Yes (kidney) Hx Family Endocrine Disorder: Yes Mother Living Status: Still Living Hx Family Cardiac Disorders: Yes (HTN) Hx Family Endocrine Disorder: Yes Medications and Allergies Atorvastatin Calcium [Lipitor] 20 mg PO DAILY 04/04/15 [History] Prochlorperazine Maleate [Compazine] 10 mg PO Q6H PRN 04/04/15 [History] Tizanidine HCl [Zanaflex] 4 mg PO Q8H PRN 04/04/15 [History] Folic Acid 1 mg PO DAILY #30 tablet 04/18/15 [Rx] Docusate [Colace] 100 mg PO DAILY PRN 04/22/15 [History] Insulin Glargine,Hum.rec.anlog [Lantus Solostar] 15 unit SQ HS 04/22/15 [History ] Insulin Glargine,Hum.rec.anlog [Lantus Solostar] 18 unit SQ QAM 04/22/15 [ History] Insulin LISPRO [HumaLOG] 0 unit SQ ACHS 04/22/15 [History] Melatonin 10 mg PO HS PRN 04/22/15 [History] Simethicone [Gas-X] 160 mg PO Q6H PRN 04/22/15 [History] Acetaminophen [Tylenol] 650 mg PO Q4H PRN 06/11/15 [History] Gabapentin [Neurontin] 300 mg PO BID 06/11/15 [History] Magnesium Hydroxide/Al Hydrox [Mag-Al Liquid] 30 ml PO BID PRN 06/11/15 [History ] Glucagon HCl 1 mg IJ ONCE PRN 12/27/15 [History] Fluticasone Propionate Nasal [Flonase] 100 mcg NS DAILY 02/18/16 [History] Furosemide [Lasix] 40 mg PO DAILY 02/18/16 [History] Albuterol Neb [Proventil Neb] 2.5 mg IH Q6H PRN 04/30/16 [History] GuaiFENesin/Dextromethorphan [Mucinex Dm ER 600-30 mg Tablet] 1 tab PO BID 04/30 [History] Mirtazapine 7.5 mg PO HS 04/30/16 [History] Ondansetron HCl [Zofran] 4 mg PO Q6H PRN 04/30/16 [History] Saline Nasal [place] [[place] Nasal [place]] 1 spray NS TID 04/30/16 [History] Tramadol HCl [Ultram] 50 mg PO BID 04/30/16 [History] Amiodarone [Cordarone] 200 mg PO BID #60 tablet 05/09/16 [Rx] Metoprolol XL (24 HR) Succ [Toprol Xl] 50 mg PO DAILY #30 tab.er.24h 05/09/16 [ Rx] Meropenem [Merrem] 1,000 mg IVPB Q8HR 13 Days 06/02/16 [Rx] Sennosides/Docusate Sodium [Senna Plus] 2 each PO BID #30 tablet 06/04/16 [Rx] Tramadol HCl [Ultram] 50 mg PO Q6H PRN #20 tablet 06/04/16 [Rx] Warfarin [Coumadin] 5 mg PO QPM #0 06/04/16 [Rx] Zolpidem [Ambien] 5 mg PO HS #7 tablet 06/04/16 [Rx] 0.9 % Sodium Chloride [Normal Saline Flush] 5 - 20 ml .ROUTE AD 06/09/16 [ History] Aspirin 81 mg PO DAILY 06/09/16 [History] Oxycodone HCl 10 mg PO TID PRN 06/09/16 [History] Temazepam [Restoril] 15 mg PO HS 06/09/16 [History] Allergies hydrocodone [From Vicodin] Allergy (Verified 04/04/15 11:12) Rash ROS unobtainable: due to mental status Palliative Care-Exam - Constitutional Vitals: Temp Pulse Resp BP Pulse Ox 98.2 F 110 18 134/49 97 06/15/16 07:00 06/15/16 11:00 06/15/16 11:00 06/15/16 11:00 06/15/16 11:00 General appearance: Present: cooperative, morbidly obese, no acute distress - Eye Eye exam: Present: EOMI - ENT ENT exam: Present: mucous membranes dry - Respiratory Respiratory exam: Present: decreased breath sounds (shallow). Absent: accessory muscle use, respiratory distress - Cardiovascular Cardiovascular exam: Present: RRR, tachycardia - GI/Abdominal Exam additional comments: abdomen large, firm/rounded, active bowel sounds - Catheter Type: Urethral (Cooper) (chronic cooper for one year) - Extremities Exam Extremities exam: Absent: normal inspection (severe edema R>L) - Expanded Upper Extremities Exam Forearm wrist exam: Present: swelling Hand wrist exam: Present: ecchymosis, swelling Vascular: Present: normal capillary refill - Expanded Lower Extremities Exam Lower Leg exam: Present: swelling - Neurological Exam Neurological exam: Present: alert (lethargic), strengths equal and symetr throughout (severe global weakness) - Expanded Neurological Exam Patient oriented to: Present: person, place - Psychiatric Psychiatric exam: Absent: agitated, anxious - Skin Skin exam: Present: dry, warm Additional comments: cutaneous lesions from cutaneous involvement of multiple myeloma noted to right leg, buttock, and trunk with dressings intact. Internal Medicine - CN: Reslt - Labs CBC & Chem 7: 06/16/16 03:20 06/16/16 03:20 Labs: Short CBC 06/15/16 Range/Units 08:19 WBC 8.5 (4.3-11.1) K/mcL Hgb 7.1 L (11.5-15.4) g/dL Hct 22.1 L (35.3-44.9) % Plt Count 287 (140-400) K/mcL Neutrophils # 7.2 (1.6-8.9) K/mcL BMP 06/15/16 03:30 Sodium 139 Potassium 3.6 Chloride 108 Carbon Dioxide 17 L BUN 101 H Creatinine 2.65 H Glucose 65 L Calcium 8.0 L - ABG Interpretation ABG results: PT/INR, D-dimer PT 43.2 Seconds (9.4-12.1) H 06/15/16 03:30 Consult Discharge Plan - Plan Referrals: NO,PCP [Primary Care Provider] - (PATIENT IS FROM [facility] NO PCP APPOINTMENT NEEDED ) Palliative Quality Palliative Quality: Screen for Code Status: Yes, Screen for Goals of Care: Yes, Screen for Pain: Yes, If Pain Regimen Started, Initiate Bowel Regimen: Yes, Screen for Nausea/Vomitting: Yes
[2016-06-15 17:00] LABS: ABG Base Excess -7.4 mEq/L (-2.0 to 3.0); ABG HCO3 16.7 mEQ/L (21-27); ABG Oxygen Saturation 98 % (95-98); ABG PCO2 27 mmHg (35-45); ABG PO2 98 mmHg (85-104); ABG TCO2 17.5 mEq/L (20-26)
[2016-06-15 17:01] LABS: Blood Gas FiO2 21 %
[2016-06-15] MEDS ORDERED: *HR* Metoprolol 5 MG/5 ML VIAL IVP ONE (17:52)
[2016-06-15] MEDS: Mirtazapine 15 MG TABLET PO SCH (20:24)
[2016-06-15] MEDS ORDERED: Insulin DETEMIR 100 UNIT/ML X5UNITS SQ SCH (21:00)
[2016-06-16] MEDS: *HR* HYDROmorphone 2 MG/ML SYRINGE IVP PRN ×3 (00:20→12:04)
[2016-06-16 03:47] LABS: Eosinophils # 0.4 K/mcL (0.0-0.6); Hematocrit 22.5 % (35.3-44.9); Immature Granulocytes % 1.1 % (0-4); Lymphocytes # 0.2 K/mcL (0.6-4.6); Lymphocytes % 2.4 %; Mean Corpuscular HGB Conc 31.1 g/dL (31.6-35.5); Mean Corpuscular Hemoglobin 28.8 pg (28.0-33.3); Mean Corpuscular Volume 92.6 fL (83.0-100.0); Mean Platelet Volume 9.2 fL (9.4-12.4); Monocytes # 0.4 K/mcL (0.0-1.3); Neutrophils # 6.6 K/mcL (1.6-8.9); Platelet Count 282 K/mcL (140-400); Red Blood Count 2.43 M/mcL (3.82-4.97); Red Cell Distribution Width 16.3 % (11.5-14.5); Segmented Neutrophils % 86.5 %
[2016-06-16 03:51] LABS: INR 2.8; Prothrombin Time 30.8 Seconds (9.4-12.1)
[2016-06-16 04:03] LABS: Calcium 7.8 mg/dL (8.6-10.8); Potassium 3.7 mEq/L (3.5-4.5)
[2016-06-16 04:34] LABS: Anisocytosis 1+ (Not Present); Platelet Estimate Normal (Normal)
[2016-06-16] MEDS: Insulin LISPRO 300 UNITS/3 ML VIAL SQ SCH ×3 (08:58→20:08)
[2016-06-16] MEDS ORDERED: Furosemide 40 MG/4 ML VIAL IVP SCH (09:00)
--- NOTE | 2016-06-16 09:07 | Pulmonology Progress Note ---
<Aldo Gee - Last Filed: 06/16/16 11:09> Date of Encounter: 06/16/16 Time of Encounter: 09:07 Assessment and Plan (1) Hypotension Current Visit: Yes Status: Acute Now off of levophed, midodrine, IV albumin, BP has been stable, hypotension resolved, her blood pressure has been stable for last few days. Unclear etiology for her initial hypotension, her echo from 1 months ago showed preserved ejection fraction with normal left ventricular systolic function, patient was not in septic shock, unlikely infectious etiology based on her clinical symptoms, however she does have a low albumin level of 1.4, her hypotension could be related to hypoalbuminemia and third spacing which could be causing her anasarca and b/l pedal edema, will transfer her out of ICU to medical floor today. Qualifiers: Qualified Code(s): I95.9 - Hypotension, unspecified (2) Altered mental status Current Visit: No Status: Acute Her mental status today slightly improved compare to yesterday after adjusting her nightly medications of gabapentin, melatonin and restoril. Multifactorial in etiology and possibly sedating medications could have been contributing to this issue. Last head CT was Apr this year which showed underlying atrophy, possible underlying early sign of dementia playing a role and getting worse with recent multiple hospitalization with infections, con't to closely monitor her mental status, fall/aspiration precautions. Qualifiers: Altered mental status type: unspecified Qualified Code(s): R41.82 - Altered mental status, unspecified (3) Multiple myeloma Current Visit: Yes Status: Chronic Patient sees Dr. Zepeda in [facility], currently not getting radiation/chemotherapy due to recent infection and hospitalization. Discussed pt 's current status in ICU with Oncology's nurse practioner, Dr. Zepeda will call me back later today to further discuss her prognosis, whether she can con' t to receive chemo or not, overall her prognosis is poor from our standpoint. Qualifiers: Multiple myeloma remission status: not in remission Qualified Code(s): C90.00 - Multiple myeloma not having achieved remission (4) CKD (chronic kidney disease), stage IV Current Visit: Yes Status: Acute Her Scr level has been stable for last few days even on lasix IV, almost negative 1 L fluid balance in last 24 hrs, nephrology on board, likely current her SCr at baseline, con't to avoid nephrotoxic agents and con't to monitor her renal function while she is on diuretic. (5) History of bacteremia Current Visit: Yes Status: Acute Patient was recently diagnosed with ESBL Escherichia coli UTI and bacteremia, finished meropenem IV antibiotic treatment for total 14 days yesterday, ID on board, currently not in septic, blood/urine cultures have been negative during this hospital stay. (6) Paroxysmal a-fib Current Visit: Yes Status: Acute This was recently diagnosed, currently amiodarone is on hold, pharmacy to dose Coumadin, INR now in therapeutic range, currently she has dysphagia issue and being in NPO, con't to monitor her INR for now, speech therapy has been consulted, if still con't not be able to swallow, then we might have to bridge her with heparin. (7) DM (diabetes mellitus), type 2 Current Visit: Yes Status: Chronic Patient is still hypoglycemic in the morning even after we decreased basal dosage yesterday, will hold basal for now, continue Accu-Chek with sliding scale insulin. Qualifiers: Diabetes mellitus complication status: with kidney complications Diabetes mellitus complication detail: with chronic kidney disease Diabetes mellitus intermediate designer insulin use: with intermediate designer use Chronic kidney disease stage: stage 3 (moderate) Qualified Code(s): E11.22 - Type 2 diabetes mellitus with diabetic chronic kidney disease; N18.3 - Chronic kidney disease, stage 3 ( moderate); Z79.4 - watermaster (current) use of insulin (8) Chronic anemia Current Visit: No Status: Acute S/p 2 units of PRBC on 06/10 and , hgb stable, not actively bleeding, con't to monitor. 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 Zepeda today to discuss her prognosis and will talk to palliative team again after the discussion with oncologist. (10) DVT prophylaxis Current Visit: No Status: Acute Therapeutic INR. Subjective Principal diagnosis: Hypotension Interval history: patient with a history of multiple myeloma and plasmacytoma, who was admitted to the hospital for change in mental status and hypotension, transferred from stepdown to ICU for persistent hypotension. Patient seen and examined. Patient is A and O x2, mental status is better than yesterday, can answer simple questions and follow commands, denies SOB or chest pain this AM, no acute event overnight, still not able to swallow med or foods. Objective PUL Vital signs: Last Vital Signs Temp 98.3 F 06/16/16 09:01 Pulse 104 06/16/16 08:50 Resp 18 06/16/16 08:50 BP 104/64 06/16/16 08:50 Pulse Ox 95 06/16/16 08:50 General appearance: no acute distress, other (A and Ox2, more alert than yesterday) Eyes: nonicteric ENT: oropharynx moist Neck: supple Effort: normal Auscultation: bilateral: rales (at base b/l) Cardiovascular: regular rate and rhythm Gastrointestinal: normoactive bowel sounds, soft, non-distended Integumentary: other (multiple cutaneous plasmacytomas. The ones in the right thigh are weeping and dressed. She also has them on her right foot which is also dressed) Extremities: no cyanosis, edema (+3 pitting pedal b/l), anasarca Musculoskeletal: no deformities non-focal exam, pupils equal and round, other (mental status still not back to baseline) Results - Laboratory Findings CBC and BMP: 06/16/16 03:20 06/16/16 03:20 ABG ABG pH 7.40 pH Units (7.32-7.45) 06/15/16 16:45 ABG pCO2 27 mmHg (35-45) L 06/15/16 16:45 ABG pO2 98 mmHg (85-104) 06/15/16 16:45 ABG O2 Saturation 98 % (95-98) 06/15/16 16:45 PT/INR, D-dimer PT 30.8 Seconds (9.4-12.1) H 06/16/16 03:20 Abnormal lab findings: Abnormal lab results RBC 2.43 M/mcL (3.82-4.97) L 06/16/16 03:20 Hgb 7.0 g/dL (11.5-15.4) L 06/16/16 03:20 Hct 22.5 % (35.3-44.9) L 06/16/16 03:20 MCHC 31.1 g/dL (31.6-35.5) L 06/16/16 03:20 RDW 16.3 % (11.5-14.5) H 06/16/16 03:20 MPV 9.2 fL (9.4-12.4) L 06/16/16 03:20 Lymphocytes # 0.2 K/mcL (0.6-4.6) L 06/16/16 03:20 Hypersegmented Neuts Present (Not Present) A 06/13/16 03:53 Reactive Lymphocytes Present (Not Present) A 06/13/16 03:53 Toxic Granulation Present (Not Present) A 06/13/16 03:53 Anisocytosis 1+ (Not Present) A 06/16/16 03:20 PT 30.8 Seconds (9.4-12.1) H 06/16/16 03:20 ABG pCO2 27 mmHg (35-45) L 06/15/16 16:45 ABG HCO3 16.7 mEQ/L (21-27) L 06/15/16 16:45 ABG Total CO2 17.5 mEq/L (20-26) L 06/15/16 16:45 ABG Base Excess -7.4 mEq/L (-2.0 to 3.0) L 06/15/16 16:45 Chloride 110 mEq/L (98-109) H 06/16/16 03:20 Carbon Dioxide 17 mEq/L (19-29) L 06/16/16 03:20 BUN 101 mg/dL (7-20) H 06/16/16 03:20 Creatinine 2.79 mg/dL (0.57-1.11) H 06/16/16 03:20 Est GFR ( Amer) 20 (> 60) L 06/16/16 03:20 Est GFR (Non-Af Amer) 17 (> 60) L 06/16/16 03:20 BUN/Creatinine Ratio 36 (6-26) H 06/16/16 03:20 Calculated Osmolality 323 (280-300) H 06/16/16 03:20 Calcium 7.8 mg/dL (8.6-10.8) L 06/16/16 03:20 Phosphorus 5.9 mg/dL (2.3-4.7) H 06/09/16 15:00 Serum Total Protein 4.1 g/dL (6.0-8.3) L 06/09/16 15:00 Albumin 1.4 g/dL (3.5-5.0) L 06/09/16 15:00 Albumin/Globulin Ratio 0.5 (1.1-2.2) L 06/09/16 15:00 Urine Clarity Turbid (Clear) A 06/09/16 15:20 Urine Protein 100 mg/dL (Neg-Trace) H 06/09/16 15:20 Urine Blood Moderate (Negative) H 06/09/16 15:20 Urine Bilirubin Small (Negative) H 06/09/16 15:20 Ur Leukocyte Esterase Large (Negative) H 06/09/16 15:20 Urine Microscopic RBC 5-15 per hpf (0-3) H 06/09/16 15:20 Urine Microscopic WBC TNTC per hpf (0-3) H 06/09/16 15:20 Ur Squamous Epith Cells Many per lpf (None-Few) H 06/09/16 15:20 Ur Culture Indicated? YES (NO) A 06/09/16 15:20 - Microbiology Findings Microbiology Findings: Microbiology, Last 48 Hours 06/10/16 17:15 Blood Culture - Final Central Venous Catheter No growth. 06/10/16 16:20 Blood Culture - Final Central Venous Catheter No growth. - Clinical Findings Intake & Output: Intake & Output 06/15/16 06/16/16 06/16/16 23:59 07:59 15:59 Intake Total 0 / 0 0 / 0 Output Total 300 / 300 100 / 100 100 / 100 Balance -300 / -300 -100 / -100 -100 / -100 Consult Discharge Plan - Plan Referrals: NO,PCP [Primary Care Provider] - (PATIENT IS FROM [facility] NO PCP APPOINTMENT NEEDED ) <Helena Johnson - Last Filed: 06/16/16 12:46> Objective PUL Vital signs: Last Vital Signs Temp 99.1 F 06/16/16 12:02 Pulse 106 06/16/16 11:00 Resp 18 06/16/16 11:00 BP 130/55 06/16/16 11:00 Pulse Ox 95 06/16/16 11:00 Results - Laboratory Findings CBC and BMP: 06/16/16 03:20 06/16/16 03:20 ABG ABG pH 7.40 pH Units (7.32-7.45) 06/15/16 16:45 ABG pCO2 27 mmHg (35-45) L 06/15/16 16:45 ABG pO2 98 mmHg (85-104) 06/15/16 16:45 ABG O2 Saturation 98 % (95-98) 06/15/16 16:45 PT/INR, D-dimer PT 30.8 Seconds (9.4-12.1) H 06/16/16 03:20 Abnormal lab findings: Abnormal lab results RBC 2.43 M/mcL (3.82-4.97) L 06/16/16 03:20 Hgb 7.0 g/dL (11.5-15.4) L 06/16/16 03:20 Hct 22.5 % (35.3-44.9) L 06/16/16 03:20 MCHC 31.1 g/dL (31.6-35.5) L 06/16/16 03:20 RDW 16.3 % (11.5-14.5) H 06/16/16 03:20 MPV 9.2 fL (9.4-12.4) L 06/16/16 03:20 Lymphocytes # 0.2 K/mcL (0.6-4.6) L 06/16/16 03:20 Hypersegmented Neuts Present (Not Present) A 06/13/16 03:53 Reactive Lymphocytes Present (Not Present) A 06/13/16 03:53 Toxic Granulation Present (Not Present) A 06/13/16 03:53 Anisocytosis 1+ (Not Present) A 06/16/16 03:20 PT 30.8 Seconds (9.4-12.1) H 06/16/16 03:20 ABG pCO2 27 mmHg (35-45) L 06/15/16 16:45 ABG HCO3 16.7 mEQ/L (21-27) L 06/15/16 16:45 ABG Total CO2 17.5 mEq/L (20-26) L 06/15/16 16:45 ABG Base Excess -7.4 mEq/L (-2.0 to 3.0) L 06/15/16 16:45 Chloride 110 mEq/L (98-109) H 06/16/16 03:20 Carbon Dioxide 17 mEq/L (19-29) L 06/16/16 03:20 BUN 101 mg/dL (7-20) H 06/16/16 03:20 Creatinine 2.79 mg/dL (0.57-1.11) H 06/16/16 03:20 Est GFR ( Amer) 20 (> 60) L 06/16/16 03:20 Est GFR (Non-Af Amer) 17 (> 60) L 06/16/16 03:20 BUN/Creatinine Ratio 36 (6-26) H 06/16/16 03:20 Calculated Osmolality 323 (280-300) H 06/16/16 03:20 Calcium 7.8 mg/dL (8.6-10.8) L 06/16/16 03:20 Phosphorus 5.9 mg/dL (2.3-4.7) H 06/09/16 15:00 Serum Total Protein 4.1 g/dL (6.0-8.3) L 06/09/16 15:00 Albumin 1.4 g/dL (3.5-5.0) L 06/09/16 15:00 Albumin/Globulin Ratio 0.5 (1.1-2.2) L 06/09/16 15:00 Urine Clarity Turbid (Clear) A 06/09/16 15:20 Urine Protein 100 mg/dL (Neg-Trace) H 06/09/16 15:20 Urine Blood Moderate (Negative) H 06/09/16 15:20 Urine Bilirubin Small (Negative) H 06/09/16 15:20 Ur Leukocyte Esterase Large (Negative) H 06/09/16 15:20 Urine Microscopic RBC 5-15 per hpf (0-3) H 06/09/16 15:20 Urine Microscopic WBC TNTC per hpf (0-3) H 06/09/16 15:20 Ur Squamous Epith Cells Many per lpf (None-Few) H 06/09/16 15:20 Ur Culture Indicated? YES (NO) A 06/09/16 15:20 - Microbiology Findings Microbiology Findings: Microbiology, Last 48 Hours 06/10/16 17:15 Blood Culture - Final Central Venous Catheter No growth. 06/10/16 16:20 Blood Culture - Final Central Venous Catheter No growth. - Clinical Findings Intake & Output: Intake & Output 06/15/16 06/16/1617 23:59 07:59 15:59 Intake Total 0 / 0 0 / 0 Output Total 300 / 300 100 / 100 250 / 250 Balance -300 / -300 -100 / -100 -250 / -250 - Attending Attestation I examined this patient and my medical decision-making was reviewed with the SUPERVISOR INSPECTION AND TESTING/PA/Advanced Practice Nurse/Resident Physician. I agree with the documented findings, disposition and treatment plan as described except to the extent set forth below. Patient seen and examined. Labs, radiology, chart personally reviewed. Agree with resident's history and physical, assessment, plan with following comments: IMPLEMENTATION ENGINEER: Patient follows commands, but she is very week. Pulmonary: Acceptable oxygenation and ventilation. She is at risk of worsening her condition due to not been active and risk of atelectasis and pneumonia. Cardiovascular: acceptable BP. Risk of bleeding with anticoagulation. GI: Nutrition per dietary and GI prophylaxis per routine. Patient not able to swallow and palliative care to continue discuss with family about goals of care. Heme: DVT prophylaxis per routine ID: She is at risk of hospital acquired infections. Renal; urine out put and renal funtion reviewed Endorcine: blood glucose is monitored Lines: all lines checked and no evidence of infections Skin: skin care to prevent pressure ulcers per nursing routine care Overall poor prognosis and palliative care to communicate with oncologist.
[2016-06-16] MEDS: Pantoprazole 40 MG VIAL IVP SCH (09:49)
[2016-06-16] MEDS: Folic Acid 1 MG TABLET PO SCH (09:57)
[2016-06-16] MEDS: Sennosides/Docusate Sodium TABLET PO SCH ×2 (09:57→20:11)
[2016-06-16] MEDS: GuaiFENesin/Dextromethorphan TABLET PO SCH (09:57)
[2016-06-16] MEDS: Aspirin 81 MG TAB.CHEW PO SCH (09:57)
[2016-06-16] MEDS: Fluticasone Propionate Nasal 50 MCG/SPRAY BOTTLE NS SCH (15:28)
[2016-06-16] MEDS: Saline Nasal Spray 44 ML BOTTLE NS SCH ×3 (15:28→22:57)
--- NOTE | 2016-06-16 15:37 | Palliative Progress Note ---
Date of Encounter: 06/16/16 Time of Encounter: 11:00 - Assessment and plan (1) Goals of care, counseling/discussion Current Visit: Yes Status: Acute Assessment and plan: Message left with healthcare POA-Amara Vaughan to update on plan of care. (2) Multiple myeloma Current Visit: No Status: Chronic Assessment and plan: Oncology following Qualifiers: Multiple myeloma remission status: not in remission Qualified Code(s): C90.00 - Multiple myeloma not having achieved remission (3) Constipation Current Visit: No Status: Acute Assessment and plan: Last BM was 06/11/16 and documented as copious. She has been unable to swallow medication for 3 days. Continue to monitor. Qualifiers: Constipation type: unspecified constipation type Qualified Code(s): K59.00 - Constipation, unspecified (4) Cancer associated pain Current Visit: No Status: Acute Assessment and plan: Ms. Vaughan has used 4 doses of hydromorphone in the past 24 hours. She is unable to take oral medications, continue to monitor. - Time Spent With Patient Total time spent is greater than 50% in coordination of care (as documented) at patient's floor/unit and/or counseling patient: - Subjective Interval history: Ms. Vaughan remains in the ICU, lethargic, unable to take PO. - Constitutional Vitals: Abnormal lab results RBC 2.43 M/mcL (3.82-4.97) L 06/16/16 03:20 Hgb 7.0 g/dL (11.5-15.4) L 06/16/16 03:20 Hct 22.5 % (35.3-44.9) L 06/16/16 03:20 MCHC 31.1 g/dL (31.6-35.5) L 06/16/16 03:20 RDW 16.3 % (11.5-14.5) H 06/16/16 03:20 MPV 9.2 fL (9.4-12.4) L 06/16/16 03:20 Lymphocytes # 0.2 K/mcL (0.6-4.6) L 06/16/16 03:20 Hypersegmented Neuts Present (Not Present) A 06/13/16 03:53 Reactive Lymphocytes Present (Not Present) A 06/13/16 03:53 Toxic Granulation Present (Not Present) A 06/13/16 03:53 Anisocytosis 1+ (Not Present) A 06/16/16 03:20 PT 30.8 Seconds (9.4-12.1) H 06/16/16 03:20 ABG pCO2 27 mmHg (35-45) L 06/15/16 16:45 ABG HCO3 16.7 mEQ/L (21-27) L 06/15/16 16:45 ABG Total CO2 17.5 mEq/L (20-26) L 06/15/16 16:45 ABG Base Excess -7.4 mEq/L (-2.0 to 3.0) L 06/15/16 16:45 Chloride 110 mEq/L (98-109) H 06/16/16 03:20 Carbon Dioxide 17 mEq/L (19-29) L 06/16/16 03:20 BUN 101 mg/dL (7-20) H 06/16/16 03:20 Creatinine 2.79 mg/dL (0.57-1.11) H 06/16/16 03:20 Est GFR ( Amer) 20 (> 60) L 06/16/16 03:20 Est GFR (Non-Af Amer) 17 (> 60) L 06/16/16 03:20 BUN/Creatinine Ratio 36 (6-26) H 06/16/16 03:20 Calculated Osmolality 323 (280-300) H 06/16/16 03:20 Calcium 7.8 mg/dL (8.6-10.8) L 06/16/16 03:20 Phosphorus 5.9 mg/dL (2.3-4.7) H 06/09/16 15:00 Serum Total Protein 4.1 g/dL (6.0-8.3) L 06/09/16 15:00 Albumin 1.4 g/dL (3.5-5.0) L 06/09/16 15:00 Albumin/Globulin Ratio 0.5 (1.1-2.2) L 06/09/16 15:00 Urine Clarity Turbid (Clear) A 06/09/16 15:20 Urine Protein 100 mg/dL (Neg-Trace) H 06/09/16 15:20 Urine Blood Moderate (Negative) H 06/09/16 15:20 Urine Bilirubin Small (Negative) H 06/09/16 15:20 Ur Leukocyte Esterase Large (Negative) H 06/09/16 15:20 Urine Microscopic RBC 5-15 per hpf (0-3) H 06/09/16 15:20 Urine Microscopic WBC TNTC per hpf (0-3) H 06/09/16 15:20 Ur Squamous Epith Cells Many per lpf (None-Few) H 06/09/16 15:20 Ur Culture Indicated? YES (NO) A 06/09/16 15:20 - Eye Eye exam: Present: EOMI, PERRL - Respiratory Respiratory exam: Present: decreased breath sounds. Absent: respiratory distress - Cardiovascular Cardiovascular exam: Present: RRR. Absent: systolic murmur - GI/Abdominal GI/Abdominal exam: Present: soft. Absent: tenderness - Extremities Exam Extremities exam: Present: pedal edema - Neurological Exam Neurological exam: Present: altered, strengths equal and symetr throughout ( global weakness) - Psychiatric Psychiatric exam: Absent: agitated, anxious - Skin Skin exam: Present: dry, warm Palliative Quality Palliative Quality: Screen for Code Status: Yes, Screen for Goals of Care: Yes, Screen for Pain: Yes, If Pain Regimen Started, Initiate Bowel Regimen: Yes, Screen for Nausea/Vomitting: Yes Code Status: 06/09/16 18:23 Resuscitation Status: Active [RES] Routine Comment: Resuscitation Status: [id number] - Labs CBC & Chem 7: 06/16/16 03:20 06/16/16 03:20 Labs: Laboratory Results - last 24 hr 06/15/16 06/15/16 06/15/16 16:45 20:17 23:34 WBC RBC Hgb Hct MCV MCH MCHC RDW Plt Count MPV Immature Gran % Seg Neutrophils % Lymphocytes % Monocytes % Eosinophils % Basophils % Neutrophils # Lymphocytes # Monocytes # Eosinophils # Basophils # Platelet Estimate Anisocytosis PT INR ABG pH 7.40 ABG pCO2 27 L ABG pO2 98 ABG HCO3 16.7 L ABG Total CO2 17.5 L ABG O2 Saturation 98 ABG Base Excess -7.4 L Blood Gas Modality RA Inspired O2 21 Sodium Potassium Chloride Carbon Dioxide BUN Creatinine Est GFR ( Amer) Est GFR (Non-Af Amer) BUN/Creatinine Ratio Glucose POC Glucose 85 90 H Calculated Osmolality Calcium 06/16/16 06/16/16 06/16/16 03:20 03:20 03:20 WBC 7.6 RBC 2.43 L Hgb 7.0 L Hct 22.5 L MCV 92.6 MCH 28.8 MCHC 31.1 L RDW 16.3 H Plt Count 282 MPV 9.2 L Immature Gran % 1.1 Seg Neutrophils % 86.5 Lymphocytes % 2.4 Monocytes % 5.0 Eosinophils % 5.0 Basophils % 0.0 Neutrophils # 6.6 Lymphocytes # 0.2 L Monocytes # 0.4 Eosinophils # 0.4 Basophils # 0.0 Platelet Estimate Normal Anisocytosis 1+ A PT 30.8 H INR 2.8 ABG pH ABG pCO2 ABG pO2 ABG HCO3 ABG Total CO2 ABG O2 Saturation ABG Base Excess Blood Gas Modality Inspired O2 Sodium 141 Potassium 3.7 Chloride 110 H Carbon Dioxide 17 L BUN 101 H Creatinine 2.79 H Est GFR ( Amer) 20 L Est GFR (Non-Af Amer) 17 L BUN/Creatinine Ratio 36 H Glucose 86 POC Glucose Calculated Osmolality 323 H Calcium 7.8 L 06/16/16 06/16/16 07:19 11:43 WBC RBC Hgb Hct MCV MCH MCHC RDW Plt Count MPV Immature Gran % Seg Neutrophils % Lymphocytes % Monocytes % Eosinophils % Basophils % Neutrophils # Lymphocytes # Monocytes # Eosinophils # Basophils # Platelet Estimate Anisocytosis PT INR ABG pH ABG pCO2 ABG pO2 ABG HCO3 ABG Total CO2 ABG O2 Saturation ABG Base Excess Blood Gas Modality Inspired O2 Sodium Potassium Chloride Carbon Dioxide BUN Creatinine Est GFR ( Amer) Est GFR (Non-Af Amer) BUN/Creatinine Ratio Glucose POC Glucose 87 85 Calculated Osmolality Calcium - Impressions Impressions Chest X-Ray 06/15/16 16:41 IMPRESSION: Hazy appearance of the lungs with nonspecific streaky opacities in the parahilar regions and lung bases which could represent edema/congestion. No substantial effusion or gross consolidation. D/ / 06/15/2016 17:51:30 Nela Rincon MD / Ella Dasilva Interpreting Provider: Nela Rincon MD - ABG Interpretation ABG results: ABG ABG pH 7.40 pH Units (7.32-7.45) 06/15/16 16:45 ABG pCO2 27 mmHg (35-45) L 06/15/16 16:45 ABG pO2 98 mmHg (85-104) 06/15/16 16:45 ABG O2 Saturation 98 % (95-98) 06/15/16 16:45 PT/INR, D-dimer PT 30.8 Seconds (9.4-12.1) H 06/16/16 03:20 Consult Discharge Plan - Plan Referrals: NO,PCP [Primary Care Provider] - ([facility] NO [facility]CP APPOINTMENT NEEDED )
--- NOTE | 2016-06-16 16:06 | Electrocardiograph Report ---
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
[2016-06-16] MEDS ORDERED: Mag Hydrox/Al Hydrox/Simeth 30 ML UDC PO PRN (16:08)
[2016-06-16] MEDS ORDERED: Warfarin perPT PO PRN (16:08)
[2016-06-16] MEDS ORDERED: Naloxone 0.4 MG/ML INJ IVP PRN (16:08)
[2016-06-16] MEDS ORDERED: *HR* Dextrose 50 % in Water (Syg) 50 ML SYRINGE IVP PRN (16:08)
[2016-06-16] MEDS ORDERED: Albuterol 2.5 MG/3 ML NEBULIZER IH PRN (16:08)
[2016-06-16] MEDS ORDERED: Acetaminophen 325 MG TABLET PO PRN (16:08)
[2016-06-16] MEDS ORDERED: D5% in Water 1,000 ML IV PRN (16:08)
[2016-06-16] MEDS ORDERED: Simethicone 80 MG TAB.CHEW PO PRN (16:08)
[2016-06-16] MEDS ORDERED: Ondansetron 4 MG/2 ML VIAL IVP PRN (16:08)
[2016-06-16] MEDS ORDERED: Dextrose Gel 15 GM PO PRN ×2 (16:08)
[2016-06-16] MEDS ORDERED: *HR* Warfarin 5 MG TABLET PO SCH (18:00)
[2016-06-16] MEDS ORDERED: Insulin LISPRO 300 UNITS/3 ML VIAL SQ SCH (21:00)
[2016-06-16] MEDS ORDERED: Mirtazapine 15 MG TABLET PO SCH (21:00)
[2016-06-16] MEDS ORDERED: GuaiFENesin/Dextromethorphan TABLET PO SCH (21:00)
[2016-06-17] MEDS: *HR* HYDROmorphone 2 MG/ML SYRINGE IVP PRN ×2 (00:15→04:32)
[2016-06-17 03:58] LABS: Calcium 7.9 mg/dL (8.6-10.8); INR 3.2; Potassium 4.2 mEq/L (3.5-4.5)
[2016-06-17] MEDS ORDERED: Scopolamine Patch 1.5 MG PATCH.TD72 TD ONE (08:17)
--- NOTE | 2016-06-17 08:45 | Pulmonology Progress Note ---
<Helena Johnson M - Last Filed: 06/17/16 09:16> Objective PUL Vital signs: Last Vital Signs Temp 98.1 F 06/17/16 08:06 Pulse 101 06/17/16 09:07 Resp 15 06/17/16 09:07 BP 87/45 06/17/16 09:07 Pulse Ox 96 06/17/16 09:07 Results - Laboratory Findings CBC and BMP: 06/16/16 03:20 06/17/16 03:40 ABG ABG pH 7.40 pH Units (7.32-7.45) 06/15/16 16:45 ABG pCO2 27 mmHg (35-45) L 06/15/16 16:45 ABG pO2 98 mmHg (85-104) 06/15/16 16:45 ABG O2 Saturation 98 % (95-98) 06/15/16 16:45 PT/INR, D-dimer PT 36.0 Seconds (9.4-12.1) H 06/17/16 03:40 Abnormal lab findings: Abnormal lab results RBC 2.43 M/mcL (3.82-4.97) L 06/16/16 03:20 Hgb 7.0 g/dL (11.5-15.4) L 06/16/16 03:20 Hct 22.5 % (35.3-44.9) L 06/16/16 03:20 MCHC 31.1 g/dL (31.6-35.5) L 06/16/16 03:20 RDW 16.3 % (11.5-14.5) H 06/16/16 03:20 MPV 9.2 fL (9.4-12.4) L 06/16/16 03:20 Lymphocytes # 0.2 K/mcL (0.6-4.6) L 06/16/16 03:20 Hypersegmented Neuts Present (Not Present) A 06/13/16 03:53 Reactive Lymphocytes Present (Not Present) A 06/13/16 03:53 Toxic Granulation Present (Not Present) A 06/13/16 03:53 Anisocytosis 1+ (Not Present) A 06/16/16 03:20 PT 36.0 Seconds (9.4-12.1) H 06/17/16 03:40 ABG pCO2 27 mmHg (35-45) L 06/15/16 16:45 ABG HCO3 16.7 mEQ/L (21-27) L 06/15/16 16:45 ABG Total CO2 17.5 mEq/L (20-26) L 06/15/16 16:45 ABG Base Excess -7.4 mEq/L (-2.0 to 3.0) L 06/15/16 16:45 Chloride 111 mEq/L (98-109) H 06/17/16 03:40 Carbon Dioxide 15 mEq/L (19-29) L 06/17/16 03:40 BUN 105 mg/dL (7-20) H 06/17/16 03:40 Creatinine 3.12 mg/dL (0.57-1.11) H 06/17/16 03:40 Est GFR ( Amer) 18 (> 60) L 06/17/16 03:40 Est GFR (Non-Af Amer) 15 (> 60) L 06/17/16 03:40 BUN/Creatinine Ratio 34 (6-26) H 06/17/16 03:40 POC Glucose 120 (58-89) H 06/17/16 08:14 Calculated Osmolality 329 (280-300) H 06/17/16 03:40 Calcium 7.9 mg/dL (8.6-10.8) L 06/17/16 03:40 Phosphorus 5.9 mg/dL (2.3-4.7) H 06/09/16 15:00 Serum Total Protein 4.1 g/dL (6.0-8.3) L 06/09/16 15:00 Albumin 1.4 g/dL (3.5-5.0) L 06/09/16 15:00 Albumin/Globulin Ratio 0.5 (1.1-2.2) L 06/09/16 15:00 Urine Clarity Turbid (Clear) A 06/09/16 15:20 Urine Protein 100 mg/dL (Neg-Trace) H 06/09/16 15:20 Urine Blood Moderate (Negative) H 06/09/16 15:20 Urine Bilirubin Small (Negative) H 06/09/16 15:20 Ur Leukocyte Esterase Large (Negative) H 06/09/16 15:20 Urine Microscopic RBC 5-15 per hpf (0-3) H 06/09/16 15:20 Urine Microscopic WBC TNTC per hpf (0-3) H 06/09/16 15:20 Ur Squamous Epith Cells Many per lpf (None-Few) H 06/09/16 15:20 Ur Culture Indicated? YES (NO) A 06/09/16 15:20 - Microbiology Findings Microbiology Findings: Microbiology, Last 48 Hours 06/10/16 17:15 Blood Culture - Final Central Venous Catheter No growth. 06/10/16 16:20 Blood Culture - Final Central Venous Catheter No growth. - Clinical Findings Intake & Output: Intake & Output 06/16/16 06/17/16 06/17/16 23:59 07:59 15:59 Intake Total 0 / 0 0 / 0 Output Total 0 / 0 125 / 125 0 / 0 Balance 0 / 0 -125 / -125 0 / 0 Weight 142.337 kg Consult Discharge Plan - Plan Referrals: NO,PCP [Primary Care Provider] - (PATIENT IS FROM [facility] NO PCP APPOINTMENT NEEDED ) - Attending Attestation I examined this patient and my medical decision-making was reviewed with the SOAPING DEPARTMENT SUPERVISOR/PA/Advanced Practice Nurse/Resident Physician. I agree with the documented findings, disposition and treatment plan as described except to the extent set forth below. Patient seen and examined. Labs, radiology, chart personally reviewed. Agree with resident's history and physical, assessment, plan with following comments: SIDE SAWYER: Patient doesn't follows commands, She has received pain medication, will give Narcan to see response. I feel her mental status change is multifactorial. Pulmonary: Patient at risk of pneumonia and hypoventilation. Due to mental status change, not candidate for NIV and patient DNI Cardiovascular: hypotensive. Fluid bolus. GI: Nutrition per dietary and GI prophylaxis per routine. Poor nutrition status and not able to swallow. Need to discuss with family about feeding. Heme: DVT prophylaxis per routine ID: Completed her treatment Renal; urine out put and renal funtion reviewed Endorcine: blood glucose is monitored Lines: all lines checked and no evidence of infections Skin: skin care to prevent pressure ulcers per nursing routine care Prognosis very poor and I feel patient might deteriorate further and family to be notified. <Aldo Gee - Last Filed: 06/17/16 09:57> Date of Encounter: 06/17/16 Time of Encounter: 08:41 Assessment and Plan (1) Hypotension Current Visit: Yes Status: Acute Overnight she was hypotensive, MAP was below 60 this morning, her mental status is worse than yesterday, does not respond well to stimuli, patient might be in process of dying, daughter at the bedside was updated about patient's current medical status, she is now off of levophed, midodrine, and IV albumin, at this point, we will continue to closely monitor her vital signs and clinical status in ICU. Qualifiers: Qualified Code(s): I95.9 - Hypotension, unspecified (2) Altered mental status Current Visit: No Status: Acute Her mental status is worsening yesterday, her MAP is below 60 this AM, worsening renal function with only 400 ml urine outpt w/in last 24 hrs, could be multifactorial in etiology with low perfusion to brain and kidneys causing decrease in mental status on top of uremia, her night sedating meds were adjusted two days ago with not much of improvement, now she is NPO, recommended by speech therapy as well, con't to monitor her mental status, she did not respond to first narcan that much, will try another dose now, possible process of dying. Qualifiers: Altered mental status type: unspecified Qualified Code(s): R41.82 - Altered mental status, unspecified (3) Multiple myeloma Current Visit: Yes Status: Chronic Patient sees Dr. Zepeda in [facility], currently not getting radiation/chemotherapy due to recent infection and hospitalization. Discussed pt 's current status in ICU with Dr. Zepeda yesterday. Overall poor prognosis, unlikely that she can con't to have chemo at this point. Qualifiers: Multiple myeloma remission status: not in remission Qualified Code(s): C90.00 - Multiple myeloma not having achieved remission (4) CKD (chronic kidney disease), stage IV Current Visit: Yes Status: Acute Her Scr level is worse than yesterday, MAP is below 60, possible hypoperfusion of kidney causing low urine output, nephrology is on board, will con't to closely monitor her renal function, lasix is on hold. (5) History of bacteremia Current Visit: Yes Status: Acute Patient was recently diagnosed with ESBL Escherichia coli UTI and bacteremia, finished meropenem IV antibiotic treatment for total 14 days two days ago, ID on board, currently not in septic, blood/urine cultures have been negative during this hospital stay. (6) Paroxysmal a-fib Current Visit: Yes Status: Acute This was recently diagnosed, currently amiodarone is on hold, pharmacy to dose Coumadin, INR now in supratherapeutic range, currently she has dysphagia issue and being in NPO, con't to monitor her INR for now, speech therapy has been consulted, if still con't not be able to swallow, then we might have to bridge her with heparin when her INR drops to below 2. (7) DM (diabetes mellitus), type 2 Current Visit: Yes Status: Chronic Her AM glucose improved after holding basal dosage as she is NPO now, continue Accu-Chek with sliding scale insulin. Qualifiers: Diabetes mellitus complication status: with kidney complications Diabetes mellitus complication detail: with chronic kidney disease Diabetes mellitus exterminator helper insulin use: with exterminator helper use Chronic kidney disease stage: stage 3 (moderate) Qualified Code(s): E11.22 - Type 2 diabetes mellitus with diabetic chronic kidney disease; N18.3 - Chronic kidney disease, stage 3 ( moderate); Z79.4 - terminal gauger supervisor (current) use of insulin (8) Chronic anemia Current Visit: No Status: Acute S/p 2 units of PRBC on 06/10 and , hgb stable, not actively bleeding, con't to monitor. 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 (10) DVT prophylaxis Current Visit: No Status: Acute Supratherapeutic INR. Subjective Principal diagnosis: Hypotension Interval history: patient with a history of multiple myeloma and plasmacytoma, who was admitted to the hospital for change in mental status and hypotension, transferred from stepdown to ICU for hypotension. Patient seen and examined. Overnight patient was hypotensive, MAP this morning was below 60, Patient is A and O x0, her mental status is worsen than yesterday , does not answer simple questions or follow commands, still not able to swallow med or foods. Objective PUL Vital signs: Last Vital Signs Temp 98.1 F 06/17/16 08:06 Pulse 102 06/17/16 08:00 Resp 16 06/17/16 08:00 BP 74/43 06/17/16 08:00 Pulse Ox 96 06/17/16 08:00 General appearance: other (A and Ox0, slight respiratory distress, on nasal cannula, labored and shallow respiratory effort) Eyes: nonicteric ENT: oropharynx moist Neck: supple Effort: mildly labored Auscultation: bilateral: rales (Upper and lower diffuse bilaterally) Cardiovascular: other (Regular rhythm but tachycardic) Gastrointestinal: normoactive bowel sounds, non-distended Integumentary: other (multiple cutaneous plasmacytomas. The ones in the right thigh are weeping and dressed. She also has them on her right foot which is also dressed) Extremities: no cyanosis, edema (+3 pitting pedal b/l), anasarca pupils equal and round, unable to assess due to mental status Results - Laboratory Findings CBC and BMP: 06/16/16 03:20 06/17/16 03:40 ABG ABG pH 7.40 pH Units (7.32-7.45) 06/15/16 16:45 ABG pCO2 27 mmHg (35-45) L 06/15/16 16:45 ABG pO2 98 mmHg (85-104) 06/15/16 16:45 ABG O2 Saturation 98 % (95-98) 06/15/16 16:45 PT/INR, D-dimer PT 36.0 Seconds (9.4-12.1) H 06/17/16 03:40 Abnormal lab findings: Abnormal lab results RBC 2.43 M/mcL (3.82-4.97) L 06/16/16 03:20 Hgb 7.0 g/dL (11.5-15.4) L 06/16/16 03:20 Hct 22.5 % (35.3-44.9) L 06/16/16 03:20 MCHC 31.1 g/dL (31.6-35.5) L 06/16/16 03:20 RDW 16.3 % (11.5-14.5) H 06/16/16 03:20 MPV 9.2 fL (9.4-12.4) L 06/16/16 03:20 Lymphocytes # 0.2 K/mcL (0.6-4.6) L 06/16/16 03:20 Hypersegmented Neuts Present (Not Present) A 06/13/16 03:53 Reactive Lymphocytes Present (Not Present) A 06/13/16 03:53 Toxic Granulation Present (Not Present) A 06/13/16 03:53 Anisocytosis 1+ (Not Present) A 06/16/16 03:20 PT 36.0 Seconds (9.4-12.1) H 06/17/16 03:40 ABG pCO2 27 mmHg (35-45) L 06/15/16 16:45 ABG HCO3 16.7 mEQ/L (21-27) L 06/15/16 16:45 ABG Total CO2 17.5 mEq/L (20-26) L 06/15/16 16:45 ABG Base Excess -7.4 mEq/L (-2.0 to 3.0) L 06/15/16 16:45 Chloride 111 mEq/L (98-109) H 06/17/16 03:40 Carbon Dioxide 15 mEq/L (19-29) L 06/17/16 03:40 BUN 105 mg/dL (7-20) H 06/17/16 03:40 Creatinine 3.12 mg/dL (0.57-1.11) H 06/17/16 03:40 Est GFR ( Amer) 18 (> 60) L 06/17/16 03:40 Est GFR (Non-Af Amer) 15 (> 60) L 06/17/16 03:40 BUN/Creatinine Ratio 34 (6-26) H 06/17/16 03:40 POC Glucose 120 (58-89) H 06/17/16 08:14 Calculated Osmolality 329 (280-300) H 06/17/16 03:40 Calcium 7.9 mg/dL (8.6-10.8) L 06/17/16 03:40 Phosphorus 5.9 mg/dL (2.3-4.7) H 06/09/16 15:00 Serum Total Protein 4.1 g/dL (6.0-8.3) L 06/09/16 15:00 Albumin 1.4 g/dL (3.5-5.0) L 06/09/16 15:00 Albumin/Globulin Ratio 0.5 (1.1-2.2) L 06/09/16 15:00 Urine Clarity Turbid (Clear) A 06/09/16 15:20 Urine Protein 100 mg/dL (Neg-Trace) H 06/09/16 15:20 Urine Blood Moderate (Negative) H 06/09/16 15:20 Urine Bilirubin Small (Negative) H 06/09/16 15:20 Ur Leukocyte Esterase Large (Negative) H 06/09/16 15:20 Urine Microscopic RBC 5-15 per hpf (0-3) H 06/09/16 15:20 Urine Microscopic WBC TNTC per hpf (0-3) H 06/09/16 15:20 Ur Squamous Epith Cells Many per lpf (None-Few) H 06/09/16 15:20 Ur Culture Indicated? YES (NO) A 06/09/16 15:20 - Microbiology Findings Microbiology Findings: Microbiology, Last 48 Hours 06/10/16 17:15 Blood Culture - Final Central Venous Catheter No growth. 06/10/16 16:20 Blood Culture - Final Central Venous Catheter No growth. - Clinical Findings Intake & Output: Intake & Output 06/16/16 06/17/16 06/17/16 23:59 07:59 15:59 Intake Total 0 / 0 0 / 0 Output Total 0 / 0 125 / 125 0 / 0 Balance 0 / 0 -125 / -125 0 / 0 Weight 142.337 kg
[2016-06-17] MEDS ORDERED: Aspirin 81 MG TAB.CHEW PO SCH (09:00)
[2016-06-17] MEDS ORDERED: Pantoprazole 40 MG VIAL IVP SCH (09:00)
[2016-06-17] MEDS ORDERED: Furosemide 40 MG/4 ML VIAL IVP SCH (09:00)
[2016-06-17] MEDS ORDERED: Folic Acid 1 MG TABLET PO SCH (09:00)
[2016-06-17] MEDS ORDERED: Fluticasone Propionate Nasal 50 MCG/SPRAY BOTTLE NS SCH (09:00)
[2016-06-17] MEDS: Insulin LISPRO 300 UNITS/3 ML VIAL SQ SCH (09:03)
[2016-06-17] MEDS: Saline Nasal Spray 44 ML BOTTLE NS SCH (09:04)
[2016-06-17] MEDS: Sennosides/Docusate Sodium TABLET PO SCH (09:04)
[2016-06-17] MEDS ORDERED: Atropine Sulfate 1% 40 DROP/2 ML BOTTLE SL PRN ×2 (10:47→11:35)
--- NOTE | 2016-06-17 10:53 | Event Note ---
Date of Encounter: 06/17/16 Time of Encounter: 10:51 Patient's status discussed with nursing staff. Patient's blood pressure has dropped and the patient is minimally responsive. Family has opted to change code status to DNR-CC. Antibiotics were discontinued 06/17/16 after the patient completed a 14 day course. No further recommendations from ID. Will sign off. Please re-consult if needed.
[2016-06-17] MEDS ORDERED: Lacri-Lube 3.5 GM TUBE BOTH EYES SCH ×2 (11:00→21:00)
--- NOTE | 2016-06-17 11:05 | Palliative Progress Note ---
Date of Encounter: 06/17/16 Time of Encounter: 10:30 - Assessment and plan (1) Goals of care, counseling/discussion Current Visit: Yes Status: Acute Assessment and plan: Family at bedside. Patient minimally responsive and B/P low, HR tachycardia. Discussed that patient has declined and is failed swallow evaluation. Family supports transition to comfort care. Mother at bedside and provided emotional support and education on disease process. Patient made DNRCC - Comfort Care and will transition to 2A Palliative bed when bed available. Patient dying with no urine output, cerebral decline and low B/P. (2) Cancer associated pain Current Visit: No Status: Acute Assessment and plan: Patient has Dilaudid IVP for comfort. Patient resting withh SOB. Discussed with nursing to administer if patient displays signs of discomfort. (3) Multiple myeloma Current Visit: No Status: Acute Qualifiers: Multiple myeloma remission status: not in remission Qualified Code(s): C90.00 - Multiple myeloma not having achieved remission (4) Morbid obesity Current Visit: No Status: Chronic Qualifiers: Obesity type: unspecified obesity type Qualified Code(s): E66.01 - Morbid ( severe) obesity due to excess calories (5) Anasarca Current Visit: No Status: Acute - Time Spent With Patient Total time spent is greater than 50% in coordination of care (as documented) at patient's floor/unit and/or counseling patient: 25 - 35 minutes - Subjective Interval history: Patient with decline in BP and now minimally responsive. Family at bedside and discussed transition to comfort care. Family supports transition to comfort care and will transfer to 2A. Patient with labored breathing and oral drooling. Provided oral care and educated patients on decline and relation to POC. - Constitutional Vitals: Abnormal lab results RBC 2.43 M/mcL (3.82-4.97) L 06/16/16 03:20 Hgb 7.0 g/dL (11.5-15.4) L 06/16/16 03:20 Hct 22.5 % (35.3-44.9) L 06/16/16 03:20 MCHC 31.1 g/dL (31.6-35.5) L 06/16/16 03:20 RDW 16.3 % (11.5-14.5) H 06/16/16 03:20 MPV 9.2 fL (9.4-12.4) L 06/16/16 03:20 Lymphocytes # 0.2 K/mcL (0.6-4.6) L 06/16/16 03:20 Hypersegmented Neuts Present (Not Present) A 06/13/16 03:53 Reactive Lymphocytes Present (Not Present) A 06/13/16 03:53 Toxic Granulation Present (Not Present) A 06/13/16 03:53 Anisocytosis 1+ (Not Present) A 06/16/16 03:20 PT 36.0 Seconds (9.4-12.1) H 06/17/16 03:40 ABG pCO2 27 mmHg (35-45) L 06/15/16 16:45 ABG HCO3 16.7 mEQ/L (21-27) L 06/15/16 16:45 ABG Total CO2 17.5 mEq/L (20-26) L 06/15/16 16:45 ABG Base Excess -7.4 mEq/L (-2.0 to 3.0) L 06/15/16 16:45 Chloride 111 mEq/L (98-109) H 06/17/16 03:40 Carbon Dioxide 15 mEq/L (19-29) L 06/17/16 03:40 BUN 105 mg/dL (7-20) H 06/17/16 03:40 Creatinine 3.12 mg/dL (0.57-1.11) H 06/17/16 03:40 Est GFR ( Amer) 18 (> 60) L 06/17/16 03:40 Est GFR (Non-Af Amer) 15 (> 60) L 06/17/16 03:40 BUN/Creatinine Ratio 34 (6-26) H 06/17/16 03:40 POC Glucose 120 (58-89) H 06/17/16 08:14 Calculated Osmolality 329 (280-300) H 06/17/16 03:40 Calcium 7.9 mg/dL (8.6-10.8) L 06/17/16 03:40 Phosphorus 5.9 mg/dL (2.3-4.7) H 06/09/16 15:00 Serum Total Protein 4.1 g/dL (6.0-8.3) L 06/09/16 15:00 Albumin 1.4 g/dL (3.5-5.0) L 06/09/16 15:00 Albumin/Globulin Ratio 0.5 (1.1-2.2) L 06/09/16 15:00 Urine Clarity Turbid (Clear) A 06/09/16 15:20 Urine Protein 100 mg/dL (Neg-Trace) H 06/09/16 15:20 Urine Blood Moderate (Negative) H 06/09/16 15:20 Urine Bilirubin Small (Negative) H 06/09/16 15:20 Ur Leukocyte Esterase Large (Negative) H 06/09/16 15:20 Urine Microscopic RBC 5-15 per hpf (0-3) H 06/09/16 15:20 Urine Microscopic WBC TNTC per hpf (0-3) H 06/09/16 15:20 Ur Squamous Epith Cells Many per lpf (None-Few) H 06/09/16 15:20 Ur Culture Indicated? YES (NO) A 06/09/16 15:20 - Head Head exam: Present: atraumatic - Eye Eye exam: Present: PERRL - ENT ENT exam: Present: mucous membranes moist - Neck Neck exam: Present: tenderness - Respiratory Respiratory exam: Present: decreased breath sounds - Expanded Respiratory Exam Location: decreased breath sounds: Left, Right, Lower - Cardiovascular Cardiovascular exam: Present: +S1, +S2, tachycardia - GI/Abdominal GI/Abdominal exam: Present: hypoactive bowel sounds - Rectal Rectal exam: Present: deferred - Additional comments: Choi catheter intact with zero output at present. - Extremities Exam Extremities exam: Present: pedal edema (Excessive anasarca to legs and arms) - Neurological Exam Neurological exam: Present: altered Palliative Quality Palliative Quality: Screen for Code Status: Yes, Screen for Goals of Care: Yes, Screen for Pain: Yes, If Pain Regimen Started, Initiate Bowel Regimen: Yes, Screen for Nausea/Vomitting: Yes Code Status: 06/09/16 18:23 Resuscitation Status: Active [RES] Routine Comment: Resuscitation Status: [id number] 06/17/16 10:47 DNR [Resuscitation Status: Active] [RES] Routine Comment: Resuscitation Status: DNR-Comfort Care - Labs CBC & Chem 7: 06/16/16 03:20 06/17/16 03:40 Labs: Laboratory Results - last 24 hr 06/16/16 06/16/16 06/17/16 11:43 19:18 03:40 PT 36.0 H INR 3.2 Sodium Potassium Chloride Carbon Dioxide BUN Creatinine Est GFR ( Amer) Est GFR (Non-Af Amer) BUN/Creatinine Ratio Glucose POC Glucose 85 98 H Calculated Osmolality Calcium 06/17/16 06/17/16 03:40 08:14 PT INR Sodium 143 Potassium 4.2 Chloride 111 H Carbon Dioxide 15 L BUN 105 H Creatinine 3.12 H Est GFR ( Amer) 18 L Est GFR (Non-Af Amer) 15 L BUN/Creatinine Ratio 34 H Glucose 90 POC Glucose 120 H Calculated Osmolality 329 H Calcium 7.9 L - ABG Interpretation ABG results: ABG ABG pH 7.40 pH Units (7.32-7.45) 06/15/16 16:45 ABG pCO2 27 mmHg (35-45) L 06/15/16 16:45 ABG pO2 98 mmHg (85-104) 06/15/16 16:45 ABG O2 Saturation 98 % (95-98) 06/15/16 16:45 PT/INR, D-dimer PT 36.0 Seconds (9.4-12.1) H 06/17/16 03:40 Consult Discharge Plan - Plan Referrals: NO,PCP [Primary Care Provider] - (PATIENT IS FROM [facility] NO PCP APPOINTMENT NEEDED )
--- NOTE | 2016-06-17 11:17 | Event Note ---
Date of Encounter: 06/17/16 Time of Encounter: 11:[address] Gee and discussed transfer to 2A palliative unit when bed is available. Medication list reviewed and comfort meds ordered. Will DC from ICU when bed is available.
[2016-06-17] MEDS ORDERED: Ondansetron 4 MG/2 ML VIAL IVP PRN (11:35)
[2016-06-17] MEDS ORDERED: Albuterol 2.5 MG/3 ML NEBULIZER IH PRN (11:35)
[2016-06-17] MEDS ORDERED: *HR* HYDROmorphone 2 MG/ML SYRINGE IVP PRN (11:35)
[2016-06-17] MEDS ORDERED: *HR* LORazepam 2 MG/ML VIAL IVP PRN (15:44)
[2016-06-17] MEDS ORDERED: Lacri-Lube 3.5 GM TUBE BOTH EYES PRN (15:45)
[2016-06-17 15:51] VITALS: BP 73/24
--- NOTE | 2016-06-17 16:54 | Death Note ---
<Adin Dunn - Last Filed: 06/17/16 16:51> Discharge Sum: Summary - Date and Time Date of admission: 06/10/16 14:51 Date of : 06/17/16 Time of : 16:46 - Summary Details: 70-year-old female history of multiple myeloma with plasmacytoma and recent hospitalization for ESBL producing Escherichia coli bacteremia presented to ER because of hypotension and confusion. Blood pressure on arrival was 70 over 30s. Family noticed that patient's urine looked darker over the past 2 days. Patient was started on meropenem at the senior living. During patient's admission stay she had complications of acute kidney injury injury superimposed on chronic kidney disease which was resistant to IV hydration. Hypotension initially resolved after fluid resuscitation and was thought to be related to underlying hypoalbuminemia. Serum lactic acid and troponin were noted to be normal. Blood cultures done in the hospital were +1/24 gram-positive rods which is likely a contaminant. On day 4 of admission patient hypotension worsened. She was started on Levaquin for a trip and transfer to the ICU. She was also given albumin IV infusions, and midodrine. Even with aggressive treatment patient's hypotension could not be improved. Her CODE STATUS was changed to DNR CCA DNI initially and then changed to DNR comfort care by family as patient's medical status declined. This included worsening hypotension, encephalopathy, decreasing urine output, tachycardia. Patient was started on Dilaudid for comfort. On 06/17/2016 at 16:46 hours patient was declared . She had no carotid pulse, no respirations and absent heart sounds. Family was at bedside. - Additional Data Confirmation of as documented by pronouncing clinician: no pulse, no respirations, no heart sounds, pupils fixed and dilated Family: at bedside Attending/PCP notified?: Yes Attending physician: Geno Caro MD Was code activated?: No Autopsy requested?: No sock examiner notified?: No Organ bank notified?: No Hospice patient?: No Discharge Sum: Diag - PCOD Probable Cause of : Cardiac arrest Discharge Sum: Prov - Provider Primary care physician: PCP NO Admitting clinician: Tuan Frazier Attending physician on admission: Geno Caro Consults: 06/15/16 08:13 Consult to Palliative Care [CONS] Routine Comment: goal of care, possible hospice Consulting Provider: Palliative Care Yvette Pronouncing clinician: Adin Dunn <Helena Johnson - Last Filed: 06/18/16 13:00> Discharge Sum: Summary - Date and Time Date of admission: 06/10/16 14:51 - Additional Data Attending physician: Geno Caro MD Discharge Sum: Prov - Provider Primary care physician: PCP NO Consults: 06/15/16 08:13 Consult to Palliative Care [CONS] Routine Comment: goal of care, possible hospice Consulting Provider: Palliative Care Yvette - Attending Attestation I examined this patient and my medical decision-making was reviewed with the ENGINE REPAIRER/PA/Advanced Practice Nurse/Resident Physician. I agree with the documented findings, disposition and treatment plan as described except to the extent set forth below. Patient prognosis is very poor and talked to family at bedside before and after she .
[2016-06-17] MEDS ORDERED: Sennosides/Docusate Sodium TABLET PO SCH (21:00)
== END 2016-06-17 16:49 | disposition expired | DRG 698 ==
LOC: 2NNU 13:18 → EMEROO 13:18 → SUATTDRO 17:17 → 2NNU 17:54 → ICNU 06-12 13:50
PROVIDERS: ADMIT Internal Medicine; ATTEND Internal Medicine